=== PATIENT | male | born 1960 | race African-American/Black ===

== ENCOUNTER 2018-09-27 17:08 | Inpatient (IN) | payer MEDICARE, OTHER ==
[~2018-09-27] VITALS: Ht 182.9 cm; Wt 113.5 kg
[2018-09-27] MEDS ORDERED: IV NORMAL SALINE 500ML BAG 500 ML IV ONE (18:00)
[2018-09-27 18:07] LABS: BASO % 0 % (0-3); EOS # 0.1 x10^3/uL (0.0-0.7); EOS % 1 % (0-3); HEMATOCRIT 41.4 % (39.0-53.0); HEMOGLOBIN 13.3 g/dL (13.0-17.5); LYMPH # 1.6 x10^3/uL (1.0-4.8); LYMPH % 27 % (24-48); MEAN CORPUSCULAR HEMOGLOBIN 27 pg (25-35); MEAN CORPUSCULAR HGB CONC 32 g/dL (31-37); MEAN CORPUSCULAR VOLUME 84 fL (79-100); MONO # 0.7 x10^3/uL (0.0-1.1); MONO % 11 % (0-9); NEUT # 3.8 x10^3uL (1.8-7.7); NEUT % 61 % (31-73); PLATELET COUNT 177 x10^3/uL (140-400); RED BLOOD COUNT 4.94 x10^6/uL (4.30-5.70); RED CELL DISTRIBUTION WIDTH 15.8 % (11.5-14.5); WHITE BLOOD COUNT 6.1 x10^3/uL (4.0-11.0)
[2018-09-27 18:19] LABS: CALCIUM 8.9 mg/dL (8.5-10.1); CREATININE 1.3 mg/dL (0.7-1.3); GFR 68.4; POTASSIUM 3.9 mmol/L (3.5-5.1)
[2018-09-27 18:25] LABS: ALBUMIN 3.5 g/dL (3.4-5.0); MAGNESIUM 2.1 mg/dL (1.8-2.4); TOTAL BILIRUBIN 0.3 mg/dL (0.2-1.0); TOTAL PROTEIN 7.1 g/dL (6.4-8.2)
--- NOTE | 2018-09-27 19:00 | PHYS DOC ---
Past Medical History Past Medical History: CVA, High Cholesterol, Hypertension (TITUS NIÑO APRN) Past Surgical History: No Surgical History (TITUS NIÑO APRN) Alcohol Use: Sober Drug Use: None (TITUS NIÑO APRN) Adult General Chief Complaint Chief Complaint: WEAKNESS/GENERALIZED HPI HPI 58-year-old male presents to ER via EMS from a local [facility] facility for reports of freq. falls. Patient's brother Alfredo is with the patient reports patient had fallen on Wednesday per the usp and was evaluated at [facility] on Wednesday. He reports neither him nor his sister went to the hospital and so they are uncertain as to test done on patient. They report patient was discharged back to the facility on Wednesday night and he has not had any additional reports the patient has fallen since Wednesday. At this time he reports pt is NL on MS. He reports he and his sister wanted pt to come in for re -evaluation. Pt is denying any complaints. Pt has hx of CVA with lt side deficits/weakness per his brother and facility paperwork. (TITUS NIÑO APRN) Review of Systems Review of Systems Pt is pleasantly confused is alert to self and is denying complaints. (TITUS NIÑO APRN) Current Medications Current Medications Current Medications Medications (Trade) Dose Ordered Sig/Arely Start Time Stop Time Status Last Admin Dose Admin Sodium Chloride 500 ml @ 500 mls/hr 1X ONCE 09/27/18 18:00 09/27/18 18:59 DC 09/27/18 18:35 500 MLS/HR (SUZI SENA DO) Physical Exam Physical Exam Constitutional: Well developed, well nourished, no acute distress, non-toxic appearance. Smiling at staff HENT: Normocephalic, atraumatic, bilateral ears normal, oropharynx moist, no oral injuries, nose normal. [] Eyes: 3mm PERRLA, no nystagmus, conjunctiva normal, no discharge. [] Neck: Normal range of motion, no tenderness on palp. of mid line spine- no palp. deformity, supple, no stridor. Trachea mid line Cardiovascular: Heart rate regular rhythm, no murmur [] Lungs & Thorax: Bilateral breath sounds clear to auscultation- resp. equal/ nonlabored. No chest wall tenderness or visible injuries Abdomen: Bowel sounds normal, soft, no tenderness, no masses, no pulsatile masses. [] Skin: Warm, dry, no erythema, no rash. [] Back: No tenderness on palp. mid line spine- no palp. deformity/visible injury, no CVA tenderness. [] Extremities: No tenderness, no cyanosis, no clubbing, ROM intact rt side- lt side deficits from previous CVA, no edema Neurologic: Alert and oriented self with pt's brother reporting pt is NL on MS, normal sensory function, no focal deficits noted. [] Psychologic: Affect normal and mood normal NL per his brother. No restlessness/ anxiety. [] (REFFITT,TITUS Ward APRN) Current Patient Data Vital Signs Vital Signs Date Time Temp Pulse Resp B/P (MAP) Pulse Ox O2 Delivery O2 Flow Rate FiO2 09/27/18 20:45 58 20 97 09/27/18 17:08 98.8 147/107 (120) Room Air 98.8 (SENA,SUZI Migdalia DO) Lab Values Laboratory Tests Test 09/27/18 17:17 09/27/18 17:27 09/27/18 19:25 Glucose (Fingerstick) 82 mg/dL (70-99) White Blood Count 6.1 x10^3/uL (4.0-11.0) Red Blood Count 4.94 x10^6/uL (4.30-5.70) Hemoglobin 13.3 g/dL (13.0-17.5) Hematocrit 41.4 % (39.0-53.0) Mean Corpuscular Volume 84 fL (79-100) Mean Corpuscular Hemoglobin 27 pg (25-35) Mean Corpuscular Hemoglobin Concent 32 g/dL (31-37) Red Cell Distribution Width 15.8 % (11.5-14.5) H Platelet Count 177 x10^3/uL (140-400) Neutrophils (%) (Auto) 61 % (31-73) Lymphocytes (%) (Auto) 27 % (24-48) Monocytes (%) (Auto) 11 % (0-9) H Eosinophils (%) (Auto) 1 % (0-3) Basophils (%) (Auto) 0 % (0-3) Neutrophils # (Auto) 3.8 x10^3uL (1.8-7.7) Lymphocytes # (Auto) 1.6 x10^3/uL (1.0-4.8) Monocytes # (Auto) 0.7 x10^3/uL (0.0-1.1) Eosinophils # (Auto) 0.1 x10^3/uL (0.0-0.7) Basophils # (Auto) 0.0 x10^3/uL (0.0-0.2) Sodium Level 148 mmol/L (136-145) H Potassium Level 3.9 mmol/L (3.5-5.1) Chloride Level 108 mmol/L (98-107) H Carbon Dioxide Level 28 mmol/L (21-32) Anion Gap 12 (6-14) Blood Urea Nitrogen 18 mg/dL (8-26) Creatinine 1.3 mg/dL (0.7-1.3) Estimated GFR (Cockcroft-Gault) 68.4 BUN/Creatinine Ratio 14 (6-20) Glucose Level 101 mg/dL (70-99) H Calcium Level 8.9 mg/dL (8.5-10.1) Magnesium Level 2.1 mg/dL (1.8-2.4) Total Bilirubin 0.3 mg/dL (0.2-1.0) Aspartate Amino Transferase (AST) 58 U/L (15-37) H Alanine Aminotransferase (ALT) 20 U/L (16-63) Alkaline Phosphatase 76 U/L (46-116) Troponin I Quantitative < 0.017 ng/mL (0.000-0.055) Total Protein 7.1 g/dL (6.4-8.2) Albumin 3.5 g/dL (3.4-5.0) Albumin/Globulin Ratio 1.0 (1.0-1.7) Urine Collection Type Unknown Urine Color Kayla Urine Clarity Clear Urine pH 5.5 Urine Specific [place] >=1.030 Urine Protein Negative mg/dL (NEG-TRACE) Urine Glucose (UA) Negative mg/dL (NEG) Urine Ketones (Stick) Negative mg/dL (NEG) Urine Blood Negative (NEG) Urine Nitrite Negative (NEG) Urine Bilirubin Small (NEG) Urine Urobilinogen Dipstick 1.0 mg/dL (0.2 mg/dL) Urine Leukocyte Esterase Negative (NEG) Urine RBC 0 /HPF (0-2) Urine WBC Rare /HPF (0-4) Urine Bacteria 0 /HPF (0-FEW) Urine Mucus Mod /LPF Laboratory Tests 09/27/18 17:27 Laboratory Tests 09/27/18 17:27 (SUZI SENA DO) EKG EKG EKG obtained 09/27/18 at 1725 Interpreted by ER physician Sinus rhythm Ltward axis Incomplete Rt BBB Rate 61 No STEMI (TITUS NIÑO APRN) Course & Med Decision Making Course & Med Decision Making Pertinent Labs and Imaging studies reviewed. (See chart for details) 1850: Received [facility] chart from patient's ER visit on Wednesday and they had done cardiac labs and EKG along with imaging of his chest and head. Discussed those results with patient's brother with findings unremarkable. Discussed EKG obtained here with No acute STEMI and troponin <0.017; UA neg. for infection. Other labs similar to those from . Pt's brother is wanting to discuss with his sister. Pt's sister arrived and provided additional information as pt's brother had left and was ok with pt being dc'd back to facility. Pt's sister reports PT has been working with pt and they are the ones who voiced concerns that pt appears more weak and unable to assist as much with walking/repositioning. They had wanted pt to come to hosp. for eval. as they are unable to assist pt with his decline. She has concerns as they had reported that and with pt having more freq. falls. Discussed admission and PT eval. with admit and pt's sister is preferring this vs pt being dc'd back to facility. Will admit to hospitalist services for further care and place consult for PT. (TITUS NIÑO APRN) Dragon Disclaimer Dragon Disclaimer This electronic medical record was generated, in whole or in part, using a voice recognition dictation system. (TITUS NIÑO APRN) Departure Departure Impression: Primary Impression: Weakness Additional Impression: Falls Disposition: 09 ADMITTED INPATIENT Admitting Physician: Other (Dr. Silva) (TITUS NIÑO APRN) Condition: STABLE Referrals: KYARA HSU (PCP) Attending Signature Attending Signature I have reviewed the PA/GEOLOGY TECHNICIAN's note and plan of care. I was available for consultation as needed during the patient's visit in the emergency department. I agree with the clinical impression, plan, and disposition. (SUZI SENA DO) Problem Qualifiers TITUS NIÑO BLOW MACHINE T[employer]ER [employer] Sep 27, 2018 19:00 SUZI SENA DO Oct 16, 2018 17:54
[2018-09-27 19:47] LABS: BILIRUBIN,URINE SMALL (NEG); CLARITY,URINE CLEAR; COLOR,URINE AMBER; NITRITE,URINE NEGATIVE (NEG); PH,URINE 5.5; PROTEIN,URINE NEGATIVE (NEG-TRACE)
[2018-09-27 19:53] LABS: BACTERIA,URINE 0 /HPF (0-FEW); RBC,URINE 0 /HPF (0-2); WBC,URINE RARE /HPF (0-4)
[2018-09-27] MEDS ORDERED: MAG HYDROX/ALUMINUM HYD/SIMETH 30 ML ORAL.SUSP PO PRN (21:45)
[2018-09-27] MEDS ORDERED: ACETAMINOPHEN 325 MG TABLET. PO PRN (21:45)
[2018-09-27] MEDS ORDERED: cloNIDine HCL 0.1 MG TABLET PO PRN (21:45)
[2018-09-27] MEDS ORDERED: ALBUTEROL SULFATE 2.5 MG/3 ML NEBU. NEB PRN (21:45)
[2018-09-27] MEDS ORDERED: guaiFENesin ORAL 200 MG/10 ML LIQUID. PO PRN (21:45)
[2018-09-27] MEDS ORDERED: ONDANSETRON PF 4 MG/2 ML VIAL. IV PRN (21:45)
[2018-09-27] MEDS ORDERED: DOCUSATE SODIUM 100 MG CAPSULE. PO PRN (21:45)
[2018-09-27] MEDS ORDERED: LORazepam 0.5 MG TABLET PO PRN (21:45)
--- NOTE | 2018-09-27 21:58 | PDOC1 ---
History and Physical Date of Admission Date of Admission 09/27/2018 Identification/Chief Complaint Chief Complaint I have been falling Source Source: Chart review, Patient History of Present Illness History of Present Illness Patient is a 58-year-old gentleman with past medical history of hypertension and strokes who has a residual right sided deficit. The patient is right-handed currently lives in assisted living facility and was sent to [facility] last week according to the sister. This was apparently on and was released from that institution back to the facility in stable condition. The patient unfortunately has been having frequent falls in due to the recurrence of his symptoms sister decided to bring him to our institution for further evaluation and treatment. Currently the only abnormality on his workup has been evidence of hypernatremia. The patient denies headaches no blurred vision no dysphagia and odynophagia no chest pain no palpitations no shortness of breath has been reported. The patient says that he has been drinking abruptly nevertheless patient's sister intervenes impair much says that he has not been eating or drinking well. No orthostatics were reported, the patient and family evaluation is laying in the stretcher in not acute distress. He is responding abruptly to my questions he denies recent infections no neck stiffness no fever or chills have been reported either. No cough no sputum production no pleurisy no chest pain no palpitations no shortness of breath has been reported no nausea vomiting or diarrhea. Plan of care has been explained in detail we will request records from and noted not to be redundant with our workup. No new deficits are evident Past Medical History Cardiovascular: HTN CENTRAL NERVOUS SYSTEM: CVA Past Surgical History Past Surgical History: No pertinent history Family History Family History: Other (reviewed and found negative noncontributory to the present) Social History Smoke: No ALCOHOL: none Drugs: None Current Problem List Problem List Problems Medical Problems: (1) Falls Status: Acute (2) Weakness Status: Acute Current Medications Current Medications Current Medications Medications (Trade) Dose Ordered Sig/Arely Start Time Stop Time Status Last Admin Dose Admin Acetaminophen (Tylenol) 650 mg PRN Q4HRS PRN 09/27/18 21:45 Al Hydroxide/Mg Hydroxide (Mylanta Plus Xs) 30 ml PRN DAILY PRN 09/27/18 21:45 Albuterol Sulfate (Ventolin Neb Soln) 2.5 mg PRN Q4HRS PRN 09/27/18 21:45 UNV Clonidine HCl (Catapres) 0.1 mg PRN Q6HRS PRN 09/27/18 21:45 UNV Dextrose/Sodium Chloride 1,000 ml @ 100 mls/hr Q10H 09/27/18 22:00 Docusate Sodium (Colace) 100 mg PRN BID PRN 09/27/18 21:45 UNV Enoxaparin Sodium (Lovenox 40mg Syringe) 40 mg DAILY 09/28/18 09:00 UNV Guaifenesin (Robitussin) 200 mg PRN Q4HRS PRN 09/27/18 21:45 UNV Lorazepam (Ativan) 0.5 mg PRN Q4HRS PRN 09/27/18 21:45 UNV Ondansetron HCl (Zofran) 4 mg PRN Q4HRS PRN 09/27/18 21:45 Sodium Chloride 500 ml @ 500 mls/hr 1X ONCE 09/27/18 18:00 09/27/18 18:59 DC 09/27/18 18:35 500 MLS/HR Allergies Allergies Allergies Coded Allergies Type Severity Reaction Last Updated Verified ceftriaxone Allergy Unknown 09/27/18 Yes ROS Review of System CONSTITUTIONAL: No fever or chills EYES: No recent changes SKIN: No rash or itching CARDIOVASCULAR: No chest pain, syncope, palpitations, or edema RESPIRATORY: No SOB or cough GASTROINTESTINAL: No nausea, vomiting or abdominal pain NEUROLOGICAL: No headaches right sided weakness from his previous stroke especially on his upper extremity seems like back could appreciate good tone and strength ENDOCRINE: No cold or heat intolerance GENITOURINARY: No urgency or frequency of urination MUSCULOSKELETAL: No back pain or joint pain LYMPHATICS: No enlarged lymph nodes PSYCHIATRIC: No anxiety or depression Physical Exam Physical Exam GEN.: No apparent distress. Alert and oriented. HEENT: Head is normocephalic, atraumatic NECK: Supple. LUNGS: Clear to auscultation. HEART: RRR, S1, S2 present. Peripheral pulses intact ABDOMEN: Soft, nontender. Positive bowel sounds. EXTREMITIES: Without any cyanosis. NEUROLOGIC: Normal speech, normal tone, mild left facial droop which is chronic, fund of knowledge repetition object naming proprioception is intact motor or sensory deficits were appreciated, gait not tested PSYCHIATRIC: Normal affect, normal mood. SKIN: No ulcerations Vitals Vitals Vital Signs Date Time Temp Pulse Resp B/P (MAP) Pulse Ox O2 Delivery O2 Flow Rate FiO2 09/27/18 18:45 60 20 97 09/27/18 17:08 98.8 147/107 (120) Room Air 98.8 Labs Labs Laboratory Tests Test 09/27/18 17:17 09/27/18 17:27 09/27/18 19:25 Glucose (Fingerstick) 82 mg/dL (70-99) White Blood Count 6.1 x10^3/uL (4.0-11.0) Red Blood Count 4.94 x10^6/uL (4.30-5.70) Hemoglobin 13.3 g/dL (13.0-17.5) Hematocrit 41.4 % (39.0-53.0) Mean Corpuscular Volume 84 fL (79-100) Mean Corpuscular Hemoglobin 27 pg (25-35) Mean Corpuscular Hemoglobin Concent 32 g/dL (31-37) Red Cell Distribution Width 15.8 % (11.5-14.5) Platelet Count 177 x10^3/uL (140-400) Neutrophils (%) (Auto) 61 % (31-73) Lymphocytes (%) (Auto) 27 % (24-48) Monocytes (%) (Auto) 11 % (0-9) Eosinophils (%) (Auto) 1 % (0-3) Basophils (%) (Auto) 0 % (0-3) Neutrophils # (Auto) 3.8 x10^3uL (1.8-7.7) Lymphocytes # (Auto) 1.6 x10^3/uL (1.0-4.8) Monocytes # (Auto) 0.7 x10^3/uL (0.0-1.1) Eosinophils # (Auto) 0.1 x10^3/uL (0.0-0.7) Basophils # (Auto) 0.0 x10^3/uL (0.0-0.2) Sodium Level 148 mmol/L (136-145) Potassium Level 3.9 mmol/L (3.5-5.1) Chloride Level 108 mmol/L (98-107) Carbon Dioxide Level 28 mmol/L (21-32) Anion Gap 12 (6-14) Blood Urea Nitrogen 18 mg/dL (8-26) Creatinine 1.3 mg/dL (0.7-1.3) Estimated GFR (Cockcroft-Gault) 68.4 BUN/Creatinine Ratio 14 (6-20) Glucose Level 101 mg/dL (70-99) Calcium Level 8.9 mg/dL (8.5-10.1) Magnesium Level 2.1 mg/dL (1.8-2.4) Total Bilirubin 0.3 mg/dL (0.2-1.0) Aspartate Amino Transf (AST/SGOT) 58 U/L (15-37) Alanine Aminotransferase (ALT/SGPT) 20 U/L (16-63) Alkaline Phosphatase 76 U/L (46-116) Troponin I Quantitative < 0.017 ng/mL (0.000-0.055) Total Protein 7.1 g/dL (6.4-8.2) Albumin 3.5 g/dL (3.4-5.0) Albumin/Globulin Ratio 1.0 (1.0-1.7) Urine Collection Type Unknown Urine Color Kayla Urine Clarity Clear Urine pH 5.5 Urine Specific [place] >=1.030 Urine Protein Negative mg/dL (NEG-TRACE) Urine Glucose (UA) Negative mg/dL (NEG) Urine Ketones (Stick) Negative mg/dL (NEG) Urine Blood Negative (NEG) Urine Nitrite Negative (NEG) Urine Bilirubin Small (NEG) Urine Urobilinogen Dipstick 1.0 mg/dL (0.2 mg/dL) Urine Leukocyte Esterase Negative (NEG) Urine RBC 0 /HPF (0-2) Urine WBC Rare /HPF (0-4) Urine Bacteria 0 /HPF (0-FEW) Urine Mucus Mod /LPF Laboratory Tests Test 09/27/18 17:17 09/27/18 17:27 09/27/18 19:25 Glucose (Fingerstick) 82 mg/dL (70-99) White Blood Count 6.1 x10^3/uL (4.0-11.0) Red Blood Count 4.94 x10^6/uL (4.30-5.70) Hemoglobin 13.3 g/dL (13.0-17.5) Hematocrit 41.4 % (39.0-53.0) Mean Corpuscular Volume 84 fL (79-100) Mean Corpuscular Hemoglobin 27 pg (25-35) Mean Corpuscular Hemoglobin Concent 32 g/dL (31-37) Red Cell Distribution Width 15.8 % (11.5-14.5) Platelet Count 177 x10^3/uL (140-400) Neutrophils (%) (Auto) 61 % (31-73) Lymphocytes (%) (Auto) 27 % (24-48) Monocytes (%) (Auto) 11 % (0-9) Eosinophils (%) (Auto) 1 % (0-3) Basophils (%) (Auto) 0 % (0-3) Neutrophils # (Auto) 3.8 x10^3uL (1.8-7.7) Lymphocytes # (Auto) 1.6 x10^3/uL (1.0-4.8) Monocytes # (Auto) 0.7 x10^3/uL (0.0-1.1) Eosinophils # (Auto) 0.1 x10^3/uL (0.0-0.7) Basophils # (Auto) 0.0 x10^3/uL (0.0-0.2) Sodium Level 148 mmol/L (136-145) Potassium Level 3.9 mmol/L (3.5-5.1) Chloride Level 108 mmol/L (98-107) Carbon Dioxide Level 28 mmol/L (21-32) Anion Gap 12 (6-14) Blood Urea Nitrogen 18 mg/dL (8-26) Creatinine 1.3 mg/dL (0.7-1.3) Estimated GFR (Cockcroft-Gault) 68.4 BUN/Creatinine Ratio 14 (6-20) Glucose Level 101 mg/dL (70-99) Calcium Level 8.9 mg/dL (8.5-10.1) Magnesium Level 2.1 mg/dL (1.8-2.4) Total Bilirubin 0.3 mg/dL (0.2-1.0) Aspartate Amino Transf (AST/SGOT) 58 U/L (15-37) Alanine Aminotransferase (ALT/SGPT) 20 U/L (16-63) Alkaline Phosphatase 76 U/L (46-116) Troponin I Quantitative < 0.017 ng/mL (0.000-0.055) Total Protein 7.1 g/dL (6.4-8.2) Albumin 3.5 g/dL (3.4-5.0) Albumin/Globulin Ratio 1.0 (1.0-1.7) Urine Collection Type Unknown Urine Color Kalya Urine Clarity Clear Urine pH 5.5 Urine Specific [place] >=1.030 Urine Protein Negative mg/dL (NEG-TRACE) Urine Glucose (UA) Negative mg/dL (NEG) Urine Ketones (Stick) Negative mg/dL (NEG) Urine Blood Negative (NEG) Urine Nitrite Negative (NEG) Urine Bilirubin Small (NEG) Urine Urobilinogen Dipstick 1.0 mg/dL (0.2 mg/dL) Urine Leukocyte Esterase Negative (NEG) Urine RBC 0 /HPF (0-2) Urine WBC Rare /HPF (0-4) Urine Bacteria 0 /HPF (0-FEW) Urine Mucus Mod /LPF VTE Prophylaxis Ordered VTE Prophylaxis Devices: No VTE Pharmacological Prophylaxi: Yes Assessment/Plan Assessment/Plan Gait instability Hypernatremia History of CVA on the right handed individual with right-handed weakness History of essential hypertension Plan Admit to telemetry floor neuro checks d5 1/2 ns resume home meds check orthostatics get records from [facility] and OT evaluation further recommendations based on clinical course. DVT prophylaxis: DALE Malcolm MD Sep 27, 2018 21:58
[2018-09-27 22:00] VITALS: BP 141/93
--- NOTE | 2018-09-27 22:00 | NUR ---
ADMISSION NOTE: Patient arrived to room 504 via gurney accompanied by family member and ED staff. Patient was transferred to bed with maximum assistance. Patient asked if we were at , informed him we were at [facility]. Patient voiced understanding. Patient's sister present, assisted with admission questionnaire. Bed low, locked, call light within reach. Bed alarm armed.
[2018-09-27 23:00] VITALS: BP 153/98
[2018-09-28] MEDS ORDERED: AMLO10TA8 PO (00:19)
[2018-09-28] MEDS ORDERED: ATOR20TA58 PO (00:19)
[2018-09-28] MEDS ORDERED: TAMS0.4C97 PO (00:19)
[2018-09-28] MEDS ORDERED: ASPI81TA50 PO (00:19)
[2018-09-28] MEDS ORDERED: ERGO500027 PO (00:19)
[2018-09-28] MEDS ORDERED: ACET325T9 PO (00:19)
[2018-09-28] MEDS ORDERED: HYDR-2868 PO (00:19)
[2018-09-28] MEDS ORDERED: CARV25TA PO (00:19)
[2018-09-28] MEDS: IV DEXTROSE 5 %-0.45 % NACL 1,000 ML IV SCH ×3 (00:46→18:00)
--- NOTE | 2018-09-28 01:06 | NUR ---
Spoke with May from [facility] about discrepancies between med list from and med list from [facility]. May confirms that list from [facility] is correct and is unsure why some medications are on list from . Asked May if patient is diabetic, she stated no. Asked about DM type II on [facility] face sheet, May stated she didn't know why that was there and that they don't check his blood sugars. Asked if [facility] gives patient any anti-diabetics and May responded "no." Patient states he is diabetic and takes metformin but patient is A/Ox2-3 and forgetful. Will pass along to day RN.
[2018-09-28 03:00] VITALS: BP 135/89
[2018-09-28 06:32] LABS: BASO % 0 % (0-3); EOS # 0.1 x10^3/uL (0.0-0.7); EOS % 2 % (0-3); HEMATOCRIT 39.3 % (39.0-53.0); HEMOGLOBIN 12.7 g/dL (13.0-17.5); LYMPH # 1.7 x10^3/uL (1.0-4.8); LYMPH % 38 % (24-48); MEAN CORPUSCULAR HEMOGLOBIN 27 pg (25-35); MEAN CORPUSCULAR HGB CONC 32 g/dL (31-37); MEAN CORPUSCULAR VOLUME 83 fL (79-100); MONO # 0.6 x10^3/uL (0.0-1.1); MONO % 13 % (0-9); NEUT # 2.1 x10^3uL (1.8-7.7); NEUT % 47 % (31-73); PLATELET COUNT 155 x10^3/uL (140-400); RED BLOOD COUNT 4.72 x10^6/uL (4.30-5.70); RED CELL DISTRIBUTION WIDTH 15.4 % (11.5-14.5); WHITE BLOOD COUNT 4.5 x10^3/uL (4.0-11.0)
[2018-09-28 06:38] LABS: CALCIUM 8.4 mg/dL (8.5-10.1); CREATININE 1.2 mg/dL (0.7-1.3); POTASSIUM 3.2 mmol/L (3.5-5.1)
[2018-09-28 07:15] VITALS: BP 156/91
--- NOTE | 2018-09-28 07:58 | EKG ---
[facility] [address] [place] [address] Test Date: 2018-09-27 Test Time: 17:25:05 Pat Name: JOSE CISNEROS Department: Room: [facility] Gender: M Director Of Health Education: : 1960 Requested By: TITUS NIÑO Order Number: [id number] Reading MD: Noe Spencer MD Measurements Intervals [place] Rate: 60 P: 31 [place]: 164 QRS: -12 QRSD: 96 T: 53 QT: 392 QTc: 395 Interpretive Statements SINUS RHYTHM NON-SPECIFIC ST/T CHANGES Electronically Signed On 09-29-2018 9:12:11 CDT by Noe Spencer MD
[2018-09-28] MEDS: ENOXAPARIN 40 MG/0.4 ML SYRINGE. SQ SCH (08:39)
[2018-09-28] MEDS ORDERED: DEXTROSE 50% 25 GM / 50ML DISP.SYRIN. IV PRN (09:00)
[2018-09-28] MEDS ORDERED: POTASSIUM CHLORIDE 20 MEQ TABLET.ER. PO ONE (09:00)
[2018-09-28] MEDS ORDERED: ACETAMINOPHEN 325 MG TABLET. PO PRN ×2 (09:00→16:30)
--- NOTE | 2018-09-28 09:04 | PDOC ---
PROGRESS NOTES Chief Complaint Chief Complaint Gait instability Hypernatremia History of CVA on the right handed individual with right-handed weakness Essential hypertension Hypokalemia Transaminitis Confusion DM2 History of Present Illness History of Present Illness 58-year-old gentleman with past medical history of hypertension and strokes who has a residual right sided deficit. The patient is right-handed currently lives in assisted living facility and was sent to [facility] last week according to the sister. This was apparently on and was released from that institution back to the facility in stable condition. The patient unfortunately has been having frequent falls in due to the recurrence of his symptoms sister decided to bring him to our institution for further evaluation and treatment. Currently the only abnormality on his workup has been evidence of hypernatremia. The patient denies headaches no blurred vision no dysphagia and odynophagia no chest pain no palpitations no shortness of breath has been reported. The patient says that he has been drinking and eating plenty , however, patient's sister, Lyudmila, intervenes impair much says that he has not been eating or drinking well. Denies neck stiffness no fever or chills have been reported either. No cough no sputum production no pleurisy no chest pain no palpitations no shortness of breath has been reported no nausea vomiting or diarrhea. No new deficits are evident, but he is unable to stand for more than 3 seconds unaided. Of further note has h/o DM and no meds for this and has severe onychomycosis with incurvated nails. Plan: Consult neuro Consult podiatry TSH, A1c PT/OT Plan of care has been explained in detail we will request records from and noted not to be redundant with our workup. Vitals Vitals Vital Signs Date Time Temp Pulse Resp B/P (MAP) Pulse Ox O2 Delivery O2 Flow Rate FiO2 09/28/18 08:05 98 Room Air 09/28/18 07:15 98.7 63 20 156/91 (112) 98.7 Physical Exam General: Alert, Cooperative Heart: Regular rate, Normal S1, Normal S2 Lungs: Clear Abdomen: Normal bowel sounds, Soft Extremities: No clubbing, No cyanosis, No edema Skin: No rashes, No breakdown, No significant lesion Labs LABS Laboratory Tests Test 09/27/18 17:17 09/27/18 17:27 09/27/18 19:25 09/28/18 05:23 Glucose (Fingerstick) 82 mg/dL (70-99) White Blood Count 6.1 x10^3/uL (4.0-11.0) 4.5 x10^3/uL (4.0-11.0) Red Blood Count 4.94 x10^6/uL (4.30-5.70) 4.72 x10^6/uL (4.30-5.70) Hemoglobin 13.3 g/dL (13.0-17.5) 12.7 g/dL (13.0-17.5) Hematocrit 41.4 % (39.0-53.0) 39.3 % (39.0-53.0) Mean Corpuscular Volume 84 fL (79-100) 83 fL (79-100) Mean Corpuscular Hemoglobin 27 pg (25-35) 27 pg (25-35) Mean Corpuscular Hemoglobin Concent 32 g/dL (31-37) 32 g/dL (31-37) Red Cell Distribution Width 15.8 % (11.5-14.5) 15.4 % (11.5-14.5) Platelet Count 177 x10^3/uL (140-400) 155 x10^3/uL (140-400) Neutrophils (%) (Auto) 61 % (31-73) 47 % (31-73) Lymphocytes (%) (Auto) 27 % (24-48) 38 % (24-48) Monocytes (%) (Auto) 11 % (0-9) 13 % (0-9) Eosinophils (%) (Auto) 1 % (0-3) 2 % (0-3) Basophils (%) (Auto) 0 % (0-3) 0 % (0-3) Neutrophils # (Auto) 3.8 x10^3uL (1.8-7.7) 2.1 x10^3uL (1.8-7.7) Lymphocytes # (Auto) 1.6 x10^3/uL (1.0-4.8) 1.7 x10^3/uL (1.0-4.8) Monocytes # (Auto) 0.7 x10^3/uL (0.0-1.1) 0.6 x10^3/uL (0.0-1.1) Eosinophils # (Auto) 0.1 x10^3/uL (0.0-0.7) 0.1 x10^3/uL (0.0-0.7) Basophils # (Auto) 0.0 x10^3/uL (0.0-0.2) 0.0 x10^3/uL (0.0-0.2) Sodium Level 148 mmol/L (136-145) 147 mmol/L (136-145) Potassium Level 3.9 mmol/L (3.5-5.1) 3.2 mmol/L (3.5-5.1) Chloride Level 108 mmol/L (98-107) 109 mmol/L (98-107) Carbon Dioxide Level 28 mmol/L (21-32) 28 mmol/L (21-32) Anion Gap 12 (6-14) 10 (6-14) Blood Urea Nitrogen 18 mg/dL (8-26) 16 mg/dL (8-26) Creatinine 1.3 mg/dL (0.7-1.3) 1.2 mg/dL (0.7-1.3) Estimated GFR (Cockcroft-Gault) 68.4 75.0 BUN/Creatinine Ratio 14 (6-20) Glucose Level 101 mg/dL (70-99) 107 mg/dL (70-99) Calcium Level 8.9 mg/dL (8.5-10.1) 8.4 mg/dL (8.5-10.1) Magnesium Level 2.1 mg/dL (1.8-2.4) Total Bilirubin 0.3 mg/dL (0.2-1.0) Aspartate Amino Transf (AST/SGOT) 58 U/L (15-37) Alanine Aminotransferase (ALT/SGPT) 20 U/L (16-63) Alkaline Phosphatase 76 U/L (46-116) Troponin I Quantitative < 0.017 ng/mL (0.000-0.055) Total Protein 7.1 g/dL (6.4-8.2) Albumin 3.5 g/dL (3.4-5.0) Albumin/Globulin Ratio 1.0 (1.0-1.7) Urine Collection Type Unknown Urine Color Kayla Urine Clarity Clear Urine pH 5.5 Urine Specific [place] >=1.030 Urine Protein Negative mg/dL (NEG-TRACE) Urine Glucose (UA) Negative mg/dL (NEG) Urine Ketones (Stick) Negative mg/dL (NEG) Urine Blood Negative (NEG) Urine Nitrite Negative (NEG) Urine Bilirubin Small (NEG) Urine Urobilinogen Dipstick 1.0 mg/dL (0.2 mg/dL) Urine Leukocyte Esterase Negative (NEG) Urine RBC 0 /HPF (0-2) Urine WBC Rare /HPF (0-4) Urine Bacteria 0 /HPF (0-FEW) Urine Mucus Mod /LPF Test 09/28/18 07:35 Glucose (Fingerstick) 98 mg/dL (70-99) Assessment and Plan Assessmemt and Plan Problems Medical Problems: (1) Falls Status: Acute (2) Weakness Status: Acute Comment Review of Relevant I have reviewed the following items rochelle (where applicable) has been applied. Labs Laboratory Tests Test 09/27/18 17:17 09/27/18 17:27 09/27/18 19:25 09/28/18 05:23 Glucose (Fingerstick) 82 mg/dL (70-99) White Blood Count 6.1 x10^3/uL (4.0-11.0) 4.5 x10^3/uL (4.0-11.0) Red Blood Count 4.94 x10^6/uL (4.30-5.70) 4.72 x10^6/uL (4.30-5.70) Hemoglobin 13.3 g/dL (13.0-17.5) 12.7 g/dL (13.0-17.5) Hematocrit 41.4 % (39.0-53.0) 39.3 % (39.0-53.0) Mean Corpuscular Volume 84 fL (79-100) 83 fL (79-100) Mean Corpuscular Hemoglobin 27 pg (25-35) 27 pg (25-35) Mean Corpuscular Hemoglobin Concent 32 g/dL (31-37) 32 g/dL (31-37) Red Cell Distribution Width 15.8 % (11.5-14.5) 15.4 % (11.5-14.5) Platelet Count 177 x10^3/uL (140-400) 155 x10^3/uL (140-400) Neutrophils (%) (Auto) 61 % (31-73) 47 % (31-73) Lymphocytes (%) (Auto) 27 % (24-48) 38 % (24-48) Monocytes (%) (Auto) 11 % (0-9) 13 % (0-9) Eosinophils (%) (Auto) 1 % (0-3) 2 % (0-3) Basophils (%) (Auto) 0 % (0-3) 0 % (0-3) Neutrophils # (Auto) 3.8 x10^3uL (1.8-7.7) 2.1 x10^3uL (1.8-7.7) Lymphocytes # (Auto) 1.6 x10^3/uL (1.0-4.8) 1.7 x10^3/uL (1.0-4.8) Monocytes # (Auto) 0.7 x10^3/uL (0.0-1.1) 0.6 x10^3/uL (0.0-1.1) Eosinophils # (Auto) 0.1 x10^3/uL (0.0-0.7) 0.1 x10^3/uL (0.0-0.7) Basophils # (Auto) 0.0 x10^3/uL (0.0-0.2) 0.0 x10^3/uL (0.0-0.2) Sodium Level 148 mmol/L (136-145) 147 mmol/L (136-145) Potassium Level 3.9 mmol/L (3.5-5.1) 3.2 mmol/L (3.5-5.1) Chloride Level 108 mmol/L (98-107) 109 mmol/L (98-107) Carbon Dioxide Level 28 mmol/L (21-32) 28 mmol/L (21-32) Anion Gap 12 (6-14) 10 (6-14) Blood Urea Nitrogen 18 mg/dL (8-26) 16 mg/dL (8-26) Creatinine 1.3 mg/dL (0.7-1.3) 1.2 mg/dL (0.7-1.3) Estimated GFR (Cockcroft-Gault) 68.4 75.0 BUN/Creatinine Ratio 14 (6-20) Glucose Level 101 mg/dL (70-99) 107 mg/dL (70-99) Calcium Level 8.9 mg/dL (8.5-10.1) 8.4 mg/dL (8.5-10.1) Magnesium Level 2.1 mg/dL (1.8-2.4) Total Bilirubin 0.3 mg/dL (0.2-1.0) Aspartate Amino Transf (AST/SGOT) 58 U/L (15-37) Alanine Aminotransferase (ALT/SGPT) 20 U/L (16-63) Alkaline Phosphatase 76 U/L (46-116) Troponin I Quantitative < 0.017 ng/mL (0.000-0.055) Total Protein 7.1 g/dL (6.4-8.2) Albumin 3.5 g/dL (3.4-5.0) Albumin/Globulin Ratio 1.0 (1.0-1.7) Urine Collection Type Unknown Urine Color Kayla Urine Clarity Clear Urine pH 5.5 Urine Specific [place] >=1.030 Urine Protein Negative mg/dL (NEG-TRACE) Urine Glucose (UA) Negative mg/dL (NEG) Urine Ketones (Stick) Negative mg/dL (NEG) Urine Blood Negative (NEG) Urine Nitrite Negative (NEG) Urine Bilirubin Small (NEG) Urine Urobilinogen Dipstick 1.0 mg/dL (0.2 mg/dL) Urine Leukocyte Esterase Negative (NEG) Urine RBC 0 /HPF (0-2) Urine WBC Rare /HPF (0-4) Urine Bacteria 0 /HPF (0-FEW) Urine Mucus Mod /LPF Test 09/28/18 07:35 Glucose (Fingerstick) 98 mg/dL (70-99) Laboratory Tests Test 09/27/18 17:17 09/27/18 17:27 09/27/18 19:25 09/28/18 05:23 Glucose (Fingerstick) 82 mg/dL (70-99) White Blood Count 6.1 x10^3/uL (4.0-11.0) 4.5 x10^3/uL (4.0-11.0) Red Blood Count 4.94 x10^6/uL (4.30-5.70) 4.72 x10^6/uL (4.30-5.70) Hemoglobin 13.3 g/dL (13.0-17.5) 12.7 g/dL (13.0-17.5) Hematocrit 41.4 % (39.0-53.0) 39.3 % (39.0-53.0) Mean Corpuscular Volume 84 fL (79-100) 83 fL (79-100) Mean Corpuscular Hemoglobin 27 pg (25-35) 27 pg (25-35) Mean Corpuscular Hemoglobin Concent 32 g/dL (31-37) 32 g/dL (31-37) Red Cell Distribution Width 15.8 % (11.5-14.5) 15.4 % (11.5-14.5) Platelet Count 177 x10^3/uL (140-400) 155 x10^3/uL (140-400) Neutrophils (%) (Auto) 61 % (31-73) 47 % (31-73) Lymphocytes (%) (Auto) 27 % (24-48) 38 % (24-48) Monocytes (%) (Auto) 11 % (0-9) 13 % (0-9) Eosinophils (%) (Auto) 1 % (0-3) 2 % (0-3) Basophils (%) (Auto) 0 % (0-3) 0 % (0-3) Neutrophils # (Auto) 3.8 x10^3uL (1.8-7.7) 2.1 x10^3uL (1.8-7.7) Lymphocytes # (Auto) 1.6 x10^3/uL (1.0-4.8) 1.7 x10^3/uL (1.0-4.8) Monocytes # (Auto) 0.7 x10^3/uL (0.0-1.1) 0.6 x10^3/uL (0.0-1.1) Eosinophils # (Auto) 0.1 x10^3/uL (0.0-0.7) 0.1 x10^3/uL (0.0-0.7) Basophils # (Auto) 0.0 x10^3/uL (0.0-0.2) 0.0 x10^3/uL (0.0-0.2) Sodium Level 148 mmol/L (136-145) 147 mmol/L (136-145) Potassium Level 3.9 mmol/L (3.5-5.1) 3.2 mmol/L (3.5-5.1) Chloride Level 108 mmol/L (98-107) 109 mmol/L (98-107) Carbon Dioxide Level 28 mmol/L (21-32) 28 mmol/L (21-32) Anion Gap 12 (6-14) 10 (6-14) Blood Urea Nitrogen 18 mg/dL (8-26) 16 mg/dL (8-26) Creatinine 1.3 mg/dL (0.7-1.3) 1.2 mg/dL (0.7-1.3) Estimated GFR (Cockcroft-Gault) 68.4 75.0 BUN/Creatinine Ratio 14 (6-20) Glucose Level 101 mg/dL (70-99) 107 mg/dL (70-99) Calcium Level 8.9 mg/dL (8.5-10.1) 8.4 mg/dL (8.5-10.1) Magnesium Level 2.1 mg/dL (1.8-2.4) Total Bilirubin 0.3 mg/dL (0.2-1.0) Aspartate Amino Transf (AST/SGOT) 58 U/L (15-37) Alanine Aminotransferase (ALT/SGPT) 20 U/L (16-63) Alkaline Phosphatase 76 U/L (46-116) Troponin I Quantitative < 0.017 ng/mL (0.000-0.055) Total Protein 7.1 g/dL (6.4-8.2) Albumin 3.5 g/dL (3.4-5.0) Albumin/Globulin Ratio 1.0 (1.0-1.7) Urine Collection Type Unknown Urine Color Kayla Urine Clarity Clear Urine pH 5.5 Urine Specific [place] >=1.030 Urine Protein Negative mg/dL (NEG-TRACE) Urine Glucose (UA) Negative mg/dL (NEG) Urine Ketones (Stick) Negative mg/dL (NEG) Urine Blood Negative (NEG) Urine Nitrite Negative (NEG) Urine Bilirubin Small (NEG) Urine Urobilinogen Dipstick 1.0 mg/dL (0.2 mg/dL) Urine Leukocyte Esterase Negative (NEG) Urine RBC 0 /HPF (0-2) Urine WBC Rare /HPF (0-4) Urine Bacteria 0 /HPF (0-FEW) Urine Mucus Mod /LPF Test 4/3/19 07:35 Glucose (Fingerstick) 98 mg/dL (70-99) Medications Current Medications Sodium Chloride 500 ml @ 500 mls/hr 1X ONCE IV Last administered on 09/27/18at 18:35; Start 09/27/18 at 18:00; Stop 09/27/18 at 18:59; Status DC Dextrose/Sodium Chloride 1,000 ml @ 100 mls/hr Q10H IV Last administered on 09/28/18at 00:46; Start 09/27/18 at 22:00 Ondansetron HCl (Zofran) 4 mg PRN Q4HRS PRN IV NAUSEA/VOMITING 1ST CHOICE; Start 09/27/18 at 21:45 Acetaminophen (Tylenol) 650 mg PRN Q4HRS PRN PO TEMP OVER 100.4F OR MILD PAIN; Start 09/27/18 at 21:45 Al Hydroxide/Mg Hydroxide (Mylanta Plus Xs) 30 ml PRN DAILY PRN PO HEARTBURN / GAS; Start 09/27/18 at 21:45 Clonidine HCl (Catapres) 0.1 mg PRN Q6HRS PRN PO SBP>160 OR DBP>90; Start at 21:45 Docusate Sodium (Colace) 100 mg PRN BID PRN PO CONSTIPATION 1ST CHOICE; Start 09/27/18 at 21:45 Albuterol Sulfate (Ventolin Neb Soln) 2.5 mg PRN Q4HRS PRN NEB SHORTNESS OF BREATH; Start 09/27/18 at 21:45 Guaifenesin (Robitussin) 200 mg PRN Q4HRS PRN PO COUGH 1ST CHOICE; Start at 21:45 Lorazepam (Ativan) 0.5 mg PRN Q4HRS PRN PO ANXIETY / AGITATION; Start 09/27/18 at 21:45 Enoxaparin Sodium (Lovenox 40mg Syringe) 40 mg DAILY SQ Last administered on 09/28/18at 08:39; Start 09/28/18 at 09:00 Acetaminophen (Tylenol) 325 mg PRN Q4HRS PRN PO MILD PAIN / TEMP; Start at 09:00; Status UNV Amlodipine Besylate (Norvasc) 10 mg DAILY PO ; Start 09/28/18 at 09:00; Status UNV Aspirin (Ecotrin) 81 mg DAILY PO ; Start 09/28/18 at 09:00; Status UNV Atorvastatin Calcium (Lipitor) 20 mg HS PO ; Start 09/28/18 at 21:00; Status UNV Ergocalciferol (Vitamin D2) 50,000 unit QMTH PO ; Start 09/29/18 at 16:00; Status UNV Tamsulosin HCl (Flomax) 0.4 mg QHS PO ; Start 09/28/18 at 21:00; Status UNV Non-Formulary Medication (Carvedilol (Coreg)) 25 mg BIDWMEALS PO ; Start at 17:00; Status UNV Non-Formulary Medication (Hydralazine Hcl ) 1 tab TID PO ; Start 09/28/18 at 09: 00; Status UNV Active Scripts Active Reported Tylenol (Acetaminophen) 325 Mg Tablet 1-2 Tab PO PRN Q4HRS PRN Aspir-Low (Aspirin) 81 Mg Tablet.dr 1 Tab PO DAILY Atorvastatin Calcium 20 Mg Tablet 20 Mg PO HS Hydralazine Hcl 25 Mg Tablet 1 Tab PO TID Amlodipine Besylate 10 Mg Tablet 10 Mg PO DAILY Coreg (Carvedilol) 25 Mg Tablet 25 Mg PO BIDWMEALS Flomax (Tamsulosin Hcl) 0.4 Mg Cap.er.24h 1 Cap PO QHS Vitamin D2 (Ergocalciferol (Vitamin D2)) 50,000 Unit Capsule 1 Cap PO QMTH Vitals/I & O Vital Sign - Last 24 Hours 09/27/18 09/27/18 09/27/18 09/27/18 17:08 17:45 18:15 18:45 Temp 98.8 98.8 Pulse 66 62 62 60 Resp 20 20 20 20 B/P (MAP) 147/107 (120) Pulse Ox 97 96 96 97 O2 Delivery Room Air 09/27/18 09/27/18 09/27/18 09/27/18 19:15 19:45 20:45 22:00 Temp 98.9 98.9 Pulse 63 72 58 59 Resp 20 20 20 20 B/P (MAP) 141/93 (109) Pulse Ox 97 97 97 96 O2 Delivery Room Air 09/27/18 09/27/18 09/28/18 09/28/18 22:00 23:00 03:00 07:15 Temp 98.3 98.1 98.7 98.3 98.1 98.7 Pulse 59 56 63 Resp 18 18 20 B/P (MAP) 153/98 (116) 135/89 (104) 156/91 (112) Pulse Ox 94 93 95 O2 Delivery Room Air Room Air Room Air Room Air 09/28/18 08:05 Pulse Ox 98 O2 Delivery Room Air Intake and Output 09/27/18 09/27/18 09/28/18 14:59 22:59 06:59 Intake Total 320 ml Balance 320 ml DANIEL ENRIQUE MD Sep 28, 2018 09:04
[2018-09-28] MEDS ORDERED: ASPIRIN ENTERIC COATED 81 MG TABLET.DR. PO SCH (10:00)
[2018-09-28] MEDS: CARVEDILOL 12.5 MG TABLET. PO SCH ×2 (10:35→17:00)
[2018-09-28] MEDS: amLODIPine BESYLATE 10 MG TABLET PO SCH (10:36)
[2018-09-28] MEDS: hydrALAZINE 25 MG TABLET PO SCH ×3 (10:36→21:00)
[2018-09-28 11:01] VITALS: BP 126/90
[2018-09-28] MEDS: INSULIN LISPRO 300 UNITS/3 ML INSULN.PEN. SQ SCH ×2 (12:00→17:18)
--- NOTE | 2018-09-28 12:24 | NUR ---
SW responding to a referral regarding pt is from [facility]. DON spoke with Edna at [facility], phone: [phone], fax: [phone] and confirmed pt is [facility] resident and plan of return upon dc. Addendum: 09/28/18 at 1610 by GAVIN OCHOA Pt competed AD form. A notarized copy provided to pt and Sister, Lyudmila, phone:[phone]. A copy also placed in chart. Pt's sister is interested in pt getting PT/OT at [facility] and DON discussed Physician can write SNU orders when pt is ready to dc.
--- NOTE | 2018-09-28 13:13 | PDOC2 ---
CONSULT Date of Consult Date of Consult DATE: 09/28/18 TIME: 13:03 Reason for Consult Reason for Consult: Long, incurvated, painful nails. Identification/Chief Complaint Chief Complaint Patient is c/o long, painful incurvated nails. Patient states that due to stroke he has been unable to take care of them. He is at a nursing / rehab facility. Source Source: Patient History of Present Illness Reason for Visit: Patient relates to painful and incurvated toenails which are causing pain with weight bearing. Patient denies any trauma to the feet. Past Medical History Cardiovascular: HTN CENTRAL NERVOUS SYSTEM: CVA Past Surgical History Past Surgical History: No pertinent history Family History Family History: Other (reviewed and found negative noncontributory to the present) Social History No ALCOHOL: none Drugs: None Current Problem List Problem List Problems Medical Problems: (1) Falls Status: Acute (2) Weakness Status: Acute Current Medications Current Medications Current Medications Sodium Chloride 500 ml @ 500 mls/hr 1X ONCE IV Last administered on 09/27/18at 18:35; Start 09/27/18 at 18:00; Stop 09/27/18 at 18:59; Status DC Dextrose/Sodium Chloride 1,000 ml @ 100 mls/hr Q10H IV Last administered on 09/28/18at 12:05; Start 09/27/18 at 22:00 Ondansetron HCl (Zofran) 4 mg PRN Q4HRS PRN IV NAUSEA/VOMITING 1ST CHOICE; Start 09/27/18 at 21:45 Acetaminophen (Tylenol) 650 mg PRN Q4HRS PRN PO TEMP OVER 100.4F OR MILD PAIN; Start 09/27/18 at 21:45 Al Hydroxide/Mg Hydroxide (Mylanta Plus Xs) 30 ml PRN DAILY PRN PO HEARTBURN / GAS; Start 09/27/18 at 21:45 Clonidine HCl (Catapres) 0.1 mg PRN Q6HRS PRN PO SBP>160 OR DBP>90; Start at 21:45 Docusate Sodium (Colace) 100 mg PRN BID PRN PO CONSTIPATION 1ST CHOICE; Start 09/27/18 at 21:45 Albuterol Sulfate (Ventolin Neb Soln) 2.5 mg PRN Q4HRS PRN NEB SHORTNESS OF BREATH; Start 09/27/18 at 21:45 Guaifenesin (Robitussin) 200 mg PRN Q4HRS PRN PO COUGH 1ST CHOICE; Start at 21:45 Lorazepam (Ativan) 0.5 mg PRN Q4HRS PRN PO ANXIETY / AGITATION; Start 09/27/18 at 21:45 Enoxaparin Sodium (Lovenox 40mg Syringe) 40 mg DAILY SQ Last administered on 09/28/18at 08:39; Start 09/28/18 at 09:00 Acetaminophen (Tylenol) 325 mg PRN Q4HRS PRN PO MILD PAIN / TEMP; Start at 09:00 Amlodipine Besylate (Norvasc) 10 mg DAILY PO Last administered on 09/28/18at 10: 36; Start 09/28/18 at 10:00 Aspirin (Ecotrin) 81 mg DAILY PO Last administered on 09/28/18at 10:36; Start 09/28/18 at 10:00 Atorvastatin Calcium (Lipitor) 20 mg HS PO ; Start 09/28/18 at 21:00 Ergocalciferol (Vitamin D2) 50,000 unit MoTh PO ; Start 09/29/18 at 09:00 Tamsulosin HCl (Flomax) 0.4 mg QHS PO ; Start 09/28/18 at 21:00 Carvedilol (Coreg) 25 mg BIDWMEALS PO Last administered on 09/28/18at 10:35; Start 09/28/18 at 09:30 Hydralazine HCl (Apresoline) 25 mg TID PO Last administered on 09/28/18 10:36; Start 09/28/18 at 10:00 Potassium Chloride (Klor-Con) 40 meq 1X ONCE PO Last administered on 09/28/18at 10:35; Start 09/28/18 at 09:00; Stop 09/28/18 at 09:26; Status DC Insulin Human Lispro (HumaLOG) 0-7 UNITS TIDWMEALS SQ ; Start 09/28/18 at 12:00 Dextrose (Dextrose 50%-Water Syringe) 12.5 gm PRN Q15MIN PRN IV SEE COMMENTS; Start 09/28/18 at 09:00 Active Scripts Active Reported Tylenol (Acetaminophen) 325 Mg Tablet 1-2 Tab PO PRN Q4HRS PRN Aspir-Low (Aspirin) 81 Mg Tablet.dr 1 Tab PO DAILY Atorvastatin Calcium 20 Mg Tablet 20 Mg PO HS Hydralazine Hcl 25 Mg Tablet 1 Tab PO TID Amlodipine Besylate 10 Mg Tablet 10 Mg PO DAILY Coreg (Carvedilol) 25 Mg Tablet 25 Mg PO BIDWMEALS Flomax (Tamsulosin Hcl) 0.4 Mg Cap.er.24h 1 Cap PO QHS Vitamin D2 (Ergocalciferol (Vitamin D2)) 50,000 Unit Capsule 1 Cap PO QMTH Allergies Allergies: Coded Allergies: ceftriaxone (Verified Allergy, Intermediate, 09/28/18) ROS Skin: Yes Dry Skin, Yes Nail Changes Physical Exam General: Alert, Oriented X3, Cooperative, No acute distress Extremities: No tenderness/swelling, Other (Faintly palpable pedal pulses. Xerotic skin noted. No open lesions noted. No erythema or edema noted. Nails are thickened, elongated, incurvated, discolored with subungal debris noted.) MUSCULOSKELETAL: Other (+ POP at the nails, bilateral feet.) Vitals VITALS Vital Signs Date Time Temp Pulse Resp B/P (MAP) Pulse Ox O2 Delivery O2 Flow Rate FiO2 09/28/18 11:01 97.4 63 18 126/90 (102) 96 Room Air 97.4 Labs Labs Laboratory Tests Test 09/27/18 17:17 09/27/18 17:27 09/27/18 19:25 09/28/18 05:23 Glucose (Fingerstick) 82 mg/dL (70-99) White Blood Count 6.1 x10^3/uL (4.0-11.0) 4.5 x10^3/uL (4.0-11.0) Red Blood Count 4.94 x10^6/uL (4.30-5.70) 4.72 x10^6/uL (4.30-5.70) Hemoglobin 13.3 g/dL (13.0-17.5) 12.7 g/dL (13.0-17.5) Hematocrit 41.4 % (39.0-53.0) 39.3 % (39.0-53.0) Mean Corpuscular Volume 84 fL (79-100) 83 fL (79-100) Mean Corpuscular Hemoglobin 27 pg (25-35) 27 pg (25-35) Mean Corpuscular Hemoglobin Concent 32 g/dL (31-37) 32 g/dL (31-37) Red Cell Distribution Width 15.8 % (11.5-14.5) 15.4 % (11.5-14.5) Platelet Count 177 x10^3/uL (140-400) 155 x10^3/uL (140-400) Neutrophils (%) (Auto) 61 % (31-73) 47 % (31-73) Lymphocytes (%) (Auto) 27 % (24-48) 38 % (24-48) Monocytes (%) (Auto) 11 % (0-9) 13 % (0-9) Eosinophils (%) (Auto) 1 % (0-3) 2 % (0-3) Basophils (%) (Auto) 0 % (0-3) 0 % (0-3) Neutrophils # (Auto) 3.8 x10^3uL (1.8-7.7) 2.1 x10^3uL (1.8-7.7) Lymphocytes # (Auto) 1.6 x10^3/uL (1.0-4.8) 1.7 x10^3/uL (1.0-4.8) Monocytes # (Auto) 0.7 x10^3/uL (0.0-1.1) 0.6 x10^3/uL (0.0-1.1) Eosinophils # (Auto) 0.1 x10^3/uL (0.0-0.7) 0.1 x10^3/uL (0.0-0.7) Basophils # (Auto) 0.0 x10^3/uL (0.0-0.2) 0.0 x10^3/uL (0.0-0.2) Sodium Level 148 mmol/L (136-145) 147 mmol/L (136-145) Potassium Level 3.9 mmol/L (3.5-5.1) 3.2 mmol/L (3.5-5.1) Chloride Level 108 mmol/L (98-107) 109 mmol/L (98-107) Carbon Dioxide Level 28 mmol/L (21-32) 28 mmol/L (21-32) Anion Gap 12 (6-14) 10 (6-14) Blood Urea Nitrogen 18 mg/dL (8-26) 16 mg/dL (8-26) Creatinine 1.3 mg/dL (0.7-1.3) 1.2 mg/dL (0.7-1.3) Estimated GFR (Cockcroft-Gault) 68.4 75.0 BUN/Creatinine Ratio 14 (6-20) Glucose Level 101 mg/dL (70-99) 107 mg/dL (70-99) Calcium Level 8.9 mg/dL (8.5-10.1) 8.4 mg/dL (8.5-10.1) Magnesium Level 2.1 mg/dL (1.8-2.4) Total Bilirubin 0.3 mg/dL (0.2-1.0) Aspartate Amino Transf (AST/SGOT) 58 U/L (15-37) Alanine Aminotransferase (ALT/SGPT) 20 U/L (16-63) Alkaline Phosphatase 76 U/L (46-116) Troponin I Quantitative < 0.017 ng/mL (0.000-0.055) Total Protein 7.1 g/dL (6.4-8.2) Albumin 3.5 g/dL (3.4-5.0) Albumin/Globulin Ratio 1.0 (1.0-1.7) Urine Collection Type Unknown Urine Color Kayla Urine Clarity Clear Urine pH 5.5 Urine Specific [place] >=1.030 Urine Protein Negative mg/dL (NEG-TRACE) Urine Glucose (UA) Negative mg/dL (NEG) Urine Ketones (Stick) Negative mg/dL (NEG) Urine Blood Negative (NEG) Urine Nitrite Negative (NEG) Urine Bilirubin Small (NEG) Urine Urobilinogen Dipstick 1.0 mg/dL (0.2 mg/dL) Urine Leukocyte Esterase Negative (NEG) Urine RBC 0 /HPF (0-2) Urine WBC Rare /HPF (0-4) Urine Bacteria 0 /HPF (0-FEW) Urine Mucus Mod /LPF Test 09/28/18 07:35 09/28/18 11:51 Glucose (Fingerstick) 98 mg/dL (70-99) 102 mg/dL (70-99) Laboratory Tests Test 09/27/18 17:17 09/27/18 17:27 09/27/18 19:25 09/28/18 05:23 Glucose (Fingerstick) 82 mg/dL (70-99) White Blood Count 6.1 x10^3/uL (4.0-11.0) 4.5 x10^3/uL (4.0-11.0) Red Blood Count 4.94 x10^6/uL (4.30-5.70) 4.72 x10^6/uL (4.30-5.70) Hemoglobin 13.3 g/dL (13.0-17.5) 12.7 g/dL (13.0-17.5) Hematocrit 41.4 % (39.0-53.0) 39.3 % (39.0-53.0) Mean Corpuscular Volume 84 fL (79-100) 83 fL (79-100) Mean Corpuscular Hemoglobin 27 pg (25-35) 27 pg (25-35) Mean Corpuscular Hemoglobin Concent 32 g/dL (31-37) 32 g/dL (31-37) Red Cell Distribution Width 15.8 % (11.5-14.5) 15.4 % (11.5-14.5) Platelet Count 177 x10^3/uL (140-400) 155 x10^3/uL (140-400) Neutrophils (%) (Auto) 61 % (31-73) 47 % (31-73) Lymphocytes (%) (Auto) 27 % (24-48) 38 % (24-48) Monocytes (%) (Auto) 11 % (0-9) 13 % (0-9) Eosinophils (%) (Auto) 1 % (0-3) 2 % (0-3) Basophils (%) (Auto) 0 % (0-3) 0 % (0-3) Neutrophils # (Auto) 3.8 x10^3uL (1.8-7.7) 2.1 x10^3uL (1.8-7.7) Lymphocytes # (Auto) 1.6 x10^3/uL (1.0-4.8) 1.7 x10^3/uL (1.0-4.8) Monocytes # (Auto) 0.7 x10^3/uL (0.0-1.1) 0.6 x10^3/uL (0.0-1.1) Eosinophils # (Auto) 0.1 x10^3/uL (0.0-0.7) 0.1 x10^3/uL (0.0-0.7) Basophils # (Auto) 0.0 x10^3/uL (0.0-0.2) 0.0 x10^3/uL (0.0-0.2) Sodium Level 148 mmol/L (136-145) 147 mmol/L (136-145) Potassium Level 3.9 mmol/L (3.5-5.1) 3.2 mmol/L (3.5-5.1) Chloride Level 108 mmol/L (98-107) 109 mmol/L (98-107) Carbon Dioxide Level 28 mmol/L (21-32) 28 mmol/L (21-32) Anion Gap 12 (6-14) 10 (6-14) Blood Urea Nitrogen 18 mg/dL (8-26) 16 mg/dL (8-26) Creatinine 1.3 mg/dL (0.7-1.3) 1.2 mg/dL (0.7-1.3) Estimated GFR (Cockcroft-Gault) 68.4 75.0 BUN/Creatinine Ratio 14 (6-20) Glucose Level 101 mg/dL (70-99) 107 mg/dL (70-99) Calcium Level 8.9 mg/dL (8.5-10.1) 8.4 mg/dL (8.5-10.1) Magnesium Level 2.1 mg/dL (1.8-2.4) Total Bilirubin 0.3 mg/dL (0.2-1.0) Aspartate Amino Transf (AST/SGOT) 58 U/L (15-37) Alanine Aminotransferase (ALT/SGPT) 20 U/L (16-63) Alkaline Phosphatase 76 U/L (46-116) Troponin I Quantitative < 0.017 ng/mL (0.000-0.055) Total Protein 7.1 g/dL (6.4-8.2) Albumin 3.5 g/dL (3.4-5.0) Albumin/Globulin Ratio 1.0 (1.0-1.7) Urine Collection Type Unknown Urine Color Kayla Urine Clarity Clear Urine pH 5.5 Urine Specific [place] >=1.030 Urine Protein Negative mg/dL (NEG-TRACE) Urine Glucose (UA) Negative mg/dL (NEG) Urine Ketones (Stick) Negative mg/dL (NEG) Urine Blood Negative (NEG) Urine Nitrite Negative (NEG) Urine Bilirubin Small (NEG) Urine Urobilinogen Dipstick 1.0 mg/dL (0.2 mg/dL) Urine Leukocyte Esterase Negative (NEG) Urine RBC 0 /HPF (0-2) Urine WBC Rare /HPF (0-4) Urine Bacteria 0 /HPF (0-FEW) Urine Mucus Mod /LPF Test 09/28/18 07:35 09/28/18 11:51 Glucose (Fingerstick) 98 mg/dL (70-99) 102 mg/dL (70-99) Assessment/Plan Assessment/Plan A/P: 1. Onychomycosis / Onychocryptosis: - Nails debrided x 10 with relief in pain noted to the site. - Discussed in detail with patient / sister about appropriate foot care / nails care. - Patient advised to check his feet daily for any wounds / swelling / redness / infection. - Patient can followup in the clinic as needed for routine foot care. Information given patient / sister. - Will sign off. Please call if any pedal issues. Jeni Cardenas DPM [phone] JENI CARDENAS DPM Sep 28, 2018 13:13
--- NOTE | 2018-09-28 14:15 | PDOC2 ---
NEUROLOGY CONSULT Date of Admission Date of Admission DATE: 09/28/18 TIME: 14:08 Reason for Consult Reason for Consult: Weakness Referring Physician Referring Physician: Dr. Silva Source Source: Chart review, Patient History of Present Illness History of Present Illness The patient is a 58-year-old right-handed male who has been having some frequent falls. He had a brainstem stroke 2 years ago. Throughout the chart there is reference to right-sided weakness. He says that he is weaker on the left side. He was in [facility] last week because of the falls. We do not have full records but the discharge summaries from the emergency department refer to acute stroke being ruled out. The patient denies any headache, neck pain, back pain, dysarthria, dysphagia, or diplopia. He says that he comes in from home but he has been at [facility] for the past year, his sister told the nurse. There is no history of stroke or head injury. Past Medical History Cardiovascular: HTN CENTRAL NERVOUS SYSTEM: CVA Musculoskeletal: Osteoarthritis Renal/: Benign prostatic enlarg. Endocrine: Diabetes, Other (vitamin D deficiency) Past Surgical History Past Surgical History: No pertinent history Family History Family History: Hypertension Social History Social History Single, no alcohol or tobacco Current Medications Current Medications Current Medications Sodium Chloride 500 ml @ 500 mls/hr 1X ONCE IV Last administered on 09/27/18at 18:35; Start 09/27/18 at 18:00; Stop 09/27/18 at 18:59; Status DC Dextrose/Sodium Chloride 1,000 ml @ 100 mls/hr Q10H IV Last administered on 09/28/18at 12:05; Start 09/27/18 at 22:00 Ondansetron HCl (Zofran) 4 mg PRN Q4HRS PRN IV NAUSEA/VOMITING 1ST CHOICE; Start 09/27/18 at 21:45 Acetaminophen (Tylenol) 650 mg PRN Q4HRS PRN PO TEMP OVER 100.4F OR MILD PAIN; Start 09/27/18 at 21:45 Al Hydroxide/Mg Hydroxide (Mylanta Plus Xs) 30 ml PRN DAILY PRN PO HEARTBURN / GAS; Start 09/27/18 at 21:45 Clonidine HCl (Catapres) 0.1 mg PRN Q6HRS PRN PO SBP>160 OR DBP>90; Start at 21:45 Docusate Sodium (Colace) 100 mg PRN BID PRN PO CONSTIPATION 1ST CHOICE; Start 09/27/18 at 21:45 Albuterol Sulfate (Ventolin Neb Soln) 2.5 mg PRN Q4HRS PRN NEB SHORTNESS OF BREATH; Start 09/27/18 at 21:45 Guaifenesin (Robitussin) 200 mg PRN Q4HRS PRN PO COUGH 1ST CHOICE; Start at 21:45 Lorazepam (Ativan) 0.5 mg PRN Q4HRS PRN PO ANXIETY / AGITATION; Start 09/27/18 at 21:45 Enoxaparin Sodium (Lovenox 40mg Syringe) 40 mg DAILY SQ Last administered on 09/28/18at 08:39; Start 09/28/18 at 09:00 Acetaminophen (Tylenol) 325 mg PRN Q4HRS PRN PO MILD PAIN / TEMP; Start at 09:00 Amlodipine Besylate (Norvasc) 10 mg DAILY PO Last administered on 09/28/18at 10: 36; Start 09/28/18 at 10:00 Aspirin (Ecotrin) 81 mg DAILY PO Last administered on 09/28/18at 10:36; Start 09/28/18 at 10:00 Atorvastatin Calcium (Lipitor) 20 mg HS PO ; Start 09/28/18 at 21:00 Ergocalciferol (Vitamin D2) 50,000 unit MoTh PO ; Start 09/29/18 at 09:00 Tamsulosin HCl (Flomax) 0.4 mg QHS PO ; Start 09/28/18 at 21:00 Carvedilol (Coreg) 25 mg BIDWMEALS PO Last administered on 09/28/18at 10:35; Start 09/28/18 at 09:30 Hydralazine HCl (Apresoline) 25 mg TID PO Last administered on 09/28/18 10:36; Start 09/28/18 at 10:00 Potassium Chloride (Klor-Con) 40 meq 1X ONCE PO Last administered on 09/28/18at 10:35; Start 09/28/18 at 09:00; Stop 09/28/18 at 09:26; Status DC Insulin Human Lispro (HumaLOG) 0-7 UNITS TIDWMEALS SQ ; Start 09/28/18 at 12:00 Dextrose (Dextrose 50%-Water Syringe) 12.5 gm PRN Q15MIN PRN IV SEE COMMENTS; Start 09/28/18 at 09:00 Active Scripts Active Reported Tylenol (Acetaminophen) 325 Mg Tablet 1-2 Tab PO PRN Q4HRS PRN Aspir-Low (Aspirin) 81 Mg Tablet.dr 1 Tab PO DAILY Atorvastatin Calcium 20 Mg Tablet 20 Mg PO HS Hydralazine Hcl 25 Mg Tablet 1 Tab PO TID Amlodipine Besylate 10 Mg Tablet 10 Mg PO DAILY Coreg (Carvedilol) 25 Mg Tablet 25 Mg PO BIDWMEALS Flomax (Tamsulosin Hcl) 0.4 Mg Cap.er.24h 1 Cap PO QHS Vitamin D2 (Ergocalciferol (Vitamin D2)) 50,000 Unit Capsule 1 Cap PO QMTH Allergies Allergies: Coded Allergies: ceftriaxone (Verified Allergy, Intermediate, 09/28/18) ROS Review of System Negative for fever, chills, weight loss, shortness of breath, chest pain, indigestion, hematochezia, melena, and dysuria. Full 14-point review of systems is negative. Physical Exam Physical Examination General: Well-developed, well-nourished black male in no acute distress HEENT: Normocephalic andatraumatic.Temporal arteriespulsatile and nontender. Neck: Supple without bruit, no meningismus Musculoskeletal: Stability:see neurologic. Gait exam:see neurologic. Tone:see neurologic. Strength:see neurologic. Neurological: Mental Status:orientation, memory, attention span/concentration, language, fund of knowledge: He knows he is in the hospital, does not know its name, as above, thinks he comes in from home but these actually been a [facility] resident for a year, very poor historian. He names, repeats, and comprehends.. Cranial Nerves:Pupils equal and reactive to light, extraocular movements areintact, visual booker are full to confrontation. Facial sensation is normal. There is a left central facial weakness. Vestibulo-ocular reflex is intact. Palate elevates and tongue protrudes in midline. All other cranial related problems are negative except as mentioned before.Reflexes:0+ and symmetric with flexor plantar responses. Motor:4/5 strength, definitely weaker on the left with a left pronator drift, normal tone and bulk. Coordination:Finger-nose finger and nlzy-es-pgab testing are normal, accounting for weakness. Rapid alternating movements and fine finger movements are intact. Gait:Not tested. Sensory: Stocking loss Vitals VITALS Vital Signs Date Time Temp Pulse Resp B/P (MAP) Pulse Ox O2 Delivery O2 Flow Rate FiO2 09/28/18 11:01 97.4 63 18 126/90 (102) 96 Room Air 97.4 Labs Labs Laboratory Tests Test 09/27/18 17:17 09/27/18 17:27 09/27/18 19:25 09/27/18 22:00 Glucose (Fingerstick) 82 mg/dL (70-99) White Blood Count 6.1 x10^3/uL (4.0-11.0) Red Blood Count 4.94 x10^6/uL (4.30-5.70) Hemoglobin 13.3 g/dL (13.0-17.5) Hematocrit 41.4 % (39.0-53.0) Mean Corpuscular Volume 84 fL (79-100) Mean Corpuscular Hemoglobin 27 pg (25-35) Mean Corpuscular Hemoglobin Concent 32 g/dL (31-37) Red Cell Distribution Width 15.8 % (11.5-14.5) Platelet Count 177 x10^3/uL (140-400) Neutrophils (%) (Auto) 61 % (31-73) Lymphocytes (%) (Auto) 27 % (24-48) Monocytes (%) (Auto) 11 % (0-9) Eosinophils (%) (Auto) 1 % (0-3) Basophils (%) (Auto) 0 % (0-3) Neutrophils # (Auto) 3.8 x10^3uL (1.8-7.7) Lymphocytes # (Auto) 1.6 x10^3/uL (1.0-4.8) Monocytes # (Auto) 0.7 x10^3/uL (0.0-1.1) Eosinophils # (Auto) 0.1 x10^3/uL (0.0-0.7) Basophils # (Auto) 0.0 x10^3/uL (0.0-0.2) Sodium Level 148 mmol/L (136-145) Potassium Level 3.9 mmol/L (3.5-5.1) Chloride Level 108 mmol/L (98-107) Carbon Dioxide Level 28 mmol/L (21-32) Anion Gap 12 (6-14) Blood Urea Nitrogen 18 mg/dL (8-26) Creatinine 1.3 mg/dL (0.7-1.3) Estimated GFR (Cockcroft-Gault) 68.4 BUN/Creatinine Ratio 14 (6-20) Glucose Level 101 mg/dL (70-99) Calcium Level 8.9 mg/dL (8.5-10.1) Magnesium Level 2.1 mg/dL (1.8-2.4) Total Bilirubin 0.3 mg/dL (0.2-1.0) Aspartate Amino Transf (AST/SGOT) 58 U/L (15-37) Alanine Aminotransferase (ALT/SGPT) 20 U/L (16-63) Alkaline Phosphatase 76 U/L (46-116) Troponin I Quantitative < 0.017 ng/mL (0.000-0.055) Total Protein 7.1 g/dL (6.4-8.2) Albumin 3.5 g/dL (3.4-5.0) Albumin/Globulin Ratio 1.0 (1.0-1.7) Urine Collection Type Unknown Urine Color Kayla Urine Clarity Clear Urine pH 5.5 Urine Specific [place] >=1.030 Urine Protein Negative mg/dL (NEG-TRACE) Urine Glucose (UA) Negative mg/dL (NEG) Urine Ketones (Stick) Negative mg/dL (NEG) Urine Blood Negative (NEG) Urine Nitrite Negative (NEG) Urine Bilirubin Small (NEG) Urine Urobilinogen Dipstick 1.0 mg/dL (0.2 mg/dL) Urine Leukocyte Esterase Negative (NEG) Urine RBC 0 /HPF (0-2) Urine WBC Rare /HPF (0-4) Urine Bacteria 0 /HPF (0-FEW) Urine Mucus Mod /LPF Nasal Screen MRSA (PCR) Negative (Negative) Test 09/28/18 05:23 09/28/18 07:35 09/28/18 11:51 White Blood Count 4.5 x10^3/uL (4.0-11.0) Red Blood Count 4.72 x10^6/uL (4.30-5.70) Hemoglobin 12.7 g/dL (13.0-17.5) Hematocrit 39.3 % (39.0-53.0) Mean Corpuscular Volume 83 fL (79-100) Mean Corpuscular Hemoglobin 27 pg (25-35) Mean Corpuscular Hemoglobin Concent 32 g/dL (31-37) Red Cell Distribution Width 15.4 % (11.5-14.5) Platelet Count 155 x10^3/uL (140-400) Neutrophils (%) (Auto) 47 % (31-73) Lymphocytes (%) (Auto) 38 % (24-48) Monocytes (%) (Auto) 13 % (0-9) Eosinophils (%) (Auto) 2 % (0-3) Basophils (%) (Auto) 0 % (0-3) Neutrophils # (Auto) 2.1 x10^3uL (1.8-7.7) Lymphocytes # (Auto) 1.7 x10^3/uL (1.0-4.8) Monocytes # (Auto) 0.6 x10^3/uL (0.0-1.1) Eosinophils # (Auto) 0.1 x10^3/uL (0.0-0.7) Basophils # (Auto) 0.0 x10^3/uL (0.0-0.2) Sodium Level 147 mmol/L (136-145) Potassium Level 3.2 mmol/L (3.5-5.1) Chloride Level 109 mmol/L (98-107) Carbon Dioxide Level 28 mmol/L (21-32) Anion Gap 10 (6-14) Blood Urea Nitrogen 16 mg/dL (8-26) Creatinine 1.2 mg/dL (0.7-1.3) Estimated GFR (Cockcroft-Gault) 75.0 Glucose Level 107 mg/dL (70-99) Calcium Level 8.4 mg/dL (8.5-10.1) Glucose (Fingerstick) 98 mg/dL (70-99) 102 mg/dL (70-99) Laboratory Tests Test 09/27/18 17:17 09/27/18 17:27 09/27/18 19:25 09/27/18 22:00 Glucose (Fingerstick) 82 mg/dL (70-99) White Blood Count 6.1 x10^3/uL (4.0-11.0) Red Blood Count 4.94 x10^6/uL (4.30-5.70) Hemoglobin 13.3 g/dL (13.0-17.5) Hematocrit 41.4 % (39.0-53.0) Mean Corpuscular Volume 84 fL (79-100) Mean Corpuscular Hemoglobin 27 pg (25-35) Mean Corpuscular Hemoglobin Concent 32 g/dL (31-37) Red Cell Distribution Width 15.8 % (11.5-14.5) Platelet Count 177 x10^3/uL (140-400) Neutrophils (%) (Auto) 61 % (31-73) Lymphocytes (%) (Auto) 27 % (24-48) Monocytes (%) (Auto) 11 % (0-9) Eosinophils (%) (Auto) 1 % (0-3) Basophils (%) (Auto) 0 % (0-3) Neutrophils # (Auto) 3.8 x10^3uL (1.8-7.7) Lymphocytes # (Auto) 1.6 x10^3/uL (1.0-4.8) Monocytes # (Auto) 0.7 x10^3/uL (0.0-1.1) Eosinophils # (Auto) 0.1 x10^3/uL (0.0-0.7) Basophils # (Auto) 0.0 x10^3/uL (0.0-0.2) Sodium Level 148 mmol/L (136-145) Potassium Level 3.9 mmol/L (3.5-5.1) Chloride Level 108 mmol/L (98-107) Carbon Dioxide Level 28 mmol/L (21-32) Anion Gap 12 (6-14) Blood Urea Nitrogen 18 mg/dL (8-26) Creatinine 1.3 mg/dL (0.7-1.3) Estimated GFR (Cockcroft-Gault) 68.4 BUN/Creatinine Ratio 14 (6-20) Glucose Level 101 mg/dL (70-99) Calcium Level 8.9 mg/dL (8.5-10.1) Magnesium Level 2.1 mg/dL (1.8-2.4) Total Bilirubin 0.3 mg/dL (0.2-1.0) Aspartate Amino Transf (AST/SGOT) 58 U/L (15-37) Alanine Aminotransferase (ALT/SGPT) 20 U/L (16-63) Alkaline Phosphatase 76 U/L (46-116) Troponin I Quantitative < 0.017 ng/mL (0.000-0.055) Total Protein 7.1 g/dL (6.4-8.2) Albumin 3.5 g/dL (3.4-5.0) Albumin/Globulin Ratio 1.0 (1.0-1.7) Urine Collection Type Unknown Urine Color Kayla Urine Clarity Clear Urine pH 5.5 Urine Specific [place] >=1.030 Urine Protein Negative mg/dL (NEG-TRACE) Urine Glucose (UA) Negative mg/dL (NEG) Urine Ketones (Stick) Negative mg/dL (NEG) Urine Blood Negative (NEG) Urine Nitrite Negative (NEG) Urine Bilirubin Small (NEG) Urine Urobilinogen Dipstick 1.0 mg/dL (0.2 mg/dL) Urine Leukocyte Esterase Negative (NEG) Urine RBC 0 /HPF (0-2) Urine WBC Rare /HPF (0-4) Urine Bacteria 0 /HPF (0-FEW) Urine Mucus Mod /LPF Nasal Screen MRSA (PCR) Negative (Negative) Test 09/28/18 05:23 09/28/18 07:35 09/28/18 11:51 White Blood Count 4.5 x10^3/uL (4.0-11.0) Red Blood Count 4.72 x10^6/uL (4.30-5.70) Hemoglobin 12.7 g/dL (13.0-17.5) Hematocrit 39.3 % (39.0-53.0) Mean Corpuscular Volume 83 fL (79-100) Mean Corpuscular Hemoglobin 27 pg (25-35) Mean Corpuscular Hemoglobin Concent 32 g/dL (31-37) Red Cell Distribution Width 15.4 % (11.5-14.5) Platelet Count 155 x10^3/uL (140-400) Neutrophils (%) (Auto) 47 % (31-73) Lymphocytes (%) (Auto) 38 % (24-48) Monocytes (%) (Auto) 13 % (0-9) Eosinophils (%) (Auto) 2 % (0-3) Basophils (%) (Auto) 0 % (0-3) Neutrophils # (Auto) 2.1 x10^3uL (1.8-7.7) Lymphocytes # (Auto) 1.7 x10^3/uL (1.0-4.8) Monocytes # (Auto) 0.6 x10^3/uL (0.0-1.1) Eosinophils # (Auto) 0.1 x10^3/uL (0.0-0.7) Basophils # (Auto) 0.0 x10^3/uL (0.0-0.2) Sodium Level 147 mmol/L (136-145) Potassium Level 3.2 mmol/L (3.5-5.1) Chloride Level 109 mmol/L (98-107) Carbon Dioxide Level 28 mmol/L (21-32) Anion Gap 10 (6-14) Blood Urea Nitrogen 16 mg/dL (8-26) Creatinine 1.2 mg/dL (0.7-1.3) Estimated GFR (Cockcroft-Gault) 75.0 Glucose Level 107 mg/dL (70-99) Calcium Level 8.4 mg/dL (8.5-10.1) Glucose (Fingerstick) 98 mg/dL (70-99) 102 mg/dL (70-99) Assessment/Plan Assessment/Plan Impression: Prior brainstem stroke, 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 Obviously we need to be concerned about a new stroke if indeed he has new left-sided weakness, but the patient himself says it 's old. 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 Recommendations: MRI of the brain Laboratory studies for other causes of neuropathy Rehabilitation modalities. Thank you for letting me help the patient's care. TITI PEREZ MD Sep 28, 2018 14:15
[2018-09-28 15:14] VITALS: BP 132/87
--- NOTE | 2018-09-28 15:24 | RAD ---
MRI Brain without contrast History: Altered mental status, right weakness, history of CVA Technique: Multiplanar, multisequential noncontrast MR imaging was performed of the brain. Comparison: None Findings: There is motion degradation. There is a small 0.3 cm focus of restricted diffusion right parasagittal midbrain. There is severe T2 and FLAIR hyperintense signal abnormality of the supratentorial parenchyma bilaterally. There are multiple old infarcts of the bilateral basal ganglia, thalami, bilateral marks radiata, right ghislaine, and right cerebellum. There is no midline shift. Ventricular size is within normal limits. There are foci of hemosiderin deposition/old microhemorrhage such as of the bilateral thalami, left temporal lobe, left cerebellum, left ghislaine, left frontal lobe. There is encephalomalacia with cortical involvement left occipital temporal lobes. There is mild mucosal thickening of the bilateral maxillary sinuses. There may be some narrowing of the left intradural vertebral artery. Impression: 1. There is a tiny focus of recent infarct of the right parasagittal midbrain. 2. There is severe T2 and FLAIR hyperintense signal abnormality of the supratentorial parenchyma bilaterally likely due to chronic microvascular ischemic disease, also multiple old lacunar infarcts and foci of old microhemorrhage. There is old infarct with cortical involvement of the left occipital temporal lobes. FOR INTERNAL CODING PURPOSES Critical result: Findings discussed with nurse Davis at 09/28/2018 3:18 PM. RESULT CODE: (C) Electronically signed by: Eric Rice MD (09/28/2018 3:21 PM) [id number]
[2018-09-28] MEDS ORDERED: ACETAMINOPHEN 650 MG SUPP.RECT. PR PRN (16:30)
[2018-09-28] MEDS ORDERED: ASPIRIN RECTAL 300 MG SUPP. PR PRN (16:30)
--- NOTE | 2018-09-28 17:55 | NUR ---
PT Transfer: Pt transferred to 6th floor room 675 for stroke monitoring. Report called to Marika JESUS. Pt belongings sent w/ patient. NPO order in place. 1700 meds held. Family was called, no answer, left voicemail for the sister, Lyudmila, at [phone].
--- NOTE | 2018-09-28 18:02 | NUR ---
Pt arrived per bed to room 675. Sinus José on tele.
[2018-09-28 19:56] VITALS: BP 141/81
[2018-09-28] MEDS: TAMSULOSIN 0.4 MG CAP.ER.24H. PO SCH (21:00)
[2018-09-28] MEDS: ATORVASTATIN CALCIUM 20 MG TABLET PO SCH (21:00)
[2018-09-28 23:26] VITALS: BP 140/93
[2018-09-29] MEDS: IV DEXTROSE 5 %-0.45 % NACL 1,000 ML IV SCH ×2 (00:37→14:00)
[2018-09-29 03:35] VITALS: BP 132/93
[2018-09-29 07:15] VITALS: BP_SYST 141; BP_SYST 148; BP_DIAS 103; BP_DIAS 112
--- NOTE | 2018-09-29 07:43 | NUR ---
Message sent to Dr Hernandes re: HTN and NPO status. Waiting for new orders.
[2018-09-29] MEDS: INSULIN LISPRO 300 UNITS/3 ML INSULN.PEN. SQ SCH ×3 (08:00→17:00)
--- NOTE | 2018-09-29 08:22 | RAD ---
Carotid ultrasound, 09/29/2018: HISTORY: CVA Duplex evaluation of the carotid arteries and neck was performed including grayscale, color-flow and spectral Doppler analysis. There is mild intimal thickening and smooth plaquing at the carotid bifurcations. The plaques are partially calcified. The peak systolic velocity in the right internal carotid artery is 77 cm per sec with an end-diastolic velocity of 21 cm/s and an internal carotid to common carotid artery ratio of 0.9. On the left the peak systolic velocity in the internal carotid artery is 51 cm/s with an end-diastolic velocity of 23 cm/s and an internal carotid to common carotid artery ratio of 0.8. These Doppler findings suggest luminal narrowing in the 0-50 percent diameter range. There is no duplex evidence of high-grade stenosis at the bifurcations. Antegrade flow is present in both vertebral arteries in the neck. IMPRESSION: Mild atherosclerotic plaquing at both carotid bifurcations with underlying luminal narrowing in the 0-50 percent diameter range bilaterally. Note: Stenosis calculations for CT, MRA and conventional angiography are based upon determination of the distal ICA diameter in accordance with the NASCET methodology. Stenosis calculations for Doppler studies are derived from validated velocity criteria which are known to correlate with NASCET methodology of determining stenosis. Electronically signed by: Kyle Mcconnell MD (09/29/2018 8:19 AM) [facility]
[2018-09-29] MEDS: ENOXAPARIN 40 MG/0.4 ML SYRINGE. SQ SCH (08:57)
[2018-09-29] MEDS: hydrALAZINE 25 MG TABLET PO SCH ×3 (08:59→20:44)
[2018-09-29] MEDS: ASPIRIN ENTERIC COATED 325 MG TABLET.DR. PO SCH (08:59)
[2018-09-29] MEDS: CARVEDILOL 12.5 MG TABLET. PO SCH ×2 (09:00→16:44)
[2018-09-29] MEDS: amLODIPine BESYLATE 10 MG TABLET PO SCH (09:00)
[2018-09-29] MEDS ORDERED: ERGOCALCIFEROL (VITAMIN D2) 50,000 UNIT CAPSULE. PO SCH (09:00)
[2018-09-29 09:22] LABS: CHOLESTEROL/HDL RATIO 2.8
--- NOTE | 2018-09-29 10:40 | PDOC ---
PROGRESS NOTES Chief Complaint Chief Complaint Gait instability Hypernatremia History of CVA on the right handed individual with right-handed weakness Essential hypertension Hypokalemia Transaminitis Confusion DM2 History of Present Illness History of Present Illness Patient resting comfortably in bed, has carotid doppler study planned for today. He has residual left sided deficits that he reports as chronic from previous CVA. He is hungry and asking to eat. Per nursing, patient pulled out IV trying to get out of bed. Vitals Vitals Vital Signs Date Time Temp Pulse Resp B/P (MAP) Pulse Ox O2 Delivery O2 Flow Rate FiO2 09/29/18 09:00 83 144/106 09/29/18 07:15 98.1 20 95 Room Air 98.1 Physical Exam General: Alert, Oriented X3, Cooperative, No acute distress Heart: Regular rate, Normal S1, Normal S2 Lungs: Clear, Other (symmetric chest expansion, good inspiratory effort) Abdomen: Normal bowel sounds, Soft Extremities: No clubbing, No cyanosis, No edema Skin: No rashes, No breakdown, No significant lesion Labs LABS Laboratory Tests Test 09/28/18 11:51 09/28/18 16:36 09/28/18 20:07 09/29/18 07:15 Glucose (Fingerstick) 102 mg/dL (70-99) 106 mg/dL (70-99) 99 mg/dL (70-99) 102 mg/dL (70-99) Test 09/29/18 08:20 Erythrocyte Sedimentation Rate 9 (0-15) Triglycerides Level 54 mg/dL (0-150) Cholesterol Level 113 mg/dL (0-200) LDL Cholesterol, Calculated 62 mg/dL (0-100) VLDL Cholesterol, Calculated 11 mg/dL (0-40) Non-HDL Cholesterol Calculated 73 mg/dL (0-129) HDL Cholesterol 40 mg/dL (40-60) Cholesterol/HDL Ratio 2.8 Review of Systems Review of Systems as per above Assessment and Plan Assessmemt and Plan Problems Medical Problems: (1) Falls Status: Acute (2) Weakness Status: Acute Assessment: CVA - R parasagital mid brain Gait instability Hypernatremia Hypokalemia Essential Hypertension Transaminemia Residual L sided 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 Labs Laboratory Tests Test 09/27/18 17:17 09/27/18 17:27 09/27/18 19:25 09/27/18 22:00 Glucose (Fingerstick) 82 mg/dL (70-99) White Blood Count 6.1 x10^3/uL (4.0-11.0) Red Blood Count 4.94 x10^6/uL (4.30-5.70) Hemoglobin 13.3 g/dL (13.0-17.5) Hematocrit 41.4 % (39.0-53.0) Mean Corpuscular Volume 84 fL (79-100) Mean Corpuscular Hemoglobin 27 pg (25-35) Mean Corpuscular Hemoglobin Concent 32 g/dL (31-37) Red Cell Distribution Width 15.8 % (11.5-14.5) Platelet Count 177 x10^3/uL (140-400) Neutrophils (%) (Auto) 61 % (31-73) Lymphocytes (%) (Auto) 27 % (24-48) Monocytes (%) (Auto) 11 % (0-9) Eosinophils (%) (Auto) 1 % (0-3) Basophils (%) (Auto) 0 % (0-3) Neutrophils # (Auto) 3.8 x10^3uL (1.8-7.7) Lymphocytes # (Auto) 1.6 x10^3/uL (1.0-4.8) Monocytes # (Auto) 0.7 x10^3/uL (0.0-1.1) Eosinophils # (Auto) 0.1 x10^3/uL (0.0-0.7) Basophils # (Auto) 0.0 x10^3/uL (0.0-0.2) Sodium Level 148 mmol/L (136-145) Potassium Level 3.9 mmol/L (3.5-5.1) Chloride Level 108 mmol/L (98-107) Carbon Dioxide Level 28 mmol/L (21-32) Anion Gap 12 (6-14) Blood Urea Nitrogen 18 mg/dL (8-26) Creatinine 1.3 mg/dL (0.7-1.3) Estimated GFR (Cockcroft-Gault) 68.4 BUN/Creatinine Ratio 14 (6-20) Glucose Level 101 mg/dL (70-99) Calcium Level 8.9 mg/dL (8.5-10.1) Magnesium Level 2.1 mg/dL (1.8-2.4) Total Bilirubin 0.3 mg/dL (0.2-1.0) Aspartate Amino Transf (AST/SGOT) 58 U/L (15-37) Alanine Aminotransferase (ALT/SGPT) 20 U/L (16-63) Alkaline Phosphatase 76 U/L (46-116) Troponin I Quantitative < 0.017 ng/mL (0.000-0.055) Total Protein 7.1 g/dL (6.4-8.2) Albumin 3.5 g/dL (3.4-5.0) Albumin/Globulin Ratio 1.0 (1.0-1.7) Urine Collection Type Unknown Urine Color Kayla Urine Clarity Clear Urine pH 5.5 Urine Specific [place] >=1.030 Urine Protein Negative mg/dL (NEG-TRACE) Urine Glucose (UA) Negative mg/dL (NEG) Urine Ketones (Stick) Negative mg/dL (NEG) Urine Blood Negative (NEG) Urine Nitrite Negative (NEG) Urine Bilirubin Small (NEG) Urine Urobilinogen Dipstick 1.0 mg/dL (0.2 mg/dL) Urine Leukocyte Esterase Negative (NEG) Urine RBC 0 /HPF (0-2) Urine WBC Rare /HPF (0-4) Urine Bacteria 0 /HPF (0-FEW) Urine Mucus Mod /LPF Nasal Screen MRSA (PCR) Negative (Negative) Test 09/28/18 05:23 09/28/18 07:35 09/28/18 11:51 09/28/18 16:36 White Blood Count 4.5 x10^3/uL (4.0-11.0) Red Blood Count 4.72 x10^6/uL (4.30-5.70) Hemoglobin 12.7 g/dL (13.0-17.5) Hematocrit 39.3 % (39.0-53.0) Mean Corpuscular Volume 83 fL (79-100) Mean Corpuscular Hemoglobin 27 pg (25-35) Mean Corpuscular Hemoglobin Concent 32 g/dL (31-37) Red Cell Distribution Width 15.4 % (11.5-14.5) Platelet Count 155 x10^3/uL (140-400) Neutrophils (%) (Auto) 47 % (31-73) Lymphocytes (%) (Auto) 38 % (24-48) Monocytes (%) (Auto) 13 % (0-9) Eosinophils (%) (Auto) 2 % (0-3) Basophils (%) (Auto) 0 % (0-3) Neutrophils # (Auto) 2.1 x10^3uL (1.8-7.7) Lymphocytes # (Auto) 1.7 x10^3/uL (1.0-4.8) Monocytes # (Auto) 0.6 x10^3/uL (0.0-1.1) Eosinophils # (Auto) 0.1 x10^3/uL (0.0-0.7) Basophils # (Auto) 0.0 x10^3/uL (0.0-0.2) Sodium Level 147 mmol/L (136-145) Potassium Level 3.2 mmol/L (3.5-5.1) Chloride Level 109 mmol/L (98-107) Carbon Dioxide Level 28 mmol/L (21-32) Anion Gap 10 (6-14) Blood Urea Nitrogen 16 mg/dL (8-26) Creatinine 1.2 mg/dL (0.7-1.3) Estimated GFR (Cockcroft-Gault) 75.0 Glucose Level 107 mg/dL (70-99) Hemoglobin A1c 6.0 % (4.8-5.6) Calcium Level 8.4 mg/dL (8.5-10.1) Thyroid Stimulating Hormone (TSH) 2.068 uIU/mL (0.358-3.74) Glucose (Fingerstick) 98 mg/dL (70-99) 102 mg/dL (70-99) 106 mg/dL (70-99) Test 09/28/18 20:07 09/29/18 07:15 09/29/18 08:20 Glucose (Fingerstick) 99 mg/dL (70-99) 102 mg/dL (70-99) Erythrocyte Sedimentation Rate 9 (0-15) Triglycerides Level 54 mg/dL (0-150) Cholesterol Level 113 mg/dL (0-200) LDL Cholesterol, Calculated 62 mg/dL (0-100) VLDL Cholesterol, Calculated 11 mg/dL (0-40) Non-HDL Cholesterol Calculated 73 mg/dL (0-129) HDL Cholesterol 40 mg/dL (40-60) Cholesterol/HDL Ratio 2.8 Laboratory Tests Test 09/28/18 11:51 09/28/18 16:36 09/28/18 20:07 09/29/18 07:15 Glucose (Fingerstick) 102 mg/dL (70-99) 106 mg/dL (70-99) 99 mg/dL (70-99) 102 mg/dL (70-99) Test 09/29/18 08:20 Erythrocyte Sedimentation Rate 9 (0-15) Triglycerides Level 54 mg/dL (0-150) Cholesterol Level 113 mg/dL (0-200) LDL Cholesterol, Calculated 62 mg/dL (0-100) VLDL Cholesterol, Calculated 11 mg/dL (0-40) Non-HDL Cholesterol Calculated 73 mg/dL (0-129) HDL Cholesterol 40 mg/dL (40-60) Cholesterol/HDL Ratio 2.8 Medications Current Medications Sodium Chloride 500 ml @ 500 mls/hr 1X ONCE IV Last administered on 09/27/18at 18:35; Start 09/27/18 at 18:00; Stop 09/27/18 at 18:59; Status DC Dextrose/Sodium Chloride 1,000 ml @ 100 mls/hr Q10H IV Last administered on 09/29/18at 00:37; Start 09/27/18 at 22:00 Ondansetron HCl (Zofran) 4 mg PRN Q4HRS PRN IV NAUSEA/VOMITING 1ST CHOICE; Start 09/27/18 at 21:45 Acetaminophen (Tylenol) 650 mg PRN Q4HRS PRN PO TEMP OVER 100.4F OR MILD PAIN; Start 09/27/18 at 21:45; Status Cancel Al Hydroxide/Mg Hydroxide (Mylanta Plus Xs) 30 ml PRN DAILY PRN PO HEARTBURN / GAS; Start 09/27/18 at 21:45 Clonidine HCl (Catapres) 0.1 mg PRN Q6HRS PRN PO SBP>160 OR DBP>90; Start at 21:45 Docusate Sodium (Colace) 100 mg PRN BID PRN PO CONSTIPATION 1ST CHOICE; Start 09/27/18 at 21:45 Albuterol Sulfate (Ventolin Neb Soln) 2.5 mg PRN Q4HRS PRN NEB SHORTNESS OF BREATH; Start 09/27/18 at 21:45 Guaifenesin (Robitussin) 200 mg PRN Q4HRS PRN PO COUGH 1ST CHOICE; Start at 21:45 Lorazepam (Ativan) 0.5 mg PRN Q4HRS PRN PO ANXIETY / AGITATION; Start 09/27/18 at 21:45 Enoxaparin Sodium (Lovenox 40mg Syringe) 40 mg DAILY SQ Last administered on 08:57; Start 09/28/18 at 09:00 Acetaminophen (Tylenol) 325 mg PRN Q4HRS PRN PO MILD PAIN / TEMP; Start at 09:00; Stop 09/28/18 at 19:36; Status DC Amlodipine Besylate (Norvasc) 10 mg DAILY PO Last administered on 09/29/18 09: 00; Start 09/28/18 at 10:00 Aspirin (Ecotrin) 81 mg DAILY PO Last administered on 09/28/18at 10:36; Start 09/28/18 at 10:00; Stop 09/28/18 at 16:27; Status DC Atorvastatin Calcium (Lipitor) 20 mg HS PO ; Start 09/28/18 at 21:00 Ergocalciferol (Vitamin D2) 50,000 unit MoTh PO Last administered on 09/29/18 08:57; Start 09/29/18 at 09:00 Tamsulosin HCl (Flomax) 0.4 mg QHS PO ; Start 09/28/18 at 21:00 Carvedilol (Coreg) 25 mg BIDWMEALS PO Last administered on 09/29/18 09:00; Start 09/28/18 at 09:30 Hydralazine HCl (Apresoline) 25 mg TID PO Last administered on 09/29/18 08:59; Start 09/28/18 at 10:00 Potassium Chloride (Klor-Con) 40 meq 1X ONCE PO Last administered on 09/28/18at 10:35; Start 09/28/18 at 09:00; Stop 09/28/18 at 09:26; Status DC Insulin Human Lispro (HumaLOG) 0-7 UNITS TIDWMEALS SQ ; Start 09/28/18 at 12:00 Dextrose (Dextrose 50%-Water Syringe) 12.5 gm PRN Q15MIN PRN IV SEE COMMENTS; Start 09/28/18 at 09:00 Acetaminophen (Tylenol) 650 mg PRN Q6HRS PRN PO TEMP > 100.4F; Start 09/28/18 at 16:30 Acetaminophen (Tylenol Supp) 650 mg PRN Q4HRS PRN [place] TEMP > 100.4F; Start at 16:30 Aspirin (Ecotrin) 325 mg DAILYWBKFT PO Last administered on 09/29/18at 08:59; Start 09/29/18 at 08:00 Aspirin (Aspirin) 300 mg PRN DAILY PRN KS IF UNABLE TO TAKE PO; Start 09/28/18 at 16:30 Active Scripts Active Reported Tylenol (Acetaminophen) 325 Mg Tablet 1-2 Tab PO PRN Q4HRS PRN Aspir-Low (Aspirin) 81 Mg Tablet.dr 1 Tab PO DAILY Atorvastatin Calcium 20 Mg Tablet 20 Mg PO HS Hydralazine Hcl 25 Mg Tablet 1 Tab PO TID Amlodipine Besylate 10 Mg Tablet 10 Mg PO DAILY Coreg (Carvedilol) 25 Mg Tablet 25 Mg PO BIDWMEALS Flomax (Tamsulosin Hcl) 0.4 Mg Cap.er.24h 1 Cap PO QHS Vitamin D2 (Ergocalciferol (Vitamin D2)) 50,000 Unit Capsule 1 Cap PO QMTH Vitals/I & O Vital Sign - Last 24 Hours 09/28/18 09/28/18 09/28/18 09/28/18 10:35 10:36 10:36 11:01 Temp 97.4 97.4 Pulse 63 63 63 63 Resp 18 B/P (MAP) 156/91 156/91 156/91 126/90 (102) Pulse Ox 96 O2 Delivery Room Air 09/28/18 09/28/18 09/28/18 09/28/18 15:14 15:22 17:00 19:56 Temp 98.0 98.3 98.0 98.3 Pulse 60 60 60 62 Resp 18 18 B/P (MAP) 132/87 (102) 132/87 132/87 141/81 (101) Pulse Ox 97 94 O2 Delivery Room Air Room Air 09/28/18 09/28/18 09/29/18 09/29/18 20:00 23:26 03:35 07:15 Temp 97.6 97.9 98.1 97.6 97.9 98.1 Pulse 54 53 83 Resp 18 18 20 B/P (MAP) 140/93 (109) 132/93 (106) 141/103 (116) Pulse Ox 95 95 95 O2 Delivery Room Air Room Air Room Air Room Air 09/29/18 09/29/18 09/29/18 08:59 09:00 09:00 Pulse 83 83 83 B/P (MAP) 144/106 144/106 144/106 Intake and Output 09/28/18 09/28/18 09/29/18 15:00 23:00 07:00 Intake Total 1420 ml 240 ml 0 ml Balance 1420 ml 240 ml 0 ml LIANA LOVETT III DO Sep 29, 2018 10:40
[2018-09-29 11:01] VITALS: BP 132/92
--- NOTE | 2018-09-29 11:06 | CARD ---
MR#: [id number] Date of Study: 09/29/2018 Ordering Physician: TITI PEREZ, Referring Physician: DALE BAXTER Tech: Amanda Malcolm RDCS APPROVED REPORT EXAM: Two-dimensional and M-mode echocardiogram with Doppler and color Doppler. Other Information Quality : Good INDICATION CVA/TIA 2D DIMENSIONS RVDd3.2 (2.9-3.5cm)Left Atrium(2D)3.6 (1.6-4.0cm) IVSd1.7 (0.7-1.1cm)Aortic Root(2D)3.3 (2.0-3.7cm) LVDd4.7 (3.9-5.9cm)LVOT Diameter2.2 (1.8-2.4cm) PWd1.5 (0.7-1.1cm)LVDs2.6 (2.5-4.0cm) FS (%) 30.0 %SV76.6 ml LVEF(%)60.0 (>50%) Aortic Valve AoV Peak Markos.179.0cm/sAoV VTI34.6cm AO Peak GR.12.8mmHgLVOT VTI 24.37cm AO Mean GR.7mmHgAVA (VTI)2.70cm2 AI P 1/2 [id number] Mitral Valve MV E Crytpqze02.9cm/sMV DECEL [id number] MV A Zfdwsxvb95.9cm/sE/A Ratio1.2 TDI Lateral E' P. V7.79cm/sMedial E' P. V5.73cm/s E/Lateral E'9.0E/Medial E'12.2 Tricuspid Valve TR P. Vowwhrqn804vs/sRAP TSHGXBUR1gzYy TR Peak Gr.59vnFkPZED73juKp Pulmonary Vein S1 Szyeksez10.8cm/sS2 Ygztrosy64.79cm/s D2 Gxcogdbi03.8cm/s LEFT VENTRICLE The left ventricle is normal size. There is mild to moderate concentric left ventricular hypertrophy. The left ventricular systolic function is normal and the ejection fraction is within normal range. T he Ejection Fraction is 60-65%. There is normal LV segmental wall motion. Transmitral Doppler flow pa ttern is Grade I-abnormal relaxation pattern. RIGHT VENTRICLE The right ventricle is normal size. The right ventricular systolic function is normal. ATRIA The left atrium size is normal. The right atrium size is normal. The interatrial septum is intact wit h no evidence for an atrial septal defect or patent foramen ovale as noted on 2-D or Doppler imaging. AORTIC VALVE The aortic valve is calcified but opens well. Doppler and Color Flow revealed trace aortic regurgitat ion. There is no significant aortic valvular stenosis. MITRAL VALVE The mitral valve is calcified but opens well. There is no evidence of mitral valve prolapse. There is no mitral valve stenosis. Doppler and Color-flow revealed trace mitral regurgitation. TRICUSPID VALVE The tricuspid valve is normal in structure and function. Doppler and Color Flow revealed trace tricus pid regurgitation. There is mild pulmonary hypertension. The PA pressure was estimated at 33 mmHg. Th ere is no tricuspid valve stenosis. PULMONIC VALVE The pulmonic valve is not well visualized. Doppler and Color Flow revealed trace to mild pulmonic harpreet vular regurgitation. There is no pulmonic valvular stenosis. GREAT VESSELS The aortic root is normal in size. The ascending aorta is mildly dilated at 3.7 cm. The IVC is normal in size and collapses >50% with inspiration. PERICARDIAL EFFUSION There is no evidence of significant pericardial effusion. Critical Notification Critical Value: No <Conclusion> The left ventricular systolic function is normal and the ejection fraction is within normal range. Th e Ejection Fraction is 60-65%. There is normal LV segmental wall motion. Doppler and Color Flow revealed trace tricuspid regurgitation. There is mild pulmonary hypertension. The PA pressure was estimated at 33 mmHg. The ascending aorta is mildly dilated at 3.7 cm. Signed by : Noe Spencer, Electronically Approved : 09/29/2018 11:06:17
--- NOTE | 2018-09-29 11:53 | PDOC2 ---
EDEL ROMANO PAPER COATING SUPERVISOR 09/29/18 1153: CARDIAC CONSULT DATE OF CONSULT Date of Consult DATE: 09/29/18 TIME: 11:28 REASON FOR CONSULT Reason for Consult: PAT REFERRING PHYSICIAN Referring Physician: Suma SOURCE Source: Chart review, Patient HISTORY OF PRESENT ILLNESS HISTORY OF PRESENT ILLNESS This is a 58 yo male admitted for complains of frequent falls and actually was in [facility] last week due to falls. He has been residing at [facility]. No injuries in relation to fall. No noted syncopal spells. He is AOx3, denies any discomfort and verbalized prior left side weakness but now better. No chest pain palpitations, nausea or frequent dizziness. No past hx of arrhythmias , VTE, syncope, or CAD. He does use walker with ambulation. PAST MEDICAL HISTORY Cardiovascular: HTN, Hyperlipidemia CENTRAL NERVOUS SYSTEM: CVA (brainstem CVA) GI: No pertinent hx Heme/Onc: No pertinent hx Hepatobiliary: No pertinent hx Psych: No pertinent hx Musculoskeletal: Osteoarthritis Infectious disease: No pertinent hx ENT: No pertinent hx Renal/: Benign prostatic enlarg. Endocrine: Diabetes (?) Dermatology: No pertinent hx PAST SURGICAL HISTORY Past Surgical History: No pertinent history SOCIAL HISTORY Smoke: No ALCOHOL: none Drugs: None Lives: Snf CURRENT MEDICATIONS CURRENT MEDICATIONS Current Medications Medications (Trade) Dose Ordered Sig/Arely Route PRN Reason Start Time Stop Time Status Last Admin Dose Admin Ergocalciferol (Vitamin D2) 50,000 unit MoTh PO 09/29/18 09:00 09/29/18 08:57 Aspirin (Ecotrin) 325 mg DAILYWBKFT PO 09/29/18 08:00 09/29/18 08:59 ALLERGIES ALLERGIES: Coded Allergies: ceftriaxone (Verified Allergy, Intermediate, 09/28/18) ROS Review of System See HPI PHYSICAL EXAM Heart: Regular rate (SR), Other (distant heart sounds) Abdomen: Soft, No tenderness, Other (obese) Extremities: No cyanosis, No edema Skin: No breakdown, No significant lesion Neuro: Normal speech, Sensation intact Psych/Mental Status: Mental status NL, Mood NL MUSCULOSKELETAL: Osteoarthritic changes both hands VITALS VITALS Vital Signs Date Time Temp Pulse Resp B/P (MAP) Pulse Ox O2 Delivery O2 Flow Rate FiO2 09/29/18 11:01 98.4 60 18 132/92 (105) 95 Room Air 98.4 LABS Lab: Laboratory Tests Test 09/28/18 11:51 09/28/18 16:36 09/28/18 20:07 09/29/18 07:15 Glucose (Fingerstick) 102 mg/dL (70-99) 106 mg/dL (70-99) 99 mg/dL (70-99) 102 mg/dL (70-99) Test 09/29/18 08:20 Erythrocyte Sedimentation Rate 9 (0-15) Triglycerides Level 54 mg/dL (0-150) Cholesterol Level 113 mg/dL (0-200) LDL Cholesterol, Calculated 62 mg/dL (0-100) VLDL Cholesterol, Calculated 11 mg/dL (0-40) Non-HDL Cholesterol Calculated 73 mg/dL (0-129) HDL Cholesterol 40 mg/dL (40-60) Cholesterol/HDL Ratio 2.8 Vitamin B12 Level 359 pg/mL (247-911) ECHOCARDIOGRAM ECHOCARDIOGRAM <Conclusion> The left ventricular systolic function is normal and the ejection fraction is within normal range. The Ejection Fraction is 60-65%. There is normal LV segmental wall motion. Doppler and Color Flow revealed trace tricuspid regurgitation. There is mild pulmonary hypertension. The PA pressure was estimated at 33 mmHg. The ascending aorta is mildly dilated at 3.7 cm. DATE: 09/29/18 1106 ASSESSMENT/PLAN ASSESSMENT/PLAN 1. Possible acute CVA with new left side weakness. Weakness is now better. past brainstem CVA. neurology following 2. Multiple falls.with possible gait disorder per neurology. remains unsteady. No reported syncope 3. HTN: controlled with multiple BP meds. No orthostasis per rehab. 4. HLP: lipids on goal 5. Metabolic syndrome/obesity: A1C 6.0 6. PSVTx1: very brief possible PAT with no further recurrence otherwise SR/SB: lowest in the 50s Recommendation 1. Bubble study pending. 2. Continue BP meds with coreg, ASA, statin. 3. BMP and Mg. Replace K and Mg as warranted. 4. Monitor rhythm ALBERTO MARIE MD 09/30/18 0142: CARDIAC CONSULT ASSESSMENT/PLAN ASSESSMENT/PLAN Patient seen and examined 09/29/18. Agree with HOME THERAPY TEACHER's assessment and plan. 2-D echo showed normal LV systolic function. Bubble study pending. Episode of atrial tachycardia noted on telemetry. Continue to monitor. If workup is negative, we will consider event monitor as an outpatient Thank you for your consultation EDEL ROMANO APRN Sep 29, 2018 11:53 ALBERTO MARIE MD Sep 30, 2018 07:42
[2018-09-29 12:26] LABS: CALCIUM 8.3 mg/dL (8.5-10.1); CREATININE 0.9 mg/dL (0.7-1.3); GFR 104.5; POTASSIUM 3.7 mmol/L (3.5-5.1)
--- NOTE | 2018-09-29 14:48 | PDOC ---
PROGRESS NOTES Assessment Problems Medical Problems: (1) Falls Status: Acute (2) Weakness Status: Acute Acute infarct, right parasagittal midbrain. Chronic microvascular ischemic disease, also multiple old lacunar infarcts and foci of old microhemorrhage, old infarct left occipital temporal lobes Neuropathy, likely diabetic, which certainly contributes to his gait disorder. Laboratory studies for other causes negative or pending [id number] shunt on echo Episode of PAT Favorable lipid profile, does not need a statin. Plan I doubt that he is a good candidate for closure of any patent foramen ovale. The current stroke is in the deep white matter and related to small-vessel disease, very unlikely to be cardio-embolic phenomenon Increased aspirin to 325 mg daily Does not need a statin. Okay for discharge back to [facility]. Discussed with patient's sister. Subjective no complaints Objective Vital Signs Date Time Temp Pulse Resp B/P (MAP) Pulse Ox O2 Delivery O2 Flow Rate FiO2 09/29/18 11:01 98.4 60 18 132/92 (105) 95 Room Air 98.4 Intake and Output 09/29/18 07:00 Intake Total 1660 ml Balance 1660 ml Intake Oral 660 ml IV Total 1000 ml # Voids 1 PHYSICAL EXAM Physical Exam: Alert. Oriented to person, does not know date or name of hospital. PERRL. EOMI. CN: Left central facial weakness Muscle tone: normal. Muscle strength: 4/5, weaker on the left DTR: 0+ Plantar reflex: Flexor Gait: not examined in bed. Sensory exam: Stocking loss No cerebellar signs elicited. Review of Relevant I have reviewed the following items rochelle (where applicable) has been applied. Labs Laboratory Tests Test 09/27/18 17:17 09/27/18 17:27 09/27/18 19:25 09/27/18 22:00 Glucose (Fingerstick) 82 mg/dL (70-99) White Blood Count 6.1 x10^3/uL (4.0-11.0) Red Blood Count 4.94 x10^6/uL (4.30-5.70) Hemoglobin 13.3 g/dL (13.0-17.5) Hematocrit 41.4 % (39.0-53.0) Mean Corpuscular Volume 84 fL (79-100) Mean Corpuscular Hemoglobin 27 pg (25-35) Mean Corpuscular Hemoglobin Concent 32 g/dL (31-37) Red Cell Distribution Width 15.8 % (11.5-14.5) Platelet Count 177 x10^3/uL (140-400) Neutrophils (%) (Auto) 61 % (31-73) Lymphocytes (%) (Auto) 27 % (24-48) Monocytes (%) (Auto) 11 % (0-9) Eosinophils (%) (Auto) 1 % (0-3) Basophils (%) (Auto) 0 % (0-3) Neutrophils # (Auto) 3.8 x10^3uL (1.8-7.7) Lymphocytes # (Auto) 1.6 x10^3/uL (1.0-4.8) Monocytes # (Auto) 0.7 x10^3/uL (0.0-1.1) Eosinophils # (Auto) 0.1 x10^3/uL (0.0-0.7) Basophils # (Auto) 0.0 x10^3/uL (0.0-0.2) Sodium Level 148 mmol/L (136-145) Potassium Level 3.9 mmol/L (3.5-5.1) Chloride Level 108 mmol/L (98-107) Carbon Dioxide Level 28 mmol/L (21-32) Anion Gap 12 (6-14) Blood Urea Nitrogen 18 mg/dL (8-26) Creatinine 1.3 mg/dL (0.7-1.3) Estimated GFR (Cockcroft-Gault) 68.4 BUN/Creatinine Ratio 14 (6-20) Glucose Level 101 mg/dL (70-99) Calcium Level 8.9 mg/dL (8.5-10.1) Magnesium Level 2.1 mg/dL (1.8-2.4) Total Bilirubin 0.3 mg/dL (0.2-1.0) Aspartate Amino Transf (AST/SGOT) 58 U/L (15-37) Alanine Aminotransferase (ALT/SGPT) 20 U/L (16-63) Alkaline Phosphatase 76 U/L (46-116) Troponin I Quantitative < 0.017 ng/mL (0.000-0.055) Total Protein 7.1 g/dL (6.4-8.2) Albumin 3.5 g/dL (3.4-5.0) Albumin/Globulin Ratio 1.0 (1.0-1.7) Urine Collection Type Unknown Urine Color Kayla Urine Clarity Clear Urine pH 5.5 Urine Specific Morrill >=1.030 Urine Protein Negative mg/dL (NEG-TRACE) Urine Glucose (UA) Negative mg/dL (NEG) Urine Ketones (Stick) Negative mg/dL (NEG) Urine Blood Negative (NEG) Urine Nitrite Negative (NEG) Urine Bilirubin Small (NEG) Urine Urobilinogen Dipstick 1.0 mg/dL (0.2 mg/dL) Urine Leukocyte Esterase Negative (NEG) Urine RBC 0 /HPF (0-2) Urine WBC Rare /HPF (0-4) Urine Bacteria 0 /HPF (0-FEW) Urine Mucus Mod /LPF Nasal Screen MRSA (PCR) Negative (Negative) Test 09/28/18 05:23 09/28/18 07:35 09/28/18 11:51 09/28/18 16:36 White Blood Count 4.5 x10^3/uL (4.0-11.0) Red Blood Count 4.72 x10^6/uL (4.30-5.70) Hemoglobin 12.7 g/dL (13.0-17.5) Hematocrit 39.3 % (39.0-53.0) Mean Corpuscular Volume 83 fL (79-100) Mean Corpuscular Hemoglobin 27 pg (25-35) Mean Corpuscular Hemoglobin Concent 32 g/dL (31-37) Red Cell Distribution Width 15.4 % (11.5-14.5) Platelet Count 155 x10^3/uL (140-400) Neutrophils (%) (Auto) 47 % (31-73) Lymphocytes (%) (Auto) 38 % (24-48) Monocytes (%) (Auto) 13 % (0-9) Eosinophils (%) (Auto) 2 % (0-3) Basophils (%) (Auto) 0 % (0-3) Neutrophils # (Auto) 2.1 x10^3uL (1.8-7.7) Lymphocytes # (Auto) 1.7 x10^3/uL (1.0-4.8) Monocytes # (Auto) 0.6 x10^3/uL (0.0-1.1) Eosinophils # (Auto) 0.1 x10^3/uL (0.0-0.7) Basophils # (Auto) 0.0 x10^3/uL (0.0-0.2) Sodium Level 147 mmol/L (136-145) Potassium Level 3.2 mmol/L (3.5-5.1) Chloride Level 109 mmol/L (98-107) Carbon Dioxide Level 28 mmol/L (21-32) Anion Gap 10 (6-14) Blood Urea Nitrogen 16 mg/dL (8-26) Creatinine 1.2 mg/dL (0.7-1.3) Estimated GFR (Cockcroft-Gault) 75.0 Glucose Level 107 mg/dL (70-99) Hemoglobin A1c 6.0 % (4.8-5.6) Calcium Level 8.4 mg/dL (8.5-10.1) Thyroid Stimulating Hormone (TSH) 2.068 uIU/mL (0.358-3.74) Glucose (Fingerstick) 98 mg/dL (70-99) 102 mg/dL (70-99) 106 mg/dL (70-99) Test 09/28/18 20:07 09/29/18 07:15 09/29/18 08:20 09/29/18 11:55 Glucose (Fingerstick) 99 mg/dL (70-99) 102 mg/dL (70-99) 118 mg/dL (70-99) Erythrocyte Sedimentation Rate 9 (0-15) Sodium Level 148 mmol/L (136-145) Potassium Level 3.7 mmol/L (3.5-5.1) Chloride Level 110 mmol/L (98-107) Carbon Dioxide Level 26 mmol/L (21-32) Anion Gap 12 (6-14) Blood Urea Nitrogen 12 mg/dL (8-26) Creatinine 0.9 mg/dL (0.7-1.3) Estimated GFR (Cockcroft-Gault) 104.5 Glucose Level 105 mg/dL (70-99) Calcium Level 8.3 mg/dL (8.5-10.1) Magnesium Level 2.0 mg/dL (1.8-2.4) Triglycerides Level 54 mg/dL (0-150) Cholesterol Level 113 mg/dL (0-200) LDL Cholesterol, Calculated 62 mg/dL (0-100) VLDL Cholesterol, Calculated 11 mg/dL (0-40) Non-HDL Cholesterol Calculated 73 mg/dL (0-129) HDL Cholesterol 40 mg/dL (40-60) Cholesterol/HDL Ratio 2.8 Vitamin B12 Level 359 pg/mL (401-911) Laboratory Tests Test 09/28/18 16:36 09/28/18 20:07 09/29/18 07:15 09/29/18 08:20 Glucose (Fingerstick) 106 mg/dL (70-99) 99 mg/dL (70-99) 102 mg/dL (70-99) Erythrocyte Sedimentation Rate 9 (0-15) Sodium Level 148 mmol/L (136-145) Potassium Level 3.7 mmol/L (3.5-5.1) Chloride Level 110 mmol/L (98-107) Carbon Dioxide Level 26 mmol/L (21-32) Anion Gap 12 (6-14) Blood Urea Nitrogen 12 mg/dL (8-26) Creatinine 0.9 mg/dL (0.7-1.3) Estimated GFR (Cockcroft-Gault) 104.5 Glucose Level 105 mg/dL (70-99) Calcium Level 8.3 mg/dL (8.5-10.1) Magnesium Level 2.0 mg/dL (1.8-2.4) Triglycerides Level 54 mg/dL (0-150) Cholesterol Level 113 mg/dL (0-200) LDL Cholesterol, Calculated 62 mg/dL (0-100) VLDL Cholesterol, Calculated 11 mg/dL (0-40) Non-HDL Cholesterol Calculated 73 mg/dL (0-129) HDL Cholesterol 40 mg/dL (40-60) Cholesterol/HDL Ratio 2.8 Vitamin B12 Level 359 pg/mL (361-911) Test 09/29/18 11:55 Glucose (Fingerstick) 118 mg/dL (70-99) Medications Current Medications Sodium Chloride 500 ml @ 500 mls/hr 1X ONCE IV Last administered on 09/27/18at 18:35; Start 09/27/18 at 18:00; Stop 09/27/18 at 18:59; Status DC Dextrose/Sodium Chloride 1,000 ml @ 100 mls/hr Q10H IV Last administered on 09/29/18at 00:37; Start 09/27/18 at 22:00 Ondansetron HCl (Zofran) 4 mg PRN Q4HRS PRN IV NAUSEA/VOMITING 1ST CHOICE; Start 09/27/18 at 21:45 Acetaminophen (Tylenol) 650 mg PRN Q4HRS PRN PO TEMP OVER 100.4F OR MILD PAIN; Start 09/27/18 at 21:45; Status Cancel Al Hydroxide/Mg Hydroxide (Mylanta Plus Xs) 30 ml PRN DAILY PRN PO HEARTBURN / GAS; Start 09/27/18 at 21:45 Clonidine HCl (Catapres) 0.1 mg PRN Q6HRS PRN PO SBP>160 OR DBP>90; Start at 21:45 Docusate Sodium (Colace) 100 mg PRN BID PRN PO CONSTIPATION 1ST CHOICE; Start 09/27/18 at 21:45 Albuterol Sulfate (Ventolin Neb Soln) 2.5 mg PRN Q4HRS PRN NEB SHORTNESS OF BREATH; Start 09/27/18 at 21:45 Guaifenesin (Robitussin) 200 mg PRN Q4HRS PRN PO COUGH 1ST CHOICE; Start at 21:45 Lorazepam (Ativan) 0.5 mg PRN Q4HRS PRN PO ANXIETY / AGITATION; Start 09/27/18 at 21:45 Enoxaparin Sodium (Lovenox 40mg Syringe) 40 mg DAILY SQ Last administered on 09/29/18at 08:57; Start 09/28/18 at 09:00 Acetaminophen (Tylenol) 325 mg PRN Q4HRS PRN PO MILD PAIN / TEMP; Start at 09:00; Stop 09/28/18 at 19:36; Status DC Amlodipine Besylate (Norvasc) 10 mg DAILY PO Last administered on 09/29/18at 09: 00; Start 09/28/18 at 10:00 Aspirin (Ecotrin) 81 mg DAILY PO Last administered on 09/28/18at 10:36; Start 09/28/18 at 10:00; Stop 09/28/18 at 16:27; Status DC Atorvastatin Calcium (Lipitor) 20 mg HS PO ; Start 09/28/18 at 21:00 Ergocalciferol (Vitamin D2) 50,000 unit MoTh PO Last administered on 09/29/18at 08:57; Start 09/29/18 at 09:00 Tamsulosin HCl (Flomax) 0.4 mg QHS PO ; Start 09/28/18 at 21:00 Carvedilol (Coreg) 25 mg BIDWMEALS PO Last administered on 09/29/18at 09:00; Start 09/28/18 at 09:30 Hydralazine HCl (Apresoline) 25 mg TID PO Last administered on 09/29/18at 08:59; Start 09/28/18 at 10:00 Potassium Chloride (Klor-Con) 40 meq 1X ONCE PO Last administered on 09/28/18at 10:35; Start 09/28/18 at 09:00; Stop 09/28/18 at 09:26; Status DC Insulin Human Lispro (HumaLOG) 0-7 UNITS TIDWMEALS SQ ; Start 09/28/18 at 12:00 Dextrose (Dextrose 50%-Water Syringe) 12.5 gm PRN Q15MIN PRN IV SEE COMMENTS; Start 09/28/18 at 09:00 Acetaminophen (Tylenol) 650 mg PRN Q6HRS PRN PO TEMP > 100.4F; Start 09/28/18 at 16:30 Acetaminophen (Tylenol Supp) 650 mg PRN Q4HRS PRN CO TEMP > 100.4F; Start at 16:30 Aspirin (Ecotrin) 325 mg DAILYWBKFT PO Last administered on 09/29/18at 08:59; Start 09/29/18 at 08:00 Aspirin (Aspirin) 300 mg PRN DAILY PRN CO IF UNABLE TO TAKE PO; Start 09/28/18 at 16:30 Active Scripts Active Reported Tylenol (Acetaminophen) 325 Mg Tablet 1-2 Tab PO PRN Q4HRS PRN Aspir-Low (Aspirin) 81 Mg Tablet.dr 1 Tab PO DAILY Atorvastatin Calcium 20 Mg Tablet 20 Mg PO HS Hydralazine Hcl 25 Mg Tablet 1 Tab PO TID Amlodipine Besylate 10 Mg Tablet 10 Mg PO DAILY Coreg (Carvedilol) 25 Mg Tablet 25 Mg PO BIDWMEALS Flomax (Tamsulosin Hcl) 0.4 Mg Cap.er.24h 1 Cap PO QHS Vitamin D2 (Ergocalciferol (Vitamin D2)) 50,000 Unit Capsule 1 Cap PO QMTH Vitals/I & O Vital Sign - Last 24 Hours 09/28/18 09/28/18 09/28/18 09/28/18 15:14 15:22 17:00 19:56 Temp 98.0 98.3 98.0 98.3 Pulse 60 60 60 62 Resp 18 18 B/P (MAP) 132/87 (102) 132/87 132/87 141/81 (101) Pulse Ox 97 94 O2 Delivery Room Air Room Air 09/28/18 09/28/18 09/29/18 09/29/18 20:00 23:26 03:35 07:15 Temp 97.6 97.9 98.1 97.6 97.9 98.1 Pulse 54 53 83 Resp 18 18 20 B/P (MAP) 140/93 (109) 132/93 (106) 141/103 (116) Pulse Ox 95 95 95 O2 Delivery Room Air Room Air Room Air Room Air 09/29/18 09/29/18 09/29/18 09/29/18 08:00 08:59 09:00 09:00 Pulse 83 83 83 B/P (MAP) 144/106 144/106 144/106 O2 Delivery Room Air 09/29/18 11:01 Temp 98.4 98.4 Pulse 60 Resp 18 B/P (MAP) 132/92 (105) Pulse Ox 95 O2 Delivery Room Air Intake and Output 09/28/18 09/28/18 09/29/18 15:00 23:00 07:00 Intake Total 1420 ml 240 ml 0 ml Balance 1420 ml 240 ml 0 ml Images MRI Brain without contrast There is motion degradation. There is a small 0.3 cm focus of restricted diffusion right parasagittal midbrain. There is severe T2 and FLAIR hyperintense signal abnormality of the supratentorial parenchyma bilaterally. There are multiple old infarcts of the bilateral basal ganglia, thalami, bilateral marks radiata, right ghislaine, and right cerebellum. There is no midline shift. Ventricular size is within normal limits. There are foci of hemosiderin deposition/old microhemorrhage such as of the bilateral thalami, left temporal lobe, left cerebellum, left ghislaine, left frontal lobe. There is encephalomalacia with cortical involvement left occipital temporal lobes. There is mild mucosal thickening of the bilateral maxillary sinuses. There may be some narrowing of the left intradural vertebral artery. Impression: 1. There is a tiny focus of recent infarct of the right parasagittal midbrain. 2. There is severe T2 and FLAIR hyperintense signal abnormality of the supratentorial parenchyma bilaterally likely due to chronic microvascular ischemic disease, also multiple old lacunar infarcts and foci of old microhemorrhage. There is old infarct with cortical involvement of the left occipital temporal lobes. Carotid ultrasound, 09/29/2018: HISTORY: CVA Duplex evaluation of the carotid arteries and neck was performed including grayscale, color-flow and spectral Doppler analysis. There is mild intimal thickening and smooth plaquing at the carotid bifurcations. The plaques are partially calcified. The peak systolic velocity in the right internal carotid artery is 77 cm per sec with an end-diastolic velocity of 21 cm/s and an internal carotid to common carotid artery ratio of 0.9. On the left the peak systolic velocity in the internal carotid artery is 51 cm/s with an end-diastolic velocity of 23 cm/s and an internal carotid to common carotid artery ratio of 0.8. These Doppler findings suggest luminal narrowing in the 0-50 percent diameter range. There is no duplex evidence of high-grade stenosis at the bifurcations. Antegrade flow is present in both vertebral arteries in the neck. IMPRESSION: Mild atherosclerotic plaquing at both carotid bifurcations with underlying luminal narrowing in the 0-50 percent diameter range bilaterally. LEFT VENTRICLE The left ventricle is normal size. There is mild to moderate concentric left ventricular hypertrophy. The left ventricular systolic function is normal and the ejection fraction is within normal range. The Ejection Fraction is 60-65%. There is normal LV segmental wall motion. Transmitral Doppler flow pattern is Grade I-abnormal relaxation pattern. RIGHT VENTRICLE The right ventricle is normal size. The right ventricular systolic function is normal. ATRIA The left atrium size is normal. The right atrium size is normal. The interatrial septum is intact with no evidence for an atrial septal defect or patent foramen ovale as noted on 2-D or Doppler imaging. AORTIC VALVE The aortic valve is calcified but opens well. Doppler and Color Flow revealed trace aortic regurgitation. There is no significant aortic valvular stenosis. MITRAL VALVE The mitral valve is calcified but opens well. There is no evidence of mitral valve prolapse. There is no mitral valve stenosis. Doppler and Color-flow revealed trace mitral regurgitation. TRICUSPID VALVE The tricuspid valve is normal in structure and function. Doppler and Color Flow revealed trace tricuspid regurgitation. There is mild pulmonary hypertension. The PA pressure was estimated at 33 mmHg. There is no tricuspid valve stenosis. PULMONIC VALVE The pulmonic valve is not well visualized. Doppler and Color Flow revealed trace to mild pulmonic valvular regurgitation. There is no pulmonic valvular stenosis. GREAT VESSELS The aortic root is normal in size. The ascending aorta is mildly dilated at 3.7 cm. The IVC is normal in size and collapses >50% with inspiration. PERICARDIAL EFFUSION There is no evidence of significant pericardial effusion. Critical Notification Critical Value: No <Conclusion> The left ventricular systolic function is normal and the ejection fraction is within normal range. The Ejection Fraction is 60-65%. There is normal LV segmental wall motion. Doppler and Color Flow revealed trace tricuspid regurgitation. There is mild pulmonary hypertension. The PA pressure was estimated at 33 mmHg. The ascending aorta is mildly dilated at 3.7 cm. *Positive bubble study noted with right to left shunting. Consider GALILEA if these clinical suspicion for paradoxical embolus. TITI PEREZ MD Sep 29, 2018 14:48
[2018-09-29 15:06] VITALS: BP 151/98
--- NOTE | 2018-09-29 18:35 | NUR ---
Pt has been up in chair today. Was able to ambulate with PT and walker from bed to bathroom. Pt is a 2 person assist from sit to stand. Gait is unsteady and pt does lean when walking.
[2018-09-29 19:44] VITALS: BP 118/82
[2018-09-29] MEDS: TAMSULOSIN 0.4 MG CAP.ER.24H. PO SCH (20:44)
[2018-09-29] MEDS: ATORVASTATIN CALCIUM 20 MG TABLET PO SCH (20:45)
[2018-09-29 23:35] VITALS: BP 142/96
[2018-09-30 03:17] VITALS: BP 132/83
[2018-09-30 04:58] LABS: BASO % 0 % (0-3); EOS # 0.1 x10^3/uL (0.0-0.7); EOS % 3 % (0-3); HEMATOCRIT 38.7 % (39.0-53.0); HEMOGLOBIN 12.5 g/dL (13.0-17.5); LYMPH # 1.8 x10^3/uL (1.0-4.8); LYMPH % 42 % (24-48); MEAN CORPUSCULAR HEMOGLOBIN 27 pg (25-35); MEAN CORPUSCULAR HGB CONC 32 g/dL (31-37); MEAN CORPUSCULAR VOLUME 83 fL (79-100); MONO # 0.4 x10^3/uL (0.0-1.1); MONO % 9 % (0-9); NEUT % 45 % (31-73); PLATELET COUNT 156 x10^3/uL (140-400); RED BLOOD COUNT 4.66 x10^6/uL (4.30-5.70); RED CELL DISTRIBUTION WIDTH 15.1 % (11.5-14.5); WHITE BLOOD COUNT 4.4 x10^3/uL (4.0-11.0)
[2018-09-30 05:23] LABS: CALCIUM 8.4 mg/dL (8.5-10.1); GFR 92.5; POTASSIUM 3.3 mmol/L (3.5-5.1)
[2018-09-30 07:00] VITALS: BP 113/78
[2018-09-30] MEDS: INSULIN LISPRO 300 UNITS/3 ML INSULN.PEN. SQ SCH ×3 (08:00→17:00)
[2018-09-30] MEDS: CARVEDILOL 12.5 MG TABLET. PO SCH ×2 (08:00→17:00)
--- NOTE | 2018-09-30 09:00 | NUR ---
SW following pt. SW spoke with pt's sister, Lyudmila via phone regarding concerns about pt returning back to [facility] after discussing with RN. Lyudmila wants to know if pt can go to different facility expressing concern that pt might not be getting the best care at [facility]. DON discussed other LTC options in [facility] and Lyudmila agreeable with SW sending referral to [facility]. Lyudmila also reported she wants to be able to visit these other facilities but she is at work today. DON explained SW can assist in finding placement but if SW is unable to find a placement by the time pt is discharging, pt will have to return back to [facility] and they can work on moving him to a different facility. Pt acceptance and admission pending. Discussed with RN.
[2018-09-30] MEDS: IV DEXTROSE 5 %-0.45 % NACL 1,000 ML IV SCH ×2 (10:00)
[2018-09-30] MEDS: amLODIPine BESYLATE 10 MG TABLET PO SCH (10:24)
[2018-09-30] MEDS: ENOXAPARIN 40 MG/0.4 ML SYRINGE. SQ SCH (10:24)
[2018-09-30] MEDS: ASPIRIN ENTERIC COATED 325 MG TABLET.DR. PO SCH (10:24)
[2018-09-30] MEDS: hydrALAZINE 25 MG TABLET PO SCH ×3 (10:24→20:19)
[2018-09-30 10:41] VITALS: BP 124/89
--- NOTE | 2018-09-30 11:08 | SNU/HH DC ---
DISCHARGE ORDERS DISCHARGE INFORMATION: FINAL DIAGNOSIS Problems Medical Problems: (1) Falls Status: Acute (2) Weakness Status: Acute CONDITION ON DISCHARGE: Stable CODE STATUS: Code Status: Full DETENTION: SNF STAY <30 DAYS: No HOSPICE: HOSPICE: No HOSPICE EVAL & TREAT: No LTAC: ADMIT TO LTAC: No POST DISCHARGE ORDERS: ACTIVITY ORDERS: Resume previous activity DIET AFTER DISCHARGE: ADA TREATMENT/EQUIPMENT ORDERS: Physical Therapy For: Evalulation/Treatment DISCHARGE MEDICATIONS: Home Meds Reported Medications Acetaminophen (TYLENOL) 325 Mg Tablet, 1-2 TAB PO PRN Q4HRS PRN for MILD PAIN / TEMP, #60 TAB 2 Refills 09/28/18 Aspirin (ASPIR-LOW) 81 Mg Tablet.dr, 1 TAB PO DAILY for heart, #30 TAB 3 Refills 09/28/18 Atorvastatin Calcium (ATORVASTATIN CALCIUM) 20 Mg Tablet, 20 MG PO HS for FOR CHOLESTEROL, #30 TAB 0 Refills 09/28/18 Hydralazine Hcl (HYDRALAZINE HCL) 25 Mg Tablet, 1 TAB PO TID for bp, #90 TAB 5 Refills 09/28/18 Amlodipine Besylate (AMLODIPINE BESYLATE) 10 Mg Tablet, 10 MG PO DAILY for bp, TAB 09/28/18 Carvedilol (COREG) 25 Mg Tablet, 25 MG PO BIDWMEALS for CARDIAC, TAB 09/28/18 Tamsulosin Hcl (FLOMAX) 0.4 Mg Cap.er.24h, 1 CAP PO QHS for prostate, #30 CAP 11 Refills 09/28/18 Ergocalciferol (Vitamin D2) (VITAMIN D2) 50,000 Unit Capsule, 1 CAP PO QMTH for supplement, #4 CAP 5 Refills 09/28/18 LIANA LOVETT III DO Sep 30, 2018 11:08
--- NOTE | 2018-09-30 11:14 | PDOC ---
PROGRESS NOTES Assessment Problems Medical Problems: (1) Falls Status: Acute (2) Weakness Status: Acute Acute infarct, right parasagittal midbrain. Chronic microvascular ischemic disease, also multiple old lacunar infarcts and foci of old microhemorrhage, old infarct left occipital temporal lobes Neuropathy, likely diabetic, which certainly contributes to his gait disorder. Laboratory studies for other causes negative or pending [id number] shunt on echo Episode of PAT Favorable lipid profile, does not need a statin. Plan I doubt that he is a good candidate for closure of any patent foramen ovale. The current stroke is in the deep white matter and related to small-vessel disease, very unlikely to be cardio-embolic phenomenon Increased aspirin to 325 mg daily Does not need a statin. Okay for discharge back to [facility]. Discussed again with patient's sister. Subjective No complain Objective Vital Signs Date Time Temp Pulse Resp B/P (MAP) Pulse Ox O2 Delivery O2 Flow Rate FiO2 09/30/18 10:41 98.6 60 18 124/89 (101) 95 Room Air 98.6 Intake and Output 09/30/18 07:00 Intake Total 340 ml Balance 340 ml Intake Oral 340 ml # Voids 6 PHYSICAL EXAM Physical Exam: Alert. Oriented to person, does not know date or name of hospital. PERRL. EOMI. CN: Left central facial weakness Muscle tone: normal. Muscle strength: 4/5, weaker on the left DTR: 0+ Plantar reflex: Flexor Gait: not examined in bed. Sensory exam: Stocking loss No cerebellar signs elicited. Review of Relevant I have reviewed the following items rochelle (where applicable) has been applied. Labs Laboratory Tests Test 09/28/18 11:51 09/28/18 16:36 09/28/18 20:07 09/29/18 07:15 Glucose (Fingerstick) 102 mg/dL (70-99) 106 mg/dL (70-99) 99 mg/dL (70-99) 102 mg/dL (70-99) Test 09/29/18 08:20 09/29/18 11:55 09/29/18 17:00 09/29/18 20:43 Erythrocyte Sedimentation Rate 9 (0-15) Sodium Level 148 mmol/L (136-145) Potassium Level 3.7 mmol/L (3.5-5.1) Chloride Level 110 mmol/L (98-107) Carbon Dioxide Level 26 mmol/L (21-32) Anion Gap 12 (6-14) Blood Urea Nitrogen 12 mg/dL (8-26) Creatinine 0.9 mg/dL (0.7-1.3) Estimated GFR (Cockcroft-Gault) 104.5 Glucose Level 105 mg/dL (70-99) Calcium Level 8.3 mg/dL (8.5-10.1) Magnesium Level 2.0 mg/dL (1.8-2.4) Triglycerides Level 54 mg/dL (0-150) Cholesterol Level 113 mg/dL (0-200) LDL Cholesterol, Calculated 62 mg/dL (0-100) VLDL Cholesterol, Calculated 11 mg/dL (0-40) Non-HDL Cholesterol Calculated 73 mg/dL (0-129) HDL Cholesterol 40 mg/dL (40-60) Cholesterol/HDL Ratio 2.8 Vitamin B12 Level 359 pg/mL (247-911) Glucose (Fingerstick) 118 mg/dL (70-99) 109 mg/dL (70-99) 91 mg/dL (70-99) Test 09/30/18 04:25 09/30/18 07:49 White Blood Count 4.4 x10^3/uL (4.0-11.0) Red Blood Count 4.66 x10^6/uL (4.30-5.70) Hemoglobin 12.5 g/dL (13.0-17.5) Hematocrit 38.7 % (39.0-53.0) Mean Corpuscular Volume 83 fL (79-100) Mean Corpuscular Hemoglobin 27 pg (25-35) Mean Corpuscular Hemoglobin Concent 32 g/dL (31-37) Red Cell Distribution Width 15.1 % (11.5-14.5) Platelet Count 156 x10^3/uL (140-400) Neutrophils (%) (Auto) 45 % (31-73) Lymphocytes (%) (Auto) 42 % (24-48) Monocytes (%) (Auto) 9 % (0-9) Eosinophils (%) (Auto) 3 % (0-3) Basophils (%) (Auto) 0 % (0-3) Neutrophils # (Auto) 2.0 x10^3uL (1.8-7.7) Lymphocytes # (Auto) 1.8 x10^3/uL (1.0-4.8) Monocytes # (Auto) 0.4 x10^3/uL (0.0-1.1) Eosinophils # (Auto) 0.1 x10^3/uL (0.0-0.7) Basophils # (Auto) 0.0 x10^3/uL (0.0-0.2) Sodium Level 145 mmol/L (136-145) Potassium Level 3.3 mmol/L (3.5-5.1) Chloride Level 108 mmol/L (98-107) Carbon Dioxide Level 28 mmol/L (21-32) Anion Gap 9 (6-14) Blood Urea Nitrogen 10 mg/dL (8-26) Creatinine 1.0 mg/dL (0.7-1.3) Estimated GFR (Cockcroft-Gault) 92.5 Glucose Level 98 mg/dL (70-99) Calcium Level 8.4 mg/dL (8.5-10.1) Glucose (Fingerstick) 100 mg/dL (70-99) Laboratory Tests Test 09/29/18 11:55 09/29/18 17:00 09/29/18 20:43 09/30/18 04:25 Glucose (Fingerstick) 118 mg/dL (70-99) 109 mg/dL (70-99) 91 mg/dL (70-99) White Blood Count 4.4 x10^3/uL (4.0-11.0) Red Blood Count 4.66 x10^6/uL (4.30-5.70) Hemoglobin 12.5 g/dL (13.0-17.5) Hematocrit 38.7 % (39.0-53.0) Mean Corpuscular Volume 83 fL (79-100) Mean Corpuscular Hemoglobin 27 pg (25-35) Mean Corpuscular Hemoglobin Concent 32 g/dL (31-37) Red Cell Distribution Width 15.1 % (11.5-14.5) Platelet Count 156 x10^3/uL (140-400) Neutrophils (%) (Auto) 45 % (31-73) Lymphocytes (%) (Auto) 42 % (24-48) Monocytes (%) (Auto) 9 % (0-9) Eosinophils (%) (Auto) 3 % (0-3) Basophils (%) (Auto) 0 % (0-3) Neutrophils # (Auto) 2.0 x10^3uL (1.8-7.7) Lymphocytes # (Auto) 1.8 x10^3/uL (1.0-4.8) Monocytes # (Auto) 0.4 x10^3/uL (0.0-1.1) Eosinophils # (Auto) 0.1 x10^3/uL (0.0-0.7) Basophils # (Auto) 0.0 x10^3/uL (0.0-0.2) Sodium Level 145 mmol/L (136-145) Potassium Level 3.3 mmol/L (3.5-5.1) Chloride Level 108 mmol/L (98-107) Carbon Dioxide Level 28 mmol/L (21-32) Anion Gap 9 (6-14) Blood Urea Nitrogen 10 mg/dL (8-26) Creatinine 1.0 mg/dL (0.7-1.3) Estimated GFR (Cockcroft-Gault) 92.5 Glucose Level 98 mg/dL (70-99) Calcium Level 8.4 mg/dL (8.5-10.1) Test 09/30/18 07:49 Glucose (Fingerstick) 100 mg/dL (70-99) Medications Current Medications Sodium Chloride 500 ml @ 500 mls/hr 1X ONCE IV Last administered on 09/27/18at 18:35; Start 09/27/18 at 18:00; Stop 09/27/18 at 18:59; Status DC Dextrose/Sodium Chloride 1,000 ml @ 100 mls/hr Q10H IV Last administered on 09/29/18at 00:37; Start 09/27/18 at 22:00 Ondansetron HCl (Zofran) 4 mg PRN Q4HRS PRN IV NAUSEA/VOMITING 1ST CHOICE; Start 09/27/18 at 21:45 Acetaminophen (Tylenol) 650 mg PRN Q4HRS PRN PO TEMP OVER 100.4F OR MILD PAIN; Start 09/27/18 at 21:45; Status Cancel Al Hydroxide/Mg Hydroxide (Mylanta Plus Xs) 30 ml PRN DAILY PRN PO HEARTBURN / GAS; Start 09/27/18 at 21:45 Clonidine HCl (Catapres) 0.1 mg PRN Q6HRS PRN PO SBP>160 OR DBP>90; Start at 21:45 Docusate Sodium (Colace) 100 mg PRN BID PRN PO CONSTIPATION 1ST CHOICE; Start 09/27/18 at 21:45 Albuterol Sulfate (Ventolin Neb Soln) 2.5 mg PRN Q4HRS PRN NEB SHORTNESS OF BREATH; Start 09/27/18 at 21:45 Guaifenesin (Robitussin) 200 mg PRN Q4HRS PRN PO COUGH 1ST CHOICE; Start at 21:45 Lorazepam (Ativan) 0.5 mg PRN Q4HRS PRN PO ANXIETY / AGITATION; Start 09/27/18 at 21:45 Enoxaparin Sodium (Lovenox 40mg Syringe) 40 mg DAILY SQ Last administered on 10:24; Start 09/28/18 at 09:00 Acetaminophen (Tylenol) 325 mg PRN Q4HRS PRN PO MILD PAIN / TEMP; Start at 09:00; Stop 09/28/18 at 19:36; Status DC Amlodipine Besylate (Norvasc) 10 mg DAILY PO Last administered on 09/30/18 10: 24; Start 09/28/18 at 10:00 Aspirin (Ecotrin) 81 mg DAILY PO Last administered on 09/28/18 10:36; Start 09/28/18 at 10:00; Stop 09/28/18 at 16:27; Status DC Atorvastatin Calcium (Lipitor) 20 mg HS PO Last administered on 09/29/18 20:45 ; Start 09/28/18 at 21:00 Ergocalciferol (Vitamin D2) 50,000 unit MoTh PO Last administered on 09/29/18 08:57; Start 09/29/18 at 09:00 Tamsulosin HCl (Flomax) 0.4 mg QHS PO Last administered on 09/29/18 20:44; Start 09/28/18 at 21:00 Carvedilol (Coreg) 25 mg BIDWMEALS PO Last administered on 09/29/18 16:44; Start 09/28/18 at 09:30 Hydralazine HCl (Apresoline) 25 mg TID PO Last administered on 09/30/18 10:24; Start 09/28/18 at 10:00 Potassium Chloride (Klor-Con) 40 meq 1X ONCE PO Last administered on 09/28/18at 10:35; Start 09/28/18 at 09:00; Stop 09/28/18 at 09:26; Status DC Insulin Human Lispro (HumaLOG) 0-7 UNITS TIDWMEALS SQ ; Start 09/28/18 at 12:00 Dextrose (Dextrose 50%-Water Syringe) 12.5 gm PRN Q15MIN PRN IV SEE COMMENTS; Start 09/28/18 at 09:00 Acetaminophen (Tylenol) 650 mg PRN Q6HRS PRN PO TEMP > 100.4F; Start 09/28/18 at 16:30 Acetaminophen (Tylenol Supp) 650 mg PRN Q4HRS PRN [place] TEMP > 100.4F; Start at 16:30 Aspirin (Ecotrin) 325 mg DAILYWBKFT PO Last administered on 09/30/18at 10:24; Start 09/29/18 at 08:00 Aspirin (Aspirin) 300 mg PRN DAILY PRN [place] IF UNABLE TO TAKE PO; Start 09/28/18 at 16:30 Active Scripts Active Reported Tylenol (Acetaminophen) 325 Mg Tablet 1-2 Tab PO PRN Q4HRS PRN Aspir-Low (Aspirin) 81 Mg Tablet.dr 1 Tab PO DAILY Atorvastatin Calcium 20 Mg Tablet 20 Mg PO HS Hydralazine Hcl 25 Mg Tablet 1 Tab PO TID Amlodipine Besylate 10 Mg Tablet 10 Mg PO DAILY Coreg (Carvedilol) 25 Mg Tablet 25 Mg PO BIDWMEALS Flomax (Tamsulosin Hcl) 0.4 Mg Cap.er.24h 1 Cap PO QHS Vitamin D2 (Ergocalciferol (Vitamin D2)) 50,000 Unit Capsule 1 Cap PO QMTH Vitals/I & O Vital Sign - Last 24 Hours 09/29/18 09/29/18 09/29/18 09/29/18 15:06 15:17 16:44 19:44 Temp 97.8 98.5 97.8 98.5 Pulse 56 56 56 54 Resp 20 18 B/P (MAP) 151/98 (115) 151/98 151/98 118/82 (94) Pulse Ox 96 97 O2 Delivery Room Air Room Air 09/29/18 09/29/18 09/29/18 09/30/18 20:00 20:44 23:35 03:17 Temp 98.4 98.2 98.4 98.2 Pulse 56 59 Resp 18 16 B/P (MAP) 118/82 142/96 (111) 132/83 (99) Pulse Ox 97 95 O2 Delivery Room Air Room Air Room Air 09/30/18 09/30/18 09/30/18 09/30/18 07:00 08:00 10:24 10:24 Temp 98.1 98.1 Pulse 57 59 59 59 Resp 18 B/P (MAP) 113/78 (90) 132/83 132/83 132/83 Pulse Ox 98 O2 Delivery Room Air 09/30/18 10:41 Temp 98.6 98.6 Pulse 60 Resp 18 B/P (MAP) 124/89 (101) Pulse Ox 95 O2 Delivery Room Air Intake and Output 09/29/18 09/29/18 09/30/18 15:00 23:00 07:00 Intake Total 240 ml 100 ml Balance 240 ml 100 ml TITI PEREZ MD Sep 30, 2018 11:14
[2018-09-30] MEDS ORDERED: POTASSIUM CHLORIDE 20 MEQ TABLET.ER. PO ONE (11:30)
--- NOTE | 2018-09-30 11:32 | PDOC ---
PROGRESS NOTES Chief Complaint Chief Complaint Gait instability Hypernatremia History of CVA on the right handed individual with right-handed weakness Essential hypertension Hypokalemia Transaminitis Confusion DM2 History of Present Illness History of Present Illness Patient sitting in bed side chair, ready to go home. He said he feels good, no complaints. He has been working with PT. Reviewed rhythm strips with RN. Vitals Vitals Vital Signs Date Time Temp Pulse Resp B/P (MAP) Pulse Ox O2 Delivery O2 Flow Rate FiO2 09/30/18 10:41 98.6 60 18 124/89 (101) 95 Room Air 98.6 Physical Exam General: Alert, Oriented X3, Cooperative, No acute distress Heart: Regular rate (SR), Other (distant heart sounds) Lungs: Clear, Other (symmetric chest expansion, good inspiratory effort) Abdomen: Soft, No tenderness, Other (obese) Extremities: No cyanosis, No edema Skin: No breakdown, No significant lesion Labs LABS Laboratory Tests Test 09/29/18 11:55 09/29/18 17:00 09/29/18 20:43 09/30/18 04:25 Glucose (Fingerstick) 118 mg/dL (70-99) 109 mg/dL (70-99) 91 mg/dL (70-99) White Blood Count 4.4 x10^3/uL (4.0-11.0) Red Blood Count 4.66 x10^6/uL (4.30-5.70) Hemoglobin 12.5 g/dL (13.0-17.5) Hematocrit 38.7 % (39.0-53.0) Mean Corpuscular Volume 83 fL (79-100) Mean Corpuscular Hemoglobin 27 pg (25-35) Mean Corpuscular Hemoglobin Concent 32 g/dL (31-37) Red Cell Distribution Width 15.1 % (11.5-14.5) Platelet Count 156 x10^3/uL (140-400) Neutrophils (%) (Auto) 45 % (31-73) Lymphocytes (%) (Auto) 42 % (24-48) Monocytes (%) (Auto) 9 % (0-9) Eosinophils (%) (Auto) 3 % (0-3) Basophils (%) (Auto) 0 % (0-3) Neutrophils # (Auto) 2.0 x10^3uL (1.8-7.7) Lymphocytes # (Auto) 1.8 x10^3/uL (1.0-4.8) Monocytes # (Auto) 0.4 x10^3/uL (0.0-1.1) Eosinophils # (Auto) 0.1 x10^3/uL (0.0-0.7) Basophils # (Auto) 0.0 x10^3/uL (0.0-0.2) Sodium Level 145 mmol/L (136-145) Potassium Level 3.3 mmol/L (3.5-5.1) Chloride Level 108 mmol/L (98-107) Carbon Dioxide Level 28 mmol/L (21-32) Anion Gap 9 (6-14) Blood Urea Nitrogen 10 mg/dL (8-26) Creatinine 1.0 mg/dL (0.7-1.3) Estimated GFR (Cockcroft-Gault) 92.5 Glucose Level 98 mg/dL (70-99) Calcium Level 8.4 mg/dL (8.5-10.1) Test 09/30/18 07:49 Glucose (Fingerstick) 100 mg/dL (70-99) Review of Systems Review of Systems as per above Assessment and Plan Assessmemt and Plan Problems Medical Problems: (1) Falls Status: Acute (2) Weakness Status: Acute Assessment: CVA - R parasagittal mid brain Gait instability R to L shunt on ECHO Hypernatremia - resolved Hypokalemia Essential Hypertension Transaminemia Residual L sided deficits 2/2 prior CVA Diabetes mellitus, type 2 Onychomycosis/onychocryptosis s/p nail debridement 09/28/18 Plan: Bubble study shows R to L shunt Neuro - okay to discharge home, unlikely thromboembolic event Passed swallow test - low aspiration risk, regular diet with thin liquids Replete potassium today - was 3.3 this am [address]charge to [facility] if ok with cardiology Comment Review of Relevant I have reviewed the following items rochelle (where applicable) has been applied. Labs Laboratory Tests Test 09/28/18 11:51 09/28/18 16:36 09/28/18 20:07 09/29/18 07:15 Glucose (Fingerstick) 102 mg/dL (70-99) 106 mg/dL (70-99) 99 mg/dL (70-99) 102 mg/dL (70-99) Test 09/29/18 08:20 09/29/18 11:55 09/29/18 17:00 09/29/18 20:43 Erythrocyte Sedimentation Rate 9 (0-15) Sodium Level 148 mmol/L (136-145) Potassium Level 3.7 mmol/L (3.5-5.1) Chloride Level 110 mmol/L (98-107) Carbon Dioxide Level 26 mmol/L (21-32) Anion Gap 12 (6-14) Blood Urea Nitrogen 12 mg/dL (8-26) Creatinine 0.9 mg/dL (0.7-1.3) Estimated GFR (Cockcroft-Gault) 104.5 Glucose Level 105 mg/dL (70-99) Calcium Level 8.3 mg/dL (8.5-10.1) Magnesium Level 2.0 mg/dL (1.8-2.4) Triglycerides Level 54 mg/dL (0-150) Cholesterol Level 113 mg/dL (0-200) LDL Cholesterol, Calculated 62 mg/dL (0-100) VLDL Cholesterol, Calculated 11 mg/dL (0-40) Non-HDL Cholesterol Calculated 73 mg/dL (0-129) HDL Cholesterol 40 mg/dL (40-60) Cholesterol/HDL Ratio 2.8 Vitamin B12 Level 359 pg/mL (247-911) Glucose (Fingerstick) 118 mg/dL (70-99) 109 mg/dL (70-99) 91 mg/dL (70-99) Test 09/30/18 04:25 09/30/18 07:49 White Blood Count 4.4 x10^3/uL (4.0-11.0) Red Blood Count 4.66 x10^6/uL (4.30-5.70) Hemoglobin 12.5 g/dL (13.0-17.5) Hematocrit 38.7 % (39.0-53.0) Mean Corpuscular Volume 83 fL (79-100) Mean Corpuscular Hemoglobin 27 pg (25-35) Mean Corpuscular Hemoglobin Concent 32 g/dL (31-37) Red Cell Distribution Width 15.1 % (11.5-14.5) Platelet Count 156 x10^3/uL (140-400) Neutrophils (%) (Auto) 45 % (31-73) Lymphocytes (%) (Auto) 42 % (24-48) Monocytes (%) (Auto) 9 % (0-9) Eosinophils (%) (Auto) 3 % (0-3) Basophils (%) (Auto) 0 % (0-3) Neutrophils # (Auto) 2.0 x10^3uL (1.8-7.7) Lymphocytes # (Auto) 1.8 x10^3/uL (1.0-4.8) Monocytes # (Auto) 0.4 x10^3/uL (0.0-1.1) Eosinophils # (Auto) 0.1 x10^3/uL (0.0-0.7) Basophils # (Auto) 0.0 x10^3/uL (0.0-0.2) Sodium Level 145 mmol/L (136-145) Potassium Level 3.3 mmol/L (3.5-5.1) Chloride Level 108 mmol/L (98-107) Carbon Dioxide Level 28 mmol/L (21-32) Anion Gap 9 (6-14) Blood Urea Nitrogen 10 mg/dL (8-26) Creatinine 1.0 mg/dL (0.7-1.3) Estimated GFR (Cockcroft-Gault) 92.5 Glucose Level 98 mg/dL (70-99) Calcium Level 8.4 mg/dL (8.5-10.1) Glucose (Fingerstick) 100 mg/dL (70-99) Laboratory Tests Test 09/29/18 11:55 09/29/18 17:00 09/29/18 20:43 09/30/18 04:25 Glucose (Fingerstick) 118 mg/dL (70-99) 109 mg/dL (70-99) 91 mg/dL (70-99) White Blood Count 4.4 x10^3/uL (4.0-11.0) Red Blood Count 4.66 x10^6/uL (4.30-5.70) Hemoglobin 12.5 g/dL (13.0-17.5) Hematocrit 38.7 % (39.0-53.0) Mean Corpuscular Volume 83 fL (79-100) Mean Corpuscular Hemoglobin 27 pg (25-35) Mean Corpuscular Hemoglobin Concent 32 g/dL (31-37) Red Cell Distribution Width 15.1 % (11.5-14.5) Platelet Count 156 x10^3/uL (140-400) Neutrophils (%) (Auto) 45 % (31-73) Lymphocytes (%) (Auto) 42 % (24-48) Monocytes (%) (Auto) 9 % (0-9) Eosinophils (%) (Auto) 3 % (0-3) Basophils (%) (Auto) 0 % (0-3) Neutrophils # (Auto) 2.0 x10^3uL (1.8-7.7) Lymphocytes # (Auto) 1.8 x10^3/uL (1.0-4.8) Monocytes # (Auto) 0.4 x10^3/uL (0.0-1.1) Eosinophils # (Auto) 0.1 x10^3/uL (0.0-0.7) Basophils # (Auto) 0.0 x10^3/uL (0.0-0.2) Sodium Level 145 mmol/L (136-145) Potassium Level 3.3 mmol/L (3.5-5.1) Chloride Level 108 mmol/L (98-107) Carbon Dioxide Level 28 mmol/L (21-32) Anion Gap 9 (6-14) Blood Urea Nitrogen 10 mg/dL (8-26) Creatinine 1.0 mg/dL (0.7-1.3) Estimated GFR (Cockcroft-Gault) 92.5 Glucose Level 98 mg/dL (70-99) Calcium Level 8.4 mg/dL (8.5-10.1) Test 09/30/18 07:49 Glucose (Fingerstick) 100 mg/dL (70-99) Medications Current Medications Sodium Chloride 500 ml @ 500 mls/hr 1X ONCE IV Last administered on 09/27/18at 18:35; Start 09/27/18 at 18:00; Stop 09/27/18 at 18:59; Status DC Dextrose/Sodium Chloride 1,000 ml @ 100 mls/hr Q10H IV Last administered on 09/29/18at 00:37; Start 09/27/18 at 22:00 Ondansetron HCl (Zofran) 4 mg PRN Q4HRS PRN IV NAUSEA/VOMITING 1ST CHOICE; Start 09/27/18 at 21:45 Acetaminophen (Tylenol) 650 mg PRN Q4HRS PRN PO TEMP OVER 100.4F OR MILD PAIN; Start 09/27/18 at 21:45; Status Cancel Al Hydroxide/Mg Hydroxide (Mylanta Plus Xs) 30 ml PRN DAILY PRN PO HEARTBURN / GAS; Start 09/27/18 at 21:45 Clonidine HCl (Catapres) 0.1 mg PRN Q6HRS PRN PO SBP>160 OR DBP>90; Start at 21:45 Docusate Sodium (Colace) 100 mg PRN BID PRN PO CONSTIPATION 1ST CHOICE; Start 09/27/18 at 21:45 Albuterol Sulfate (Ventolin Neb Soln) 2.5 mg PRN Q4HRS PRN NEB SHORTNESS OF BREATH; Start 09/27/18 at 21:45 Guaifenesin (Robitussin) 200 mg PRN Q4HRS PRN PO COUGH 1ST CHOICE; Start at 21:45 Lorazepam (Ativan) 0.5 mg PRN Q4HRS PRN PO ANXIETY / AGITATION; Start 09/27/18 at 21:45 Enoxaparin Sodium (Lovenox 40mg Syringe) 40 mg DAILY SQ Last administered on 10:24; Start 09/28/18 at 09:00 Acetaminophen (Tylenol) 325 mg PRN Q4HRS PRN PO MILD PAIN / TEMP; Start at 09:00; Stop 09/28/18 at 19:36; Status DC Amlodipine Besylate (Norvasc) 10 mg DAILY PO Last administered on 09/30/18 10: 24; Start 09/28/18 at 10:00 Aspirin (Ecotrin) 81 mg DAILY PO Last administered on 09/28/18 10:36; Start 09/28/18 at 10:00; Stop 09/28/18 at 16:27; Status DC Atorvastatin Calcium (Lipitor) 20 mg HS PO Last administered on 09/29/18 20:45 ; Start 09/28/18 at 21:00 Ergocalciferol (Vitamin D2) 50,000 unit MoTh PO Last administered on 09/29/18 08:57; Start 09/29/18 at 09:00 Tamsulosin HCl (Flomax) 0.4 mg QHS PO Last administered on 09/29/18 20:44; Start 09/28/18 at 21:00 Carvedilol (Coreg) 25 mg BIDWMEALS PO Last administered on 09/29/18 16:44; Start 09/28/18 at 09:30 Hydralazine HCl (Apresoline) 25 mg TID PO Last administered on 09/30/18 10:24; Start 09/28/18 at 10:00 Potassium Chloride (Klor-Con) 40 meq 1X ONCE PO Last administered on 09/28/18 10:35; Start 09/28/18 at 09:00; Stop 09/28/18 at 09:26; Status DC Insulin Human Lispro (HumaLOG) 0-7 UNITS TIDWMEALS SQ ; Start 09/28/18 at 12:00 Dextrose (Dextrose 50%-Water Syringe) 12.5 gm PRN Q15MIN PRN IV SEE COMMENTS; Start 09/28/18 at 09:00 Acetaminophen (Tylenol) 650 mg PRN Q6HRS PRN PO TEMP > 100.4F; Start 09/28/18 at 16:30 Acetaminophen (Tylenol Supp) 650 mg PRN Q4HRS PRN [place] TEMP > 100.4F; Start at 16:30 Aspirin (Ecotrin) 325 mg DAILYWBKFT PO Last administered on 09/30/18 10:24; Start 09/29/18 at 08:00 Aspirin (Aspirin) 300 mg PRN DAILY PRN [place] IF UNABLE TO TAKE PO; Start 09/28/18 at 16:30 Active Scripts Active Reported Tylenol (Acetaminophen) 325 Mg Tablet 1-2 Tab PO PRN Q4HRS PRN Aspir-Low (Aspirin) 81 Mg Tablet.dr 1 Tab PO DAILY Atorvastatin Calcium 20 Mg Tablet 20 Mg PO HS Hydralazine Hcl 25 Mg Tablet 1 Tab PO TID Amlodipine Besylate 10 Mg Tablet 10 Mg PO DAILY Coreg (Carvedilol) 25 Mg Tablet 25 Mg PO BIDWMEALS Flomax (Tamsulosin Hcl) 0.4 Mg Cap.er.24h 1 Cap PO QHS Vitamin D2 (Ergocalciferol (Vitamin D2)) 50,000 Unit Capsule 1 Cap PO QMTH Vitals/I & O Vital Sign - Last 24 Hours 09/29/18 09/29/18 09/29/18 09/29/18 15:06 15:17 16:44 19:44 Temp 97.8 98.5 97.8 98.5 Pulse 56 56 56 54 Resp 20 18 B/P (MAP) 151/98 (115) 151/98 151/98 118/82 (94) Pulse Ox 96 97 O2 Delivery Room Air Room Air 09/29/18 09/29/18 09/29/18 09/30/18 20:00 20:44 23:35 03:17 Temp 98.4 98.2 98.4 98.2 Pulse 56 59 Resp 18 16 B/P (MAP) 118/82 142/96 (111) 132/83 (99) Pulse Ox 97 95 O2 Delivery Room Air Room Air Room Air 09/30/18 09/30/18 09/30/18 09/30/18 07:00 08:00 10:24 10:24 Temp 98.1 98.1 Pulse 57 59 59 59 Resp 18 B/P (MAP) 113/78 (90) 132/83 132/83 132/83 Pulse Ox 98 O2 Delivery Room Air 09/30/18 10:41 Temp 98.6 98.6 Pulse 60 Resp 18 B/P (MAP) 124/89 (101) Pulse Ox 95 O2 Delivery Room Air Intake and Output 09/29/18 09/29/18 09/30/18 15:00 23:00 07:00 Intake Total 240 ml 100 ml Balance 240 ml 100 ml CASTLE,NIAL K III DO Sep 30, 2018 11:32
--- NOTE | 2018-09-30 14:49 | NUR ---
DON following pt. Pt has been accepted at [facility]. Discussed with Lydumila via phone and [facility] will be able to take pt tomorrow and will have a bed available. Discussed with RN. Packet on chart.
--- NOTE | 2018-09-30 14:56 | PDOC ---
[employer] 09/30/18 1456: CARDIO Progress Notes Date and Time Date of Service 09/30/2018 Time of Evaluation 1430 Subjective Subjective: No Chest Pain, No shortness of breath, No Palpitations Vitals Vitals Vital Signs Date Time Temp Pulse Resp B/P (MAP) Pulse Ox O2 Delivery O2 Flow Rate FiO2 09/30/18 10:41 98.6 60 18 124/89 (101) 95 Room Air 98.6 Weight Weight [ ] Input and Output Intake and Output Intake and Output 09/30/18 07:00 Intake Total 340 ml Balance 340 ml Intake Oral 340 ml # Voids 6 Laboratory Labs Laboratory Tests Test 09/29/18 17:00 09/29/18 20:43 09/30/18 04:25 09/30/18 07:49 Glucose (Fingerstick) 109 mg/dL (70-99) 91 mg/dL (70-99) 100 mg/dL (70-99) White Blood Count 4.4 x10^3/uL (4.0-11.0) Red Blood Count 4.66 x10^6/uL (4.30-5.70) Hemoglobin 12.5 g/dL (13.0-17.5) Hematocrit 38.7 % (39.0-53.0) Mean Corpuscular Volume 83 fL (79-100) Mean Corpuscular Hemoglobin 27 pg (25-35) Mean Corpuscular Hemoglobin Concent 32 g/dL (31-37) Red Cell Distribution Width 15.1 % (11.5-14.5) Platelet Count 156 x10^3/uL (140-400) Neutrophils (%) (Auto) 45 % (31-73) Lymphocytes (%) (Auto) 42 % (24-48) Monocytes (%) (Auto) 9 % (0-9) Eosinophils (%) (Auto) 3 % (0-3) Basophils (%) (Auto) 0 % (0-3) Neutrophils # (Auto) 2.0 x10^3uL (1.8-7.7) Lymphocytes # (Auto) 1.8 x10^3/uL (1.0-4.8) Monocytes # (Auto) 0.4 x10^3/uL (0.0-1.1) Eosinophils # (Auto) 0.1 x10^3/uL (0.0-0.7) Basophils # (Auto) 0.0 x10^3/uL (0.0-0.2) Sodium Level 145 mmol/L (136-145) Potassium Level 3.3 mmol/L (3.5-5.1) Chloride Level 108 mmol/L (98-107) Carbon Dioxide Level 28 mmol/L (21-32) Anion Gap 9 (6-14) Blood Urea Nitrogen 10 mg/dL (8-26) Creatinine 1.0 mg/dL (0.7-1.3) Estimated GFR (Cockcroft-Gault) 92.5 Glucose Level 98 mg/dL (70-99) Calcium Level 8.4 mg/dL (8.5-10.1) Test 09/30/18 11:32 Glucose (Fingerstick) 100 mg/dL (70-99) Physical Exam HEENT: Neck Supple W Full Motion Chest: Symmetric LUNGS: Clear to Auscultation Heart: S1S2, RRR (SR) Abdomen: Soft N/T Extremities: No Calf Tenderness Neurology: alert, oriented, follow commands Assessment Assessment 1. Acute CVA: affecting midbrain, neurology following 2. Multiple falls.with possible gait disorder per neurology. No reported syncope 3. HTN: controlled 4. HLP: lipids on goal 5. Metabolic syndrome/obesity: A1C 6.0 6. PSVT: very brief episodes PAT with occasional aberrancy otherwise SR/SB: lowest in the 50s 7. PFO vs ASD: +R>L shunting per bubble study Recommendation 1. Replace K 2. Continue BP meds with coreg, ASA, statin. 3. Recommend outpt event monitor but rehab/SNU facility may not allow the device 4. Will plan for [facility] with possible PFO closure as an outpt. Follow up on November 10 at 9:[address] Marie. ALBERTO MARIE MD 09/30/18 2018: CARDIO Progress Notes Assessment Assessment Patient seen and examined. Agree with DIRECTOR OF INSTRUMENTAL MUSIC's assessment and plan. Bubble study positive Plan outpatient evaluation for PFO closure for paradoxical embolization/cva EDEL ROMANO APRN Sep 30, 2018 14:56 ALBERTO MARIE MD Sep 30, 2018 20:18
[2018-09-30 15:02] VITALS: BP 131/75
[2018-09-30 19:13] LABS: ALBUM 3.3 g/dL (2.9-4.4); ALPHA 1 0.2 g/dL (0.0-0.4); ALPHA 2 0.6 g/dL (0.4-1.0); GAMMA 1.1 g/dL (0.4-1.8); PROTEIN TOTAL 6.2 g/dL (6.0-8.5); SPEP AG RATIO 1.1 (0.7-1.7)
--- NOTE | 2018-09-30 19:49 | DS ---
DATE OF DISCHARGE: 09/30/2018 ADMISSION DIAGNOSIS: Weakness, rule out recurrent stroke. 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 CONSULTS: Dr. Adams. PROCEDURES: None. HOSPITAL COURSE: The patient is a pleasant middle-aged male who basically presented from a fpc with new stroke symptoms. He has had a previous old stroke as well. He was admitted. We consulted Dr. Adams and Physical Therapy and Occupational Therapy. We gave him daily aspirin. Continued his home medications. This morning when I saw him and examined him, he felt like he was at his baseline. His heart tones were normal. His lungs were clear. He had no residual effects other than his chronic old stroke symptoms. We plan to discharge if okay with Neurology. DISPOSITION: Home. ACTIVITY: As tolerated. DIET: Low sodium. MEDICATIONS: Please see the MRAD. Total time 38 minutes. LIANA LOVETT DO DR: NORMA/nik JOB#: [id number] / [id number]
[2018-09-30 19:50] VITALS: BP 120/77
[2018-09-30] MEDS: ATORVASTATIN CALCIUM 20 MG TABLET PO SCH (20:19)
[2018-09-30] MEDS: TAMSULOSIN 0.4 MG CAP.ER.24H. PO SCH (20:19)
[2018-09-30 23:25] VITALS: BP 129/75
[2018-10-01 03:35] VITALS: BP 127/91
[2018-10-01 06:17] LABS: BASO % 0 % (0-3); EOS # 0.1 x10^3/uL (0.0-0.7); EOS % 3 % (0-3); HEMATOCRIT 40.4 % (39.0-53.0); HEMOGLOBIN 13.3 g/dL (13.0-17.5); LYMPH # 1.4 x10^3/uL (1.0-4.8); LYMPH % 33 % (24-48); MEAN CORPUSCULAR HEMOGLOBIN 27 pg (25-35); MEAN CORPUSCULAR HGB CONC 33 g/dL (31-37); MEAN CORPUSCULAR VOLUME 83 fL (79-100); MONO # 0.5 x10^3/uL (0.0-1.1); MONO % 11 % (0-9); NEUT # 2.3 x10^3uL (1.8-7.7); NEUT % 53 % (31-73); PLATELET COUNT 168 x10^3/uL (140-400); RED BLOOD COUNT 4.89 x10^6/uL (4.30-5.70); RED CELL DISTRIBUTION WIDTH 15.2 % (11.5-14.5); WHITE BLOOD COUNT 4.4 x10^3/uL (4.0-11.0)
[2018-10-01 06:30] LABS: CALCIUM 8.7 mg/dL (8.5-10.1); CREATININE 1.1 mg/dL (0.7-1.3); GFR 82.9; POTASSIUM 3.6 mmol/L (3.5-5.1)
[2018-10-01 07:00] VITALS: BP 150/86
[2018-10-01] MEDS: CARVEDILOL 12.5 MG TABLET. PO SCH (08:00)
[2018-10-01] MEDS: INSULIN LISPRO 300 UNITS/3 ML INSULN.PEN. SQ SCH ×2 (08:00→12:00)
[2018-10-01] MEDS: ASPIRIN ENTERIC COATED 325 MG TABLET.DR. PO SCH (08:11)
[2018-10-01] MEDS: amLODIPine BESYLATE 10 MG TABLET PO SCH (08:11)
[2018-10-01] MEDS: hydrALAZINE 25 MG TABLET PO SCH (08:12)
[2018-10-01] MEDS: ENOXAPARIN 40 MG/0.4 ML SYRINGE. SQ SCH (08:12)
--- NOTE | 2018-10-01 10:13 | SNU/HH DC ---
DISCHARGE ORDERS DISCHARGE INFORMATION: FINAL DIAGNOSIS Problems Medical Problems: (1) Falls Status: Acute (2) Weakness Status: Acute CONDITION ON DISCHARGE: Stable CODE STATUS: Code Status: Full FCI: SNF STAY <30 DAYS: Yes HOSPICE: HOSPICE: No HOSPICE EVAL & TREAT: No LTAC: ADMIT TO LTAC: No POST DISCHARGE ORDERS: ACTIVITY ORDERS: Bedrest today DIET AFTER DISCHARGE: ADA TREATMENT/EQUIPMENT ORDERS: Physical Therapy For: Evalulation/Treatment Occupational Therapy For: Evaluation/Treatment Speech Language Pathology For: Evaluation/Treatment DISCHARGE MEDICATIONS: Home Meds Reported Medications Acetaminophen (TYLENOL) 325 Mg Tablet, 1-2 TAB PO PRN Q4HRS PRN for MILD PAIN / TEMP, #60 TAB 2 Refills 09/28/18 Aspirin (ASPIR-LOW) 81 Mg Tablet.dr, 1 TAB PO DAILY for heart, #30 TAB 3 Refills 09/28/18 Atorvastatin Calcium (ATORVASTATIN CALCIUM) 20 Mg Tablet, 20 MG PO HS for FOR CHOLESTEROL, #30 TAB 0 Refills 09/28/18 Hydralazine Hcl (HYDRALAZINE HCL) 25 Mg Tablet, 1 TAB PO TID for bp, #90 TAB 5 Refills 09/28/18 Amlodipine Besylate (AMLODIPINE BESYLATE) 10 Mg Tablet, 10 MG PO DAILY for bp, TAB 09/28/18 Carvedilol (COREG) 25 Mg Tablet, 25 MG PO BIDWMEALS for CARDIAC, TAB 09/28/18 Tamsulosin Hcl (FLOMAX) 0.4 Mg Cap.er.24h, 1 CAP PO QHS for prostate, #30 CAP 11 Refills 09/28/18 Ergocalciferol (Vitamin D2) (VITAMIN D2) 50,000 Unit Capsule, 1 CAP PO QMTH for supplement, #4 CAP 5 Refills 09/28/18 LIANA LOVETT III DO Oct 01, 2018 10:13
--- NOTE | 2018-10-01 10:49 | PDOC ---
PROGRESS NOTES Chief Complaint Chief Complaint Gait instability Hypernatremia History of CVA on the right handed individual with right-handed weakness Essential hypertension Hypokalemia Transaminitis Confusion DM2 History of Present Illness History of Present Illness Patient resting comfortably in bed watching tv and eating breakfast. He is looking forward to discharge today and is aware he is going to a new SNU on discharge, [facility], as family was concerned that he was not getting the care he needed. No complaints. Vitals Vitals Vital Signs Date Time Temp Pulse Resp B/P (MAP) Pulse Ox O2 Delivery O2 Flow Rate FiO2 10/01/18 08:12 59 150/86 10/01/18 08:00 Room Air 10/01/18 07:00 97.4 18 94 97.4 Physical Exam General: Alert, Oriented X3, Cooperative, No acute distress Heart: Regular rate (SR), Other (distant heart sounds) Lungs: Clear, Other (symmetric chest expansion, good inspiratory effort) Abdomen: Soft, No tenderness, Other (obese) Extremities: No cyanosis, No edema Skin: No breakdown, No significant lesion Labs LABS Laboratory Tests Test 09/30/18 11:32 09/30/18 16:29 09/30/18 20:40 10/01/18 05:30 Glucose (Fingerstick) 100 mg/dL (70-99) 85 mg/dL (70-99) 111 mg/dL (70-99) White Blood Count 4.4 x10^3/uL (4.0-11.0) Red Blood Count 4.89 x10^6/uL (4.30-5.70) Hemoglobin 13.3 g/dL (13.0-17.5) Hematocrit 40.4 % (39.0-53.0) Mean Corpuscular Volume 83 fL (79-100) Mean Corpuscular Hemoglobin 27 pg (25-35) Mean Corpuscular Hemoglobin Concent 33 g/dL (31-37) Red Cell Distribution Width 15.2 % (11.5-14.5) Platelet Count 168 x10^3/uL (140-400) Neutrophils (%) (Auto) 53 % (31-73) Lymphocytes (%) (Auto) 33 % (24-48) Monocytes (%) (Auto) 11 % (0-9) Eosinophils (%) (Auto) 3 % (0-3) Basophils (%) (Auto) 0 % (0-3) Neutrophils # (Auto) 2.3 x10^3uL (1.8-7.7) Lymphocytes # (Auto) 1.4 x10^3/uL (1.0-4.8) Monocytes # (Auto) 0.5 x10^3/uL (0.0-1.1) Eosinophils # (Auto) 0.1 x10^3/uL (0.0-0.7) Basophils # (Auto) 0.0 x10^3/uL (0.0-0.2) Sodium Level 145 mmol/L (136-145) Potassium Level 3.6 mmol/L (3.5-5.1) Chloride Level 107 mmol/L (98-107) Carbon Dioxide Level 27 mmol/L (21-32) Anion Gap 11 (6-14) Blood Urea Nitrogen 12 mg/dL (8-26) Creatinine 1.1 mg/dL (0.7-1.3) Estimated GFR (Cockcroft-Gault) 82.9 Glucose Level 103 mg/dL (70-99) Calcium Level 8.7 mg/dL (8.5-10.1) Test 10/01/18 07:01 Glucose (Fingerstick) 90 mg/dL (70-99) Review of Systems Review of Systems as per above Assessment and Plan Assessmemt and Plan Problems Medical Problems: (1) Falls Status: Acute (2) Weakness Status: Acute Assessment: CVA - R parasagittal mid brain Gait instability R to L shunt on ECHO Hypernatremia - resolved Hypokalemia - resolved Essential Hypertension Transaminemia Residual L sided deficits 2/2 prior CVA Diabetes mellitus, type 2 Onychomycosis/onychocryptosis s/p nail debridement 09/28/18 Plan: Bubble study shows R to L shunt Cardiology: Planned outpatient [facility] with possible PFO closure as well as event monitor - appreciate recs Neuro - okay to discharge home, unlikely thromboembolic event Passed swallow test - low aspiration risk, regular diet with thin liquid Discharge to SNU - [facility] today Comment Review of Relevant I have reviewed the following items rochelle (where applicable) has been applied. Labs Laboratory Tests Test 09/29/18 11:55 09/29/18 17:00 09/29/18 20:43 09/30/18 04:25 Glucose (Fingerstick) 118 mg/dL (70-99) 109 mg/dL (70-99) 91 mg/dL (70-99) White Blood Count 4.4 x10^3/uL (4.0-11.0) Red Blood Count 4.66 x10^6/uL (4.30-5.70) Hemoglobin 12.5 g/dL (13.0-17.5) Hematocrit 38.7 % (39.0-53.0) Mean Corpuscular Volume 83 fL (79-100) Mean Corpuscular Hemoglobin 27 pg (25-35) Mean Corpuscular Hemoglobin Concent 32 g/dL (31-37) Red Cell Distribution Width 15.1 % (11.5-14.5) Platelet Count 156 x10^3/uL (140-400) Neutrophils (%) (Auto) 45 % (31-73) Lymphocytes (%) (Auto) 42 % (24-48) Monocytes (%) (Auto) 9 % (0-9) Eosinophils (%) (Auto) 3 % (0-3) Basophils (%) (Auto) 0 % (0-3) Neutrophils # (Auto) 2.0 x10^3uL (1.8-7.7) Lymphocytes # (Auto) 1.8 x10^3/uL (1.0-4.8) Monocytes # (Auto) 0.4 x10^3/uL (0.0-1.1) Eosinophils # (Auto) 0.1 x10^3/uL (0.0-0.7) Basophils # (Auto) 0.0 x10^3/uL (0.0-0.2) Sodium Level 145 mmol/L (136-145) Potassium Level 3.3 mmol/L (3.5-5.1) Chloride Level 108 mmol/L (98-107) Carbon Dioxide Level 28 mmol/L (21-32) Anion Gap 9 (6-14) Blood Urea Nitrogen 10 mg/dL (8-26) Creatinine 1.0 mg/dL (0.7-1.3) Estimated GFR (Cockcroft-Gault) 92.5 Glucose Level 98 mg/dL (70-99) Calcium Level 8.4 mg/dL (8.5-10.1) Test 09/30/18 07:49 09/30/18 11:32 09/30/18 16:29 09/30/18 20:40 Glucose (Fingerstick) 100 mg/dL (70-99) 100 mg/dL (70-99) 85 mg/dL (70-99) 111 mg/dL (70-99) Test 10/01/18 05:30 10/01/18 07:01 White Blood Count 4.4 x10^3/uL (4.0-11.0) Red Blood Count 4.89 x10^6/uL (4.30-5.70) Hemoglobin 13.3 g/dL (13.0-17.5) Hematocrit 40.4 % (39.0-53.0) Mean Corpuscular Volume 83 fL (79-100) Mean Corpuscular Hemoglobin 27 pg (25-35) Mean Corpuscular Hemoglobin Concent 33 g/dL (31-37) Red Cell Distribution Width 15.2 % (11.5-14.5) Platelet Count 168 x10^3/uL (140-400) Neutrophils (%) (Auto) 53 % (31-73) Lymphocytes (%) (Auto) 33 % (24-48) Monocytes (%) (Auto) 11 % (0-9) Eosinophils (%) (Auto) 3 % (0-3) Basophils (%) (Auto) 0 % (0-3) Neutrophils # (Auto) 2.3 x10^3uL (1.8-7.7) Lymphocytes # (Auto) 1.4 x10^3/uL (1.0-4.8) Monocytes # (Auto) 0.5 x10^3/uL (0.0-1.1) Eosinophils # (Auto) 0.1 x10^3/uL (0.0-0.7) Basophils # (Auto) 0.0 x10^3/uL (0.0-0.2) Sodium Level 145 mmol/L (136-145) Potassium Level 3.6 mmol/L (3.5-5.1) Chloride Level 107 mmol/L (98-107) Carbon Dioxide Level 27 mmol/L (21-32) Anion Gap 11 (6-14) Blood Urea Nitrogen 12 mg/dL (8-26) Creatinine 1.1 mg/dL (0.7-1.3) Estimated GFR (Cockcroft-Gault) 82.9 Glucose Level 103 mg/dL (70-99) Calcium Level 8.7 mg/dL (8.5-10.1) Glucose (Fingerstick) 90 mg/dL (70-99) Laboratory Tests Test 09/30/18 11:32 09/30/18 16:29 09/30/18 20:40 10/01/18 05:30 Glucose (Fingerstick) 100 mg/dL (70-99) 85 mg/dL (70-99) 111 mg/dL (70-99) White Blood Count 4.4 x10^3/uL (4.0-11.0) Red Blood Count 4.89 x10^6/uL (4.30-5.70) Hemoglobin 13.3 g/dL (13.0-17.5) Hematocrit 40.4 % (39.0-53.0) Mean Corpuscular Volume 83 fL (79-100) Mean Corpuscular Hemoglobin 27 pg (25-35) Mean Corpuscular Hemoglobin Concent 33 g/dL (31-37) Red Cell Distribution Width 15.2 % (11.5-14.5) Platelet Count 168 x10^3/uL (140-400) Neutrophils (%) (Auto) 53 % (31-73) Lymphocytes (%) (Auto) 33 % (24-48) Monocytes (%) (Auto) 11 % (0-9) Eosinophils (%) (Auto) 3 % (0-3) Basophils (%) (Auto) 0 % (0-3) Neutrophils # (Auto) 2.3 x10^3uL (1.8-7.7) Lymphocytes # (Auto) 1.4 x10^3/uL (1.0-4.8) Monocytes # (Auto) 0.5 x10^3/uL (0.0-1.1) Eosinophils # (Auto) 0.1 x10^3/uL (0.0-0.7) Basophils # (Auto) 0.0 x10^3/uL (0.0-0.2) Sodium Level 145 mmol/L (136-145) Potassium Level 3.6 mmol/L (3.5-5.1) Chloride Level 107 mmol/L (98-107) Carbon Dioxide Level 27 mmol/L (21-32) Anion Gap 11 (6-14) Blood Urea Nitrogen 12 mg/dL (8-26) Creatinine 1.1 mg/dL (0.7-1.3) Estimated GFR (Cockcroft-Gault) 82.9 Glucose Level 103 mg/dL (70-99) Calcium Level 8.7 mg/dL (8.5-10.1) Test 10/01/18 07:01 Glucose (Fingerstick) 90 mg/dL (70-99) Medications Current Medications Sodium Chloride 500 ml @ 500 mls/hr 1X ONCE IV Last administered on 09/27/18at 18:35; Start 09/27/18 at 18:00; Stop 09/27/18 at 18:59; Status DC Dextrose/Sodium Chloride 1,000 ml @ 100 mls/hr Q10H IV Last administered on 09/29/18at 00:37; Start 09/27/18 at 22:00; Stop 09/30/18 at 11:20; Status DC Ondansetron HCl (Zofran) 4 mg PRN Q4HRS PRN IV NAUSEA/VOMITING 1ST CHOICE; Start 09/27/18 at 21:45 Acetaminophen (Tylenol) 650 mg PRN Q4HRS PRN PO TEMP OVER 100.4F OR MILD PAIN; Start 09/27/18 at 21:45; Status Cancel Al Hydroxide/Mg Hydroxide (Mylanta Plus Xs) 30 ml PRN DAILY PRN PO HEARTBURN / GAS; Start 09/27/18 at 21:45 Clonidine HCl (Catapres) 0.1 mg PRN Q6HRS PRN PO SBP>160 OR DBP>90; Start at 21:45 Docusate Sodium (Colace) 100 mg PRN BID PRN PO CONSTIPATION 1ST CHOICE; Start 09/27/18 at 21:45 Albuterol Sulfate (Ventolin Neb Soln) 2.5 mg PRN Q4HRS PRN NEB SHORTNESS OF BREATH; Start 09/27/18 at 21:45 Guaifenesin (Robitussin) 200 mg PRN Q4HRS PRN PO COUGH 1ST CHOICE; Start at 21:45 Lorazepam (Ativan) 0.5 mg PRN Q4HRS PRN PO ANXIETY / AGITATION; Start 09/27/18 at 21:45 Enoxaparin Sodium (Lovenox 40mg Syringe) 40 mg DAILY SQ Last administered on 08:12; Start 09/28/18 at 09:00 Acetaminophen (Tylenol) 325 mg PRN Q4HRS PRN PO MILD PAIN / TEMP; Start at 09:00; Stop 09/28/18 at 19:36; Status DC Amlodipine Besylate (Norvasc) 10 mg DAILY PO Last administered on 10/01/18 08: 11; Start 09/28/18 at 10:00 Aspirin (Ecotrin) 81 mg DAILY PO Last administered on 09/28/18 10:36; Start 09/28/18 at 10:00; Stop 09/28/18 at 16:27; Status DC Atorvastatin Calcium (Lipitor) 20 mg HS PO Last administered on 09/30/18 20:19 ; Start 09/28/18 at 21:00 Ergocalciferol (Vitamin D2) 50,000 unit MoTh PO Last administered on 09/29/18 08:57; Start 09/29/18 at 09:00 Tamsulosin HCl (Flomax) 0.4 mg QHS PO Last administered on 09/30/18 20:19; Start 09/28/18 at 21:00 Carvedilol (Coreg) 25 mg BIDWMEALS PO Last administered on 09/29/18 16:44; Start 09/28/18 at 09:30 Hydralazine HCl (Apresoline) 25 mg TID PO Last administered on 10/01/18 08:12; Start 09/28/18 at 10:00 Potassium Chloride (Klor-Con) 40 meq 1X ONCE PO Last administered on 09/28/18 10:35; Start 09/28/18 at 09:00; Stop 09/28/18 at 09:26; Status DC Insulin Human Lispro (HumaLOG) 0-7 UNITS TIDWMEALS SQ ; Start 09/28/18 at 12:00 Dextrose (Dextrose 50%-Water Syringe) 12.5 gm PRN Q15MIN PRN IV SEE COMMENTS; Start 09/28/18 at 09:00 Acetaminophen (Tylenol) 650 mg PRN Q6HRS PRN PO TEMP > 100.4F; Start 09/28/18 at 16:30 Acetaminophen (Tylenol Supp) 650 mg PRN Q4HRS PRN [place] TEMP > 100.4F; Start at 16:30 Aspirin (Ecotrin) 325 mg DAILYWBKFT PO Last administered on 10/01/18at 08:11; Start 09/29/18 at 08:00 Aspirin (Aspirin) 300 mg PRN DAILY PRN [place] IF UNABLE TO TAKE PO; Start 09/28/18 at 16:30 Potassium Chloride (Klor-Con) 40 meq 1X ONCE PO Last administered on 09/30/18at 12:29; Start 09/30/18 at 11:30; Stop 09/30/18 at 11:31; Status DC Active Scripts Active Reported Tylenol (Acetaminophen) 325 Mg Tablet 1-2 Tab PO PRN Q4HRS PRN Aspir-Low (Aspirin) 81 Mg Tablet.dr 1 Tab PO DAILY Atorvastatin Calcium 20 Mg Tablet 20 Mg PO HS Hydralazine Hcl 25 Mg Tablet 1 Tab PO TID Amlodipine Besylate 10 Mg Tablet 10 Mg PO DAILY Coreg (Carvedilol) 25 Mg Tablet 25 Mg PO BIDWMEALS Flomax (Tamsulosin Hcl) 0.4 Mg Cap.er.24h 1 Cap PO QHS Vitamin D2 (Ergocalciferol (Vitamin D2)) 50,000 Unit Capsule 1 Cap PO QMTH Vitals/I & O Vital Sign - Last 24 Hours 09/30/18 09/30/18 09/30/18 09/30/18 15:02 15:10 17:00 19:50 Temp 98.1 98.0 98.1 98.0 Pulse 61 61 59 63 Resp 17 18 B/P (MAP) 131/75 (93) 131/75 120/77 (91) Pulse Ox 96 96 O2 Delivery Room Air Room Air 09/30/18 09/30/18 09/30/18 10/01/18 20:00 20:19 23:25 03:35 Temp 98.6 97.6 98.6 97.6 Pulse 63 59 57 Resp 18 18 B/P (MAP) 120/77 129/75 (93) 127/91 (103) Pulse Ox 97 96 O2 Delivery Room Air Room Air Room Air 10/01/18 10/01/18 10/01/18 10/01/18 07:00 08:00 08:00 08:11 Temp 97.4 97.4 Pulse 59 59 Resp 18 B/P (MAP) 150/86 (107) 150/86 Pulse Ox 94 O2 Delivery Room Air Room Air Room Air 10/01/18 08:12 Pulse 59 B/P (MAP) 150/86 Intake and Output 09/30/18 09/30/18 10/01/18 14:59 22:59 06:59 Intake Total 700 ml 1260 ml 250 ml Output Total 100 ml Balance 700 ml 1260 ml 150 ml LIANA LOVETT III DO Oct 01, 2018 10:49
[2018-10-01 11:00] VITALS: BP 146/80
--- NOTE | 2018-10-01 11:13 | NUR ---
Patient will be discharged today to [facility], report given to Pauly JESUS at 1041.
--- NOTE | 2018-10-01 13:20 | NUR ---
Discharge Note: [facility] Discharge instructions and discharge home medications reviewed with Pauly JESUS of [facility] at 1041 and a copy given to the transport personnel. All questions have been answered and understanding verbalized. The following instructions and handouts were given: Falls handout Patient to follow up with Dr. Panchal on November 10, 929 for outpatient management/eval of patent foramen ovale. Patient discharged to [facility] accompanied by family member via wheelchair, transport personnel at 1315.
--- NOTE | 2018-10-01 19:40 | NUR ---
Late entry made to Medical Record. Paged Dr. Moise at [phone] regarding aspirin dose on discharge, patient will be on 325 mg daily. Communicated with [facility], faxed med list to [phone].
[2018-10-03 20:08] LABS: ANA INTERP Negative (.)
--- NOTE | 2018-10-19 15:46 | CARD ---
MR#: [id number] Date of Study: 09/29/2018 Ordering Physician: TITI PEREZ, Referring Physician: DALE BAXTER Tech: Amanda Malcolm RDCS APPROVED REPORT EXAM: Two-dimensional and M-mode echocardiogram with Doppler and color Doppler. Other Information Quality : Good INDICATION CVA/TIA 2D DIMENSIONS RVDd3.2 (2.9-3.5cm)Left Atrium(2D)3.6 (1.6-4.0cm) IVSd1.7 (0.7-1.1cm)Aortic Root(2D)3.3 (2.0-3.7cm) LVDd4.7 (3.9-5.9cm)LVOT Diameter2.2 (1.8-2.4cm) PWd1.5 (0.7-1.1cm)LVDs2.6 (2.5-4.0cm) FS (%) 30.0 %SV76.6 ml LVEF(%)60.0 (>50%) Aortic Valve AoV Peak Markos.179.0cm/sAoV VTI34.6cm AO Peak GR.12.8mmHgLVOT VTI 24.37cm AO Mean GR.7mmHgAVA (VTI)2.70cm2 AI P 1/2 [id number] Mitral Valve MV E Gzyacfmd35.9cm/sMV DECEL [id number] MV A Knqwjhmp29.9cm/sE/A Ratio1.2 TDI Lateral E' P. V7.79cm/sMedial E' P. V5.73cm/s E/Lateral E'9.0E/Medial E'12.2 Tricuspid Valve TR P. Ltjwcngm208cw/sRAP YENWFQIS1xnDz TR Peak Gr.99htPnITEJ71kiDh Pulmonary Vein S1 Llwgkqtw48.8cm/sS2 Btxrhpgm50.79cm/s D2 Blqwhidu74.8cm/s LEFT VENTRICLE The left ventricle is normal size. There is mild to moderate concentric left ventricular hypertrophy. The left ventricular systolic function is normal and the ejection fraction is within normal range. T he Ejection Fraction is 60-65%. There is normal LV segmental wall motion. Transmitral Doppler flow pa ttern is Grade I-abnormal relaxation pattern. RIGHT VENTRICLE The right ventricle is normal size. The right ventricular systolic function is normal. ATRIA The left atrium size is normal. The right atrium size is normal. The interatrial septum is intact wit h no evidence for an atrial septal defect or patent foramen ovale as noted on 2-D or Doppler imaging. AORTIC VALVE The aortic valve is calcified but opens well. Doppler and Color Flow revealed trace aortic regurgitat ion. There is no significant aortic valvular stenosis. MITRAL VALVE The mitral valve is calcified but opens well. There is no evidence of mitral valve prolapse. There is no mitral valve stenosis. Doppler and Color-flow revealed trace mitral regurgitation. TRICUSPID VALVE The tricuspid valve is normal in structure and function. Doppler and Color Flow revealed trace tricus pid regurgitation. There is mild pulmonary hypertension. The PA pressure was estimated at 33 mmHg. Th ere is no tricuspid valve stenosis. PULMONIC VALVE The pulmonic valve is not well visualized. Doppler and Color Flow revealed trace to mild pulmonic harpreet vular regurgitation. There is no pulmonic valvular stenosis. GREAT VESSELS The aortic root is normal in size. The ascending aorta is mildly dilated at 3.7 cm. The IVC is normal in size and collapses >50% with inspiration. PERICARDIAL EFFUSION There is no evidence of significant pericardial effusion. Critical Notification Critical Value: No <Conclusion> The left ventricular systolic function is normal and the ejection fraction is within normal range. Th e Ejection Fraction is 60-65%. There is normal LV segmental wall motion. Doppler and Color Flow revealed trace tricuspid regurgitation. There is mild pulmonary hypertension. The PA pressure was estimated at 33 mmHg. The ascending aorta is mildly dilated at 3.7 cm. Signed by : Noe Spencer, Electronically Approved : 09/29/2018 11:06:17
== END 2018-10-01 13:10 | DRG 64 ==
LOC: ER 17:08 → 5 NORTH 20:45 → 6 SOUTH 09-28 18:11
PROVIDERS: ADMIT Internal Medicine; ATTEND Internal Medicine
PROC: 0HBRXZZ Excision of Toe Nail, External Approach (ICD-10-PCS; principal; 2018-09-28)
PROC: 0HBRXZZ Excision of Toe Nail, External Approach (ICD-10-PCS; 2018-09-28)
PROC: 0HBRXZZ Excision of Toe Nail, External Approach (ICD-10-PCS; 2018-09-28)
PROC: 0HBRXZZ Excision of Toe Nail, External Approach (ICD-10-PCS; 2018-09-28)
PROC: 0HBRXZZ Excision of Toe Nail, External Approach (ICD-10-PCS; 2018-09-28)
PROC: 0HBRXZZ Excision of Toe Nail, External Approach (ICD-10-PCS; 2018-09-28)
PROC: 0HBRXZZ Excision of Toe Nail, External Approach (ICD-10-PCS; 2018-09-28)
PROC: 0HBRXZZ Excision of Toe Nail, External Approach (ICD-10-PCS; 2018-09-28)
PROC: 0HBRXZZ Excision of Toe Nail, External Approach (ICD-10-PCS; 2018-09-28)
PROC: 0HBRXZZ Excision of Toe Nail, External Approach (ICD-10-PCS; 2018-09-28)
DX: I63.9 Cerebral infarction, unspecified (principal); G93.41 Metabolic encephalopathy; E87.0 Hyperosmolality and hypernatremia; I47.1 Supraventricular tachycardia; E11.40 Type 2 diabetes mellitus with diabetic neuropathy, unspecified; I10 Essential (primary) hypertension; E87.6 Hypokalemia; B35.1 Tinea unguium; E66.9 Obesity, unspecified; E78.00 Pure hypercholesterolemia, unspecified; E78.5 Hyperlipidemia, unspecified; E88.81 Metabolic syndrome and other insulin resistance; I27.20 Pulmonary hypertension, unspecified; I69.398 Other sequelae of cerebral infarction; L60.0 Ingrowing nail; R74.0 Nonspecific elevation of levels of transaminase and lactic acid dehydrogenase [LDH]; M19.90 Unspecified osteoarthritis, unspecified site; W18.39XA Other fall on same level, initial encounter; R29.6 Repeated falls; Z82.49 Family history of ischemic heart disease and other diseases of the circulatory system; Z88.8 Allergy status to other drugs, medicaments and biological substances; Z79.899 Other long term (current) drug therapy; Z68.33 Body mass index [BMI] 33.0-33.9, adult; Y93.89 Activity, other specified; Y92.128 Other place in nursing home as the place of occurrence of the external cause; Y99.8 Other external cause status
CPT/HCPCS: 36415; 70551; 80048; 80053; 80061; 81001; 82607; 82962; 83036; 83735; 84165; 84443; 84484; 85025; 85651; 86038; 87641; 93005; 93306; 93880; 94760; C8924; J1650; J1815; J7040; 92526; 92610; 97110; 97116; 97530; 97535; 99285-25

== ENCOUNTER 2019-04-06 09:11 | Emergency (ER) | payer MEDICARE, OTHER ==
[~2019-04-06] VITALS: Ht 190.5 cm; Wt 113.4 kg
[~2019-04-06 09:11] MED LIST: ACET325T9 PO; AMLO10TA8 PO; ASPI81TA50 PO; ATOR20TA58 PO; CARV25TA PO; ERGO500027 PO; HYDR-2868 PO; TAMS0.4C97 PO
--- NOTE | 2019-04-06 09:39 | PHYS DOC ---
Past Medical History Past Medical History: CVA, High Cholesterol, Hypertension Additional Past Medical Histor: BPH, (RICO SALAZAR APRN) Past Surgical History: No Surgical History (RICO SALAZAR APRN) Alcohol Use: Sober Drug Use: None (RICO SALAZAR APRN) Adult General Chief Complaint Chief Complaint: SKIN PROBLEM HPI HPI Patient is a 58 year old AA male who presents to the ER via EMS with complaints of a painful skin tag to his left upper inner thigh. Pt states he has had the problem for years but it has recently become worsen. Limited HPI due to pt history of dementia. Pt denies any pain at this time. (RICO SALAZAR APRN) Review of Systems Review of Systems Constitutional: Denies fever or chills [] GI: Denies abdominal pain, nausea, vomiting, or diarrhea [] Integument: painful skin lesion to proximal left inner thigh Neurologic: Denies headache Limited ROS due to patient dementia. (RICO SALAZAR APRN) Current Medications Current Medications Current Medications Medications (Trade) Dose Ordered Sig/Arely Start Time Stop Time Status Last Admin Dose Admin Lidocaine/ Epinephrine (LIDOCAINE 1%-EPI 1:100,000 Multi-Dose) 20 ml 1X ONCE 04/06/19 09:45 04/06/19 09:46 UNV (ASAF FRAIRE MD) Allergies Allergies Allergies Coded Allergies Type Severity Reaction Last Updated Verified ceftriaxone Allergy Intermediate 09/28/18 Yes (ASAF FRAIRE MD) Physical Exam Physical Exam Constitutional: Well developed, well nourished, no acute distress, non-toxic appearance, obses. [] HENT: Normocephalic, atraumatic, bilateral external ears normal, nose normal. [] Eyes: PERRLA, EOMI, conjunctiva normal, no discharge. [] Neck: Normal range of motion, no stridor. [] Lungs & Thorax: Respirations even and unlabored, no retractions, no respiratory distress Abdomen: Bowel sounds normal, soft, no tenderness, no masses, no pulsatile masses. [] Skin: Warm, dry, no erythema, no rash; flesh colored skin lesion noted to proximal left inner thigh with out drainage or surrounding warmth. [] Extremities: No cyanosis, ROM intact, no edema. [] Neurologic: Alert and oriented X 3, no focal deficits noted. [] Psychologic: Affect normal, judgement normal, mood normal. [] (RICO SALAZAR APRN) Current Patient Data Vital Signs Vital Signs Date Time Temp Pulse Resp B/P (MAP) Pulse Ox O2 Delivery O2 Flow Rate FiO2 04/06/19 09:12 98.2 66 16 135/93 (107) 95 Room Air 98.2 (ASAF FRAIRE MD) EKG EKG [] (RICO SALAZAR APRN) Radiology/Procedures Radiology/Procedures [] (RICO SALAZAR APRN) Course & Med Decision Making Course & Med Decision Making Pertinent Labs and Imaging studies reviewed. (See chart for details) Dx: left thigh skin lesion 0939-Spoke with Dr. Mckeon about patient in the ER, He will come evaluate patient. 1003- Dr. Mckeon at beside to use surgical cautery to remove lesion from left thigh. Pt tolerated procedure well, no complications, minimal blood loss. Per Dr. Mckeon prescribe mupirocin ointment with dressing changes daily. Follow up with Dr. Mckeon in 2 weeks for wound recheck. Return to the ER if symptoms worse n. [] (RICO SALAZAR APRN) Course & Med Decision Making ER PHYSICIAN ATTENDING NOTE: I have personally seen and examined the patient, and agree with the history, physical exam, and plan, as documented by mid-level provider. (ASAF FRAIRE MD) Dragon Disclaimer Dragon Disclaimer This electronic medical record was generated, in whole or in part, using a voice recognition dictation system. (RICO SALAZAR APRN) Departure Departure Impression: Primary Impression: Skin lesion of left leg Disposition: HOME, SELF-CARE Condition: STABLE Referrals: ALLEN MCKEON MD Patient Instructions: Excision of Skin Lesions Additional Instructions: Fill the prescription and apply once daily with dressing changes. May take tylenol or ibuprofen as needed for pain. Follow up with Dr. Mckeon for wound re- check in 2 weeks. Return to the ER if symptoms worsen. Scripts Mupirocin (MUPIROCIN OINTMENT) 22 Gm Oint...g. 1 OCTAVIO TP DAILY for WOUND CARE for 14 Days, #1 TUBE 0 Refills Prov: RICO SALAZAR APRN 04/06/19 RICO SALAZAR APRN Apr 06, 2019 09:39 ASAF FRAIRE MD Apr 06, 2019 10:02
[2019-04-06] MEDS ORDERED: LIDOCAINE 1%/EPI 1:100,000 20 ML VIAL. SQ ONE (09:45)
--- NOTE | 2019-04-06 10:12 | PDOC4 ---
Operative Note Operative Note Date: 04/06/2019 Preoperative diagnosis left medial thigh mass Postoperative diagnosis: Same Procedure: Excision of left medial thigh mass Surgeon: Dale Specimen: Left medial thigh mass Dictation: Patient is a 58-year-old gentleman who is a long term patient who comes to the urgency department with complaints of an early mass on his medial thigh that is becoming more painful as been present for nearly 10 years. Procedure of excision of mass was explained to the patient detail risk benefits were also discussed including bleeding infection alternatives to this procedure also discussed with patient who seemed to understand gave both verbal and written consent to have the procedure performed. Patient medial thigh was prepped and draped usual sterile fashion using ChloraPrep and area around the mass was injected 1% lidocaine with epinephrine the mass was excised sharply with electrocautery and sent for pathology. The wound was dressed with 4 x 4 and Medipore tape. Patient tolerated procedure well. Estimated blood loss less than 5 mL ALLEN MCKEON MD Apr 06, 2019 10:11
[2019-04-06] MEDS ORDERED: MUPI22OI2 TP (10:21)
--- NOTE | 2019-04-06 10:44 | PDOC2 ---
CONSULT Date of Consult Date of Consult DATE: 04/06/19 TIME: 10:42 Reason for Consult Reason for Consult: Left thigh skin lesion Referring Physician Referring Physician: ER Identification/Chief Complaint Chief Complaint Left thigh painful skin lesion Source Source: Chart review, Patient History of Present Illness Reason for Visit: 58-year-old male from a [facility] slightly demented complaining of a lesion on his left medial thigh that's been present for 10 years. The last several days become very painful Past Medical History Cardiovascular: No pertinent hx Pulmonary: No pertinent hx CENTRAL NERVOUS SYSTEM: Dementia GI: No pertinent hx Heme/Onc: No pertinent hx Hepatobiliary: No pertinent hx Rheumatologic: No pertinent hx Infectious disease: No pertinent hx ENT: No pertinent hx Renal/: No pertinent hx Endocrine: No pertinent hx Dermatology: No pertinent hx Past Surgical History Past Surgical History: No pertinent history Family History Family History: No Significant Social History [place]: [place] Current Problem List Problem List Problems Medical Problems: (1) Skin lesion of left leg Status: Acute Current Medications Current Medications Current Medications Lidocaine/ Epinephrine (LIDOCAINE 1%-EPI 1:100,000 Multi-Dose) 20 ml 1X ONCE SQ Last administered on 04/06/19at 10:00; Start 04/06/19 at 09:45; Stop 04/06/19 at 10:05; Status DC Active Scripts Active Mupirocin Ointment (Mupirocin) 22 Gm Oint...g. 1 Bill TP DAILY 14 Days Reported Tylenol (Acetaminophen) 325 Mg Tablet 1-2 Tab PO PRN Q4HRS PRN Aspir-Low (Aspirin) 81 Mg Tablet.dr 1 Tab PO DAILY Atorvastatin Calcium 20 Mg Tablet 20 Mg PO HS Hydralazine Hcl 25 Mg Tablet 1 Tab PO TID Amlodipine Besylate 10 Mg Tablet 10 Mg PO DAILY Coreg (Carvedilol) 25 Mg Tablet 25 Mg PO BIDWMEALS Flomax (Tamsulosin Hcl) 0.4 Mg Cap.er.24h 1 Cap PO QHS Vitamin D2 (Ergocalciferol (Vitamin D2)) 50,000 Unit Capsule 1 Cap PO QMTH Allergies Allergies: Coded Allergies: ceftriaxone (Verified Allergy, Intermediate, 09/28/18) ROS Musculoskeletal: Yes Other (painful skin lesion left medial thigh) Physical Exam General: Alert, Cooperative, mild distress HEENT: Atraumatic, PERRLA, EOMI Lungs: Clear to auscultation, Normal air movement Heart: Regular rate, No murmurs Abdomen: Normal bowel sounds, Soft, No tenderness Extremities: No edema Skin: Other (3 cm raised skin lesion left medial thigh with excoriation mild erythema) Vitals VITALS Vital Signs Date Time Temp Pulse Resp B/P (MAP) Pulse Ox O2 Delivery O2 Flow Rate FiO2 04/06/19 09:12 98.2 66 16 135/93 (107) 95 Room Air 98.2 Assessment/Plan Assessment/Plan Skin lesion left medial thigh removed in the emergency department see operative report ALLEN MCKEON MD Apr 06, 2019 10:44
[2019-04-06 11:15] VITALS: BP 133/83
--- NOTE | 2019-04-07 20:06 | PATHOLOGY ---
[facility] Accession Number: [id number] . 01 Material submitted: . thigh - SKIN LESION LEFT THIGH. Modifiers: left . 01 Clinical history: . Skin lesion left thigh . 02 Diagnosis: Skin, left thigh lesion, excision: - Acrochordon, showing extensive ulceration and acute inflammation. LBQ 04/07/2019 1620 Local . 02 Comment: There is no evidence of malignancy. (JPM/db; 04/07/2019) . 02 Electronically signed: . Timothy Murray MD, Pathologist NPI- [id number] . 01 Gross description: . The specimen is received in formalin, labeled "Ming Cherry, skin lesion left thigh" and consists of a polypoid segment of partially necrotic pink-romo to brown skin, measuring 2.6 x 1.8 x 1.0 cm. The margin is inked black. It is serially sectioned and entirely submitted in A1-A3. (SDY; 04/06/2019) SYU/SYU 04/07/2019 1618 Local . 02 Pathologist provided ICD-10: L91.8, L98.9 . 02 CPT . 680310 Specimen Comment: A courtesy copy of this report has been sent to Specimen Comment: [phone], , . Specimen Comment: Report sent to ,DR MENDIOLA / DR FRAIRE Performed at: 01 [facility] [address], [place] [id number] MD Karlo Williamson MD Phone: [phone] Performed at: 02 [facility] [address] [place], [place] [id number] MD Timothy Murray MD Phone: [phone]
== END 2019-04-06 11:35 | disposition home or self-care (01) ==
LOC: ER 09:11
DX: L98.8 Other specified disorders of the skin and subcutaneous tissue (principal); E78.00 Pure hypercholesterolemia, unspecified; I10 Essential (primary) hypertension; Z86.73 Personal history of transient ischemic attack (TIA), and cerebral infarction without residual deficits; Z88.8 Allergy status to other drugs, medicaments and biological substances
CPT/HCPCS: 11400; 88304; 99284; J3490; 96372

== ENCOUNTER 2019-09-26 11:17 | Inpatient (IN) | payer MEDICARE, OTHER ==
[~2019-09-26] VITALS: Ht 182.9 cm; Wt 130.0 kg
[~2019-09-26 11:17] MED LIST changes: +MUPI22OI2 TP
[2019-09-26 12:00] LABS: BASO % 0 % (0-3); EOS % 0 % (0-3); HEMATOCRIT 40.8 % (39.0-53.0); HEMOGLOBIN 12.9 g/dL (13.0-17.5); LYMPH # 0.8 x10^3/uL (1.0-4.8); LYMPH % 13 % (24-48); MEAN CORPUSCULAR HEMOGLOBIN 25 pg (25-35); MEAN CORPUSCULAR HGB CONC 32 g/dL (31-37); MEAN CORPUSCULAR VOLUME 80 fL (79-100); MONO # 0.6 x10^3/uL (0.0-1.1); MONO % 10 % (0-9); NEUT # 4.4 x10^3/uL (1.8-7.7); NEUT % 77 % (31-73); PLATELET COUNT 157 x10^3/uL (140-400); RED CELL DISTRIBUTION WIDTH 17.2 % (11.5-14.5); WHITE BLOOD COUNT 5.8 x10^3/uL (4.0-11.0)
--- NOTE | 2019-09-26 12:10 | RAD ---
CHEST AP ONLY History: Cough Comparison: None. Findings: Single view of the chest is submitted. There is right base infiltrate, also probable mild left base infiltrate. There is no dependent pleural fluid or pneumothorax. Pericardial cardiac silhouette is borderline enlarged. There is azygos fissure. Impression: 1. There are bibasilar infiltrates greater on the right. Electronically signed by: Eric Rice MD (09/26/2019 12:07 PM) [id number]
[2019-09-26 12:11] LABS: CALCIUM 8.3 mg/dL (8.5-10.1); CREATININE 2.1 mg/dL (0.7-1.3); GFR 39.2; POTASSIUM 3.8 mmol/L (3.5-5.1)
[2019-09-26 12:17] LABS: ALBUMIN 2.9 g/dL (3.4-5.0); ALBUMIN/GLOBULIN RATIO 0.7 (1.0-1.7); TOTAL BILIRUBIN 0.4 mg/dL (0.2-1.0); TOTAL PROTEIN 7.3 g/dL (6.4-8.2)
[2019-09-26] MEDS ORDERED: VANCOMYCIN 1GM IVPB FOR OMNI 250 ML IV ONE (12:45)
[2019-09-26] MEDS ORDERED: VANCOMYCIN 2 GM in IV NORMAL SALINE 500ML BAG 500 ML IV ONE (12:45)
[2019-09-26] MEDS ORDERED: ACETAMINOPHEN 500 MG TABLET PO ONE (12:45)
[2019-09-26] MEDS ORDERED: PIPERACILLIN/TAZOBACTAM 4.5 GM in IV NORMAL SALINE 100ML 100 ML IV ONE (12:45)
[2019-09-26] MEDS ORDERED: MEROPENEM 1 GM in IV NORMAL SALINE 100ML 100 ML IV ONE (12:45)
--- NOTE | 2019-09-26 12:49 | PHYS DOC ---
Past Medical History Past Medical History: CVA, Dementia, Diabetes-Type II, High Cholesterol, Hypertension Additional Past Medical Histor: BPH, Past Surgical History: No Surgical History Smoking Status: Former Smoker Alcohol Use: Sober Drug Use: None Adult General Chief Complaint Chief Complaint: SHORTNESS OF BREATH HPI HPI Patient is a 59 year old male presenting to the ED with a chief complaint of cough and shortness of breath. Patient is from a nursing facility named [facility]. Patient is alert and oriented x1. Patient does have a history of diabetes, CVA, hypertension and hyperlipidemia. Patient was recently diagnosed with pneumonia and was on course to take his first dose of antibiotics this morning when he vomited. Patient is currently on 4 L oxygen. Usually patient does not use any oxygen. Patient is not able to provide any history and so history is given by EMS or by staff at [facility]. Review of Systems Review of Systems Unable to r perform review of systems secondary to patient being alert and oriented x1. Current Medications Current Medications Current Medications Medications (Trade) Dose Ordered Sig/Arely Start Time Stop Time Status Last Admin Dose Admin Acetaminophen (Tylenol) 1,000 mg 1X ONCE 09/26/19 12:45 09/26/19 12:46 DC Meropenem 1 gm/ Sodium Chloride 100 ml @ 200 mls/hr 1X ONCE 09/26/19 12:45 09/26/19 13:14 DC 09/26/19 13:02 200 MLS/HR Piperacillin Sod/ Tazobactam Sod 4.5 gm/Sodium Chloride 100 ml @ 200 mls/hr 1X ONCE 09/26/19 12:45 09/26/19 13:14 UNV Vancomycin HCl 250 ml @ 250 mls/hr 1X ONCE 09/26/19 12:45 09/26/19 13:44 UNV Vancomycin HCl 2 gm/Sodium Chloride 500 ml @ 250 mls/hr 1X ONCE 09/26/19 12:45 09/26/19 14:44 DC 09/26/19 13:01 250 MLS/HR Allergies Allergies Allergies Coded Allergies Type Severity Reaction Last Updated Verified ceftriaxone Allergy Intermediate 09/28/18 Yes Physical Exam Physical Exam Constitutional: Well developed, well nourished, no acute distress, non-toxic appearance. [] HENT: Normocephalic, atraumatic Eyes: PERRLA, EOMI Neck: Normal range of motion Cardiovascular:Heart rate regular rhythm, no murmur [] Lungs & Thorax: Diminished breath sounds bilaterally in the lower lung booker Abdomen: Bowel sounds normal, soft, no tenderness Extremities: No tenderness, no cyanosis, no clubbing, ROM intact, no edema. [] Neurologic: Alert and oriented X 1 Current Patient Data Vital Signs Vital Signs Date Time Temp Pulse Resp B/P (MAP) Pulse Ox O2 Delivery O2 Flow Rate FiO2 09/26/19 11:31 101.9 87 14 110/72 (85) 96 Nasal Cannula 4.0 101.9 Lab Values Laboratory Tests Test 09/26/19 11:40 White Blood Count 5.8 x10^3/uL (4.0-11.0) Red Blood Count 5.10 x10^6/uL (4.30-5.70) Hemoglobin 12.9 g/dL (13.0-17.5) L Hematocrit 40.8 % (39.0-53.0) Mean Corpuscular Volume 80 fL (79-100) Mean Corpuscular Hemoglobin 25 pg (25-35) Mean Corpuscular Hemoglobin Concent 32 g/dL (31-37) Red Cell Distribution Width 17.2 % (11.5-14.5) H Platelet Count 157 x10^3/uL (140-400) Neutrophils (%) (Auto) 77 % (31-73) H Lymphocytes (%) (Auto) 13 % (24-48) L Monocytes (%) (Auto) 10 % (0-9) H Eosinophils (%) (Auto) 0 % (0-3) Basophils (%) (Auto) 0 % (0-3) Neutrophils # (Auto) 4.4 x10^3/uL (1.8-7.7) Lymphocytes # (Auto) 0.8 x10^3/uL (1.0-4.8) L Monocytes # (Auto) 0.6 x10^3/uL (0.0-1.1) Eosinophils # (Auto) 0.0 x10^3/uL (0.0-0.7) Basophils # (Auto) 0.0 x10^3/uL (0.0-0.2) Sodium Level 146 mmol/L (136-145) H Potassium Level 3.8 mmol/L (3.5-5.1) Chloride Level 109 mmol/L (98-107) H Carbon Dioxide Level 27 mmol/L (21-32) Anion Gap 10 (6-14) Blood Urea Nitrogen 42 mg/dL (8-26) H Creatinine 2.1 mg/dL (0.7-1.3) H Estimated GFR (Cockcroft-Gault) 39.2 BUN/Creatinine Ratio 20 (6-20) Glucose Level 123 mg/dL (70-99) H Lactic Acid Level 1.4 mmol/L (0.4-2.0) Calcium Level 8.3 mg/dL (8.5-10.1) L Total Bilirubin 0.4 mg/dL (0.2-1.0) Aspartate Amino Transferase (AST) 36 U/L (15-37) Alanine Aminotransferase (ALT) 17 U/L (16-63) Alkaline Phosphatase 55 U/L (46-116) ZJ-Nlt-V-Type Natriuretic Peptide 86 pg/mL (0-124) Total Protein 7.3 g/dL (6.4-8.2) Albumin 2.9 g/dL (3.4-5.0) L Albumin/Globulin Ratio 0.7 (1.0-1.7) L Influenza Type A Antigen Negative (NEGATIVE) Influenza Type B Antigen Negative (NEGATIVE) Laboratory Tests 09/26/19 11:40 Laboratory Tests 09/26/19 11:40 Microbiology 09/26/19 Blood Culture - Final, Complete EKG EKG [] Radiology/Procedures Radiology/Procedures [] Impressions: Chest xray shows Impression: 1. There are bibasilar infiltrates greater on the right. Course & Med Decision Making Course & Med Decision Making Pertinent Labs and Imaging studies reviewed. (See chart for details) Patient is needing to be on 4 L oxygen to maintain adequate oxygenation. Chest x-ray shows bibasilar infiltrates greater on the right Labs are within normal limit except elevated Cr. We have ordered IV antibiotics. Pharmacy recommends meropenem due to patient's ceftriaxone allergy. Patient will be tested for coronavirus. Patient will be admitted for further evaluation and treatment. I have discussed case with Dr. Wallace who accepts admission. Dragon Disclaimer Dragon Disclaimer This electronic medical record was generated, in whole or in part, using a voice recognition dictation system. Departure Departure Impression: Primary Impression: Pneumonia Additional Impression: Renal insufficiency Disposition: ADMITTED INPATIENT Condition: IMPROVED Referrals: RODOLFO MENDIOLA MD (PCP) Problem Qualifiers POOJA DUKES DO Sep 26, 2019 12:49
--- NOTE | 2019-09-26 12:50 | PDOC1 ---
History and Physical Date of Admission Date of Admission DATE: 09/26/19 TIME: 12:45 Identification/Chief Complaint Chief Complaint seen in er , Patient is a 59 year old male presenting to the ED with a chief complaint of cough and shortness of breath. Patient from [facility]. . Patient does have a history of diabetes, CVA, hypertension and hyperlipidemia. Patient was recently diagnosed with pneumonia and was on course to take his first dose of antibiotics this morning when he vomited. currently on 4 L oxygen. Usually patient does not use any oxygen. not able to provide any history and so history is given by EMS or by staff at [place]. Past Medical History Cardiovascular: No pertinent hx, Hyperlipidemia Pulmonary: No pertinent hx CENTRAL NERVOUS SYSTEM: CVA, Dementia GI: No pertinent hx Heme/Onc: No pertinent hx Hepatobiliary: No pertinent hx Rheumatologic: No pertinent hx Infectious disease: No pertinent hx Renal/: No pertinent hx Endocrine: No pertinent hx Past Surgical History Past Surgical History: No pertinent history Family History Family History: No Significant, Hypertension Social History Smoke: No ALCOHOL: none Drugs: None Current Medications Current Medications Current Medications Acetaminophen (Tylenol) 1,000 mg 1X ONCE PO ; Start 09/26/19 at 12:45; Stop 09/26/19 at 12:46 Piperacillin Sod/ Tazobactam Sod 4.5 gm/Sodium Chloride 100 ml @ 200 mls/hr 1X ONCE IV ; Start 09/26/19 at 12:45; Stop 09/26/19 at 13:14; Status UNV Vancomycin HCl 250 ml @ 250 mls/hr 1X ONCE IV ; Start 09/26/19 at 12:45; Stop 09/26/19 at 13:44; Status UNV Vancomycin HCl 2 gm/Sodium Chloride 500 ml @ 250 mls/hr 1X ONCE IV ; Start 09/26/19 at 12:45; Stop 09/26/19 at 14:44 Meropenem 1 gm/ Sodium Chloride 100 ml @ 200 mls/hr 1X ONCE IV ; Start 09/26/19 at 12:45; Stop 09/26/19 at 13:14 Meropenem 1 gm/ Sodium Chloride 100 ml @ 200 mls/hr Q8HRS IV ; Start 09/26/19 at 14:00; Status UNV Active Scripts Active Mupirocin Ointment (Mupirocin) 22 Gm Oint...g. 1 Bill TP DAILY 14 Days Reported Tylenol (Acetaminophen) 325 Mg Tablet 1-2 Tab PO PRN Q4HRS PRN Aspir-Low (Aspirin) 81 Mg Tablet.dr 1 Tab PO DAILY Atorvastatin Calcium 20 Mg Tablet 20 Mg PO HS Hydralazine Hcl 25 Mg Tablet 1 Tab PO TID Amlodipine Besylate 10 Mg Tablet 10 Mg PO DAILY Coreg (Carvedilol) 25 Mg Tablet 25 Mg PO BIDWMEALS Flomax (Tamsulosin Hcl) 0.4 Mg Cap.er.24h 1 Cap PO QHS Vitamin D2 (Ergocalciferol (Vitamin D2)) 50,000 Unit Capsule 1 Cap PO QMTH Allergies Allergies: Coded Allergies: ceftriaxone (Verified Allergy, Intermediate, 09/28/18) ROS Review of System Unable to r perform review of systems secondary to patient being demented Hematological and Lymphatic: No: Bleeding Problems, Blood Clots, Blood Transfusions, Brusing, Night Sweats, Pallor, Swollen Lymph Nodes, Other Physical Exam Physical Exam Physical Exam Physical Exam Constitutional: Well developed, well nourished, no acute distress, non-toxic appearance. [] HENT: Normocephalic, atraumatic Eyes: PERRLA, EOMI Neck: Normal range of motion Cardiovascular:Heart rate regular rhythm, no murmur [] Lungs & Thorax: Diminished breath sounds bilaterally in the lower lung booker Abdomen: Bowel sounds normal, soft, no tenderness Extremities: No tenderness, no cyanosis, no clubbing, ROM intact, no edema. [] Neurologic: Alert and oriented X 1 General: Cooperative, No acute distress Abdomen: Soft PELVIC: Examination not indicated Extremities: No cyanosis Psych/Mental Status: Mood NL Vitals Vitals Vital Signs Date Time Temp Pulse Resp B/P (MAP) Pulse Ox O2 Delivery O2 Flow Rate FiO2 09/26/19 11:31 101.9 87 14 110/72 (85) 96 Nasal Cannula 4.0 101.9 Labs Labs Laboratory Tests Test 09/26/19 11:40 White Blood Count 5.8 x10^3/uL (4.0-11.0) Red Blood Count 5.10 x10^6/uL (4.30-5.70) Hemoglobin 12.9 g/dL (13.0-17.5) Hematocrit 40.8 % (39.0-53.0) Mean Corpuscular Volume 80 fL (79-100) Mean Corpuscular Hemoglobin 25 pg (25-35) Mean Corpuscular Hemoglobin Concent 32 g/dL (31-37) Red Cell Distribution Width 17.2 % (11.5-14.5) Platelet Count 157 x10^3/uL (140-400) Neutrophils (%) (Auto) 77 % (31-73) Lymphocytes (%) (Auto) 13 % (24-48) Monocytes (%) (Auto) 10 % (0-9) Eosinophils (%) (Auto) 0 % (0-3) Basophils (%) (Auto) 0 % (0-3) Neutrophils # (Auto) 4.4 x10^3/uL (1.8-7.7) Lymphocytes # (Auto) 0.8 x10^3/uL (1.0-4.8) Monocytes # (Auto) 0.6 x10^3/uL (0.0-1.1) Eosinophils # (Auto) 0.0 x10^3/uL (0.0-0.7) Basophils # (Auto) 0.0 x10^3/uL (0.0-0.2) Sodium Level 146 mmol/L (136-145) Potassium Level 3.8 mmol/L (3.5-5.1) Chloride Level 109 mmol/L (98-107) Carbon Dioxide Level 27 mmol/L (21-32) Anion Gap 10 (6-14) Blood Urea Nitrogen 42 mg/dL (8-26) Creatinine 2.1 mg/dL (0.7-1.3) Estimated GFR (Cockcroft-Gault) 39.2 BUN/Creatinine Ratio 20 (6-20) Glucose Level 123 mg/dL (70-99) Lactic Acid Level 1.4 mmol/L (0.4-2.0) Calcium Level 8.3 mg/dL (8.5-10.1) Total Bilirubin 0.4 mg/dL (0.2-1.0) Aspartate Amino Transf (AST/SGOT) 36 U/L (15-37) Alanine Aminotransferase (ALT/SGPT) 17 U/L (16-63) Alkaline Phosphatase 55 U/L (46-116) Total Protein 7.3 g/dL (6.4-8.2) Albumin 2.9 g/dL (3.4-5.0) Albumin/Globulin Ratio 0.7 (1.0-1.7) Laboratory Tests Test 09/26/19 11:40 White Blood Count 5.8 x10^3/uL (4.0-11.0) Red Blood Count 5.10 x10^6/uL (4.30-5.70) Hemoglobin 12.9 g/dL (13.0-17.5) Hematocrit 40.8 % (39.0-53.0) Mean Corpuscular Volume 80 fL (79-100) Mean Corpuscular Hemoglobin 25 pg (25-35) Mean Corpuscular Hemoglobin Concent 32 g/dL (31-37) Red Cell Distribution Width 17.2 % (11.5-14.5) Platelet Count 157 x10^3/uL (140-400) Neutrophils (%) (Auto) 77 % (31-73) Lymphocytes (%) (Auto) 13 % (24-48) Monocytes (%) (Auto) 10 % (0-9) Eosinophils (%) (Auto) 0 % (0-3) Basophils (%) (Auto) 0 % (0-3) Neutrophils # (Auto) 4.4 x10^3/uL (1.8-7.7) Lymphocytes # (Auto) 0.8 x10^3/uL (1.0-4.8) Monocytes # (Auto) 0.6 x10^3/uL (0.0-1.1) Eosinophils # (Auto) 0.0 x10^3/uL (0.0-0.7) Basophils # (Auto) 0.0 x10^3/uL (0.0-0.2) Sodium Level 146 mmol/L (136-145) Potassium Level 3.8 mmol/L (3.5-5.1) Chloride Level 109 mmol/L (98-107) Carbon Dioxide Level 27 mmol/L (21-32) Anion Gap 10 (6-14) Blood Urea Nitrogen 42 mg/dL (8-26) Creatinine 2.1 mg/dL (0.7-1.3) Estimated GFR (Cockcroft-Gault) 39.2 BUN/Creatinine Ratio 20 (6-20) Glucose Level 123 mg/dL (70-99) Lactic Acid Level 1.4 mmol/L (0.4-2.0) Calcium Level 8.3 mg/dL (8.5-10.1) Total Bilirubin 0.4 mg/dL (0.2-1.0) Aspartate Amino Transf (AST/SGOT) 36 U/L (15-37) Alanine Aminotransferase (ALT/SGPT) 17 U/L (16-63) Alkaline Phosphatase 55 U/L (46-116) Total Protein 7.3 g/dL (6.4-8.2) Albumin 2.9 g/dL (3.4-5.0) Albumin/Globulin Ratio 0.7 (1.0-1.7) Images Images CHEST AP ONLY History: Cough Comparison: None. Findings: Single view of the chest is submitted. There is right base infiltrate, also probable mild left base infiltrate. There is no dependent pleural fluid or pneumothorax. Pericardial cardiac silhouette is borderline enlarged. There is azygos fissure. Impression: 1. There are bibasilar infiltrates greater on the right. Electronically signed by: Eric Rice MD (09/26/2019 12:07 PM) [id number] VTE Prophylaxis Ordered VTE Prophylaxis Devices: Yes VTE Pharmacological Prophylaxi: Yes Assessment/Plan Assessment/Plan Impression: acute bibasilar infiltrates greater on the right. c/w pneumonia FEVER Acute hypoxic resp failure microvascular disease, previous old stroke, arrhythmias PLAN ADMIT CONSULT PULM IV MEREM q 8n hrs, vanc COVID-19 AG BLOOD CULTURES o2 support 34 min cc time ALLEN IVORY MD Sep 26, 2019 12:49
[2019-09-26 13:20] VITALS: BP 111/66
[2019-09-26] MEDS ORDERED: ALBUTEROL SULFATE 2.5 MG/3 ML NEBU. NEB PRN (13:45)
[2019-09-26] MEDS ORDERED: DOCUSATE SODIUM 100 MG CAPSULE. PO PRN (13:45)
[2019-09-26] MEDS ORDERED: VANCOMYCIN PER PHARMACY MC PRN (13:45)
[2019-09-26] MEDS ORDERED: 0.9 % SODIUM CHLORIDE 10 ML DISP.SYRIN. IV PRN (13:45)
[2019-09-26] MEDS ORDERED: SODIUM PHOSPHATES 19/7GM 133 ML ENEMA. PR PRN (13:45)
[2019-09-26] MEDS ORDERED: ONDANSETRON PF 4 MG/2 ML VIAL. IV PRN (13:45)
[2019-09-26] MEDS ORDERED: MEROPENEM 1 GM in IV NORMAL SALINE 100ML 100 ML IV SCH (14:00)
[2019-09-26 15:21] VITALS: BP 111/66
[2019-09-26] MEDS: ACETAMINOPHEN 325 MG TABLET. PO PRN ×2 (15:28→23:31)
--- NOTE | 2019-09-26 15:31 | CONS ---
DATE OF CONSULTATION: 09/26/2019 PULMONARY CONSULTATION ATTENDING PHYSICIAN: Armani Wallace MD REASON FOR CONSULTATION: Pneumonia. HISTORY OF PRESENT ILLNESS: The patient is a 59-year-old who is a resident of [facility]. He was brought into the hospital with complaint of cough and shortness of breath. The patient was noted to have a fever of 101.9. Chest x-ray was reviewed and was consistent with pneumonia involving the lower lobes, mostly on the right lower lobe. The patient is highly suspected for COVID-19 pneumonia. He is currently on 4 liters of oxygen. He does not appear to be in any obvious respiratory distress. Unable to obtain much history from the patient due to his dementia. PAST MEDICAL HISTORY: History of hyperlipidemia, CVA, and dementia. PAST SURGICAL HISTORY: No recent surgeries. FAMILY HISTORY: Hypertension. ALLERGIES: ROCEPHIN. MEDICATIONS: Reviewed including vancomycin, meropenem and home medications. REVIEW OF SYSTEMS: Unable to obtain from the patient. PHYSICAL EXAMINATION: VITAL SIGNS: Reviewed. T-max of 101.9. Blood pressure stable, pulse oximetry 96% on 3 liters. NECK: Supple. LUNGS: With diminished breath sounds at the bases. CARDIOVASCULAR: Regular rate. ABDOMEN: Soft. EXTREMITIES: With no pitting edema. LABORATORY DATA: Reviewed. White cell count 5.8, hemoglobin 12.9, platelets of 157. BUN 42, creatinine 2.1. IMPRESSION: 1. Acute hypoxic respiratory failure secondary to highly suspected COVID-19 pneumonia. 2. Abnormal chest x-ray consistent with pneumonia, highly suspected COVID-19. Cannot exclude superimposed bacterial pneumonia. 3. Acute kidney injury. RECOMMENDATIONS: 1. We will continue present oxygen and closely monitor the hospital course. 2. Broad spectrum antibiotic with vancomycin and meropenem. 3. COVID-19 test will be obtained. 4. If COVID-19 test is positive, we will add Plaquenil. 5. Discussed with RN. We will follow the clinical course. Discussed with Dr. Wallace. GARDENIA VALDERRAMA MD DR: DAVY/nik JOB#: [id number] / [id number]
[2019-09-26] MEDS: IV NORMAL SALINE 1000ML BAG 1,000 ML IV SCH (15:32)
[2019-09-26 16:18] LABS: INFLUENZA A PATIENT NEGATIVE (NEGATIVE); INFLUENZA B PATIENT NEGATIVE (NEGATIVE)
[2019-09-26] MEDS: MEROPENEM 500 MG in IV NORMAL SALINE 50ML 50 ML IV SCH ×2 (18:00→23:31)
[2019-09-26 19:11] VITALS: BP 141/72
[2019-09-26 22:00] VITALS: BP 129/65
[2019-09-27] MEDS: IV NORMAL SALINE 1000ML BAG 1,000 ML IV SCH ×2 (03:00→16:41)
[2019-09-27 03:02] VITALS: BP 122/73
[2019-09-27 04:01] LABS: CALCIUM 7.7 mg/dL (8.5-10.1); CREATININE 1.8 mg/dL (0.7-1.3); GFR 46.8; POTASSIUM 4.2 mmol/L (3.5-5.1)
[2019-09-27] MEDS: MEROPENEM 500 MG in IV NORMAL SALINE 50ML 50 ML IV SCH ×3 (05:01→17:00)
[2019-09-27 07:00] VITALS: BP 148/83
[2019-09-27] MEDS: ACETAMINOPHEN 325 MG TABLET. PO PRN ×3 (08:10→21:12)
[2019-09-27 11:00] VITALS: BP 113/72
--- NOTE | 2019-09-27 11:00 | PDOC ---
PROGRESS NOTES History of Present Illness History of Present Illness VTE Prophylaxis Ordered VTE Prophylaxis Devices: Yes VTE Pharmacological Prophylaxi: Yes Assessment/Plan Assessment/Plan Impression: acute bibasilar infiltrates greater on the right. c/w pneumonia FEVER, persistent Acute hypoxic resp failure microvascular disease, previous old stroke, arrhythmias DEMENITIA pos blood cult suspect skin contaminant PLAN ADMIT CONSULT PULM IV MEREM q 8n hrs, iv zyvox, iv zithromax COVID-19 AG BLOOD CULTURES o2 support 34 MIN CC TIME SPEC #: [id number] TERRENCE: 09/26/19 STATUS: COMP REQ #: [id number] RECD: 09/26/[address] [facility] [address]: ALLEN IVORY MD SOURCE: BLOOD ENTR: 09/26/[address] [facility] [address]: RODOLFO [facility]ENDIOLA [facility] POO[facility] DO ORDERED: BCULT Procedure Result BLOOD CULTURE Final GRAM POSITIVE COCCI IN [facility] IN 1 OF 4 BOTTLES (2 SETS). CALLED TO DAVIDE MEJIA ON 2S 09/27/19 AT 0854 BY Kayden CARBAJAL. CULTURE WILL BE SENT TO [facility] FOR FURTHER IDENTIFICATION. 34 min cc time ALLEN IVORY MD Sep 26, 2019 12:49 Addendum: ALLEN IVORY MD on 09/27/19 @ 10:59 COVID-19 CRITERIA: The patient was evaluated during the global COVID-19 pandemic, and that diagnosis was suspected/considered upon their initial presentation. Their evaluation, treatment and testing were consistent with current guidelines for patients who present with complaints or symptoms that may be related to COVID-19 Vitals Vitals Vital Signs Date Time Temp Pulse Resp B/P (MAP) Pulse Ox O2 Delivery O2 Flow Rate FiO2 09/27/19 07:00 102.3 93 28 148/83 (104) 93 Nasal Cannula 5.0 102.3 Physical Exam Physical Exam CONFUSED, AGITATED AT TIMES General: Oriented X3, Cooperative, No acute distress Abdomen: Soft Extremities: No cyanosis Labs LABS Laboratory Tests Test 09/26/19 11:40 09/27/19 02:36 White Blood Count 5.8 x10^3/uL (4.0-11.0) Red Blood Count 5.10 x10^6/uL (4.30-5.70) Hemoglobin 12.9 g/dL (13.0-17.5) Hematocrit 40.8 % (39.0-53.0) Mean Corpuscular Volume 80 fL (79-100) Mean Corpuscular Hemoglobin 25 pg (25-35) Mean Corpuscular Hemoglobin Concent 32 g/dL (31-37) Red Cell Distribution Width 17.2 % (11.5-14.5) Platelet Count 157 x10^3/uL (140-400) Neutrophils (%) (Auto) 77 % (31-73) Lymphocytes (%) (Auto) 13 % (24-48) Monocytes (%) (Auto) 10 % (0-9) Eosinophils (%) (Auto) 0 % (0-3) Basophils (%) (Auto) 0 % (0-3) Neutrophils # (Auto) 4.4 x10^3/uL (1.8-7.7) Lymphocytes # (Auto) 0.8 x10^3/uL (1.0-4.8) Monocytes # (Auto) 0.6 x10^3/uL (0.0-1.1) Eosinophils # (Auto) 0.0 x10^3/uL (0.0-0.7) Basophils # (Auto) 0.0 x10^3/uL (0.0-0.2) Sodium Level 146 mmol/L (136-145) 148 mmol/L (136-145) Potassium Level 3.8 mmol/L (3.5-5.1) 4.2 mmol/L (3.5-5.1) Chloride Level 109 mmol/L (98-107) 111 mmol/L (98-107) Carbon Dioxide Level 27 mmol/L (21-32) 29 mmol/L (21-32) Anion Gap 10 (6-14) 8 (6-14) Blood Urea Nitrogen 42 mg/dL (8-26) 40 mg/dL (8-26) Creatinine 2.1 mg/dL (0.7-1.3) 1.8 mg/dL (0.7-1.3) Estimated GFR (Cockcroft-Gault) 39.2 46.8 BUN/Creatinine Ratio 20 (6-20) Glucose Level 123 mg/dL (70-99) 104 mg/dL (70-99) Lactic Acid Level 1.4 mmol/L (0.4-2.0) Calcium Level 8.3 mg/dL (8.5-10.1) 7.7 mg/dL (8.5-10.1) Total Bilirubin 0.4 mg/dL (0.2-1.0) Aspartate Amino Transf (AST/SGOT) 36 U/L (15-37) Alanine Aminotransferase (ALT/SGPT) 17 U/L (16-63) Alkaline Phosphatase 55 U/L (46-116) KC-Kow-S-Type Natriuretic Peptide 86 pg/mL (0-124) Total Protein 7.3 g/dL (6.4-8.2) Albumin 2.9 g/dL (3.4-5.0) Albumin/Globulin Ratio 0.7 (1.0-1.7) Influenza Type A Antigen Negative (NEGATIVE) Influenza Type B Antigen Negative (NEGATIVE) Assessment and Plan Assessmemt and Plan Problems Medical Problems: (1) Pneumonia Status: Acute (2) Renal insufficiency Status: Acute Comment Review of Relevant I have reviewed the following items rochelle (where applicable) has been applied. Labs Laboratory Tests Test 09/26/19 11:40 09/27/19 02:36 White Blood Count 5.8 x10^3/uL (4.0-11.0) Red Blood Count 5.10 x10^6/uL (4.30-5.70) Hemoglobin 12.9 g/dL (13.0-17.5) Hematocrit 40.8 % (39.0-53.0) Mean Corpuscular Volume 80 fL (79-100) Mean Corpuscular Hemoglobin 25 pg (25-35) Mean Corpuscular Hemoglobin Concent 32 g/dL (31-37) Red Cell Distribution Width 17.2 % (11.5-14.5) Platelet Count 157 x10^3/uL (140-400) Neutrophils (%) (Auto) 77 % (31-73) Lymphocytes (%) (Auto) 13 % (24-48) Monocytes (%) (Auto) 10 % (0-9) Eosinophils (%) (Auto) 0 % (0-3) Basophils (%) (Auto) 0 % (0-3) Neutrophils # (Auto) 4.4 x10^3/uL (1.8-7.7) Lymphocytes # (Auto) 0.8 x10^3/uL (1.0-4.8) Monocytes # (Auto) 0.6 x10^3/uL (0.0-1.1) Eosinophils # (Auto) 0.0 x10^3/uL (0.0-0.7) Basophils # (Auto) 0.0 x10^3/uL (0.0-0.2) Sodium Level 146 mmol/L (136-145) 148 mmol/L (136-145) Potassium Level 3.8 mmol/L (3.5-5.1) 4.2 mmol/L (3.5-5.1) Chloride Level 109 mmol/L (98-107) 111 mmol/L (98-107) Carbon Dioxide Level 27 mmol/L (21-32) 29 mmol/L (21-32) Anion Gap 10 (6-14) 8 (6-14) Blood Urea Nitrogen 42 mg/dL (8-26) 40 mg/dL (8-26) Creatinine 2.1 mg/dL (0.7-1.3) 1.8 mg/dL (0.7-1.3) Estimated GFR (Cockcroft-Gault) 39.2 46.8 BUN/Creatinine Ratio 20 (6-20) Glucose Level 123 mg/dL (70-99) 104 mg/dL (70-99) Lactic Acid Level 1.4 mmol/L (0.4-2.0) Calcium Level 8.3 mg/dL (8.5-10.1) 7.7 mg/dL (8.5-10.1) Total Bilirubin 0.4 mg/dL (0.2-1.0) Aspartate Amino Transf (AST/SGOT) 36 U/L (15-37) Alanine Aminotransferase (ALT/SGPT) 17 U/L (16-63) Alkaline Phosphatase 55 U/L (46-116) RT-Qtv-Z-Type Natriuretic Peptide 86 pg/mL (0-124) Total Protein 7.3 g/dL (6.4-8.2) Albumin 2.9 g/dL (3.4-5.0) Albumin/Globulin Ratio 0.7 (1.0-1.7) Influenza Type A Antigen Negative (NEGATIVE) Influenza Type B Antigen Negative (NEGATIVE) Laboratory Tests Test 09/26/19 11:40 09/27/19 02:36 White Blood Count 5.8 x10^3/uL (4.0-11.0) Red Blood Count 5.10 x10^6/uL (4.30-5.70) Hemoglobin 12.9 g/dL (13.0-17.5) Hematocrit 40.8 % (39.0-53.0) Mean Corpuscular Volume 80 fL (79-100) Mean Corpuscular Hemoglobin 25 pg (25-35) Mean Corpuscular Hemoglobin Concent 32 g/dL (31-37) Red Cell Distribution Width 17.2 % (11.5-14.5) Platelet Count 157 x10^3/uL (140-400) Neutrophils (%) (Auto) 77 % (31-73) Lymphocytes (%) (Auto) 13 % (24-48) Monocytes (%) (Auto) 10 % (0-9) Eosinophils (%) (Auto) 0 % (0-3) Basophils (%) (Auto) 0 % (0-3) Neutrophils # (Auto) 4.4 x10^3/uL (1.8-7.7) Lymphocytes # (Auto) 0.8 x10^3/uL (1.0-4.8) Monocytes # (Auto) 0.6 x10^3/uL (0.0-1.1) Eosinophils # (Auto) 0.0 x10^3/uL (0.0-0.7) Basophils # (Auto) 0.0 x10^3/uL (0.0-0.2) Sodium Level 146 mmol/L (136-145) 148 mmol/L (136-145) Potassium Level 3.8 mmol/L (3.5-5.1) 4.2 mmol/L (3.5-5.1) Chloride Level 109 mmol/L (98-107) 111 mmol/L (98-107) Carbon Dioxide Level 27 mmol/L (21-32) 29 mmol/L (21-32) Anion Gap 10 (6-14) 8 (6-14) Blood Urea Nitrogen 42 mg/dL (8-26) 40 mg/dL (8-26) Creatinine 2.1 mg/dL (0.7-1.3) 1.8 mg/dL (0.7-1.3) Estimated GFR (Cockcroft-Gault) 39.2 46.8 BUN/Creatinine Ratio 20 (6-20) Glucose Level 123 mg/dL (70-99) 104 mg/dL (70-99) Lactic Acid Level 1.4 mmol/L (0.4-2.0) Calcium Level 8.3 mg/dL (8.5-10.1) 7.7 mg/dL (8.5-10.1) Total Bilirubin 0.4 mg/dL (0.2-1.0) Aspartate Amino Transf (AST/SGOT) 36 U/L (15-37) Alanine Aminotransferase (ALT/SGPT) 17 U/L (16-63) Alkaline Phosphatase 55 U/L (46-116) WA-Fyk-K-Type Natriuretic Peptide 86 pg/mL (0-124) Total Protein 7.3 g/dL (6.4-8.2) Albumin 2.9 g/dL (3.4-5.0) Albumin/Globulin Ratio 0.7 (1.0-1.7) Influenza Type A Antigen Negative (NEGATIVE) Influenza Type B Antigen Negative (NEGATIVE) Microbiology 09/26/19 Blood Culture - Final, Complete Medications Current Medications Acetaminophen (Tylenol) 1,000 mg 1X ONCE PO ; Start 09/26/19 at 12:45; Stop 09/26/19 at 12:46; Status DC Piperacillin Sod/ Tazobactam Sod 4.5 gm/Sodium Chloride 100 ml @ 200 mls/hr 1X ONCE IV ; Start 09/26/19 at 12:45; Stop 09/26/19 at 13:14; Status UNV Vancomycin HCl 250 ml @ 250 mls/hr 1X ONCE IV ; Start 09/26/19 at 12:45; Stop 09/26/19 at 13:44; Status UNV Vancomycin HCl 2 gm/Sodium Chloride 500 ml @ 250 mls/hr 1X ONCE IV Last administered on 09/26/19at 13:01; Start 09/26/19 at 12:45; Stop 09/26/19 at 14:44; Status DC Meropenem 1 gm/ Sodium Chloride 100 ml @ 200 mls/hr 1X ONCE IV Last administered on 09/26/19at 13:02; Start 09/26/19 at 12:45; Stop 09/26/19 at 13:14; Status DC Meropenem 1 gm/ Sodium Chloride 100 ml @ 200 mls/hr Q8HRS IV ; Start 09/26/19 at 14:00; Status UNV Meropenem 500 mg/ Sodium Chloride 50 ml @ 100 mls/hr Q6HRS IV Last administered on 09/27/19at 05:01; Start 09/26/19 at 18:00 Sodium Chloride (Normal Saline Flush) 3 ml QSHIFT PRN IV AFTER MEDS AND BLOOD DRAWS; Start 09/26/19 at 13:45 Sodium Chloride 1,000 ml @ 75 mls/hr [id number] IV Last administered on 09/27/19at 03:00; Start 09/26/19 at 13:42 Ondansetron HCl (Zofran) 4 mg PRN Q4HRS PRN IV NAUSEA/VOMITING; Start 09/26/19 at 13:45 Acetaminophen (Tylenol) 650 mg PRN Q4HRS PRN PO TEMP OVER 100.4F OR MILD PAIN Last administered on 09/27/19at 08:10; Start 09/26/19 at 13:45 Clonidine HCl (Catapres) 0.1 mg PRN Q6HRS PRN PO SBP>160 OR DBP>90; Start 09/26/19 at 13:45 Sodium Monofluorophosphate (Fleet Adult) 133 ml PRN DAILY PRN [place] CONSTIPATION; Start 09/26/19 at 13:45 Docusate Sodium (Colace) 100 mg PRN BID PRN PO CONSTIPATION; Start 09/26/19 at 13:45 Albuterol Sulfate (Ventolin Neb Soln) 2.5 mg PRN Q4HRS PRN NEB SHORTNESS OF BREATH; Start 09/26/19 at 13:45 Guaifenesin (Robitussin) 200 mg PRN Q4HRS PRN PO COUGH; Start 09/26/19 at 13:45 Vancomycin HCl (Vanco Per Pharmacy) 1 each PRN DAILY PRN MC SEE COMMENTS Last administered on 09/26/19at 14:30; Start 09/26/19 at 13:45 Vancomycin HCl 1.75 gm/Sodium Chloride 500 ml @ 250 mls/hr Q24H IV ; Start 09/27/19 at 13:00 Vancomycin HCl (Vancomycin Trough Level) 1 each 1X ONCE MC ; Start 09/28/19 at 12:30; Stop 09/28/19 at 12:31 Lorazepam (Ativan Inj) 1 mg PRN Q4HRS PRN IVP ANXIETY / AGITATION Last a dministered on 09/26/19at 23:29; Start 09/26/19 at 23:15 Active Scripts Active Mupirocin Ointment (Mupirocin) 22 Gm Oint...g. 1 Bill TP DAILY 14 Days Reported Tylenol (Acetaminophen) 325 Mg Tablet 1-2 Tab PO PRN Q4HRS PRN Aspir-Low (Aspirin) 81 Mg Tablet.dr 1 Tab PO DAILY Atorvastatin Calcium 20 Mg Tablet 20 Mg PO HS Hydralazine Hcl 25 Mg Tablet 1 Tab PO TID Amlodipine Besylate 10 Mg Tablet 10 Mg PO DAILY Coreg (Carvedilol) 25 Mg Tablet 25 Mg PO BIDWMEALS Flomax (Tamsulosin Hcl) 0.4 Mg Cap.er.24h 1 Cap PO QHS Vitamin D2 (Ergocalciferol (Vitamin D2)) 50,000 Unit Capsule 1 Cap PO QMTH Vitals/I & O Vital Sign - Last 24 Hours 3/31/20 3/31/20 3/31/20 3/31/20 11:31 13:01 13:20 13:30 Temp 101.9 100.5 101.9 100.5 Pulse 87 84 82 Resp 14 20 20 B/P (MAP) 110/72 (85) 113/80 (91) 111/66 (81) Pulse Ox 96 96 O2 Delivery Nasal Cannula Nasal Cannula Nasal Cannula Nasal Cannula O2 Flow Rate 4.0 4.0 3.0 4.0 09/26/19 09/26/19 09/26/19 09/26/19 15:21 19:11 20:30 22:00 Temp 101.3 99.2 102.8 101.3 99.2 102.8 Pulse 81 86 93 Resp 24 28 24 B/P (MAP) 111/66 (81) 141/72 (95) 129/65 (86) Pulse Ox 93 92 95 O2 Delivery Nasal Cannula Nasal Cannula Nasal Cannula Nasal Cannula O2 Flow Rate 3.0 5.0 5.0 3.0 09/27/19 09/27/19 03:02 07:00 Temp 101.4 102.3 101.4 102.3 Pulse 82 93 Resp 20 28 B/P (MAP) 122/73 (89) 148/83 (104) Pulse Ox 94 93 O2 Delivery Simple Mask Nasal Cannula O2 Flow Rate 4.0 5.0 Intake and Output 09/26/19 09/26/19 09/27/19 15:00 23:00 07:00 Intake Total 240 ml 150 ml Balance 240 ml 150 ml ALLEN IVORY MD Sep 27, 2019 11:00
--- NOTE | 2019-09-27 11:01 | PDOC ---
Infectious Disease Note Vital Sign Vital Signs Vital Signs Date Time Temp Pulse Resp B/P (MAP) Pulse Ox O2 Delivery O2 Flow Rate FiO2 09/27/19 07:00 102.3 93 28 148/83 (104) 93 Nasal Cannula 5.0 102.3 Labs Lab Laboratory Tests Test 09/26/19 11:40 09/27/19 02:36 White Blood Count 5.8 x10^3/uL (4.0-11.0) Red Blood Count 5.10 x10^6/uL (4.30-5.70) Hemoglobin 12.9 g/dL (13.0-17.5) Hematocrit 40.8 % (39.0-53.0) Mean Corpuscular Volume 80 fL (79-100) Mean Corpuscular Hemoglobin 25 pg (25-35) Mean Corpuscular Hemoglobin Concent 32 g/dL (31-37) Red Cell Distribution Width 17.2 % (11.5-14.5) Platelet Count 157 x10^3/uL (140-400) Neutrophils (%) (Auto) 77 % (31-73) Lymphocytes (%) (Auto) 13 % (24-48) Monocytes (%) (Auto) 10 % (0-9) Eosinophils (%) (Auto) 0 % (0-3) Basophils (%) (Auto) 0 % (0-3) Neutrophils # (Auto) 4.4 x10^3/uL (1.8-7.7) Lymphocytes # (Auto) 0.8 x10^3/uL (1.0-4.8) Monocytes # (Auto) 0.6 x10^3/uL (0.0-1.1) Eosinophils # (Auto) 0.0 x10^3/uL (0.0-0.7) Basophils # (Auto) 0.0 x10^3/uL (0.0-0.2) Sodium Level 146 mmol/L (136-145) 148 mmol/L (136-145) Potassium Level 3.8 mmol/L (3.5-5.1) 4.2 mmol/L (3.5-5.1) Chloride Level 109 mmol/L (98-107) 111 mmol/L (98-107) Carbon Dioxide Level 27 mmol/L (21-32) 29 mmol/L (21-32) Anion Gap 10 (6-14) 8 (6-14) Blood Urea Nitrogen 42 mg/dL (8-26) 40 mg/dL (8-26) Creatinine 2.1 mg/dL (0.7-1.3) 1.8 mg/dL (0.7-1.3) Estimated GFR (Cockcroft-Gault) 39.2 46.8 BUN/Creatinine Ratio 20 (6-20) Glucose Level 123 mg/dL (70-99) 104 mg/dL (70-99) Lactic Acid Level 1.4 mmol/L (0.4-2.0) Calcium Level 8.3 mg/dL (8.5-10.1) 7.7 mg/dL (8.5-10.1) Total Bilirubin 0.4 mg/dL (0.2-1.0) Aspartate Amino Transf (AST/SGOT) 36 U/L (15-37) Alanine Aminotransferase (ALT/SGPT) 17 U/L (16-63) Alkaline Phosphatase 55 U/L (46-116) QH-Ecm-M-Type Natriuretic Peptide 86 pg/mL (0-124) Total Protein 7.3 g/dL (6.4-8.2) Albumin 2.9 g/dL (3.4-5.0) Albumin/Globulin Ratio 0.7 (1.0-1.7) Influenza Type A Antigen Negative (NEGATIVE) Influenza Type B Antigen Negative (NEGATIVE) Micro Microbiology 09/26/19 Blood Culture - Final, Complete Objective Assessment pt seen, consult dictated Plan Plan of Care / VALERIE BAY MD Sep 27, 2019 11:01
--- NOTE | 2019-09-27 11:22 | CONS ---
DATE OF CONSULTATION: 09/27/2019 REQUESTING PHYSICIAN: Armani Wallace MD REASON FOR CONSULTATION: Blood culture positive. HISTORY OF PRESENT ILLNESS: This is a 59-year-old -[place] gentleman with history of CVA and dementia, who is a custodial resident, was brought in because of respiratory distress and shortness of breath. The patient required 4 liters of oxygen. The patient was found to have pneumonia and the blood culture /4 is positive. The patient is receiving vancomycin and meropenem. The patient is alert, awake. The patient denies any nausea, vomiting, diarrhea. Denies any shortness of breath, abdominal pain, urinary symptoms, bowel symptoms, headache, or visual symptoms. PAST MEDICAL HISTORY: Positive for CVA, dementia, hyperlipidemia. SOCIAL HISTORY: Negative for smoking, alcohol or illicit drug use. The patient is a custodial resident. ALLERGIES: LISTED ALLERGIC TO ROCEPHIN. REVIEW OF SYSTEMS: As per HPI, all other systems reviewed and are negative. CURRENT MEDICATIONS: Reviewed. PHYSICAL EXAMINATION: GENERAL: Awake gentleman, not in distress. VITAL SIGNS: Stable with a T-max 102.8. Rest of vital signs stable. HEENT: Both pupils are round and reacting. No conjunctival lesion, no lesion in the mouth. NECK: Supple, no JVP, no lymphadenopathy. LUNGS: Clear. HEART: S1, S2 regular. ABDOMEN: Benign. EXTREMITIES: No edema, cyanosis. SKIN: Unremarkable. NEUROLOGIC: The patient does move all the extremities. Memory is very poor. LABORATORY DATA: White count is 5.8, platelets are normal, lymphocyte is low. BUN and creatinine is 40 and 1.8. Influenza screen is negative. Blood culture /4 resembling staph. Chest x-ray showed bilateral infiltrate. IMPRESSION: 1. Blood culture positive /4 likely to be contaminant. 2. Pulmonary infiltrate. COVID-19 is being tested, possible likely. 3. Fever. 4. Renal insufficiency. 5. Dementia. 6. Cerebrovascular accident. RECOMMENDATIONS: We will change vancomycin to Zyvox, continue meropenem, supportive care. We will await COVID testing. I will add azithromycin. Thank you very much, Dr. Wallace, for giving me the opportunity to participate in this patient's care. VALERIE R. BAY, MD DR: KATRINA/nik JOB#: [id number] / [id number]
[2019-09-27] MEDS: AZITHROMYCIN 500 MG in IV NORMAL SALINE 250ML 250 ML IV SCH (12:11)
--- NOTE | 2019-09-27 12:20 | PDOC2 ---
CONSULT Date of Consult Date of Consult DATE: 09/27/19 TIME: 12:10 Reason for Consult Reason for Consult: ROCIO Referring Physician Referring Physician: DIANELYS Source Source: Chart review History of Present Illness Reason for Visit: THIS IS A 59 YR OLD AA MALE WITH HX OF CVA AND SUBSEQUENT DEMENTIA. HE IS A NH RESIDENT IS NOT ABLE TO GIVE ANY HX. NO CKD NOTED BASED ON LABS HERE FROM PRIOR VISITS. NO KNOWN OTHER HX. ? BPH HIS HOME MEDS INCLUDE FLOMAX. HE DOES WEAR DEPENDS. NO HEMODYNAMIC INSTABILITY OR NEPHROTOXINS NOTED. CURRENTLY COVID 19 BEING INVESTIGATED. PULM AND ID EVAL ONGOING Past Medical History Cardiovascular: No pertinent hx, Hyperlipidemia Pulmonary: No pertinent hx CENTRAL NERVOUS SYSTEM: CVA, Dementia GI: No pertinent hx Heme/Onc: No pertinent hx Hepatobiliary: No pertinent hx Rheumatologic: No pertinent hx Infectious disease: No pertinent hx Renal/: No pertinent hx Endocrine: No pertinent hx Past Surgical History Past Surgical History: No pertinent history Family History Family History: No Significant, Hypertension Social History No ALCOHOL: none Drugs: None Lives: Fdc Current Problem List Problem List Problems Medical Problems: (1) Pneumonia Status: Acute (2) Renal insufficiency Status: Acute Current Medications Current Medications Current Medications Acetaminophen (Tylenol) 1,000 mg 1X ONCE PO ; Start 09/26/19 at 12:45; Stop 09/26/19 at 12:46; Status DC Piperacillin Sod/ Tazobactam Sod 4.5 gm/Sodium Chloride 100 ml @ 200 mls/hr 1X ONCE IV ; Start 09/26/19 at 12:45; Stop 09/26/19 at 13:14; Status UNV Vancomycin HCl 250 ml @ 250 mls/hr 1X ONCE IV ; Start 09/26/19 at 12:45; Stop 09/26/19 at 13:44; Status UNV Vancomycin HCl 2 gm/Sodium Chloride 500 ml @ 250 mls/hr 1X ONCE IV Last administered on 09/26/19at 13:01; Start 09/26/19 at 12:45; Stop 09/26/19 at 14:44; Status DC Meropenem 1 gm/ Sodium Chloride 100 ml @ 200 mls/hr 1X ONCE IV Last admin istered on 09/26/19at 13:02; Start 09/26/19 at 12:45; Stop 09/26/19 at 13:14; Status DC Meropenem 1 gm/ Sodium Chloride 100 ml @ 200 mls/hr Q8HRS IV ; Start 09/26/19 at 14:00; Status UNV Meropenem 500 mg/ Sodium Chloride 50 ml @ 100 mls/hr Q6HRS IV Last administered on 09/27/19at 11:22; Start 09/26/19 at 18:00 Sodium Chloride (Normal Saline Flush) 3 ml QSHIFT PRN IV AFTER MEDS AND BLOOD DRAWS; Start 09/26/19 at 13:45 Sodium Chloride 1,000 ml @ 75 mls/hr [id number] IV Last administered on 09/27/19at 03:00; Start 09/26/19 at 13:42 Ondansetron HCl (Zofran) 4 mg PRN Q4HRS PRN IV NAUSEA/VOMITING; Start 09/26/19 at 13:45 Acetaminophen (Tylenol) 650 mg PRN Q4HRS PRN PO TEMP OVER 100.4F OR MILD PAIN Last administered on 09/27/19at 08:10; Start 09/26/19 at 13:45 Clonidine HCl (Catapres) 0.1 mg PRN Q6HRS PRN PO SBP>160 OR DBP>90; Start 09/26/19 at 13:45 Sodium Monofluorophosphate (Fleet Adult) 133 ml PRN DAILY PRN [place] CONSTIPATION; Start 09/26/19 at 13:45 Docusate Sodium (Colace) 100 mg PRN BID PRN PO CONSTIPATION; Start 09/26/19 at 13:45 Albuterol Sulfate (Ventolin Neb Soln) 2.5 mg PRN Q4HRS PRN NEB SHORTNESS OF BREATH; Start 09/26/19 at 13:45 Guaifenesin (Robitussin) 200 mg PRN Q4HRS PRN PO COUGH; Start 09/26/19 at 13:45 Vancomycin HCl (Vanco Per Pharmacy) 1 each PRN DAILY PRN MC SEE COMMENTS Last administered on 09/26/19at 14:30; Start 09/26/19 at 13:45; Stop 09/27/19 at 11:04; Status DC Vancomycin HCl 1.75 gm/Sodium Chloride 500 ml @ 250 mls/hr Q24H IV ; Start 09/27/19 at 13:00; Stop 09/27/19 at 11:04; Status DC Vancomycin HCl (Vancomycin Trough Level) 1 each 1X ONCE MC ; Start 09/28/19 at 12:30; Stop 09/28/19 at 12:31; Status Cancel Lorazepam (Ativan Inj) 1 mg PRN Q4HRS PRN IVP ANXIETY / AGITATION Last administered on 09/26/19at 23:29; Start 09/26/19 at 23:15 Linezolid/Dextrose 300 ml @ 300 mls/hr Q12HR IV ; Start 09/27/19 at 21:00 Azithromycin 500 mg/Sodium Chloride 250 ml @ 250 mls/hr Q24H IV ; Start 09/27/19 at 12:00 Active Scripts Active Mupirocin Ointment (Mupirocin) 22 Gm Oint...g. 1 Bill TP DAILY 14 Days Reported Tylenol (Acetaminophen) 325 Mg Tablet 1-2 Tab PO PRN Q4HRS PRN Aspir-Low (Aspirin) 81 Mg Tablet.dr 1 Tab PO DAILY Atorvastatin Calcium 20 Mg Tablet 20 Mg PO HS Hydralazine Hcl 25 Mg Tablet 1 Tab PO TID Amlodipine Besylate 10 Mg Tablet 10 Mg PO DAILY Coreg (Carvedilol) 25 Mg Tablet 25 Mg PO BIDWMEALS Flomax (Tamsulosin Hcl) 0.4 Mg Cap.er.24h 1 Cap PO QHS Vitamin D2 (Ergocalciferol (Vitamin D2)) 50,000 Unit Capsule 1 Cap PO QMTH Allergies Allergies: Coded Allergies: ceftriaxone (Verified Allergy, Intermediate, 09/28/18) ROS Review of System UNABLE TO OBTAIN Physical Exam General: Alert, Cooperative HEENT: Atraumatic, PERRLA Lungs: Clear to auscultation Heart: Regular rate Abdomen: Normal bowel sounds, Soft Extremities: No clubbing Neuro: Other (UNABLE TO COOPERATE) Psych/Mental Status: Other (FLAT ) MUSCULOSKELETAL: No deformity, No swelling Vitals VITALS Vital Signs Date Time Temp Pulse Resp B/P (MAP) Pulse Ox O2 Delivery O2 Flow Rate FiO2 09/27/19 11:00 101.1 86 20 113/72 (86) 96 Nasal Cannula 5.0 101.1 Labs Labs Laboratory Tests Test 09/26/19 11:40 09/27/19 02:36 White Blood Count 5.8 x10^3/uL (4.0-11.0) Red Blood Count 5.10 x10^6/uL (4.30-5.70) Hemoglobin 12.9 g/dL (13.0-17.5) Hematocrit 40.8 % (39.0-53.0) Mean Corpuscular Volume 80 fL (79-100) Mean Corpuscular Hemoglobin 25 pg (25-35) Mean Corpuscular Hemoglobin Concent 32 g/dL (31-37) Red Cell Distribution Width 17.2 % (11.5-14.5) Platelet Count 157 x10^3/uL (140-400) Neutrophils (%) (Auto) 77 % (31-73) Lymphocytes (%) (Auto) 13 % (24-48) Monocytes (%) (Auto) 10 % (0-9) Eosinophils (%) (Auto) 0 % (0-3) Basophils (%) (Auto) 0 % (0-3) Neutrophils # (Auto) 4.4 x10^3/uL (1.8-7.7) Lymphocytes # (Auto) 0.8 x10^3/uL (1.0-4.8) Monocytes # (Auto) 0.6 x10^3/uL (0.0-1.1) Eosinophils # (Auto) 0.0 x10^3/uL (0.0-0.7) Basophils # (Auto) 0.0 x10^3/uL (0.0-0.2) Sodium Level 146 mmol/L (136-145) 148 mmol/L (136-145) Potassium Level 3.8 mmol/L (3.5-5.1) 4.2 mmol/L (3.5-5.1) Chloride Level 109 mmol/L (98-107) 111 mmol/L (98-107) Carbon Dioxide Level 27 mmol/L (21-32) 29 mmol/L (21-32) Anion Gap 10 (6-14) 8 (6-14) Blood Urea Nitrogen 42 mg/dL (8-26) 40 mg/dL (8-26) Creatinine 2.1 mg/dL (0.7-1.3) 1.8 mg/dL (0.7-1.3) Estimated GFR (Cockcroft-Gault) 39.2 46.8 BUN/Creatinine Ratio 20 (6-20) Glucose Level 123 mg/dL (70-99) 104 mg/dL (70-99) Lactic Acid Level 1.4 mmol/L (0.4-2.0) Calcium Level 8.3 mg/dL (8.5-10.1) 7.7 mg/dL (8.5-10.1) Total Bilirubin 0.4 mg/dL (0.2-1.0) Aspartate Amino Transf (AST/SGOT) 36 U/L (15-37) Alanine Aminotransferase (ALT/SGPT) 17 U/L (16-63) Alkaline Phosphatase 55 U/L (46-116) PJ-Baa-J-Type Natriuretic Peptide 86 pg/mL (0-124) Total Protein 7.3 g/dL (6.4-8.2) Albumin 2.9 g/dL (3.4-5.0) Albumin/Globulin Ratio 0.7 (1.0-1.7) Influenza Type A Antigen Negative (NEGATIVE) Influenza Type B Antigen Negative (NEGATIVE) Laboratory Tests Test 09/27/19 02:36 Sodium Level 148 mmol/L (136-145) Potassium Level 4.2 mmol/L (3.5-5.1) Chloride Level 111 mmol/L (98-107) Carbon Dioxide Level 29 mmol/L (21-32) Anion Gap 8 (6-14) Blood Urea Nitrogen 40 mg/dL (8-26) Creatinine 1.8 mg/dL (0.7-1.3) Estimated GFR (Cockcroft-Gault) 46.8 Glucose Level 104 mg/dL (70-99) Calcium Level 7.7 mg/dL (8.5-10.1) Images Images CHEST AP ONLY History: Cough Comparison: None. Findings: Single view of the chest is submitted. There is right base infiltrate, also probable mild left base infiltrate. There is no dependent pleural fluid or pneumothorax. Pericardial cardiac silhouette is borderline enlarged. There is azygos fissure. Impression: 1. There are bibasilar infiltrates greater on the right. Assessment/Plan Assessment/Plan IMP ROCIO-ETIOLOGY UNKNOWN-POSS ATN-NO CKD ACUTE HYPOXIC RESP FAILURE COVID 19 SUSPECT PNEUMONIA HX OF CVA AND DEMENTIA PLAN UA WITH MICRO HYDRATION BLADDER SCAN RENAL SONOGRAM IF RENAL FXN IS NOT IMPROVING ANTIBIOTICS ID EVAL AND TX PULM EVAL AND TX UDAY PEREZ MD Sep 27, 2019 12:19
[2019-09-27] MEDS ORDERED: VANCOMYCIN 1.75 GM in IV NORMAL SALINE 500ML BAG 500 ML IV SCH (13:00)
--- NOTE | 2019-09-27 14:35 | PDOC ---
PULMONARY PROGRESS NOTES Subjective no increase SOA on canula Vitals Vital Signs Date Time Temp Pulse Resp B/P (MAP) Pulse Ox O2 Delivery O2 Flow Rate FiO2 09/27/19 11:00 101.1 86 20 113/72 (86) 96 Nasal Cannula 5.0 101.1 General: Alert, No acute distress Lungs: Other (decrease bs) Abdomen: Non-tender Neuro Exam: Alert Extremities: No Edema Skin: Warm Labs Laboratory Tests Test 09/26/19 11:40 09/27/19 02:36 White Blood Count 5.8 x10^3/uL (4.0-11.0) Red Blood Count 5.10 x10^6/uL (4.30-5.70) Hemoglobin 12.9 g/dL (13.0-17.5) Hematocrit 40.8 % (39.0-53.0) Mean Corpuscular Volume 80 fL (79-100) Mean Corpuscular Hemoglobin 25 pg (25-35) Mean Corpuscular Hemoglobin Concent 32 g/dL (31-37) Red Cell Distribution Width 17.2 % (11.5-14.5) Platelet Count 157 x10^3/uL (140-400) Neutrophils (%) (Auto) 77 % (31-73) Lymphocytes (%) (Auto) 13 % (24-48) Monocytes (%) (Auto) 10 % (0-9) Eosinophils (%) (Auto) 0 % (0-3) Basophils (%) (Auto) 0 % (0-3) Neutrophils # (Auto) 4.4 x10^3/uL (1.8-7.7) Lymphocytes # (Auto) 0.8 x10^3/uL (1.0-4.8) Monocytes # (Auto) 0.6 x10^3/uL (0.0-1.1) Eosinophils # (Auto) 0.0 x10^3/uL (0.0-0.7) Basophils # (Auto) 0.0 x10^3/uL (0.0-0.2) Sodium Level 146 mmol/L (136-145) 148 mmol/L (136-145) Potassium Level 3.8 mmol/L (3.5-5.1) 4.2 mmol/L (3.5-5.1) Chloride Level 109 mmol/L (98-107) 111 mmol/L (98-107) Carbon Dioxide Level 27 mmol/L (21-32) 29 mmol/L (21-32) Anion Gap 10 (6-14) 8 (6-14) Blood Urea Nitrogen 42 mg/dL (8-26) 40 mg/dL (8-26) Creatinine 2.1 mg/dL (0.7-1.3) 1.8 mg/dL (0.7-1.3) Estimated GFR (Cockcroft-Gault) 39.2 46.8 BUN/Creatinine Ratio 20 (6-20) Glucose Level 123 mg/dL (70-99) 104 mg/dL (70-99) Lactic Acid Level 1.4 mmol/L (0.4-2.0) Calcium Level 8.3 mg/dL (8.5-10.1) 7.7 mg/dL (8.5-10.1) Total Bilirubin 0.4 mg/dL (0.2-1.0) Aspartate Amino Transf (AST/SGOT) 36 U/L (15-37) Alanine Aminotransferase (ALT/SGPT) 17 U/L (16-63) Alkaline Phosphatase 55 U/L (46-116) NQ-Sfm-T-Type Natriuretic Peptide 86 pg/mL (0-124) Total Protein 7.3 g/dL (6.4-8.2) Albumin 2.9 g/dL (3.4-5.0) Albumin/Globulin Ratio 0.7 (1.0-1.7) Influenza Type A Antigen Negative (NEGATIVE) Influenza Type B Antigen Negative (NEGATIVE) Laboratory Tests Test 09/27/19 02:36 Sodium Level 148 mmol/L (136-145) Potassium Level 4.2 mmol/L (3.5-5.1) Chloride Level 111 mmol/L (98-107) Carbon Dioxide Level 29 mmol/L (21-32) Anion Gap 8 (6-14) Blood Urea Nitrogen 40 mg/dL (8-26) Creatinine 1.8 mg/dL (0.7-1.3) Estimated GFR (Cockcroft-Gault) 46.8 Glucose Level 104 mg/dL (70-99) Calcium Level 7.7 mg/dL (8.5-10.1) Medications Active Scripts Medications Dose Route/Sig Max Daily Dose Days Date Category Mupirocin Ointment (Mupirocin) 22 Gm Oint...g. 1 Bill TP DAILY 14 04/06/19 Rx Tylenol (Acetaminophen) 325 Mg Tablet 1-2 Tab PO PRN Q4HRS PRN 09/28/18 Reported Aspir-Low (Aspirin) 81 Mg Tablet.dr 1 Tab PO DAILY 09/28/18 Reported Atorvastatin Calcium 20 Mg Tablet 20 Mg PO HS 09/28/18 Reported Hydralazine Hcl 25 Mg Tablet 1 Tab PO TID 09/28/18 Reported Amlodipine Besylate 10 Mg Tablet 10 Mg PO DAILY 09/28/18 Reported Coreg (Carvedilol) 25 Mg Tablet 25 Mg PO BIDWMEALS 09/28/18 Reported Flomax (Tamsulosin Hcl) 0.4 Mg Cap.er.24h 1 Cap PO QHS 09/28/18 Reported Vitamin D2 (Ergocalciferol (Vitamin D2)) 50,000 Unit Capsule 1 Cap PO QMTH 09/28/18 Reported Impression . 1. Acute hypoxic respiratory failure secondary to highly suspected COVID-19 pneumonia. 2. Abnormal chest x-ray consistent with pneumonia, highly suspected COVID-19. Cannot exclude superimposed bacterial pneumonia. 3. Acute kidney injury. Plan . RECOMMENDATIONS: 1. We will continue present oxygen and closely monitor the hospital course. 2. Broad spectrum antibiotic with vancomycin and meropenem. 3. COVID-19 test will be obtained. 4. If COVID-19 test is positive, we will add Plaquenil. 5. Discussed with RN. We will follow the clinical course. GARDENIA VALDERRAMA MD Sep 27, 2019 14:34
[2019-09-27 15:00] VITALS: BP 121/69
[2019-09-27 19:10] VITALS: BP 129/82
[2019-09-27 23:45] VITALS: BP 131/73
[2019-09-28] MEDS: MEROPENEM 500 MG in IV NORMAL SALINE 50ML 50 ML IV SCH ×4 (01:41→17:06)
[2019-09-28 02:53] VITALS: BP 145/69
[2019-09-28 04:23] LABS: CALCIUM 7.9 mg/dL (8.5-10.1); CREATININE 1.8 mg/dL (0.7-1.3); GFR 46.8; POTASSIUM 4.1 mmol/L (3.5-5.1)
[2019-09-28] MEDS: IV NORMAL SALINE 1000ML BAG 1,000 ML IV SCH ×2 (05:21→21:50)
[2019-09-28 08:30] VITALS: BP 136/87
--- NOTE | 2019-09-28 08:49 | PDOC ---
PROGRESS NOTES Chief Complaint Chief Complaint A/P: acute bibasilar infiltrates greater on the right. c/w pneumonia FEVER, persistent Acute hypoxic resp failure arrhythmias DEMENITIA pos blood cultures - looks like staph - IV MEREM q 8n hrs, iv zyvox, iv zithromax Hypernatremia History of CVA on the right handed individual with right-handed weakness Essential hypertension Acute encephalopathy DM2 History of Present Illness History of Present Illness Mr Cherry is a 58 yo M care home resident of SNF w/ PMHx DM2, HLD, hypertension, dementia, and prior strokes who has a residual right sided deficit admitted with complaint of cough and shortness of breath. The patient was noted to have a fever of 101.9. Chest x-ray was reviewed and was consistent with pneumonia involving the lower lobes, mostly on the right lower lobe. Placed on 4 liters of oxygen. Unable to obtain much history from the patient due to his dementia. 3/4 bottles positive for GPC in clusters on blood cultures. Still on venti-mask O2, saturating 94%. He has no complaints currently except that he wants to eat. Some conversational dyspnea noted. COVID-19 CRITERIA: The patient was evaluated during the global COVID-19 pandemic, and that diagnosis was suspected/considered upon their initial presentation. Their evaluation, treatment and testing were consistent with current guidelines for patients who present with complaints or symptoms that may be related to COVID-19 Vitals Vitals Vital Signs Date Time Temp Pulse Resp B/P (MAP) Pulse Ox O2 Delivery O2 Flow Rate FiO2 09/28/19 02:53 101.7 89 22 145/69 (94) 94 Simple Mask 5.0 101.7 Physical Exam Physical Exam CONFUSED, AGITATED AT TIMES General: Alert, Cooperative Heart: Regular rate Lungs: Other (decrease bs) Abdomen: Normal bowel sounds, Soft Extremities: No clubbing Labs LABS Laboratory Tests Test 09/28/19 03:20 Sodium Level 149 mmol/L (136-145) Potassium Level 4.1 mmol/L (3.5-5.1) Chloride Level 112 mmol/L (98-107) Carbon Dioxide Level 30 mmol/L (21-32) Anion Gap 7 (6-14) Blood Urea Nitrogen 31 mg/dL (8-26) Creatinine 1.8 mg/dL (0.7-1.3) Estimated GFR (Cockcroft-Gault) 46.8 Glucose Level 102 mg/dL (70-99) Calcium Level 7.9 mg/dL (8.5-10.1) Assessment and Plan Assessmemt and Plan Problems Medical Problems: (1) Pneumonia Status: Acute (2) Renal insufficiency Status: Acute Comment Review of Relevant I have reviewed the following items rochelle (where applicable) has been applied. Labs Laboratory Tests Test 09/26/19 11:40 09/27/19 02:36 09/28/19 03:20 White Blood Count 5.8 x10^3/uL (4.0-11.0) Red Blood Count 5.10 x10^6/uL (4.30-5.70) Hemoglobin 12.9 g/dL (13.0-17.5) Hematocrit 40.8 % (39.0-53.0) Mean Corpuscular Volume 80 fL (79-100) Mean Corpuscular Hemoglobin 25 pg (25-35) Mean Corpuscular Hemoglobin Concent 32 g/dL (31-37) Red Cell Distribution Width 17.2 % (11.5-14.5) Platelet Count 157 x10^3/uL (140-400) Neutrophils (%) (Auto) 77 % (31-73) Lymphocytes (%) (Auto) 13 % (24-48) Monocytes (%) (Auto) 10 % (0-9) Eosinophils (%) (Auto) 0 % (0-3) Basophils (%) (Auto) 0 % (0-3) Neutrophils # (Auto) 4.4 x10^3/uL (1.8-7.7) Lymphocytes # (Auto) 0.8 x10^3/uL (1.0-4.8) Monocytes # (Auto) 0.6 x10^3/uL (0.0-1.1) Eosinophils # (Auto) 0.0 x10^3/uL (0.0-0.7) Basophils # (Auto) 0.0 x10^3/uL (0.0-0.2) Sodium Level 146 mmol/L (136-145) 148 mmol/L (136-145) 149 mmol/L (136-145) Potassium Level 3.8 mmol/L (3.5-5.1) 4.2 mmol/L (3.5-5.1) 4.1 mmol/L (3.5-5.1) Chloride Level 109 mmol/L (98-107) 111 mmol/L (98-107) 112 mmol/L (98-107) Carbon Dioxide Level 27 mmol/L (21-32) 29 mmol/L (21-32) 30 mmol/L (21-32) Anion Gap 10 (6-14) 8 (6-14) 7 (6-14) Blood Urea Nitrogen 42 mg/dL (8-26) 40 mg/dL (8-26) 31 mg/dL (8-26) Creatinine 2.1 mg/dL (0.7-1.3) 1.8 mg/dL (0.7-1.3) 1.8 mg/dL (0.7-1.3) Estimated GFR (Cockcroft-Gault) 39.2 46.8 46.8 BUN/Creatinine Ratio 20 (6-20) Glucose Level 123 mg/dL (70-99) 104 mg/dL (70-99) 102 mg/dL (70-99) Lactic Acid Level 1.4 mmol/L (0.4-2.0) Calcium Level 8.3 mg/dL (8.5-10.1) 7.7 mg/dL (8.5-10.1) 7.9 mg/dL (8.5-10.1) Total Bilirubin 0.4 mg/dL (0.2-1.0) Aspartate Amino Transf (AST/SGOT) 36 U/L (15-37) Alanine Aminotransferase (ALT/SGPT) 17 U/L (16-63) Alkaline Phosphatase 55 U/L (46-116) WD-Ozo-H-Type Natriuretic Peptide 86 pg/mL (0-124) Total Protein 7.3 g/dL (6.4-8.2) Albumin 2.9 g/dL (3.4-5.0) Albumin/Globulin Ratio 0.7 (1.0-1.7) Influenza Type A Antigen Negative (NEGATIVE) Influenza Type B Antigen Negative (NEGATIVE) Laboratory Tests Test 09/28/19 03:20 Sodium Level 149 mmol/L (136-145) Potassium Level 4.1 mmol/L (3.5-5.1) Chloride Level 112 mmol/L (98-107) Carbon Dioxide Level 30 mmol/L (21-32) Anion Gap 7 (6-14) Blood Urea Nitrogen 31 mg/dL (8-26) Creatinine 1.8 mg/dL (0.7-1.3) Estimated GFR (Cockcroft-Gault) 46.8 Glucose Level 102 mg/dL (70-99) Calcium Level 7.9 mg/dL (8.5-10.1) Microbiology 09/26/19 Blood Culture - Preliminary, Resulted NO GROWTH AFTER 1 DAY Medications Current Medications Acetaminophen (Tylenol) 1,000 mg 1X ONCE PO ; Start 09/26/19 at 12:45; Stop 09/26/19 at 12:46; Status DC Piperacillin Sod/ Tazobactam Sod 4.5 gm/Sodium Chloride 100 ml @ 200 mls/hr 1X ONCE IV ; Start 09/26/19 at 12:45; Stop 09/26/19 at 13:14; Status UNV Vancomycin HCl 250 ml @ 250 mls/hr 1X ONCE IV ; Start 09/26/19 at 12:45; Stop 09/26/19 at 13:44; Status UNV Vancomycin HCl 2 gm/Sodium Chloride 500 ml @ 250 mls/hr 1X ONCE IV Last administered on 09/26/19at 13:01; Start 09/26/19 at 12:45; Stop 09/26/19 at 14:44; Status DC Meropenem 1 gm/ Sodium Chloride 100 ml @ 200 mls/hr 1X ONCE IV Last administered on 09/26/19at 13:02; Start 09/26/19 at 12:45; Stop 09/26/19 at 13:14; Status DC Meropenem 1 gm/ Sodium Chloride 100 ml @ 200 mls/hr Q8HRS IV ; Start 09/26/19 at 14:00; Status UNV Meropenem 500 mg/ Sodium Chloride 50 ml @ 100 mls/hr Q6HRS IV Last administered on 09/28/19at 05:21; Start 09/26/19 at 18:00 Sodium Chloride (Normal Saline Flush) 3 ml QSHIFT PRN IV AFTER MEDS AND BLOOD DRAWS; Start 09/26/19 at 13:45 Sodium Chloride 1,000 ml @ 75 mls/hr [id number] IV Last administered on 09/28/19at 05:21; Start 09/26/19 at 13:42 Ondansetron HCl (Zofran) 4 mg PRN Q4HRS PRN IV NAUSEA/VOMITING; Start 09/26/19 at 13:45 Acetaminophen (Tylenol) 650 mg PRN Q4HRS PRN PO TEMP OVER 100.4F OR MILD PAIN Last administered on 09/27/19at 21:12; Start 09/26/19 at 13:45 Clonidine HCl (Catapres) 0.1 mg PRN Q6HRS PRN PO SBP>160 OR DBP>90; Start 09/26/19 at 13:45 Sodium Monofluorophosphate (Fleet Adult) 133 ml PRN DAILY PRN ND CONSTIPATION; Start 09/26/19 at 13:45 Docusate Sodium (Colace) 100 mg PRN BID PRN PO CONSTIPATION; Start 09/26/19 at 13:45 Albuterol Sulfate (Ventolin Neb Soln) 2.5 mg PRN Q4HRS PRN NEB SHORTNESS OF BREATH; Start 09/26/19 at 13:45 Guaifenesin (Robitussin) 200 mg PRN Q4HRS PRN PO COUGH; Start 09/26/19 at 13:45 Vancomycin HCl (Vanco Per Pharmacy) 1 each PRN DAILY PRN MC SEE COMMENTS Last administered on 09/26/19at 14:30; Start 09/26/19 at 13:45; Stop 09/27/19 at 11:04; Status DC Vancomycin HCl 1.75 gm/Sodium Chloride 500 ml @ 250 mls/hr Q24H IV ; Start 09/27/19 at 13:00; Stop 09/27/19 at 11:04; Status DC Vancomycin HCl (Vancomycin Trough Level) 1 each 1X ONCE MC ; Start 09/28/19 at 12:30; Stop 09/28/19 at 12:31; Status Cancel Lorazepam (Ativan Inj) 1 mg PRN Q4HRS PRN IVP ANXIETY / AGITATION Last administered on 09/28/19at 05:54; Start 09/26/19 at 23:15 Linezolid/Dextrose 300 ml @ 300 mls/hr Q12HR IV Last administered on 09/27/19at 21:12; Start 09/27/19 at 21:00 Azithromycin 500 mg/Sodium Chloride 250 ml @ 250 mls/hr Q24H IV Last administered on 09/27/19at 12:11; Start 09/27/19 at 12:00 Active Scripts Active Mupirocin Ointment (Mupirocin) 22 Gm Oint...g. 1 Bill TP DAILY 14 Days Reported Tylenol (Acetaminophen) 325 Mg Tablet 1-2 Tab PO PRN Q4HRS PRN Aspir-Low (Aspirin) 81 Mg Tablet.dr 1 Tab PO DAILY Atorvastatin Calcium 20 Mg Tablet 20 Mg PO HS Hydralazine Hcl 25 Mg Tablet 1 Tab PO TID Amlodipine Besylate 10 Mg Tablet 10 Mg PO DAILY Coreg (Carvedilol) 25 Mg Tablet 25 Mg PO BIDWMEALS Flomax (Tamsulosin Hcl) 0.4 Mg Cap.er.24h 1 Cap PO QHS Vitamin D2 (Ergocalciferol (Vitamin D2)) 50,000 Unit Capsule 1 Cap PO QMTH Vitals/I & O Vital Sign - Last 24 Hours 09/27/19 09/27/19 09/27/19 09/27/19 11:00 15:00 19:10 20:00 Temp 101.1 102.1 104.1 101.1 102.1 104.1 Pulse 86 86 94 Resp 20 18 24 B/P (MAP) 113/72 (86) 121/69 (86) 129/82 (98) Pulse Ox 96 92 90 O2 Delivery Nasal Cannula Nasal Cannula Nasal Cannula O2 Flow Rate 5.0 5.0 5.0 5.0 09/27/19 09/28/19 23:45 02:53 Temp 102.5 101.7 102.5 101.7 Pulse 90 89 Resp 20 22 B/P (MAP) 131/73 (92) 145/69 (94) Pulse Ox 92 94 O2 Delivery Nasal Cannula Simple Mask O2 Flow Rate 5.0 5.0 Intake and Output 09/27/19 09/27/19 09/28/19 15:00 23:00 07:00 Intake Total 30 ml Balance 30 ml DANIEL ENRIQUE MD Sep 28, 2019 08:49
[2019-09-28] MEDS: ACETAMINOPHEN 325 MG TABLET. PO PRN ×3 (09:31→21:50)
--- NOTE | 2019-09-28 11:10 | PDOC ---
Infectious Disease Note Subjective Subjective sleepy, arousable , says he is feeling good ROS ROS no n/v/d/sob Vital Sign Vital Signs Vital Signs Date Time Temp Pulse Resp B/P (MAP) Pulse Ox O2 Delivery O2 Flow Rate FiO2 09/28/19 08:30 Nasal Cannula 5.0 09/28/19 08:30 102.0 84 22 136/87 (103) 98 102.0 Physical Exam PHYSICAL EXAM GENERAL: Awake gentleman, not in distress. VITAL SIGNS: Stable HEENT: Both pupils are round and reacting. No conjunctival lesion, no lesion in the mouth. NECK: Supple, no JVP, no lymphadenopathy. LUNGS: Clear. HEART: S1, S2 regular. ABDOMEN: Benign. EXTREMITIES: No edema, cyanosis. SKIN: Unremarkable. NEUROLOGIC: The patient does move all the extremities. Memory is very poor. Labs Lab Laboratory Tests Test 09/28/19 03:20 Sodium Level 149 mmol/L (136-145) Potassium Level 4.1 mmol/L (3.5-5.1) Chloride Level 112 mmol/L (98-107) Carbon Dioxide Level 30 mmol/L (21-32) Anion Gap 7 (6-14) Blood Urea Nitrogen 31 mg/dL (8-26) Creatinine 1.8 mg/dL (0.7-1.3) Estimated GFR (Cockcroft-Gault) 46.8 Glucose Level 102 mg/dL (70-99) Calcium Level 7.9 mg/dL (8.5-10.1) Micro BC 4/4 G + cocci Objective Assessment 1. Blood culture positive , now 4/4 G + cocci 2. Pulmonary infiltrate. COVID-19 is being tested, possible likely. 3. Fever. 4. Renal insufficiency. 5. Dementia. 6. Cerebrovascular accident. Plan Plan of Care dapto, azithro and meropenem supportive care VALERIE BAY MD Sep 28, 2019 11:10
[2019-09-28 11:15] VITALS: BP 105/76
--- NOTE | 2019-09-28 11:31 | PDOC ---
Renal-Progress Notes Subjective Notes Notes NOTHING NEW History of Present Illness Hx of present illness CONFUSED Vitals Vitals Vital Signs Date Time Temp Pulse Resp B/P (MAP) Pulse Ox O2 Delivery O2 Flow Rate FiO2 09/28/19 08:30 Nasal Cannula 5.0 09/28/19 08:30 102.0 84 22 136/87 (103) 98 102.0 Weight Weight [ ] I.O. Intake and Output Intake and Output 09/28/19 07:00 Intake Total 30 ml Balance 30 ml Intake Oral 30 ml # Voids 4 # Bowel Movements 1 Labs Labs Laboratory Tests Test 09/28/19 03:20 Sodium Level 149 mmol/L (136-145) Potassium Level 4.1 mmol/L (3.5-5.1) Chloride Level 112 mmol/L (98-107) Carbon Dioxide Level 30 mmol/L (21-32) Anion Gap 7 (6-14) Blood Urea Nitrogen 31 mg/dL (8-26) Creatinine 1.8 mg/dL (0.7-1.3) Estimated GFR (Cockcroft-Gault) 46.8 Glucose Level 102 mg/dL (70-99) Calcium Level 7.9 mg/dL (8.5-10.1) Micro Micro Microbiology 09/27/19 Blood Culture - Preliminary, Resulted NO GROWTH AFTER 1 DAY Assessment Assessment MP ROCIO-ETIOLOGY UNKNOWN-POSS ATN-NO CKD-CR STABLE AT 1.8 ACUTE HYPOXIC RESP FAILURE COVID 19 SUSPECT G + BACTEREMIA PNEUMONIA HX OF CVA AND DEMENTIA PLAN UA WITH MICRO HYDRATION BLADDER SCAN WNL ANTIBIOTICS ID EVAL AND TX PULM EVAL AND TX UDAY PEREZ MD Sep 28, 2019 11:31
[2019-09-28] MEDS: AZITHROMYCIN 500 MG in IV NORMAL SALINE 250ML 250 ML IV SCH (11:37)
[2019-09-28] MEDS: DAPTOmycin (GENERIC) IVPB 590 MG in IV NORMAL SALINE 50ML 50 ML IV SCH (13:03)
[2019-09-28] MEDS ORDERED: OLANZapine IM 10 MG VIAL. IM ONE (14:15)
[2019-09-28 15:06] VITALS: BP 138/97
--- NOTE | 2019-09-28 15:58 | PDOC ---
PULMONARY PROGRESS NOTES Subjective no increase SOA on canula Vitals Vital Signs Date Time Temp Pulse Resp B/P (MAP) Pulse Ox O2 Delivery O2 Flow Rate FiO2 09/28/19 15:06 100.5 83 24 138/97 (111) 96 Simple Mask 5.0 100.5 General: Alert, No acute distress Lungs: Other (decrease bs) Abdomen: Non-tender Neuro Exam: Alert Extremities: No Edema Skin: Warm Labs Laboratory Tests Test 09/27/19 02:36 09/28/19 03:20 Sodium Level 148 mmol/L (136-145) 149 mmol/L (136-145) Potassium Level 4.2 mmol/L (3.5-5.1) 4.1 mmol/L (3.5-5.1) Chloride Level 111 mmol/L (98-107) 112 mmol/L (98-107) Carbon Dioxide Level 29 mmol/L (21-32) 30 mmol/L (21-32) Anion Gap 8 (6-14) 7 (6-14) Blood Urea Nitrogen 40 mg/dL (8-26) 31 mg/dL (8-26) Creatinine 1.8 mg/dL (0.7-1.3) 1.8 mg/dL (0.7-1.3) Estimated GFR (Cockcroft-Gault) 46.8 46.8 Glucose Level 104 mg/dL (70-99) 102 mg/dL (70-99) Calcium Level 7.7 mg/dL (8.5-10.1) 7.9 mg/dL (8.5-10.1) Laboratory Tests Test 09/28/19 03:20 Sodium Level 149 mmol/L (136-145) Potassium Level 4.1 mmol/L (3.5-5.1) Chloride Level 112 mmol/L (98-107) Carbon Dioxide Level 30 mmol/L (21-32) Anion Gap 7 (6-14) Blood Urea Nitrogen 31 mg/dL (8-26) Creatinine 1.8 mg/dL (0.7-1.3) Estimated GFR (Cockcroft-Gault) 46.8 Glucose Level 102 mg/dL (70-99) Calcium Level 7.9 mg/dL (8.5-10.1) Medications Active Scripts Medications Dose Route/Sig Max Daily Dose Days Date Category Mupirocin Ointment (Mupirocin) 22 Gm Oint...g. 1 Bill TP DAILY 14 04/06/19 Rx Tylenol (Acetaminophen) 325 Mg Tablet 1-2 Tab PO PRN Q4HRS PRN 09/28/18 Reported Aspir-Low (Aspirin) 81 Mg Tablet.dr 1 Tab PO DAILY 09/28/18 Reported Atorvastatin Calcium 20 Mg Tablet 20 Mg PO HS 09/28/18 Reported Hydralazine Hcl 25 Mg Tablet 1 Tab PO TID 09/28/18 Reported Amlodipine Besylate 10 Mg Tablet 10 Mg PO DAILY 09/28/18 Reported Coreg (Carvedilol) 25 Mg Tablet 25 Mg PO BIDWMEALS 09/28/18 Reported Flomax (Tamsulosin Hcl) 0.4 Mg Cap.er.24h 1 Cap PO QHS 09/28/18 Reported Vitamin D2 (Ergocalciferol (Vitamin D2)) 50,000 Unit Capsule 1 Cap PO QMTH 09/28/18 Reported Impression . 1. Acute hypoxic respiratory failure secondary to highly suspected COVID-19 pneumonia. 2. Abnormal chest x-ray consistent with pneumonia, highly suspected COVID-19. Cannot exclude superimposed bacterial pneumonia. 3. Acute kidney injury. 4. Gram + Bacteremia (09/29 BC ) Plan . RECOMMENDATIONS: 1. We will continue present oxygen and closely monitor the hospital course. 2. Broad spectrum antibiotic with vancomycin and meropenem. Follow ID rec 3. COVID-19 test P 4. If COVID-19 test is positive, we will add Plaquenil. 5. Follow final BC results 5. Discussed with RN. We will follow the clinical course. GARDENIA VALDERRAMA MD Sep 28, 2019 15:58
[2019-09-28] MEDS: hydrALAZINE 25 MG TABLET PO SCH ×3 (16:00→22:43)
[2019-09-28] MEDS: ASPIRIN ENTERIC COATED 81 MG TABLET.DR. PO SCH (16:00)
[2019-09-28] MEDS: amLODIPine BESYLATE 10 MG TABLET PO SCH (16:01)
[2019-09-28] MEDS: CARVEDILOL 12.5 MG TABLET. PO SCH (16:37)
[2019-09-28 19:25] VITALS: BP 108/76
[2019-09-28] MEDS: HYDROXYCHLOROQUINE 200 MG TABLET PO SCH ×2 (21:48→22:43)
[2019-09-28] MEDS: TAMSULOSIN 0.4 MG CAP.ER.24H. PO SCH ×2 (21:48→22:44)
[2019-09-28] MEDS: ATORVASTATIN CALCIUM 20 MG TABLET PO SCH ×2 (21:48→22:44)
[2019-09-28] MEDS: LACTOBACILLUS RHAMNOSUS GG 1 CAPSULE. PO SCH ×2 (21:48→22:43)
[2019-09-28 23:30] VITALS: BP 142/70
[2019-09-29] MEDS: MEROPENEM 500 MG in IV NORMAL SALINE 50ML 50 ML IV SCH ×5 (01:05→23:10)
[2019-09-29] MEDS ORDERED: ACETAMINOPHEN 650 MG SUPP.RECT. PR PRN (02:00)
[2019-09-29 03:30] VITALS: BP 119/75
[2019-09-29 07:00] VITALS: BP 129/80
--- NOTE | 2019-09-29 08:29 | PDOC ---
PROGRESS NOTES Chief Complaint Chief Complaint A/P: acute bibasilar infiltrates greater on the right. c/w pneumonia FEVER, persistent Acute hypoxic resp failure arrhythmias DEMENITIA pos blood cultures - looks like staph - IV MEREM q 8n hrs, iv zyvox, iv zithromax Hypernatremia History of CVA on the right handed individual with right-handed weakness Essential hypertension Acute encephalopathy DM2 History of Present Illness History of Present Illness Mr Cherry is a 58 [facility] M [facility] w/ PMHx DM2, HLD, hypertension, dementia, and prior strokes who has a residual right sided deficit admitted with complaint of cough and shortness of breath. The patient was noted to have a fever of 101.9. Chest x-ray was reviewed and was consistent with pneumonia involving the lower lobes, mostly on the right lower lobe. Placed on 4 liters of oxygen. Unable to obtain much history from the patient due to his dementia. /: SARS-CoV-2 (COVID 19) POSITIVE Test. 3/4 bottles positive for GPC in clusters on blood cultures. Still on venti-mask O2, saturating 94%. Rapid response called last night due to worsening hypoxia due to patient continually removing his venti-mask O2 and confused, though he was at [facility] in 2019. Still on venti-mask O2 15L, saturating 94%. He has no complaints currently except that he wants to eat. Some conversational dyspnea noted. Still febrile 101.2F. TMax 102F 24 hours ago. COVID-19 CRITERIA: The patient was evaluated during the global COVID-19 pandemic, and that diagnosis was suspected/considered upon their initial pre sentation. Their evaluation, treatment and testing were consistent with current guidelines for patients who present with complaints or symptoms that may be related to COVID-19 Plan: I have discussed with Dr. Prieto who is seeing patient with me via telemedicine, [email or web address]. I have shared my physical examination findings with him to minimize physician exposure to SARS-CoV-2 (COVID 19) Vitals Vitals Vital Signs Date Time Temp Pulse Resp B/P (MAP) Pulse Ox O2 Delivery O2 Flow Rate FiO2 09/29/19 03:30 99.8 72 18 119/75 (90) 96 Simple Mask 15.0 99.8 Physical Exam Physical Exam GENERAL: Awake gentleman, not in distress. VITAL SIGNS: Stable HEENT: Both pupils are round and reacting. No conjunctival lesion, no lesion in the mouth. NECK: Supple, no JVP, no lymphadenopathy. LUNGS: Clear. HEART: S1, S2 regular. ABDOMEN: Benign. EXTREMITIES: No edema, cyanosis. SKIN: Unremarkable. NEUROLOGIC: The patient does move all the extremities. Memory is very poor. General: Alert, Cooperative Heart: Regular rate Lungs: Other (decrease bs) Abdomen: Normal bowel sounds, Soft Extremities: No clubbing Assessment and Plan Assessmemt and Plan Problems Medical Problems: (1) Pneumonia Status: Acute (2) Renal insufficiency Status: Acute Comment Review of Relevant I have reviewed the following items rochelle (where applicable) has been applied. Labs Laboratory Tests Test 09/28/19 03:20 Sodium Level 149 mmol/L (136-145) Potassium Level 4.1 mmol/L (3.5-5.1) Chloride Level 112 mmol/L (98-107) Carbon Dioxide Level 30 mmol/L (21-32) Anion Gap 7 (6-14) Blood Urea Nitrogen 31 mg/dL (8-26) Creatinine 1.8 mg/dL (0.7-1.3) Estimated GFR (Cockcroft-Gault) 46.8 Glucose Level 102 mg/dL (70-99) Calcium Level 7.9 mg/dL (8.5-10.1) Microbiology 09/27/19 Blood Culture - Preliminary, Resulted NO GROWTH AFTER 1 DAY Medications Current Medications Acetaminophen (Tylenol) 1,000 mg 1X ONCE PO ; Start 09/26/19 at 12:45; Stop 09/26/19 at 12:46; Status DC Piperacillin Sod/ Tazobactam Sod 4.5 gm/Sodium Chloride 100 ml @ 200 mls/hr 1X ONCE IV ; Start 09/26/19 at 12:45; Stop 09/26/19 at 13:14; Status UNV Vancomycin HCl 250 ml @ 250 mls/hr 1X ONCE IV ; Start 09/26/19 at 12:45; Stop 09/26/19 at 13:44; Status UNV Vancomycin HCl 2 gm/Sodium Chloride 500 ml @ 250 mls/hr 1X ONCE IV Last administered on 09/26/19at 13:01; Start 09/26/19 at 12:45; Stop 09/26/19 at 14:44; Status DC Meropenem 1 gm/ Sodium Chloride 100 ml @ 200 mls/hr 1X ONCE IV Last admi nistered on 09/26/19at 13:02; Start 09/26/19 at 12:45; Stop 09/26/19 at 13:14; Status DC Meropenem 1 gm/ Sodium Chloride 100 ml @ 200 mls/hr Q8HRS IV ; Start 09/26/19 at 14:00; Status UNV Meropenem 500 mg/ Sodium Chloride 50 ml @ 100 mls/hr Q6HRS IV Last administered on 09/29/19at 06:52; Start 09/26/19 at 18:00 Sodium Chloride (Normal Saline Flush) 3 ml QSHIFT PRN IV AFTER MEDS AND BLOOD DRAWS; Start 09/26/19 at 13:45 Sodium Chloride 1,000 ml @ 75 mls/hr [id number] IV Last administered on 09/28/19at 21:50; Start 09/26/19 at 13:42 Ondansetron HCl (Zofran) 4 mg PRN Q4HRS PRN IV NAUSEA/VOMITING; Start 09/26/19 at 13:45 Acetaminophen (Tylenol) 650 mg PRN Q4HRS PRN PO TEMP OVER 100.4F OR MILD PAIN Last administered on 09/28/19at 16:37; Start 09/26/19 at 13:45 Clonidine HCl (Catapres) 0.1 mg PRN Q6HRS PRN PO SBP>160 OR DBP>90; Start 09/26/19 at 13:45 Sodium Monofluorophosphate (Fleet Adult) 133 ml PRN DAILY PRN [place] CONSTIPATION; Start 09/26/19 at 13:45 Docusate Sodium (Colace) 100 mg PRN BID PRN PO CONSTIPATION; Start 09/26/19 at 13:45 Albuterol Sulfate (Ventolin Neb Soln) 2.5 mg PRN Q4HRS PRN NEB SHORTNESS OF BREATH; Start 09/26/19 at 13:45 Guaifenesin (Robitussin) 200 mg PRN Q4HRS PRN PO COUGH; Start 09/26/19 at 13:45 Vancomycin HCl (Vanco Per Pharmacy) 1 each PRN DAILY PRN MC SEE COMMENTS Last administered on 09/26/19at 14:30; Start 09/26/19 at 13:45; Stop 09/27/19 at 11:04; Status DC Vancomycin HCl 1.75 gm/Sodium Chloride 500 ml @ 250 mls/hr Q24H IV ; Start 09/27/19 at 13:00; Stop 09/27/19 at 11:04; Status DC Vancomycin HCl (Vancomycin Trough Level) 1 each 1X ONCE MC ; Start 09/28/19 at 12:30; Stop 09/28/19 at 12:31; Status Cancel Lorazepam (Ativan Inj) 1 mg PRN Q4HRS PRN IVP ANXIETY / AGITATION Last administered on 09/28/19at 05:54; Start 09/26/19 at 23:15 Linezolid/Dextrose 300 ml @ 300 mls/hr Q12HR IV Last administered on 09/28/19at 09:16; Start 09/27/19 at 21:00; Stop 09/28/19 at 10:52; Status DC Azithromycin 500 mg/Sodium Chloride 250 ml @ 250 mls/hr Q24H IV Last administered on 09/28/19at 11:37; Start 09/27/19 at 12:00 Daptomycin 590 mg/ Sodium Chloride 50 ml @ 100 mls/hr Q24H IV Last administered on 09/28/19at 13:03; Start 09/28/19 at 12:00 Amlodipine Besylate (Norvasc) 10 mg DAILY PO Last administered on 09/28/19at 16:01; Start 09/28/19 at 15:00 Aspirin (Ecotrin) 81 mg DAILY PO Last administered on 09/28/19at 16:00; Start 09/28/19 at 15:00 Atorvastatin Calcium (Lipitor) 20 mg HS PO ; Start 09/28/19 at 21:00 Hydralazine HCl (Apresoline) 25 mg TID PO Last administered on 09/28/19at 16:00; Start 09/28/19 at 15:00 Tamsulosin HCl (Flomax) 0.4 mg QHS PO ; Start 09/28/19 at 21:00 Carvedilol (Coreg) 25 mg BIDWMEALS PO Last administered on 09/28/19at 16:37; Start 09/28/19 at 17:00 Olanzapine (ZyPREXA IM) 10 mg 1X ONCE IM Last administered on 09/28/19at 14:55; Start 09/28/19 at 14:15; Stop 09/28/19 at 14:16; Status DC Olanzapine (ZyPREXA ZYDIS) 5 mg PRN BID PRN PO anxiety/agitation; Start 09/28/19 at 14:15 Lactobacillus Rhamnosus (Culturelle) 1 cap BID PO ; Start 09/28/19 at 21:00 Hydroxychloroquine Sulfate (Plaquenil) 200 mg BID PO ; Start 09/29/19 at 21:00; Stop 10/03/19 at 09:01 Hydroxychloroquine Sulfate (Plaquenil) 400 mg BID PO ; Start 09/28/19 at 19:00; Stop 09/29/19 at 09:01 Acetaminophen (Tylenol Supp) 650 mg PRN Q6HRS PRN [place] MILD PAIN / TEMP Last administered on 09/29/19at 02:14; Start 09/29/19 at 02:00 Active Scripts Active Mupirocin Ointment (Mupirocin) 22 Gm Oint...g. 1 Bill TP DAILY 14 Days Reported Tylenol (Acetaminophen) 325 Mg Tablet 1-2 Tab PO PRN Q4HRS PRN Aspir-Low (Aspirin) 81 Mg Tablet.dr 1 Tab PO DAILY Atorvastatin Calcium 20 Mg Tablet 20 Mg PO HS Hydralazine Hcl 25 Mg Tablet 1 Tab PO TID Amlodipine Besylate 10 Mg Tablet 10 Mg PO DAILY Coreg (Carvedilol) 25 Mg Tablet 25 Mg PO BIDWMEALS Flomax (Tamsulosin Hcl) 0.4 Mg Cap.er.24h 1 Cap PO QHS Vitamin D2 (Ergocalciferol (Vitamin D2)) 50,000 Unit Capsule 1 Cap PO QMTH Vitals/I & O Vital Sign - Last 24 Hours 09/28/19 09/28/19 09/28/19 09/28/19 08:30 08:30 11:15 15:06 Temp 102.0 100.6 100.5 102.0 100.6 100.5 Pulse 84 80 83 Resp 22 20 24 B/P (MAP) 136/87 (103) 105/76 (86) 138/97 (111) Pulse Ox 98 96 96 O2 Delivery Simple Mask Nasal Cannula Simple Mask Simple Mask O2 Flow Rate 5.0 5.0 5.0 5.0 09/28/19 09/28/19 09/28/19 09/28/19 16:00 16:01 16:37 19:25 Temp 99.6 99.6 Pulse 83 83 83 74 Resp 24 B/P (MAP) 138/97 138/97 138/97 108/76 (87) Pulse Ox 89 O2 Delivery Simple Mask O2 Flow Rate 6.0 09/28/19 09/28/19 09/28/19 09/29/19 22:30 23:29 23:30 03:30 Temp 101.2 99.8 101.2 99.8 Pulse 88 72 Resp 20 18 B/P (MAP) 142/70 (94) 119/75 (90) Pulse Ox 90 96 O2 Delivery Mask Mask Simple Mask Simple Mask O2 Flow Rate 5.0 10.0 15.0 15.0 Intake and Output 09/28/19 09/28/19 09/29/19 15:00 23:00 07:00 Intake Total 650 ml 0 ml Balance 650 ml 0 ml DANIEL ENRIQUE MD Sep 29, 2019 08:29
[2019-09-29 08:31] LABS: CALCIUM 8.4 mg/dL (8.5-10.1); CREATININE 1.4 mg/dL (0.7-1.3); GFR 62.6; POTASSIUM 4.3 mmol/L (3.5-5.1)
[2019-09-29] MEDS: HYDROXYCHLOROQUINE 200 MG TABLET PO SCH (09:00)
--- NOTE | 2019-09-29 09:35 | PDOC ---
PULMONARY PROGRESS NOTES Subjective Pt had a rapid response last night had increase oxygen needs to 15 lites this am better, 99%sats Vitals Vital Signs Date Time Temp Pulse Resp B/P (MAP) Pulse Ox O2 Delivery O2 Flow Rate FiO2 09/29/19 07:00 98.8 75 24 129/80 (96) 95 Simple Mask 15.0 98.8 Comments Exam done via telemedicine no distress, on face mask no skin rask, no leg edema Labs Laboratory Tests Test 09/28/19 03:20 09/29/19 07:20 Sodium Level 149 mmol/L (136-145) 151 mmol/L (136-145) Potassium Level 4.1 mmol/L (3.5-5.1) 4.3 mmol/L (3.5-5.1) Chloride Level 112 mmol/L (98-107) 114 mmol/L (98-107) Carbon Dioxide Level 30 mmol/L (21-32) 29 mmol/L (21-32) Anion Gap 7 (6-14) 8 (6-14) Blood Urea Nitrogen 31 mg/dL (8-26) 24 mg/dL (8-26) Creatinine 1.8 mg/dL (0.7-1.3) 1.4 mg/dL (0.7-1.3) Estimated GFR (Cockcroft-Gault) 46.8 62.6 Glucose Level 102 mg/dL (70-99) 96 mg/dL (70-99) Calcium Level 7.9 mg/dL (8.5-10.1) 8.4 mg/dL (8.5-10.1) Laboratory Tests Test 09/29/19 07:20 Sodium Level 151 mmol/L (136-145) Potassium Level 4.3 mmol/L (3.5-5.1) Chloride Level 114 mmol/L (98-107) Carbon Dioxide Level 29 mmol/L (21-32) Anion Gap 8 (6-14) Blood Urea Nitrogen 24 mg/dL (8-26) Creatinine 1.4 mg/dL (0.7-1.3) Estimated GFR (Cockcroft-Gault) 62.6 Glucose Level 96 mg/dL (70-99) Calcium Level 8.4 mg/dL (8.5-10.1) Medications Active Scripts Medications Dose Route/Sig Max Daily Dose Days Date Category Mupirocin Ointment (Mupirocin) 22 Gm Oint...g. 1 Bill TP DAILY 14 04/06/19 Rx Tylenol (Acetaminophen) 325 Mg Tablet 1-2 Tab PO PRN Q4HRS PRN 09/28/18 Reported Aspir-Low (Aspirin) 81 Mg Tablet.dr 1 Tab PO DAILY 09/28/18 Reported Atorvastatin Calcium 20 Mg Tablet 20 Mg PO HS 09/28/18 Reported Hydralazine Hcl 25 Mg Tablet 1 Tab PO TID 09/28/18 Reported Amlodipine Besylate 10 Mg Tablet 10 Mg PO DAILY 09/28/18 Reported Coreg (Carvedilol) 25 Mg Tablet 25 Mg PO BIDWMEALS 09/28/18 Reported Flomax (Tamsulosin Hcl) 0.4 Mg Cap.er.24h 1 Cap PO QHS 09/28/18 Reported Vitamin D2 (Ergocalciferol (Vitamin D2)) 50,000 Unit Capsule 1 Cap PO QMTH 09/28/18 Reported Impression . 1. Acute hypoxic respiratory failure secondary to highly suspected COVID-19 pneumonia. worsening hypoxia last night. 2. Abnormal chest x-ray consistent with pneumonia, highly suspected COVID-19. Cannot exclude superimposed bacterial pneumonia. repeat cxr today 3. Acute kidney injury. 4. Gram + Bacteremia (09/29 BC ) Plan . RECOMMENDATIONS: 1. We will continue present oxygen and closely monitor the hospital course. wean FIO2 to keep sats > 92% 2. Broad spectrum antibiotic with vancomycin and meropenem. Follow ID rec 3. COVID-19 test P 4. If COVID-19 test is positive, we will add Plaquenil. 5. Follow final BC results 5. Discussed with RN. cxr today GARDENIA VALDERRAMA MD Sep 29, 2019 09:35
[2019-09-29] MEDS: hydrALAZINE 25 MG TABLET PO SCH ×3 (09:37→20:37)
[2019-09-29] MEDS: CARVEDILOL 12.5 MG TABLET. PO SCH ×2 (09:37→18:05)
[2019-09-29] MEDS: ASPIRIN ENTERIC COATED 81 MG TABLET.DR. PO SCH (09:37)
[2019-09-29] MEDS: LACTOBACILLUS RHAMNOSUS GG 1 CAPSULE. PO SCH ×2 (09:37→20:36)
[2019-09-29] MEDS: amLODIPine BESYLATE 10 MG TABLET PO SCH (09:38)
--- NOTE | 2019-09-29 10:45 | PDOC ---
Infectious Disease Note Subjective Subjective sleepy, arousable , says he is feeling good, though hypoxic Vital Sign Vital Signs Vital Signs Date Time Temp Pulse Resp B/P (MAP) Pulse Ox O2 Delivery O2 Flow Rate FiO2 09/29/19 09:38 75 129/80 09/29/19 07:00 98.8 24 95 Simple Mask 15.0 98.8 Physical Exam PHYSICAL EXAM GENERAL: Awake gentleman, not in distress. VITAL SIGNS: Stable HEENT: Both pupils are round and reacting. No conjunctival lesion, no lesion in the mouth. NECK: Supple, no JVP, no lymphadenopathy. LUNGS: Clear. HEART: S1, S2 regular. ABDOMEN: Benign. EXTREMITIES: No edema, cyanosis. SKIN: Unremarkable. NEUROLOGIC: The patient does move all the extremities. Memory is very poor. Labs Lab Laboratory Tests Test 09/29/19 07:20 Sodium Level 151 mmol/L (136-145) Potassium Level 4.3 mmol/L (3.5-5.1) Chloride Level 114 mmol/L (98-107) Carbon Dioxide Level 29 mmol/L (21-32) Anion Gap 8 (6-14) Blood Urea Nitrogen 24 mg/dL (8-26) Creatinine 1.4 mg/dL (0.7-1.3) Estimated GFR (Cockcroft-Gault) 62.6 Glucose Level 96 mg/dL (70-99) Calcium Level 8.4 mg/dL (8.5-10.1) Micro BC 4/4 G + cocci Objective Assessment 1. Blood culture positive , now 4/4 G + cocci 2. Pulmonary infiltrate. COVID-19 is being tested, possible likely. 3. Fever. 4. Renal insufficiency. 5. Dementia. 6. Cerebrovascular accident. Plan Plan of Care dapto, azithro and meropenem supportive care VALERIE BAY MD Sep 29, 2019 10:45
[2019-09-29 11:00] VITALS: BP 150/83
[2019-09-29] MEDS: AZITHROMYCIN 500 MG in IV NORMAL SALINE 250ML 250 ML IV SCH (11:26)
[2019-09-29] MEDS: DAPTOmycin (GENERIC) IVPB 590 MG in IV NORMAL SALINE 50ML 50 ML IV SCH (11:26)
--- NOTE | 2019-09-29 13:19 | PDOC ---
Renal-Progress Notes Subjective Notes Notes NO NEW COMPLAINTS History of Present Illness Hx of present illness STABLE Vitals Vitals Vital Signs Date Time Temp Pulse Resp B/P (MAP) Pulse Ox O2 Delivery O2 Flow Rate FiO2 09/29/19 11:00 99.3 80 20 150/83 (105) 97 Simple Mask 15.0 99.3 Weight Weight [ ] I.O. Intake and Output Intake and Output 09/29/19 07:00 Intake Total 650 ml Balance 650 ml Intake Oral 0 ml IV Total 650 ml # Voids 1 Labs Labs Laboratory Tests Test 09/29/19 07:20 Sodium Level 151 mmol/L (136-145) Potassium Level 4.3 mmol/L (3.5-5.1) Chloride Level 114 mmol/L (98-107) Carbon Dioxide Level 29 mmol/L (21-32) Anion Gap 8 (6-14) Blood Urea Nitrogen 24 mg/dL (8-26) Creatinine 1.4 mg/dL (0.7-1.3) Estimated GFR (Cockcroft-Gault) 62.6 Glucose Level 96 mg/dL (70-99) Calcium Level 8.4 mg/dL (8.5-10.1) Micro Micro Microbiology 09/27/19 Blood Culture - Preliminary, Resulted NO GROWTH AFTER 2 DAYS Assessment Assessment MP ROCIO-ETIOLOGY UNKNOWN-POSS ATN-NO CKD-CR IMPROVED TO 1.4 ACUTE HYPOXIC RESP FAILURE COVID 19 SUSPECT G + BACTEREMIA PNEUMONIA HX OF CVA AND DEMENTIA PLAN UA WITH MICRO HYDRATION BLADDER SCAN WNL ANTIBIOTICS ID EVAL AND TX PULM EVAL AND TX UDAY PEREZ MD Sep 29, 2019 13:19
[2019-09-29 14:35] VITALS: BP 127/92
[2019-09-29] MEDS: IV DEXTROSE 5% 1,000 ML IV SCH (18:06)
[2019-09-29 18:36] VITALS: BP 126/81
[2019-09-29] MEDS: ATORVASTATIN CALCIUM 20 MG TABLET PO SCH (20:36)
[2019-09-29] MEDS: ACETAMINOPHEN 325 MG TABLET. PO PRN (20:37)
[2019-09-29] MEDS: HYDROXYCHLOROQUINE (PROGRAM) 200 MG TABLET PO SCH (20:37)
[2019-09-29] MEDS: TAMSULOSIN 0.4 MG CAP.ER.24H. PO SCH (20:37)
[2019-09-29] MEDS ORDERED: HYDROXYCHLOROQUINE 200 MG TABLET PO SCH (21:00)
[2019-09-29 23:45] VITALS: BP 176/92
[2019-09-29] MEDS: cloNIDine HCL 0.1 MG TABLET PO PRN (23:48)
[2019-09-30] VITALS (7 sets, daily range): BP systolic 138–163; BP diastolic 76–100
[2019-09-30 05:51] LABS: CALCIUM 8.3 mg/dL (8.5-10.1); CREATININE 1.2 mg/dL (0.7-1.3); GFR 74.7; POTASSIUM 4.5 mmol/L (3.5-5.1)
[2019-09-30] MEDS: MEROPENEM 500 MG in IV NORMAL SALINE 50ML 50 ML IV SCH ×3 (05:51→20:00)
[2019-09-30] MEDS: IV DEXTROSE 5% 1,000 ML IV SCH (07:20)
--- NOTE | 2019-09-30 07:45 | PDOC ---
PROGRESS NOTES Chief Complaint Chief Complaint A/P: acute bibasilar infiltrates greater on the right. 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 Essential hypertension Acute encephalopathy DM2 History of Present Illness History of Present Illness Mr Cherry is a 58 yo M custodial resident of SNF w/ PMHx DM2, HLD, hypertension, dementia, and prior strokes who has a residual right sided deficit admitted with complaint of cough and shortness of breath. The patient was noted to have a fever of 101.9. Chest x-ray was reviewed and was consistent with pneumonia involving the lower lobes, mostly on the right lower lobe. Placed on 4 liters of oxygen. Unable to obtain much history from the patient due to his dementia. COVID-19 CRITERIA: The patient was evaluated during the global COVID-19 pandemic, and that diagnosis was suspected/considered upon their initial presentation. Their evaluation, treatment and testing were consistent with current guidelines for patients who present with complaints or symptoms that may be related to COVID-19 4/2: SARS-CoV-2 (COVID 19) POSITIVE Test. 3/4 bottles positive for GPC in c vera on blood cultures. Still on venti-mask O2, saturating 94%. 4/3: Rapid response called last night due to worsening hypoxia due to patient continually removing his venti-mask O2 and confused, thought he was at [facility] in 2019. Still on venti-mask O2 15L, saturating 94%. Conversational dyspnea. Still febrile 101.2F. TMax 102F 24 hours ago. TMax 100.9F overnight. Changed to daptomycin, merrem, azithomycin, hydroxychloroquine for staph 4/4 bottles positive on blood culture and SARS-CoV-2 positive. He has no complaints currently except that he wants to eat. Does have conversational dyspnea, 12L O2 on mask, won't wear mask Plan: Transfer to ICU for closer monitoring, he may need intubation soon. I have discussed with Dr. Prieto who is seeing patient with me via telemedicine, [employer] I have shared my physical examination findings with him to minimize physician exposure to SARS-CoV-2 (COVID 19) Vitals Vitals Vital Signs Date Time Temp Pulse Resp B/P (MAP) Pulse Ox O2 Delivery O2 Flow Rate FiO2 09/30/19 03:50 99.6 76 24 141/96 (111) 91 Venturi Mask 15.0 99.6 Physical Exam Physical Exam GENERAL: Awake gentleman, not in distress. VITAL SIGNS: Stable HEENT: Both pupils are round and reacting. No conjunctival lesion, no lesion in the mouth. NECK: Supple, no JVP, no lymphadenopathy. LUNGS: Clear. HEART: S1, S2 regular. ABDOMEN: Benign. EXTREMITIES: No edema, cyanosis. SKIN: Unremarkable. NEUROLOGIC: The patient does move all the extremities. Memory is very poor. General: Alert, Cooperative Heart: Regular rate Abdomen: Normal bowel sounds, Soft Extremities: No clubbing Labs LABS Laboratory Tests Test 09/29/19 21:32 09/30/19 04:25 Glucose (Fingerstick) 110 mg/dL (70-99) Sodium Level 152 mmol/L (136-145) Potassium Level 4.5 mmol/L (3.5-5.1) Chloride Level 116 mmol/L (98-107) Carbon Dioxide Level 27 mmol/L (21-32) Anion Gap 9 (6-14) Blood Urea Nitrogen 22 mg/dL (8-26) Creatinine 1.2 mg/dL (0.7-1.3) Estimated GFR (Cockcroft-Gault) 74.7 Glucose Level 126 mg/dL (70-99) Calcium Level 8.3 mg/dL (8.5-10.1) Assessment and Plan Assessmemt and Plan Problems Medical Problems: (1) Pneumonia Status: Acute (2) Renal insufficiency Status: Acute Comment Review of Relevant I have reviewed the following items rochelle (where applicable) has been applied. Labs Laboratory Tests Test 09/29/19 07:20 09/29/19 21:32 09/30/19 04:25 Sodium Level 151 mmol/L (136-145) 152 mmol/L (136-145) Potassium Level 4.3 mmol/L (3.5-5.1) 4.5 mmol/L (3.5-5.1) Chloride Level 114 mmol/L (98-107) 116 mmol/L (98-107) Carbon Dioxide Level 29 mmol/L (21-32) 27 mmol/L (21-32) Anion Gap 8 (6-14) 9 (6-14) Blood Urea Nitrogen 24 mg/dL (8-26) 22 mg/dL (8-26) Creatinine 1.4 mg/dL (0.7-1.3) 1.2 mg/dL (0.7-1.3) Estimated GFR (Cockcroft-Gault) 62.6 74.7 Glucose Level 96 mg/dL (70-99) 126 mg/dL (70-99) Calcium Level 8.4 mg/dL (8.5-10.1) 8.3 mg/dL (8.5-10.1) Glucose (Fingerstick) 110 mg/dL (70-99) Laboratory Tests Test 09/29/19 21:32 09/30/19 04:25 Glucose (Fingerstick) 110 mg/dL (70-99) Sodium Level 152 mmol/L (136-145) Potassium Level 4.5 mmol/L (3.5-5.1) Chloride Level 116 mmol/L (98-107) Carbon Dioxide Level 27 mmol/L (21-32) Anion Gap 9 (6-14) Blood Urea Nitrogen 22 mg/dL (8-26) Creatinine 1.2 mg/dL (0.7-1.3) Estimated GFR (Cockcroft-Gault) 74.7 Glucose Level 126 mg/dL (70-99) Calcium Level 8.3 mg/dL (8.5-10.1) Microbiology 09/27/19 Blood Culture - Preliminary, Resulted NO GROWTH AFTER 2 DAYS Medications Current Medications Acetaminophen (Tylenol) 1,000 mg 1X ONCE PO ; Start 09/26/19 at 12:45; Stop 09/26/19 at 12:46; Status DC Piperacillin Sod/ Tazobactam Sod 4.5 gm/Sodium Chloride 100 ml @ 200 mls/hr 1X ONCE IV ; Start 09/26/19 at 12:45; Stop 09/26/19 at 13:14; Status UNV Vancomycin HCl 250 ml @ 250 mls/hr 1X ONCE IV ; Start 09/26/19 at 12:45; Stop 09/26/19 at 13:44; Status UNV Vancomycin HCl 2 gm/Sodium Chloride 500 ml @ 250 mls/hr 1X ONCE IV Last administered on 09/26/19at 13:01; Start 09/26/19 at 12:45; Stop 09/26/19 at 14:44; Status DC Meropenem 1 gm/ Sodium Chloride 100 ml @ 200 mls/hr 1X ONCE IV Last administered on 09/26/19at 13:02; Start 09/26/19 at 12:45; Stop 09/26/19 at 13:14; Status DC Meropenem 1 gm/ Sodium Chloride 100 ml @ 200 mls/hr Q8HRS IV ; Start 09/26/19 at 14:00; Status UNV Meropenem 500 mg/ Sodium Chloride 50 ml @ 100 mls/hr Q6HRS IV Last administered on 09/30/19at 05:51; Start 09/26/19 at 18:00 Sodium Chloride (Normal Saline Flush) 3 ml QSHIFT PRN IV AFTER MEDS AND BLOOD DRAWS; Start 09/26/19 at 13:45 Sodium Chloride 1,000 ml @ 75 mls/hr [id number] IV Last administered on 09/28/19at 21:50; Start 09/26/19 at 13:42; Stop 09/29/19 at 17:09; Status DC Ondansetron HCl (Zofran) 4 mg PRN Q4HRS PRN IV NAUSEA/VOMITING; Start 09/26/19 at 13:45 Acetaminophen (Tylenol) 650 mg PRN Q4HRS PRN PO TEMP OVER 100.4F OR MILD PAIN Last administered on 09/29/19at 20:37; Start 09/26/19 at 13:45 Clonidine HCl (Catapres) 0.1 mg PRN Q6HRS PRN PO SBP>160 OR DBP>90 Last administered on 09/29/19at 23:48; Start 09/26/19 at 13:45 Sodium Monofluorophosphate (Fleet Adult) 133 ml PRN DAILY PRN AR CONSTIPATION; Start 09/26/19 at 13:45 Docusate Sodium (Colace) 100 mg PRN BID PRN PO CONSTIPATION; Start 09/26/19 at 13:45 Albuterol Sulfate (Ventolin Neb Soln) 2.5 mg PRN Q4HRS PRN NEB SHORTNESS OF BREATH; Start 09/26/19 at 13:45 Guaifenesin (Robitussin) 200 mg PRN Q4HRS PRN PO COUGH; Start 09/26/19 at 13:45 Vancomycin HCl (Vanco Per Pharmacy) 1 each PRN DAILY PRN MC SEE COMMENTS Last administered on 09/26/19at 14:30; Start 09/26/19 at 13:45; Stop 09/27/19 at 11:04; Status DC Vancomycin HCl 1.75 gm/Sodium Chloride 500 ml @ 250 mls/hr Q24H IV ; Start at 13:00; Stop 09/27/19 at 11:04; Status DC Vancomycin HCl (Vancomycin Trough Level) 1 each 1X ONCE MC ; Start 09/28/19 at 12:30; Stop 09/28/19 at 12:31; Status Cancel Lorazepam (Ativan Inj) 1 mg PRN Q4HRS PRN IVP ANXIETY / AGITATION Last administered on 09/28/19at 05:54; Start 09/26/19 at 23:15 Linezolid/Dextrose 300 ml @ 300 mls/hr Q12HR IV Last administered on 09/28/19at 09:16; Start 09/27/19 at 21:00; Stop 09/28/19 at 10:52; Status DC Azithromycin 500 mg/Sodium Chloride 250 ml @ 250 mls/hr Q24H IV Last administered on 09/29/19at 11:26; Start 09/27/19 at 12:00 Daptomycin 590 mg/ Sodium Chloride 50 ml @ 100 mls/hr Q24H IV Last administered on 09/29/19 11:26; Start 09/28/19 at 12:00 Amlodipine Besylate (Norvasc) 10 mg DAILY PO Last administered on 09/29/19at 09:38; Start 09/28/19 at 15:00 Aspirin (Ecotrin) 81 mg DAILY PO Last administered on 09/29/19 09:37; Start 09/28/19 at 15:00 Atorvastatin Calcium (Lipitor) 20 mg HS PO Last administered on 09/29/19 20:36; Start 09/28/19 at 21:00 Hydralazine HCl (Apresoline) 25 mg TID PO Last administered on 09/29/19 20:37; Start 09/28/19 at 15:00 Tamsulosin HCl (Flomax) 0.4 mg QHS PO Last administered on 09/29/19 20:37; Start 09/28/19 at 21:00 Carvedilol (Coreg) 25 mg BIDWMEALS PO Last administered on 09/29/19at 18:05; Start 09/28/19 at 17:00 Olanzapine (ZyPREXA IM) 10 mg 1X ONCE IM Last administered on 09/28/19at 14:55; Start 09/28/19 at 14:15; Stop 09/28/19 at 14:16; Status DC Olanzapine (ZyPREXA ZYDIS) 5 mg PRN BID PRN PO anxiety/agitation; Start 09/28/19 at 14:15 Lactobacillus Rhamnosus (Culturelle) 1 cap BID PO Last administered on 09/29/19at 20:36; Start 09/28/19 at 21:00 Hydroxychloroquine Sulfate (Plaquenil) 200 mg BID PO ; Start 09/29/19 at 21:00; Stop 10/03/19 at 09:01; Status Cancel Hydroxychloroquine Sulfate (Plaquenil) 400 mg BID PO Last administered on 09/29/19at 09:00; Start 09/28/19 at 19:00; Stop 09/29/19 at 09:01; Status DC Acetaminophen (Tylenol Supp) 650 mg PRN Q6HRS PRN AR MILD PAIN / TEMP Last administered on 09/29/19at 02:14; Start 09/29/19 at 02:00 Hydroxychloroquine Sulfate (Plaquenil (Med Program)) 200 mg BID PO Last administered on 09/29/19at 20:37; Start 09/29/19 at 21:00; Stop 10/03/19 at 09:01 Dextrose 1,000 ml @ 75 mls/hr [id number] IV Last administered on 09/29/19at 18:06; Start 09/29/19 at 18:00 Active Scripts Active Mupirocin Ointment (Mupirocin) 22 Gm Oint...g. 1 Bill TP DAILY 14 Days Reported Tylenol (Acetaminophen) 325 Mg Tablet 1-2 Tab PO PRN Q4HRS PRN Aspir-Low (Aspirin) 81 Mg Tablet.dr 1 Tab PO DAILY Atorvastatin Calcium 20 Mg Tablet 20 Mg PO HS Hydralazine Hcl 25 Mg Tablet 1 Tab PO TID Amlodipine Besylate 10 Mg Tablet 10 Mg PO DAILY Coreg (Carvedilol) 25 Mg Tablet 25 Mg PO BIDWMEALS Flomax (Tamsulosin Hcl) 0.4 Mg Cap.er.24h 1 Cap PO QHS Vitamin D2 (Ergocalciferol (Vitamin D2)) 50,000 Unit Capsule 1 Cap PO QMTH Vitals/I & O Vital Sign - Last 24 Hours 09/29/19 09/29/19 09/29/19 09/29/19 08:00 09:37 09:37 09:38 Pulse 75 75 75 B/P (MAP) 129/80 129/80 129/80 O2 Delivery Mask O2 Flow Rate 15.0 09/29/19 09/29/19 09/29/19 09/29/19 11:00 14:22 14:35 18:05 Temp 99.3 99.3 99.3 99.3 Pulse 80 85 89 92 Resp 20 20 B/P (MAP) 150/83 (105) 127/92 127/92 (104) 126/81 Pulse Ox 97 94 O2 Delivery Simple Mask Venturi Mask O2 Flow Rate 15.0 15.0 09/29/19 09/29/19 09/29/19 09/29/19 18:36 20:00 20:37 23:45 Temp 100.9 100.4 100.9 100.4 Pulse 93 93 81 Resp 20 20 B/P (MAP) 126/81 (96) 126/81 176/92 (120) Pulse Ox 91 O2 Delivery Simple Mask Mask Venturi Mask O2 Flow Rate 15.0 15.0 15.0 09/29/19 09/30/19 23:48 03:50 Temp 99.6 99.6 Pulse 81 76 Resp 24 B/P (MAP) 176/92 141/96 (111) Pulse Ox 91 O2 Delivery Venturi Mask O2 Flow Rate 15.0 Intake and Output 09/29/19 09/29/19 09/30/19 15:00 23:00 07:00 Intake Total 500 ml 100 ml Balance 500 ml 100 ml DANIEL ENRIQUE MD Sep 30, 2019 07:45
[2019-09-30] MEDS: HYDROXYCHLOROQUINE (PROGRAM) 200 MG TABLET PO SCH ×2 (08:25→21:54)
[2019-09-30] MEDS: ASPIRIN ENTERIC COATED 81 MG TABLET.DR. PO SCH (08:26)
[2019-09-30] MEDS: amLODIPine BESYLATE 10 MG TABLET PO SCH (08:26)
[2019-09-30] MEDS: LACTOBACILLUS RHAMNOSUS GG 1 CAPSULE. PO SCH ×2 (08:26→21:53)
[2019-09-30] MEDS: CARVEDILOL 12.5 MG TABLET. PO SCH ×2 (08:26→17:53)
[2019-09-30] MEDS: hydrALAZINE 25 MG TABLET PO SCH ×3 (08:27→21:53)
--- NOTE | 2019-09-30 09:43 | PDOC ---
PULMONARY PROGRESS NOTES Subjective Denies SOA,or increased cough, states feels "Ok", however requiring more oxygen. Now on 10 liters N/C in addition to Venti-mask at 50%, febrile overnight Vitals Vital Signs Date Time Temp Pulse Resp B/P (MAP) Pulse Ox O2 Delivery O2 Flow Rate FiO2 09/30/19 08:27 78 144/79 09/30/19 07:00 98.8 24 88 Venturi Mask 15.0 98.8 Comments Exam done via tele-medicine no distress, on face mask no skin rask, no leg edema Labs Laboratory Tests Test 09/29/19 07:20 09/29/19 21:32 09/30/19 04:25 09/30/19 08:18 Sodium Level 151 mmol/L (136-145) 152 mmol/L (136-145) Potassium Level 4.3 mmol/L (3.5-5.1) 4.5 mmol/L (3.5-5.1) Chloride Level 114 mmol/L (98-107) 116 mmol/L (98-107) Carbon Dioxide Level 29 mmol/L (21-32) 27 mmol/L (21-32) Anion Gap 8 (6-14) 9 (6-14) Blood Urea Nitrogen 24 mg/dL (8-26) 22 mg/dL (8-26) Creatinine 1.4 mg/dL (0.7-1.3) 1.2 mg/dL (0.7-1.3) Estimated GFR (Cockcroft-Gault) 62.6 74.7 Glucose Level 96 mg/dL (70-99) 126 mg/dL (70-99) Calcium Level 8.4 mg/dL (8.5-10.1) 8.3 mg/dL (8.5-10.1) Glucose (Fingerstick) 110 mg/dL (70-99) 102 mg/dL (70-99) Laboratory Tests Test 09/29/19 21:32 09/30/19 04:25 09/30/19 08:18 Glucose (Fingerstick) 110 mg/dL (70-99) 102 mg/dL (70-99) Sodium Level 152 mmol/L (136-145) Potassium Level 4.5 mmol/L (3.5-5.1) Chloride Level 116 mmol/L (98-107) Carbon Dioxide Level 27 mmol/L (21-32) Anion Gap 9 (6-14) Blood Urea Nitrogen 22 mg/dL (8-26) Creatinine 1.2 mg/dL (0.7-1.3) Estimated GFR (Cockcroft-Gault) 74.7 Glucose Level 126 mg/dL (70-99) Calcium Level 8.3 mg/dL (8.5-10.1) Medications Active Scripts Medications Dose Route/Sig Max Daily Dose Days Date Category Mupirocin Ointment (Mupirocin) 22 Gm Oint...g. 1 Bill TP DAILY 14 04/06/19 Rx Tylenol (Acetaminophen) 325 Mg Tablet 1-2 Tab PO PRN Q4HRS PRN 09/28/18 Reported Aspir-Low (Aspirin) 81 Mg Tablet.dr 1 Tab PO DAILY 09/28/18 Reported Atorvastatin Calcium 20 Mg Tablet 20 Mg PO HS 09/28/18 Reported Hydralazine Hcl 25 Mg Tablet 1 Tab PO TID 09/28/18 Reported Amlodipine Besylate 10 Mg Tablet 10 Mg PO DAILY 09/28/18 Reported Coreg (Carvedilol) 25 Mg Tablet 25 Mg PO BIDWMEALS 09/28/18 Reported Flomax (Tamsulosin Hcl) 0.4 Mg Cap.er.24h 1 Cap PO QHS 09/28/18 Reported Vitamin D2 (Ergocalciferol (Vitamin D2)) 50,000 Unit Capsule 1 Cap PO QMTH 09/28/18 Reported Impression . 1. Acute hypoxic respiratory failure secondary COVID-19 positive pneumonia. worsening hypoxia last night. 2. Abnormal chest x-ray consistent with pneumonia, COVID-19 positive . Cannot exclude superimposed bacterial pneumonia. repeat cxr today 3. Acute kidney injury. 4. Gram + Bacteremia (09/29 BC ) Plan . 1. We will continue present oxygen and closely monitor the hospital course. wean FIO2 to keep sats > 92% 2. Broad spectrum antibiotic with Azithro, meropenem, and dapto Follow ID rec 3. COVID-19 test Positive 4. cont. Plaquenil. 5. Follow final BC results-- Staph 6. symptomatic treatment of fever and cough Discussed with RN. If continues to experience increased oxygen needs, transfer to ICU for further monitoring GARDENIA VALDERRAMA MD Sep 30, 2019 09:43
--- NOTE | 2019-09-30 10:34 | PDOC ---
Infectious Disease Note Subjective Subjective Fever Tmax 100.9 Increase SOA On 50% Venti- mask + 10L O2 Vital Sign Vital Signs Vital Signs Date Time Temp Pulse Resp B/P (MAP) Pulse Ox O2 Delivery O2 Flow Rate FiO2 09/30/19 08:27 78 144/79 09/30/19 08:00 Venturi Mask 15.0 09/30/19 07:00 98.8 24 88 98.8 Physical Exam PHYSICAL EXAM deferred to primary/pulmo Labs Lab Laboratory Tests Test 09/29/19 21:32 09/30/19 04:25 09/30/19 08:18 Glucose (Fingerstick) 110 mg/dL (70-99) 102 mg/dL (70-99) Sodium Level 152 mmol/L (136-145) Potassium Level 4.5 mmol/L (3.5-5.1) Chloride Level 116 mmol/L (98-107) Carbon Dioxide Level 27 mmol/L (21-32) Anion Gap 9 (6-14) Blood Urea Nitrogen 22 mg/dL (8-26) Creatinine 1.2 mg/dL (0.7-1.3) Estimated GFR (Cockcroft-Gault) 74.7 Glucose Level 126 mg/dL (70-99) Calcium Level 8.3 mg/dL (8.5-10.1) Micro 09/25. GPC in 4 of 4 bottles BLD CULT RESULT 1 Preliminary Staphylococcus species 09/27/19 Blood Culture - Preliminary, Resulted NO GROWTH AFTER 2 DAYS Objective Assessment GPC bacteremia (4 of 4 bottles), from 09/25. Staph spp ? source -Repeat BC 09/26 neg to date Acute respiratory failure w/pulmonary infiltrate. COVID-19 positive Fever. ROCIO Abx allergy ceftriaxone Dementia. Cerebrovascular accident. Plan Plan of Care Dapto and meropenem Azithromycin and Plaquenil Monitor abx toxicities f/u BC Airborne isolation for + COVID-19 Transferring to ICU for worsening respiratory failure D/w nursing Critically ill Attending Co-Sign Pt was transferred to ICU for worsening resp status, keeps on removing his mask off The chart was reviewed. The case was discussed with WINDOW DISPLAY DESIGNER and RN Agree with the plan of care. WILLIAN REEDER APRN Sep 30, 2019 10:34 VIVIANA BAY MD Sep 30, 2019 14:19
[2019-09-30] MEDS: DAPTOmycin (GENERIC) IVPB 590 MG in IV NORMAL SALINE 50ML 50 ML IV SCH (12:00)
[2019-09-30] MEDS: AZITHROMYCIN 500 MG in IV NORMAL SALINE 250ML 250 ML IV SCH (12:00)
[2019-09-30 12:36] LABS: BASE EXCESS COOX 2 mmol/L (-3-3); HCO3 COOX 26 mmol/L (21-28); METHEMOGLOBIN 0.2 % (0.0-1.9); OXYHEMOGLOBIN 87.6 %; PCO2 COOX 40 mmHg (35-46); PO2 COOX 53 mmHg (65-108); SAT O2 COOX 88 % (92-99)
--- NOTE | 2019-09-30 15:22 | PDOC ---
SUBJECTIVE ROS Asked to see for acute kidney injury Patient remains in COVID-19 precautions at this time. He was sent to the ICU due to his inability to maintain supplemental oxygen in place. Once supplemental oxygen devices were unable to be placed on him consistently, oxygenation improved OBJECTIVE Vital Signs Vital Signs Date Time Temp Pulse Resp B/P (MAP) Pulse Ox O2 Delivery O2 Flow Rate FiO2 09/30/19 11:00 98.5 87 24 Venturi Mask 15.0 98.5 09/30/19 11:00 138/76 (96) 89 I & 0 Intake and Output 09/30/19 07:00 Intake Total 600 ml Balance 600 ml Intake Oral 600 ml # Voids 4 # Bowel Movements 1 PHYSICAL EXAM Physical Exam Patient unable to be examined however physical exam was corroborated with Dr. Anne DIAGNOSIS/ASSESSMENT Assessment & Plan AK I now resolved Hypernatremia: Continue hypotonic IV fluids at this time ACUTE HYPOXIC RESP FAILURE. Possibly associated with Mishel COVID 19 SUSPECT G + BACTEREMIA: Defer to primary team asked infectious disease COVID-19 Isolation precautions used and the patient and in discussion with nurse and physician COMMENT/RELEVANT DATA Meds Current Medications Medications (Trade) Dose Ordered Sig/Arely Start Time Stop Time Status Last Admin Dose Admin Acetaminophen (Tylenol Supp) 650 mg PRN Q6HRS PRN 09/29/19 02:00 09/29/19 02:14 650 MG Acetaminophen (Tylenol) 650 mg PRN Q4HRS PRN 09/26/19 13:45 09/29/19 20:37 650 MG Albuterol Sulfate (Ventolin Neb Soln) 2.5 mg PRN Q4HRS PRN 09/26/19 13:45 Amlodipine Besylate (Norvasc) 10 mg DAILY 09/28/19 15:00 09/30/19 08:26 10 MG Aspirin (Ecotrin) 81 mg DAILY 09/28/19 15:00 09/30/19 08:26 81 MG Atorvastatin Calcium (Lipitor) 20 mg HS 09/28/19 21:00 09/29/19 20:36 20 MG Azithromycin 500 mg/Sodium Chloride 250 ml @ 250 mls/hr Q24H 09/27/19 12:00 09/29/19 11:26 250 MLS/HR Carvedilol (Coreg) 25 mg BIDWMEALS 09/28/19 17:00 09/30/19 08:26 25 MG Clonidine HCl (Catapres) 0.1 mg PRN Q6HRS PRN 09/26/19 13:45 09/29/19 23:48 0.1 MG Daptomycin 590 mg/ Sodium Chloride 50 ml @ 100 mls/hr Q24H 09/28/19 12:00 09/29/19 11:26 100 MLS/HR Dextrose 1,000 ml @ 75 mls/hr [id number] 09/29/19 18:00 09/29/19 18:06 75 MLS/HR Docusate Sodium (Colace) 100 mg PRN BID PRN 09/26/19 13:45 Guaifenesin (Robitussin) 200 mg PRN Q4HRS PRN 09/26/19 13:45 Hydralazine HCl (Apresoline) 25 mg TID 09/28/19 15:00 09/30/19 08:27 25 MG Hydroxychloroquine Sulfate (Plaquenil (Med Program)) 200 mg BID 09/29/19 21:00 10/03/19 09:01 09/30/19 08:25 200 MG Hydroxychloroquine Sulfate (Plaquenil) 400 mg BID 09/28/19 19:00 09/29/19 09:01 DC 09/29/19 09:00 400 MG Lactobacillus Rhamnosus (Culturelle) 1 cap BID 09/28/19 21:00 09/30/19 08:26 1 CAP Linezolid/Dextrose 300 ml @ 300 mls/hr Q12HR 09/27/19 21:00 09/28/19 10:52 DC 09/28/19 09:16 300 MLS/HR Lorazepam (Ativan Inj) 1 mg PRN Q4HRS PRN 09/26/19 23:15 09/28/19 05:54 1 MG Meropenem 1 gm/ Sodium Chloride 100 ml @ 200 mls/hr Q8HRS 09/26/19 14:00 UNV Meropenem 500 mg/ Sodium Chloride 50 ml @ 100 mls/hr Q6HRS 09/26/19 18:00 09/30/19 12:00 100 MLS/HR Olanzapine (ZyPREXA IM) 10 mg 1X ONCE 09/28/19 14:15 09/28/19 14:16 DC 09/28/19 14:55 10 MG Olanzapine (ZyPREXA ZYDIS) 5 mg PRN BID PRN 09/28/19 14:15 Ondansetron HCl (Zofran) 4 mg PRN Q4HRS PRN 09/26/19 13:45 Piperacillin Sod/ Tazobactam Sod 4.5 gm/Sodium Chloride 100 ml @ 200 mls/hr 1X ONCE 09/26/19 12:45 09/26/19 13:14 UNV Sodium Monofluorophosphate (Fleet Adult) 133 ml PRN DAILY PRN 09/26/19 13:45 Sodium Chloride 1,000 ml @ 75 mls/hr [id number] 09/26/19 13:42 09/29/19 17:09 DC 09/28/19 21:50 75 MLS/HR Sodium Chloride (Normal Saline Flush) 3 ml QSHIFT PRN 09/26/19 13:45 Tamsulosin HCl (Flomax) 0.4 mg QHS 09/28/19 21:00 09/29/19 20:37 0.4 MG Vancomycin HCl (Vanco Per Pharmacy) 1 each PRN DAILY PRN 09/26/19 13:45 09/27/19 11:04 DC 09/26/19 14:30 1 EACH Vancomycin HCl (Vancomycin Trough Level) 1 each 1X ONCE 09/28/19 12:30 09/28/19 12:31 Cancel Vancomycin HCl 1.75 gm/Sodium Chloride 500 ml @ 250 mls/hr Q24H 09/27/19 13:00 09/27/19 11:04 DC Vancomycin HCl 2 gm/Sodium Chloride 500 ml @ 250 mls/hr 1X ONCE 09/26/19 12:45 09/26/19 14:44 DC 09/26/19 13:01 250 MLS/HR Lab Laboratory Tests Test 09/29/19 21:32 09/30/19 04:25 09/30/19 08:18 09/30/19 10:57 Glucose (Fingerstick) 110 mg/dL (70-99) 102 mg/dL (70-99) 127 mg/dL (70-99) Sodium Level 152 mmol/L (136-145) Potassium Level 4.5 mmol/L (3.5-5.1) Chloride Level 116 mmol/L (98-107) Carbon Dioxide Level 27 mmol/L (21-32) Anion Gap 9 (6-14) Blood Urea Nitrogen 22 mg/dL (8-26) Creatinine 1.2 mg/dL (0.7-1.3) Estimated GFR (Cockcroft-Gault) 74.7 Glucose Level 126 mg/dL (70-99) Calcium Level 8.3 mg/dL (8.5-10.1) Test 09/30/19 12:20 O2 Saturation 88 % (92-99) Arterial Blood pH 7.43 (7.35-7.45) Arterial Blood pCO2 at Patient Temp 40 mmHg (35-46) Arterial Blood pO2 at Patient Temp 53 mmHg (65-108) Arterial Blood HCO3 26 mmol/L (21-28) Arterial Blood Base Excess 2 mmol/L (-3-3) Oxyhemoglobin 87.6 % Methemoglobin 0.2 % (0.0-1.9) Carbon Monoxide, Quantitative 0.3 % (0.0-1.9) FiO2 50 Results All relevant outside records, renal labs, imaging studies, telemetry/EKG's were reviewed. KACY BAY MD Sep 30, 2019 15:21
[2019-09-30] MEDS: ATORVASTATIN CALCIUM 20 MG TABLET PO SCH (21:53)
[2019-09-30] MEDS: TAMSULOSIN 0.4 MG CAP.ER.24H. PO SCH (21:54)
[2019-10-01] MEDS: IV DEXTROSE 5% 1,000 ML IV SCH ×3 (00:30→12:32)
[2019-10-01] MEDS: MEROPENEM 500 MG in IV NORMAL SALINE 50ML 50 ML IV SCH ×4 (01:59→17:17)
[2019-10-01 04:00] VITALS: BP 144/100
[2019-10-01 06:16] LABS: ALBUMIN 2.1 g/dL (3.4-5.0); ALBUMIN/GLOBULIN RATIO 0.6 (1.0-1.7); CALCIUM 8.1 mg/dL (8.5-10.1); CREATININE 1.1 mg/dL (0.7-1.3); GFR 82.6; TOTAL BILIRUBIN 0.7 mg/dL (0.2-1.0); TOTAL PROTEIN 5.8 g/dL (6.4-8.2)
[2019-10-01 06:26] LABS: BASO % 0 % (0-3); EOS # 0.1 x10^3/uL (0.0-0.7); EOS % 1 % (0-3); HEMATOCRIT 30.9 % (39.0-53.0); HEMOGLOBIN 10.7 g/dL (13.0-17.5); LYMPH # 0.8 x10^3/uL (1.0-4.8); LYMPH % 18 % (24-48); MEAN CORPUSCULAR HEMOGLOBIN 32 pg (25-35); MEAN CORPUSCULAR HGB CONC 35 g/dL (31-37); MEAN CORPUSCULAR VOLUME 92 fL (79-100); MONO # 0.4 x10^3/uL (0.0-1.1); MONO % 10 % (0-9); NEUT # 2.9 x10^3/uL (1.8-7.7); NEUT % 70 % (31-73); PLATELET COUNT 254 x10^3/uL (140-400); RED BLOOD COUNT 3.37 x10^6/uL (4.30-5.70); RED CELL DISTRIBUTION WIDTH 17.5 % (11.5-14.5); WHITE BLOOD COUNT 4.2 x10^3/uL (4.0-11.0)
[2019-10-01 07:00] VITALS: BP 162/104
[2019-10-01] MEDS: CARVEDILOL 12.5 MG TABLET. PO SCH ×2 (08:00→16:26)
[2019-10-01] MEDS: hydrALAZINE 25 MG TABLET PO SCH ×3 (09:00→21:05)
[2019-10-01] MEDS: ASPIRIN ENTERIC COATED 81 MG TABLET.DR. PO SCH (09:00)
[2019-10-01] MEDS: amLODIPine BESYLATE 10 MG TABLET PO SCH (09:00)
[2019-10-01] MEDS: LACTOBACILLUS RHAMNOSUS GG 1 CAPSULE. PO SCH ×2 (09:00→20:59)
--- NOTE | 2019-10-01 09:28 | PDOC ---
PROGRESS NOTES Chief Complaint Chief Complaint A/P: acute bibasilar infiltrates greater on the right. 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 Essential hypertension Acute encephalopathy DM2 History of Present Illness History of Present Illness Mr Cherry is a 58 [facility] w/ PMHx DM2, HLD, hypertension, dementia, and prior strokes who has a residual right sided deficit admitted with complaint of cough and shortness of breath. The patient was noted to have a fever of 101.9. Chest x-ray was reviewed and was consistent with pneumonia involving the lower lobes, mostly on the right lower lobe. Placed on 4 liters of oxygen. Unable to obtain much history from the patient due to his dementia. COVID-19 CRITERIA: The patient was evaluated during the global COVID-19 pandemic, and that diagnosis was suspected/considered upon their initial presentation. Their evaluation, treatment and testing were consistent with current guidelines for patients who present with complaints or symptoms that may be related to COVID-19 09/27: SARS-CoV-2 (COVID 19) POSITIVE Test. 08/29 bottles positive for GPC in c vera on blood cultures. Still on venti-mask O2, saturating 94%. 09/28: Rapid response called last night due to worsening hypoxia due to patient continually removing his venti-mask O2 and confused, thought he was at [facility] in 2019. Still on venti-mask O2 15L, saturating 94%. Conversational dyspnea. Still febrile 101.2F. TMax 102F 24 hours ago. 09/29: TMax 100.9F. Changed to daptomycin, merrem, azithomycin, hydroxychloroquine for staph / bottles positive on blood culture and SARS-CoV-2 positive. He has no complaints currently except that he wants to eat. Does have conversational dyspnea, 12L O2 on mask, won't wear mask Blood cultures positive for staph hominis. Patient is on daptomycin. Still pulling at his O2. No real complaints. Plan: I have discussed with Dr. Prieto who is seeing patient with me via telemedicine, [employer]. I have shared my physical examination findings with him to minimize physician exposure to SARS-CoV-2 (COVID 19) Vitals Vitals Vital Signs Date Time Temp Pulse Resp B/P (MAP) Pulse Ox O2 Delivery O2 Flow Rate FiO2 10/01/19 08:30 Venturi Mask 15.0 10/01/19 07:00 98.8 91 18 162/104 (123) 98 98.8 Physical Exam Physical Exam deferred to primary/pulmo General: Alert, Cooperative Heart: Regular rate Abdomen: Normal bowel sounds, Soft Extremities: No clubbing Labs LABS Laboratory Tests Test 09/30/19 10:57 09/30/19 12:20 09/30/19 16:26 09/30/19 21:04 Glucose (Fingerstick) 127 mg/dL (70-99) 105 mg/dL (70-99) 116 mg/dL (70-99) O2 Saturation 88 % (92-99) Arterial Blood pH 7.43 (7.35-7.45) Arterial Blood pCO2 at Patient Temp 40 mmHg (35-46) Arterial Blood pO2 at Patient Temp 53 mmHg (65-108) Arterial Blood HCO3 26 mmol/L (21-28) Arterial Blood Base Excess 2 mmol/L (-3-3) Oxyhemoglobin 87.6 % Methemoglobin 0.2 % (0.0-1.9) Carbon Monoxide, Quantitative 0.3 % (0.0-1.9) FiO2 50 Test 10/01/19 04:10 10/01/19 07:26 White Blood Count 4.2 x10^3/uL (4.0-11.0) Red Blood Count 3.37 x10^6/uL (4.30-5.70) Hemoglobin 10.7 g/dL (13.0-17.5) Hematocrit 30.9 % (39.0-53.0) Mean Corpuscular Volume 92 fL (79-100) Mean Corpuscular Hemoglobin 32 pg (25-35) Mean Corpuscular Hemoglobin Concent 35 g/dL (31-37) Red Cell Distribution Width 17.5 % (11.5-14.5) Platelet Count 254 x10^3/uL (140-400) Neutrophils (%) (Auto) 70 % (31-73) Lymphocytes (%) (Auto) 18 % (24-48) Monocytes (%) (Auto) 10 % (0-9) Eosinophils (%) (Auto) 1 % (0-3) Basophils (%) (Auto) 0 % (0-3) Neutrophils # (Auto) 2.9 x10^3/uL (1.8-7.7) Lymphocytes # (Auto) 0.8 x10^3/uL (1.0-4.8) Monocytes # (Auto) 0.4 x10^3/uL (0.0-1.1) Eosinophils # (Auto) 0.1 x10^3/uL (0.0-0.7) Basophils # (Auto) 0.0 x10^3/uL (0.0-0.2) Sodium Level 150 mmol/L (136-145) Potassium Level 4.0 mmol/L (3.5-5.1) Chloride Level 113 mmol/L (98-107) Carbon Dioxide Level 26 mmol/L (21-32) Anion Gap 11 (6-14) Blood Urea Nitrogen 18 mg/dL (8-26) Creatinine 1.1 mg/dL (0.7-1.3) Estimated GFR (Cockcroft-Gault) 82.6 BUN/Creatinine Ratio 16 (6-20) Glucose Level 113 mg/dL (70-99) Calcium Level 8.1 mg/dL (8.5-10.1) Total Bilirubin 0.7 mg/dL (0.2-1.0) Aspartate Amino Transf (AST/SGOT) 82 U/L (15-37) Alanine Aminotransferase (ALT/SGPT) 34 U/L (16-63) Alkaline Phosphatase 46 U/L (46-116) Total Protein 5.8 g/dL (6.4-8.2) Albumin 2.1 g/dL (3.4-5.0) Albumin/Globulin Ratio 0.6 (1.0-1.7) Glucose (Fingerstick) 108 mg/dL (70-99) Assessment and Plan Assessmemt and Plan Problems Medical Problems: (1) Pneumonia Status: Acute (2) Renal insufficiency Status: Acute Comment Review of Relevant I have reviewed the following items rochelle (where applicable) has been applied. Labs Laboratory Tests Test 09/29/19 21:32 09/30/19 04:25 09/30/19 08:18 09/30/19 10:57 Glucose (Fingerstick) 110 mg/dL (70-99) 102 mg/dL (70-99) 127 mg/dL (70-99) Sodium Level 152 mmol/L (136-145) Potassium Level 4.5 mmol/L (3.5-5.1) Chloride Level 116 mmol/L (98-107) Carbon Dioxide Level 27 mmol/L (21-32) Anion Gap 9 (6-14) Blood Urea Nitrogen 22 mg/dL (8-26) Creatinine 1.2 mg/dL (0.7-1.3) Estimated GFR (Cockcroft-Gault) 74.7 Glucose Level 126 mg/dL (70-99) Calcium Level 8.3 mg/dL (8.5-10.1) Test 09/30/19 12:20 09/30/19 16:26 09/30/19 21:04 10/01/19 04:10 O2 Saturation 88 % (92-99) Arterial Blood pH 7.43 (7.35-7.45) Arterial Blood pCO2 at Patient Temp 40 mmHg (35-46) Arterial Blood pO2 at Patient Temp 53 mmHg (65-108) Arterial Blood HCO3 26 mmol/L (21-28) Arterial Blood Base Excess 2 mmol/L (-3-3) Oxyhemoglobin 87.6 % Methemoglobin 0.2 % (0.0-1.9) Carbon Monoxide, Quantitative 0.3 % (0.0-1.9) FiO2 50 Glucose (Fingerstick) 105 mg/dL (70-99) 116 mg/dL (70-99) White Blood Count 4.2 x10^3/uL (4.0-11.0) Red Blood Count 3.37 x10^6/uL (4.30-5.70) Hemoglobin 10.7 g/dL (13.0-17.5) Hematocrit 30.9 % (39.0-53.0) Mean Corpuscular Volume 92 fL (79-100) Mean Corpuscular Hemoglobin 32 pg (25-35) Mean Corpuscular Hemoglobin Concent 35 g/dL (31-37) Red Cell Distribution Width 17.5 % (11.5-14.5) Platelet Count 254 x10^3/uL (140-400) Neutrophils (%) (Auto) 70 % (31-73) Lymphocytes (%) (Auto) 18 % (24-48) Monocytes (%) (Auto) 10 % (0-9) Eosinophils (%) (Auto) 1 % (0-3) Basophils (%) (Auto) 0 % (0-3) Neutrophils # (Auto) 2.9 x10^3/uL (1.8-7.7) Lymphocytes # (Auto) 0.8 x10^3/uL (1.0-4.8) Monocytes # (Auto) 0.4 x10^3/uL (0.0-1.1) Eosinophils # (Auto) 0.1 x10^3/uL (0.0-0.7) Basophils # (Auto) 0.0 x10^3/uL (0.0-0.2) Sodium Level 150 mmol/L (136-145) Potassium Level 4.0 mmol/L (3.5-5.1) Chloride Level 113 mmol/L (98-107) Carbon Dioxide Level 26 mmol/L (21-32) Anion Gap 11 (6-14) Blood Urea Nitrogen 18 mg/dL (8-26) Creatinine 1.1 mg/dL (0.7-1.3) Estimated GFR (Cockcroft-Gault) 82.6 BUN/Creatinine Ratio 16 (6-20) Glucose Level 113 mg/dL (70-99) Calcium Level 8.1 mg/dL (8.5-10.1) Total Bilirubin 0.7 mg/dL (0.2-1.0) Aspartate Amino Transf (AST/SGOT) 82 U/L (15-37) Alanine Aminotransferase (ALT/SGPT) 34 U/L (16-63) Alkaline Phosphatase 46 U/L (46-116) Total Protein 5.8 g/dL (6.4-8.2) Albumin 2.1 g/dL (3.4-5.0) Albumin/Globulin Ratio 0.6 (1.0-1.7) Test 10/01/19 07:26 Glucose (Fingerstick) 108 mg/dL (70-99) Laboratory Tests Test 09/30/19 10:57 09/30/19 12:20 09/30/19 16:26 09/30/19 21:04 Glucose (Fingerstick) 127 mg/dL (70-99) 105 mg/dL (70-99) 116 mg/dL (70-99) O2 Saturation 88 % (92-99) Arterial Blood pH 7.43 (7.35-7.45) Arterial Blood pCO2 at Patient Temp 40 mmHg (35-46) Arterial Blood pO2 at Patient Temp 53 mmHg (65-108) Arterial Blood HCO3 26 mmol/L (21-28) Arterial Blood Base Excess 2 mmol/L (-3-3) Oxyhemoglobin 87.6 % Methemoglobin 0.2 % (0.0-1.9) Carbon Monoxide, Quantitative 0.3 % (0.0-1.9) FiO2 50 Test 10/01/19 04:10 10/01/19 07:26 White Blood Count 4.2 x10^3/uL (4.0-11.0) Red Blood Count 3.37 x10^6/uL (4.30-5.70) Hemoglobin 10.7 g/dL (13.0-17.5) Hematocrit 30.9 % (39.0-53.0) Mean Corpuscular Volume 92 fL (79-100) Mean Corpuscular Hemoglobin 32 pg (25-35) Mean Corpuscular Hemoglobin Concent 35 g/dL (31-37) Red Cell Distribution Width 17.5 % (11.5-14.5) Platelet Count 254 x10^3/uL (140-400) Neutrophils (%) (Auto) 70 % (31-73) Lymphocytes (%) (Auto) 18 % (24-48) Monocytes (%) (Auto) 10 % (0-9) Eosinophils (%) (Auto) 1 % (0-3) Basophils (%) (Auto) 0 % (0-3) Neutrophils # (Auto) 2.9 x10^3/uL (1.8-7.7) Lymphocytes # (Auto) 0.8 x10^3/uL (1.0-4.8) Monocytes # (Auto) 0.4 x10^3/uL (0.0-1.1) Eosinophils # (Auto) 0.1 x10^3/uL (0.0-0.7) Basophils # (Auto) 0.0 x10^3/uL (0.0-0.2) Sodium Level 150 mmol/L (136-145) Potassium Level 4.0 mmol/L (3.5-5.1) Chloride Level 113 mmol/L (98-107) Carbon Dioxide Level 26 mmol/L (21-32) Anion Gap 11 (6-14) Blood Urea Nitrogen 18 mg/dL (8-26) Creatinine 1.1 mg/dL (0.7-1.3) Estimated GFR (Cockcroft-Gault) 82.6 BUN/Creatinine Ratio 16 (6-20) Glucose Level 113 mg/dL (70-99) Calcium Level 8.1 mg/dL (8.5-10.1) Total Bilirubin 0.7 mg/dL (0.2-1.0) Aspartate Amino Transf (AST/SGOT) 82 U/L (15-37) Alanine Aminotransferase (ALT/SGPT) 34 U/L (16-63) Alkaline Phosphatase 46 U/L (46-116) Total Protein 5.8 g/dL (6.4-8.2) Albumin 2.1 g/dL (3.4-5.0) Albumin/Globulin Ratio 0.6 (1.0-1.7) Glucose (Fingerstick) 108 mg/dL (70-99) Microbiology 09/27/19 Blood Culture - Preliminary, Resulted NO GROWTH AFTER 3 DAYS Medications Current Medications Acetaminophen (Tylenol) 1,000 mg 1X ONCE PO ; Start 09/26/19 at 12:45; Stop 09/26/19 at 12:46; Status DC Piperacillin Sod/ Tazobactam Sod 4.5 gm/Sodium Chloride 100 ml @ 200 mls/hr 1X ONCE IV ; Start 09/26/19 at 12:45; Stop 09/26/19 at 13:14; Status UNV Vancomycin HCl 250 ml @ 250 mls/hr 1X ONCE IV ; Start 09/26/19 at 12:45; Stop 09/26/19 at 13:44; Status UNV Vancomycin HCl 2 gm/Sodium Chloride 500 ml @ 250 mls/hr 1X ONCE IV Last administered on 09/26/19at 13:01; Start 09/26/19 at 12:45; Stop 09/26/19 at 14:44; Status DC Meropenem 1 gm/ Sodium Chloride 100 ml @ 200 mls/hr 1X ONCE IV Last administered on 09/26/19at 13:02; Start 09/26/19 at 12:45; Stop 09/26/19 at 13 :14; Status DC Meropenem 1 gm/ Sodium Chloride 100 ml @ 200 mls/hr Q8HRS IV ; Start 09/26/19 at 14:00; Status UNV Meropenem 500 mg/ Sodium Chloride 50 ml @ 100 mls/hr Q6HRS IV Last administered on 10/01/19at 05:08; Start 09/26/19 at 18:00 Sodium Chloride (Normal Saline Flush) 3 ml QSHIFT PRN IV AFTER MEDS AND BLOOD DRAWS; Start 09/26/19 at 13:45 Sodium Chloride 1,000 ml @ 75 mls/hr [id number] IV Last administered on 09/28/19at 21:50; Start 09/26/19 at 13:42; Stop 09/29/19 at 17:09; Status DC Ondansetron HCl (Zofran) 4 mg PRN Q4HRS PRN IV NAUSEA/VOMITING; Start 09/26/19 at 13:45 Acetaminophen (Tylenol) 650 mg PRN Q4HRS PRN PO TEMP OVER 100.4F OR MILD PAIN Last administered on 09/29/19at 20:37; Start 09/26/19 at 13:45 Clonidine HCl (Catapres) 0.1 mg PRN Q6HRS PRN PO SBP>160 OR DBP>90 Last administered on 09/29/19at 23:48; Start 09/26/19 at 13:45 Sodium Monofluorophosphate (Fleet Adult) 133 ml PRN DAILY PRN [place] CONSTIPATION; Start 09/26/19 at 13:45 Docusate Sodium (Colace) 100 mg PRN BID PRN PO CONSTIPATION; Start 09/26/19 at 13:45 Albuterol Sulfate (Ventolin Neb Soln) 2.5 mg PRN Q4HRS PRN NEB SHORTNESS OF BREATH; Start 09/26/19 at 13:45 Guaifenesin (Robitussin) 200 mg PRN Q4HRS PRN PO COUGH; Start 09/26/19 at 13:45 Vancomycin HCl (Vanco Per Pharmacy) 1 each PRN DAILY PRN MC SEE COMMENTS Last administered on 09/26/19at 14:30; Start 09/26/19 at 13:45; Stop 09/27/19 at 11:04; Status DC Vancomycin HCl 1.75 gm/Sodium Chloride 500 ml @ 250 mls/hr Q24H IV ; Start 09/27/19 at 13:00; Stop 09/27/19 at 11:04; Status DC Vancomycin HCl (Vancomycin Trough Level) 1 each 1X ONCE MC ; Start 09/28/19 at 12:30; Stop 09/28/19 at 12:31; Status Cancel Lorazepam (Ativan Inj) 1 mg PRN Q4HRS PRN IVP ANXIETY / AGITATION Last administered on 09/28/19 05:54; Start 09/26/19 at 23:15 Linezolid/Dextrose 300 ml @ 300 mls/hr Q12HR IV Last administered on 09/28/19 09:16; Start 09/27/19 at 21:00; Stop 09/28/19 at 10:52; Status DC Azithromycin 500 mg/Sodium Chloride 250 ml @ 250 mls/hr Q24H IV Last administered on 09/30/19at 12:00; Start 09/27/19 at 12:00 Daptomycin 590 mg/ Sodium Chloride 50 ml @ 100 mls/hr Q24H IV Last administered on 09/30/19 12:00; Start 09/28/19 at 12:00 Amlodipine Besylate (Norvasc) 10 mg DAILY PO Last administered on 09/30/19 08:26; Start 09/28/19 at 15:00 Aspirin (Ecotrin) 81 mg DAILY PO Last administered on 09/30/19 08:26; Start 09/28/19 at 15:00 Atorvastatin Calcium (Lipitor) 20 mg HS PO Last administered on 09/30/19 21:53; Start 09/28/19 at 21:00 Hydralazine HCl (Apresoline) 25 mg TID PO Last administered on 09/30/19 21:53; Start 09/28/19 at 15:00 Tamsulosin HCl (Flomax) 0.4 mg QHS PO Last administered on 09/30/19 21:54; Start 09/28/19 at 21:00 Carvedilol (Coreg) 25 mg BIDWMEALS PO Last administered on 09/30/19 17:53; Start 09/28/19 at 17:00 Olanzapine (ZyPREXA IM) 10 mg 1X ONCE IM Last administered on 09/28/19 14:55; Start 09/28/19 at 14:15; Stop 09/28/19 at 14:16; Status DC Olanzapine (ZyPREXA ZYDIS) 5 mg PRN BID PRN PO anxiety/agitation; Start 09/28/19 at 14:15 Lactobacillus Rhamnosus (Culturelle) 1 cap BID PO Last administered on 09/30/19at 21:53; Start 09/28/19 at 21:00 Hydroxychloroquine Sulfate (Plaquenil) 200 mg BID PO ; Start 09/29/19 at 21:00; Stop 10/03/19 at 09:01; Status Cancel Hydroxychloroquine Sulfate (Plaquenil) 400 mg BID PO Last administered on 09/29/19at 09:00; Start 09/28/19 at 19:00; Stop 09/29/19 at 09:01; Status DC Acetaminophen (Tylenol Supp) 650 mg PRN Q6HRS PRN [place] MILD PAIN / TEMP Last administered on 09/29/19at 02:14; Start 09/29/19 at 02:00 Hydroxychloroquine Sulfate (Plaquenil (Med Program)) 200 mg BID PO Last administered on 09/30/19at 21:54; Start 09/29/19 at 21:00; Stop 10/03/19 at 09:01 Dextrose 1,000 ml @ 75 mls/hr [id number] IV Last administered on 10/01/19at 02:00; Start 09/29/19 at 18:00 Active Scripts Active Mupirocin Ointment (Mupirocin) 22 Gm Oint...g. 1 Bill TP DAILY 14 Days Reported Tylenol (Acetaminophen) 325 Mg Tablet 1-2 Tab PO PRN Q4HRS PRN Aspir-Low (Aspirin) 81 Mg Tablet.dr 1 Tab PO DAILY Atorvastatin Calcium 20 Mg Tablet 20 Mg PO HS Hydralazine Hcl 25 Mg Tablet 1 Tab PO TID Amlodipine Besylate 10 Mg Tablet 10 Mg PO DAILY Coreg (Carvedilol) 25 Mg Tablet 25 Mg PO BIDWMEALS Flomax (Tamsulosin Hcl) 0.4 Mg Cap.er.24h 1 Cap PO QHS Vitamin D2 (Ergocalciferol (Vitamin D2)) 50,000 Unit Capsule 1 Cap PO QMTH Vitals/I & O Vital Sign - Last 24 Hours 09/30/19 09/30/19 09/30/19 09/30/19 11:00 11:00 12:05 13:15 Temp 98.5 98.5 98.5 98.5 Pulse 76 87 Resp 34 24 B/P (MAP) 138/76 (96) Pulse Ox 89 90 93 O2 Delivery Venturi Mask Venturi Mask Venturi Mask NonRebreather Mask O2 Flow Rate 15.0 15.0 6.0 15.0 09/30/19 09/30/19 09/30/19 09/30/19 15:36 16:13 17:53 19:25 Temp 98.7 98.7 Pulse 87 77 80 82 Resp 24 21 B/P (MAP) 154/94 (114) 153/90 158/96 163/91 (115) Pulse Ox 96 O2 Delivery Venturi Mask Venturi Mask O2 Flow Rate 15.0 15.0 09/30/19 09/30/19 09/30/19 10/01/19 20:00 21:53 23:00 04:00 Temp 100.0 99.9 100.0 99.9 Pulse 82 80 71 Resp 24 24 B/P (MAP) 163/91 149/100 (116) 144/100 (115) Pulse Ox 92 94 O2 Delivery Non-Rebreather Venturi Mask Venturi Mask O2 Flow Rate 15.0 12.0 10/01/19 10/01/19 07:00 08:30 Temp 98.8 98.8 Pulse 91 Resp 18 B/P (MAP) 162/104 (123) Pulse Ox 98 O2 Delivery Venturi Mask Venturi Mask O2 Flow Rate 12.0 15.0 Intake and Output 09/30/19 09/30/19 10/01/19 15:00 23:00 07:00 Intake Total 200 ml 910 ml Balance 200 ml 910 ml DANIEL ENRIQUE MD Oct 01, 2019 09:28
--- NOTE | 2019-10-01 10:26 | PDOC ---
PULMONARY PROGRESS NOTES Subjective drowsy this am, no increased cough or SOA, remains on 50% Venti-mask a-febrile overnight Vitals Vital Signs Date Time Temp Pulse Resp B/P (MAP) Pulse Ox O2 Delivery O2 Flow Rate FiO2 10/01/19 08:30 Venturi Mask 15.0 10/01/19 07:00 98.8 91 18 162/104 (123) 98 98.8 Comments Visual Exam done no distress, on face mask no skin rask, no leg edema Labs Laboratory Tests Test 09/29/19 21:32 09/30/19 04:25 09/30/19 08:18 09/30/19 10:57 Glucose (Fingerstick) 110 mg/dL (70-99) 102 mg/dL (70-99) 127 mg/dL (70-99) Sodium Level 152 mmol/L (136-145) Potassium Level 4.5 mmol/L (3.5-5.1) Chloride Level 116 mmol/L (98-107) Carbon Dioxide Level 27 mmol/L (21-32) Anion Gap 9 (6-14) Blood Urea Nitrogen 22 mg/dL (8-26) Creatinine 1.2 mg/dL (0.7-1.3) Estimated GFR (Cockcroft-Gault) 74.7 Glucose Level 126 mg/dL (70-99) Calcium Level 8.3 mg/dL (8.5-10.1) Test 09/30/19 12:20 09/30/19 16:26 09/30/19 21:04 10/01/19 04:10 O2 Saturation 88 % (92-99) Arterial Blood pH 7.43 (7.35-7.45) Arterial Blood pCO2 at Patient Temp 40 mmHg (35-46) Arterial Blood pO2 at Patient Temp 53 mmHg (65-108) Arterial Blood HCO3 26 mmol/L (21-28) Arterial Blood Base Excess 2 mmol/L (-3-3) Oxyhemoglobin 87.6 % Methemoglobin 0.2 % (0.0-1.9) Carbon Monoxide, Quantitative 0.3 % (0.0-1.9) FiO2 50 Glucose (Fingerstick) 105 mg/dL (70-99) 116 mg/dL (70-99) White Blood Count 4.2 x10^3/uL (4.0-11.0) Red Blood Count 3.37 x10^6/uL (4.30-5.70) Hemoglobin 10.7 g/dL (13.0-17.5) Hematocrit 30.9 % (39.0-53.0) Mean Corpuscular Volume 92 fL (79-100) Mean Corpuscular Hemoglobin 32 pg (25-35) Mean Corpuscular Hemoglobin Concent 35 g/dL (31-37) Red Cell Distribution Width 17.5 % (11.5-14.5) Platelet Count 254 x10^3/uL (140-400) Neutrophils (%) (Auto) 70 % (31-73) Lymphocytes (%) (Auto) 18 % (24-48) Monocytes (%) (Auto) 10 % (0-9) Eosinophils (%) (Auto) 1 % (0-3) Basophils (%) (Auto) 0 % (0-3) Neutrophils # (Auto) 2.9 x10^3/uL (1.8-7.7) Lymphocytes # (Auto) 0.8 x10^3/uL (1.0-4.8) Monocytes # (Auto) 0.4 x10^3/uL (0.0-1.1) Eosinophils # (Auto) 0.1 x10^3/uL (0.0-0.7) Basophils # (Auto) 0.0 x10^3/uL (0.0-0.2) Sodium Level 150 mmol/L (136-145) Potassium Level 4.0 mmol/L (3.5-5.1) Chloride Level 113 mmol/L (98-107) Carbon Dioxide Level 26 mmol/L (21-32) Anion Gap 11 (6-14) Blood Urea Nitrogen 18 mg/dL (8-26) Creatinine 1.1 mg/dL (0.7-1.3) Estimated GFR (Cockcroft-Gault) 82.6 BUN/Creatinine Ratio 16 (6-20) Glucose Level 113 mg/dL (70-99) Calcium Level 8.1 mg/dL (8.5-10.1) Total Bilirubin 0.7 mg/dL (0.2-1.0) Aspartate Amino Transf (AST/SGOT) 82 U/L (15-37) Alanine Aminotransferase (ALT/SGPT) 34 U/L (16-63) Alkaline Phosphatase 46 U/L (46-116) Total Protein 5.8 g/dL (6.4-8.2) Albumin 2.1 g/dL (3.4-5.0) Albumin/Globulin Ratio 0.6 (1.0-1.7) Test 10/01/19 07:26 Glucose (Fingerstick) 108 mg/dL (70-99) Laboratory Tests Test 09/30/19 10:57 09/30/19 12:20 09/30/19 16:26 09/30/19 21:04 Glucose (Fingerstick) 127 mg/dL (70-99) 105 mg/dL (70-99) 116 mg/dL (70-99) O2 Saturation 88 % (92-99) Arterial Blood pH 7.43 (7.35-7.45) Arterial Blood pCO2 at Patient Temp 40 mmHg (35-46) Arterial Blood pO2 at Patient Temp 53 mmHg (65-108) Arterial Blood HCO3 26 mmol/L (21-28) Arterial Blood Base Excess 2 mmol/L (-3-3) Oxyhemoglobin 87.6 % Methemoglobin 0.2 % (0.0-1.9) Carbon Monoxide, Quantitative 0.3 % (0.0-1.9) FiO2 50 Test 10/01/19 04:10 10/01/19 07:26 White Blood Count 4.2 x10^3/uL (4.0-11.0) Red Blood Count 3.37 x10^6/uL (4.30-5.70) Hemoglobin 10.7 g/dL (13.0-17.5) Hematocrit 30.9 % (39.0-53.0) Mean Corpuscular Volume 92 fL (79-100) Mean Corpuscular Hemoglobin 32 pg (25-35) Mean Corpuscular Hemoglobin Concent 35 g/dL (31-37) Red Cell Distribution Width 17.5 % (11.5-14.5) Platelet Count 254 x10^3/uL (140-400) Neutrophils (%) (Auto) 70 % (31-73) Lymphocytes (%) (Auto) 18 % (24-48) Monocytes (%) (Auto) 10 % (0-9) Eosinophils (%) (Auto) 1 % (0-3) Basophils (%) (Auto) 0 % (0-3) Neutrophils # (Auto) 2.9 x10^3/uL (1.8-7.7) Lymphocytes # (Auto) 0.8 x10^3/uL (1.0-4.8) Monocytes # (Auto) 0.4 x10^3/uL (0.0-1.1) Eosinophils # (Auto) 0.1 x10^3/uL (0.0-0.7) Basophils # (Auto) 0.0 x10^3/uL (0.0-0.2) Sodium Level 150 mmol/L (136-145) Potassium Level 4.0 mmol/L (3.5-5.1) Chloride Level 113 mmol/L (98-107) Carbon Dioxide Level 26 mmol/L (21-32) Anion Gap 11 (6-14) Blood Urea Nitrogen 18 mg/dL (8-26) Creatinine 1.1 mg/dL (0.7-1.3) Estimated GFR (Cockcroft-Gault) 82.6 BUN/Creatinine Ratio 16 (6-20) Glucose Level 113 mg/dL (70-99) Calcium Level 8.1 mg/dL (8.5-10.1) Total Bilirubin 0.7 mg/dL (0.2-1.0) Aspartate Amino Transf (AST/SGOT) 82 U/L (15-37) Alanine Aminotransferase (ALT/SGPT) 34 U/L (16-63) Alkaline Phosphatase 46 U/L (46-116) Total Protein 5.8 g/dL (6.4-8.2) Albumin 2.1 g/dL (3.4-5.0) Albumin/Globulin Ratio 0.6 (1.0-1.7) Glucose (Fingerstick) 108 mg/dL (70-99) Medications Active Scripts Medications Dose Route/Sig Max Daily Dose Days Date Category Mupirocin Ointment (Mupirocin) 22 Gm Oint...g. 1 Bill TP DAILY 14 04/06/19 Rx Tylenol (Acetaminophen) 325 Mg Tablet 1-2 Tab PO PRN Q4HRS PRN 09/28/18 Reported Aspir-Low (Aspirin) 81 Mg Tablet.dr 1 Tab PO DAILY 09/28/18 Reported Atorvastatin Calcium 20 Mg Tablet 20 Mg PO HS 09/28/18 Reported Hydralazine Hcl 25 Mg Tablet 1 Tab PO TID 09/28/18 Reported Amlodipine Besylate 10 Mg Tablet 10 Mg PO DAILY 09/28/18 Reported Coreg (Carvedilol) 25 Mg Tablet 25 Mg PO BIDWMEALS 09/28/18 Reported Flomax (Tamsulosin Hcl) 0.4 Mg Cap.er.24h 1 Cap PO QHS 09/28/18 Reported Vitamin D2 (Ergocalciferol (Vitamin D2)) 50,000 Unit Capsule 1 Cap PO QMTH 09/28/18 Reported Impression . 1. Acute hypoxic respiratory failure secondary COVID-19 positive pneumonia. 2. Abnormal chest x-ray consistent with pneumonia, COVID-19 positive . Cannot exclude superimposed bacterial pneumonia. 3. Acute kidney injury. 4. Gram + Bacteremia (09/29 BC ) 5. Hypernatermia Plan . 1. We will continue present oxygen and closely monitor the hospital course. wean FIO2 to keep sats > 92% 2. Broad spectrum antibiotic with Azithro, meropenem, and dapto Follow ID rec 3. COVID-19 test Positive 4. cont. Plaquenil. 5. Follow final BC results-- Staph 6. symptomatic treatment of fever and cough 7. D5w X1 liter, monitor Na+ Discussed with RN. GARDENIA VALDERRAMA MD Oct 01, 2019 10:26
--- NOTE | 2019-10-01 10:26 | PDOC ---
SUBJECTIVE ROS Initially asked to see the patient for acute renal failure-this has resolved how ever patient has now developed hypernatremia hence is being followed for the same Patient remains in COVID-19 Precautions OBJECTIVE Vital Signs Vital Signs Date Time Temp Pulse Resp B/P (MAP) Pulse Ox O2 Delivery O2 Flow Rate FiO2 10/01/19 08:30 Venturi Mask 15.0 10/01/19 07:00 98.8 91 18 162/104 (123) 98 98.8 I & 0 Intake and Output 10/01/19 07:00 Intake Total 1110 ml Balance 1110 ml Intake Oral 300 ml IV Total 810 ml # Voids 5 # Bowel Movements 1 PHYSICAL EXAM Physical Exam Patient unable to be examined however physical exam was corroborated with Dr. Anne and the nurse DIAGNOSIS/ASSESSMENT Assessment & Plan Hypernatremia: Continue hypotonic IV fluids at this time. Appears to be improving gradually. urine output is not well recorded COVID 19 SUSPECT COMMENT/RELEVANT DATA Meds Current Medications Medications (Trade) Dose Ordered Sig/Arely Start Time Stop Time Status Last Admin Dose Admin Acetaminophen (Tylenol Supp) 650 mg PRN Q6HRS PRN 09/29/19 02:00 09/29/19 02:14 650 MG Acetaminophen (Tylenol) 650 mg PRN Q4HRS PRN 09/26/19 13:45 09/29/19 20:37 650 MG Albuterol Sulfate (Ventolin Neb Soln) 2.5 mg PRN Q4HRS PRN 09/26/19 13:45 Amlodipine Besylate (Norvasc) 10 mg DAILY 09/28/19 15:00 09/30/19 08:26 10 MG Aspirin (Ecotrin) 81 mg DAILY 09/28/19 15:00 09/30/19 08:26 81 MG Atorvastatin Calcium (Lipitor) 20 mg HS 09/28/19 21:00 09/30/19 21:53 20 MG Azithromycin 500 mg/Sodium Chloride 250 ml @ 250 mls/hr Q24H 09/27/19 12:00 09/30/19 12:00 250 MLS/HR Carvedilol (Coreg) 25 mg BIDWMEALS 09/28/19 17:00 09/30/19 17:53 25 MG Clonidine HCl (Catapres) 0.1 mg PRN Q6HRS PRN 09/26/19 13:45 09/29/19 23:48 0.1 MG Daptomycin 590 mg/ Sodium Chloride 50 ml @ 100 mls/hr Q24H 09/28/19 12:00 09/30/19 12:00 100 MLS/HR Dextrose 1,000 ml @ 75 mls/hr [id number] 09/29/19 18:00 10/01/19 02:00 75 MLS/HR Docusate Sodium (Colace) 100 mg PRN BID PRN 09/26/19 13:45 Guaifenesin (Robitussin) 200 mg PRN Q4HRS PRN 09/26/19 13:45 Hydralazine HCl (Apresoline) 25 mg TID 09/28/19 15:00 09/30/19 21:53 25 MG Hydroxychloroquine Sulfate (Plaquenil (Med Program)) 200 mg BID 09/29/19 21:00 10/03/19 09:01 09/30/19 21:54 200 MG Hydroxychloroquine Sulfate (Plaquenil) 400 mg BID 09/28/19 19:00 09/29/19 09:01 DC 09/29/19 09:00 400 MG Lactobacillus Rhamnosus (Culturelle) 1 cap BID 09/28/19 21:00 09/30/19 21:53 1 CAP Linezolid/Dextrose 300 ml @ 300 mls/hr Q12HR 09/27/19 21:00 09/28/19 10:52 DC 09/28/19 09:16 300 MLS/HR Lorazepam (Ativan Inj) 1 mg PRN Q4HRS PRN 09/26/19 23:15 09/28/19 05:54 1 MG Meropenem 1 gm/ Sodium Chloride 100 ml @ 200 mls/hr Q8HRS 09/26/19 14:00 UNV Meropenem 500 mg/ Sodium Chloride 50 ml @ 100 mls/hr Q6HRS 09/26/19 18:00 10/01/19 05:08 100 MLS/HR Olanzapine (ZyPREXA IM) 10 mg 1X ONCE 09/28/19 14:15 09/28/19 14:16 DC 09/28/19 14:55 10 MG Olanzapine (ZyPREXA ZYDIS) 5 mg PRN BID PRN 09/28/19 14:15 Ondansetron HCl (Zofran) 4 mg PRN Q4HRS PRN 09/26/19 13:45 Piperacillin Sod/ Tazobactam Sod 4.5 gm/Sodium Chloride 100 ml @ 200 mls/hr 1X ONCE 09/26/19 12:45 09/26/19 13:14 UNV Sodium Monofluorophosphate (Fleet Adult) 133 ml PRN DAILY PRN 09/26/19 13:45 Sodium Chloride 1,000 ml @ 75 mls/hr [id number] 09/26/19 13:42 09/29/19 17:09 DC 09/28/19 21:50 75 MLS/HR Sodium Chloride (Normal Saline Flush) 3 ml QSHIFT PRN 09/26/19 13:45 Tamsulosin HCl (Flomax) 0.4 mg QHS 09/28/19 21:00 09/30/19 21:54 0.4 MG Vancomycin HCl (Vanco Per Pharmacy) 1 each PRN DAILY PRN 09/26/19 13:45 09/27/19 11:04 DC 09/26/19 14:30 1 EACH Vancomycin HCl (Vancomycin Trough Level) 1 each 1X ONCE 09/28/19 12:30 09/28/19 12:31 Cancel Vancomycin HCl 1.75 gm/Sodium Chloride 500 ml @ 250 mls/hr Q24H 09/27/19 13:00 09/27/19 11:04 DC Vancomycin HCl 2 gm/Sodium Chloride 500 ml @ 250 mls/hr 1X ONCE 09/26/19 12:45 09/26/19 14:44 DC 09/26/19 13:01 250 MLS/HR Lab Laboratory Tests Test 09/30/19 10:57 09/30/19 12:20 09/30/19 16:26 09/30/19 21:04 Glucose (Fingerstick) 127 mg/dL (70-99) 105 mg/dL (70-99) 116 mg/dL (70-99) O2 Saturation 88 % (92-99) Arterial Blood pH 7.43 (7.35-7.45) Arterial Blood pCO2 at Patient Temp 40 mmHg (35-46) Arterial Blood pO2 at Patient Temp 53 mmHg (65-108) Arterial Blood HCO3 26 mmol/L (21-28) Arterial Blood Base Excess 2 mmol/L (-3-3) Oxyhemoglobin 87.6 % Methemoglobin 0.2 % (0.0-1.9) Carbon Monoxide, Quantitative 0.3 % (0.0-1.9) FiO2 50 Test 10/01/19 04:10 10/01/19 07:26 White Blood Count 4.2 x10^3/uL (4.0-11.0) Red Blood Count 3.37 x10^6/uL (4.30-5.70) Hemoglobin 10.7 g/dL (13.0-17.5) Hematocrit 30.9 % (39.0-53.0) Mean Corpuscular Volume 92 fL (79-100) Mean Corpuscular Hemoglobin 32 pg (25-35) Mean Corpuscular Hemoglobin Concent 35 g/dL (31-37) Red Cell Distribution Width 17.5 % (11.5-14.5) Platelet Count 254 x10^3/uL (140-400) Neutrophils (%) (Auto) 70 % (31-73) Lymphocytes (%) (Auto) 18 % (24-48) Monocytes (%) (Auto) 10 % (0-9) Eosinophils (%) (Auto) 1 % (0-3) Basophils (%) (Auto) 0 % (0-3) Neutrophils # (Auto) 2.9 x10^3/uL (1.8-7.7) Lymphocytes # (Auto) 0.8 x10^3/uL (1.0-4.8) Monocytes # (Auto) 0.4 x10^3/uL (0.0-1.1) Eosinophils # (Auto) 0.1 x10^3/uL (0.0-0.7) Basophils # (Auto) 0.0 x10^3/uL (0.0-0.2) Sodium Level 150 mmol/L (136-145) Potassium Level 4.0 mmol/L (3.5-5.1) Chloride Level 113 mmol/L (98-107) Carbon Dioxide Level 26 mmol/L (21-32) Anion Gap 11 (6-14) Blood Urea Nitrogen 18 mg/dL (8-26) Creatinine 1.1 mg/dL (0.7-1.3) Estimated GFR (Cockcroft-Gault) 82.6 BUN/Creatinine Ratio 16 (6-20) Glucose Level 113 mg/dL (70-99) Calcium Level 8.1 mg/dL (8.5-10.1) Total Bilirubin 0.7 mg/dL (0.2-1.0) Aspartate Amino Transf (AST/SGOT) 82 U/L (15-37) Alanine Aminotransferase (ALT/SGPT) 34 U/L (16-63) Alkaline Phosphatase 46 U/L (46-116) Total Protein 5.8 g/dL (6.4-8.2) Albumin 2.1 g/dL (3.4-5.0) Albumin/Globulin Ratio 0.6 (1.0-1.7) Glucose (Fingerstick) 108 mg/dL (70-99) Results All relevant outside records, renal labs, imaging studies, telemetry/EKG's were reviewed. KACY BAY MD Oct 01, 2019 10:26
[2019-10-01] MEDS ORDERED: IV DEXTROSE 5% 1,000 ML IV ONE (10:30)
[2019-10-01 11:35] VITALS: BP 148/98
[2019-10-01] MEDS: HYDROXYCHLOROQUINE (PROGRAM) 200 MG TABLET PO SCH ×2 (12:29→20:59)
--- NOTE | 2019-10-01 12:32 | PDOC ---
Infectious Disease Note Subjective Subjective Feeling better today Less work of breathing O2 down to 40% via VM Fever Tmax 100.0 Denies pain/N/V/D ROS ROS per above Vital Sign Vital Signs Vital Signs Date Time Temp Pulse Resp B/P (MAP) Pulse Ox O2 Delivery O2 Flow Rate FiO2 10/01/19 11:35 99.6 88 30 148/98 (115) 98 Venturi Mask 12.0 99.6 Physical Exam PHYSICAL EXAM Hands on exam deferred. see PCP/pulm note Visually he is lying down, alert in NAD Breathing is nonlabored. NC & VM Heart rhythm regular Answers questions appropriately PIV Labs Lab Laboratory Tests Test 09/30/19 16:26 09/30/19 21:04 10/01/19 04:10 10/01/19 07:26 Glucose (Fingerstick) 105 mg/dL (70-99) 116 mg/dL (70-99) 108 mg/dL (70-99) White Blood Count 4.2 x10^3/uL (4.0-11.0) Red Blood Count 3.37 x10^6/uL (4.30-5.70) Hemoglobin 10.7 g/dL (13.0-17.5) Hematocrit 30.9 % (39.0-53.0) Mean Corpuscular Volume 92 fL (79-100) Mean Corpuscular Hemoglobin 32 pg (25-35) Mean Corpuscular Hemoglobin Concent 35 g/dL (31-37) Red Cell Distribution Width 17.5 % (11.5-14.5) Platelet Count 254 x10^3/uL (140-400) Neutrophils (%) (Auto) 70 % (31-73) Lymphocytes (%) (Auto) 18 % (24-48) Monocytes (%) (Auto) 10 % (0-9) Eosinophils (%) (Auto) 1 % (0-3) Basophils (%) (Auto) 0 % (0-3) Neutrophils # (Auto) 2.9 x10^3/uL (1.8-7.7) Lymphocytes # (Auto) 0.8 x10^3/uL (1.0-4.8) Monocytes # (Auto) 0.4 x10^3/uL (0.0-1.1) Eosinophils # (Auto) 0.1 x10^3/uL (0.0-0.7) Basophils # (Auto) 0.0 x10^3/uL (0.0-0.2) Sodium Level 150 mmol/L (136-145) Potassium Level 4.0 mmol/L (3.5-5.1) Chloride Level 113 mmol/L (98-107) Carbon Dioxide Level 26 mmol/L (21-32) Anion Gap 11 (6-14) Blood Urea Nitrogen 18 mg/dL (8-26) Creatinine 1.1 mg/dL (0.7-1.3) Estimated GFR (Cockcroft-Gault) 82.6 BUN/Creatinine Ratio 16 (6-20) Glucose Level 113 mg/dL (70-99) Calcium Level 8.1 mg/dL (8.5-10.1) Total Bilirubin 0.7 mg/dL (0.2-1.0) Aspartate Amino Transf (AST/SGOT) 82 U/L (15-37) Alanine Aminotransferase (ALT/SGPT) 34 U/L (16-63) Alkaline Phosphatase 46 U/L (46-116) Total Protein 5.8 g/dL (6.4-8.2) Albumin 2.1 g/dL (3.4-5.0) Albumin/Globulin Ratio 0.6 (1.0-1.7) Micro 09/25. GPC in 4 of 4 bottles BLD CULT RESULT 1 Final Comment Staphylococcus hominis ANTIMICROBIAL SUSCEPTIBILITY Final Comment S = Susceptible; I = Intermediate; R = Resistant P = Positive; N = Negative MICS are expressed in micrograms per mL Antibiotic RSLT#1 Ciprofloxacin I =2 Clindamycin R>=8 Erythromycin R>=8 Gentamicin S<=0.5 Levofloxacin S =2 Nitrofurantoin S<=16 Oxacillin R>=4 Penicillin R>=0.5 Rifampin S<=0.5 Tetracycline R>=16 Trimethoprim/Sulfa R =80 Vancomycin S =1 09/27/19 Blood Culture - Preliminary, Resulted NO GROWTH AFTER 4 DAYS Objective Assessment GPC bacteremia (4 of 4 bottles), from 09/25. MRSE -Repeat BC 09/26 neg to date Acute respiratory failure w/pulmonary infiltrate. COVID-19 positive Fever. ROCIO Abx allergy ceftriaxone Dementia. Cerebrovascular accident. Plan Plan of Care Dapto and meropenem Plaquenil d/c Azithromycin - completed course Monitor abx toxicities Airborne isolation for + COVID-19 Critically ill Attending Co-Sign Visual exam done. The chart was reviewed. The case was discussed. Agree with the plan of care. WILLIAN REEDER PLANNING AND ANALYSIS MANAGER Oct 01, 2019 12:31 VIVIANA BAY MD Oct 01, 2019 13:03
[2019-10-01] MEDS: DAPTOmycin (GENERIC) IVPB 590 MG in IV NORMAL SALINE 50ML 50 ML IV SCH (13:24)
[2019-10-01 13:32] LABS: BILIRUBIN,URINE SMALL (NEG); CLARITY,URINE CLEAR; NITRITE,URINE NEGATIVE (NEG); PROTEIN,URINE 100 mg/dL (NEG-TRACE); UROBILINOGEN,URINE >=8.0 mg/dL (0.2 mg/dL)
[2019-10-01 13:42] LABS: COLOR,URINE DK YELLOW
[2019-10-01 13:47] LABS: BACTERIA,URINE 0 /HPF (0-FEW); RBC,URINE RARE /HPF (0-2); WBC,URINE OCC /HPF (0-4)
[2019-10-01 15:00] VITALS: BP 148/98
[2019-10-01] MEDS: hydrALAZINE 20 MG/ML VIAL. IVP PRN (16:26)
[2019-10-01 19:35] VITALS: BP 165/96
[2019-10-01] MEDS: ATORVASTATIN CALCIUM 20 MG TABLET PO SCH (20:59)
[2019-10-01] MEDS: guaiFENesin ORAL 200 MG/10 ML LIQUID. PO PRN ×2 (20:59→21:04)
[2019-10-01] MEDS: TAMSULOSIN 0.4 MG CAP.ER.24H. PO SCH (21:07)
[2019-10-01 22:50] VITALS: BP 138/93
[2019-10-02 02:55] VITALS: BP 178/102
[2019-10-02] MEDS: hydrALAZINE 20 MG/ML VIAL. IVP PRN (03:38)
[2019-10-02 04:52] LABS: CALCIUM 8.6 mg/dL (8.5-10.1); GFR 92.2; POTASSIUM 3.6 mmol/L (3.5-5.1)
[2019-10-02] MEDS: MEROPENEM 500 MG in IV NORMAL SALINE 50ML 50 ML IV SCH ×4 (06:12→13:28)
[2019-10-02 07:00] VITALS: BP 181/101
[2019-10-02] MEDS: LACTOBACILLUS RHAMNOSUS GG 1 CAPSULE. PO SCH ×2 (09:58→20:17)
[2019-10-02] MEDS: hydrALAZINE 25 MG TABLET PO SCH ×3 (09:58→20:18)
[2019-10-02] MEDS: HYDROXYCHLOROQUINE (PROGRAM) 200 MG TABLET PO SCH ×2 (09:59→20:17)
[2019-10-02] MEDS: ASPIRIN ENTERIC COATED 81 MG TABLET.DR. PO SCH (09:59)
[2019-10-02] MEDS: CARVEDILOL 12.5 MG TABLET. PO SCH ×2 (09:59→17:54)
[2019-10-02] MEDS: amLODIPine BESYLATE 10 MG TABLET PO SCH (09:59)
[2019-10-02] MEDS: ACETAMINOPHEN 325 MG TABLET. PO PRN (09:59)
[2019-10-02 11:11] VITALS: BP 138/95
--- NOTE | 2019-10-02 11:48 | PDOC ---
PULMONARY PROGRESS NOTES Subjective drowsy this am, no increased cough or SOA, remains on 50% venti-mask with N/C a-febrile overnight Vitals Vital Signs Date Time Temp Pulse Resp B/P (MAP) Pulse Ox O2 Delivery O2 Flow Rate FiO2 10/02/19 09:59 90 10/02/19 07:00 98.6 32 181/101 (127) 94 Venturi Mask 15.0 98.6 Comments Visual Exam done snorous , on face mask lethargic no skin rask, no leg edema Labs Laboratory Tests Test 09/30/19 12:20 09/30/19 16:26 09/30/19 21:04 10/01/19 04:10 O2 Saturation 88 % (92-99) Arterial Blood pH 7.43 (7.35-7.45) Arterial Blood pCO2 at Patient Temp 40 mmHg (35-46) Arterial Blood pO2 at Patient Temp 53 mmHg (65-108) Arterial Blood HCO3 26 mmol/L (21-28) Arterial Blood Base Excess 2 mmol/L (-3-3) Oxyhemoglobin 87.6 % Methemoglobin 0.2 % (0.0-1.9) Carbon Monoxide, Quantitative 0.3 % (0.0-1.9) FiO2 50 Glucose (Fingerstick) 105 mg/dL (70-99) 116 mg/dL (70-99) White Blood Count 4.2 x10^3/uL (4.0-11.0) Red Blood Count 3.37 x10^6/uL (4.30-5.70) Hemoglobin 10.7 g/dL (13.0-17.5) Hematocrit 30.9 % (39.0-53.0) Mean Corpuscular Volume 92 fL (79-100) Mean Corpuscular Hemoglobin 32 pg (25-35) Mean Corpuscular Hemoglobin Concent 35 g/dL (31-37) Red Cell Distribution Width 17.5 % (11.5-14.5) Platelet Count 254 x10^3/uL (140-400) Neutrophils (%) (Auto) 70 % (31-73) Lymphocytes (%) (Auto) 18 % (24-48) Monocytes (%) (Auto) 10 % (0-9) Eosinophils (%) (Auto) 1 % (0-3) Basophils (%) (Auto) 0 % (0-3) Neutrophils # (Auto) 2.9 x10^3/uL (1.8-7.7) Lymphocytes # (Auto) 0.8 x10^3/uL (1.0-4.8) Monocytes # (Auto) 0.4 x10^3/uL (0.0-1.1) Eosinophils # (Auto) 0.1 x10^3/uL (0.0-0.7) Basophils # (Auto) 0.0 x10^3/uL (0.0-0.2) Sodium Level 150 mmol/L (136-145) Potassium Level 4.0 mmol/L (3.5-5.1) Chloride Level 113 mmol/L (98-107) Carbon Dioxide Level 26 mmol/L (21-32) Anion Gap 11 (6-14) Blood Urea Nitrogen 18 mg/dL (8-26) Creatinine 1.1 mg/dL (0.7-1.3) Estimated GFR (Cockcroft-Gault) 82.6 BUN/Creatinine Ratio 16 (6-20) Glucose Level 113 mg/dL (70-99) Calcium Level 8.1 mg/dL (8.5-10.1) Total Bilirubin 0.7 mg/dL (0.2-1.0) Aspartate Amino Transf (AST/SGOT) 82 U/L (15-37) Alanine Aminotransferase (ALT/SGPT) 34 U/L (16-63) Alkaline Phosphatase 46 U/L (46-116) Total Protein 5.8 g/dL (6.4-8.2) Albumin 2.1 g/dL (3.4-5.0) Albumin/Globulin Ratio 0.6 (1.0-1.7) Test 10/01/19 07:26 10/01/19 13:00 10/01/19 17:44 10/02/19 03:48 Glucose (Fingerstick) 108 mg/dL (70-99) 110 mg/dL (70-99) Urine Collection Type Unknown Urine Color Dk yellow Urine Clarity Clear Urine pH 6.0 (<5.0-8.0) Urine Specific [place] 1.025 (1.000-1.030) Urine Protein 100 mg/dL (NEG-TRACE) Urine Glucose (UA) Negative mg/dL (NEG) Urine Ketones (Stick) Negative mg/dL (NEG) Urine Blood Negative (NEG) Urine Nitrite Negative (NEG) Urine Bilirubin Small (NEG) Urine Urobilinogen Dipstick >=8.0 mg/dL (0.2 mg/dL) Urine Leukocyte Esterase Negative (NEG) Urine RBC Rare /HPF (0-2) Urine WBC Occ /HPF (0-4) Urine Transitional Epithelial Cells Occ /LPF Urine Bacteria 0 /HPF (0-FEW) Urine Mucus Marked /LPF Sodium Level 147 mmol/L (136-145) Potassium Level 3.6 mmol/L (3.5-5.1) Chloride Level 110 mmol/L (98-107) Carbon Dioxide Level 26 mmol/L (21-32) Anion Gap 11 (6-14) Blood Urea Nitrogen 15 mg/dL (8-26) Creatinine 1.0 mg/dL (0.7-1.3) Estimated GFR (Cockcroft-Gault) 92.2 Glucose Level 104 mg/dL (70-99) Calcium Level 8.6 mg/dL (8.5-10.1) Test 10/02/19 07:36 Glucose (Fingerstick) 113 mg/dL (70-99) Laboratory Tests Test 10/01/19 13:00 10/01/19 17:44 10/02/19 03:48 10/02/19 07:36 Urine Collection Type Unknown Urine Color Dk yellow Urine Clarity Clear Urine pH 6.0 (<5.0-8.0) Urine Specific [place] 1.025 (1.000-1.030) Urine Protein 100 mg/dL (NEG-TRACE) Urine Glucose (UA) Negative mg/dL (NEG) Urine Ketones (Stick) Negative mg/dL (NEG) Urine Blood Negative (NEG) Urine Nitrite Negative (NEG) Urine Bilirubin Small (NEG) Urine Urobilinogen Dipstick >=8.0 mg/dL (0.2 mg/dL) Urine Leukocyte Esterase Negative (NEG) Urine RBC Rare /HPF (0-2) Urine WBC Occ /HPF (0-4) Urine Transitional Epithelial Cells Occ /LPF Urine Bacteria 0 /HPF (0-FEW) Urine Mucus Marked /LPF Glucose (Fingerstick) 110 mg/dL (70-99) 113 mg/dL (70-99) Sodium Level 147 mmol/L (136-145) Potassium Level 3.6 mmol/L (3.5-5.1) Chloride Level 110 mmol/L (98-107) Carbon Dioxide Level 26 mmol/L (21-32) Anion Gap 11 (6-14) Blood Urea Nitrogen 15 mg/dL (8-26) Creatinine 1.0 mg/dL (0.7-1.3) Estimated GFR (Cockcroft-Gault) 92.2 Glucose Level 104 mg/dL (70-99) Calcium Level 8.6 mg/dL (8.5-10.1) Medications Active Scripts Medications Dose Route/Sig Max Daily Dose Days Date Category Mupirocin Ointment (Mupirocin) 22 Gm Oint...g. 1 Bill TP DAILY 14 04/06/19 Rx Tylenol (Acetaminophen) 325 Mg Tablet 1-2 Tab PO PRN Q4HRS PRN 09/28/18 Reported Aspir-Low (Aspirin) 81 Mg Tablet.dr 1 Tab PO DAILY 09/28/18 Reported Atorvastatin Calcium 20 Mg Tablet 20 Mg PO HS 09/28/18 Reported Hydralazine Hcl 25 Mg Tablet 1 Tab PO TID 09/28/18 Reported Amlodipine Besylate 10 Mg Tablet 10 Mg PO DAILY 09/28/18 Reported Coreg (Carvedilol) 25 Mg Tablet 25 Mg PO BIDWMEALS 09/28/18 Reported Flomax (Tamsulosin Hcl) 0.4 Mg Cap.er.24h 1 Cap PO QHS 09/28/18 Reported Vitamin D2 (Ergocalciferol (Vitamin D2)) 50,000 Unit Capsule 1 Cap PO QMTH 09/28/18 Reported Impression . 1. Acute hypoxic respiratory failure secondary COVID-19 positive pneumonia. 2. Abnormal chest x-ray consistent with pneumonia, COVID-19 positive . Cannot exclude superimposed bacterial pneumonia. 3. Acute kidney injury. 4. Gram + Bacteremia (09/29 BC ) 5. Hypernatermia Plan . 1. We will continue present oxygen and closely monitor the hospital course. wean FIO2 to keep sats > 92% 2. Broad spectrum antibiotic with Azithro, meropenem, and dapto Follow ID rec 3. COVID-19 test Positive 4. cont. Plaquenil. 5. Follow final BC results-- Staph 6. symptomatic treatment of fever and cough 7. D5w X1 liter, monitor Na+ Discussed with EDIN. GARDENIA VALDERRAMA MD Oct 02, 2019 11:48
--- NOTE | 2019-10-02 11:57 | PDOC ---
[facility] [facility] PROGRESS NOTE Chief Complaint Chief Complaint Acute bibasilar infiltrates greater on the right. 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 The patient was noted to have a fever of 101.9. Chest x-ray was reviewed and was consistent with pneumonia involving the lower lobes, mostly on the right lower lobe. Placed on 4 liters of oxygen. Unable to obtain much history from the patient due to his dementia. COVID-19 CRITERIA: The patient was evaluated during the global COVID-19 pandemic, and that diagnosis was suspected/considered upon their initial presentation. Their evaluation, treatment and testing were consistent with current guidelines for patients who present with complaints or symptoms that may be related to COVID-19 4/2: SARS-CoV-2 (COVID 19) POSITIVE Test. 3/4 bottles positive for GPC in clusters on blood cultures. Still on venti-mask O2, saturating 94%. 09/28: Rapid response called last night due to worsening hypoxia due to patient continually removing his venti-mask O2 and confused, thought he was at [facility] in 2019. Still on venti-mask O2 15L, saturating 94%. Conversational dyspnea. Still febrile 101.2F. TMax 102F 24 hours ago. 09/29: TMax 100.9F. Changed to daptomycin, merrem, azithomycin, hydroxychloroquine for staph 4/4 bottles positive on blood culture and SARS-CoV-2 positive. He has no complaints currently except that he wants to eat. Does have conversational dyspnea, 12L O2 on mask, won't wear mask Blood cultures positive for staph hominis. Patient is on daptomycin. Still pulling at his O2. No real complaints. Plan: I have discussed with Dr. Prieto who is seeing patient with me via telemedicine, [facility]. I have shared my physical examination findings with him to minimize phy sician exposure to SARS-CoV-2 (COVID 19) Vitals/I&O Vitals/I&O: Vital Signs Date Time Temp Pulse Resp B/P (MAP) Pulse Ox O2 Delivery O2 Flow Rate FiO2 10/02/19 09:59 90 10/02/19 07:00 98.6 32 181/101 (127) 94 Venturi Mask 15.0 98.6 I & O 10/01/19 10/01/19 10/02/19 15:00 23:00 07:00 Intake Total 0 ml 0 ml 50 ml Output Total 350 ml 600 ml Balance 0 ml -350 ml -550 ml Physical Exam Physical Exam: Hands on exam deferred. see PCP/pulm note Visually he is lying down, alert in NAD Breathing is nonlabored. NC & VM Heart rhythm regular Answers questions appropriately PIV General: Alert, Cooperative Heart: Regular rate Abdomen: Normal bowel sounds, Soft Extremities: No clubbing Labs Labs: Laboratory Tests Test 10/01/19 13:00 10/01/19 17:44 10/02/19 03:48 10/02/19 07:36 Urine Collection Type Unknown Urine Color Dk yellow Urine Clarity Clear Urine pH 6.0 (<5.0-8.0) Urine Specific [place] 1.025 (1.000-1.030) Urine Protein 100 mg/dL (NEG-TRACE) Urine Glucose (UA) Negative mg/dL (NEG) Urine Ketones (Stick) Negative mg/dL (NEG) Urine Blood Negative (NEG) Urine Nitrite Negative (NEG) Urine Bilirubin Small (NEG) Urine Urobilinogen Dipstick >=8.0 mg/dL (0.2 mg/dL) Urine Leukocyte Esterase Negative (NEG) Urine RBC Rare /HPF (0-2) Urine WBC Occ /HPF (0-4) Urine Transitional Epithelial Cells Occ /LPF Urine Bacteria 0 /HPF (0-FEW) Urine Mucus Marked /LPF Glucose (Fingerstick) 110 mg/dL (70-99) 113 mg/dL (70-99) Sodium Level 147 mmol/L (136-145) Potassium Level 3.6 mmol/L (3.5-5.1) Chloride Level 110 mmol/L (98-107) Carbon Dioxide Level 26 mmol/L (21-32) Anion Gap 11 (6-14) Blood Urea Nitrogen 15 mg/dL (8-26) Creatinine 1.0 mg/dL (0.7-1.3) Estimated GFR (Cockcroft-Gault) 92.2 Glucose Level 104 mg/dL (70-99) Calcium Level 8.6 mg/dL (8.5-10.1) Assessment and Plan Assessmemt and Plan Problems Medical Problems: (1) Pneumonia Status: Acute (2) Renal insufficiency Status: Acute GPC bacteremia (4 of 4 bottles), from 09/25. MRSE -Repeat BC 09/26 neg to date Acute respiratory failure w/pulmonary infiltrate. COVID-19 positive Fever. ROCIO Abx allergy ceftriaxone Dementia.Acute bibasilar infiltrates greater on the right. 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 Medications: Current Medications Medications (Trade) Dose Ordered Sig/Arely Route PRN Reason Start Time Stop Time Status Last Admin Dose Admin Hydralazine HCl (Apresoline Inj) 10 mg PRN Q4HRS PRN IVP ELEVATED BP, SEE COMMENTS 10/01/19 13:45 10/02/19 03:38 LIANA LOVETT III DO Oct 02, 2019 11:57
--- NOTE | 2019-10-02 13:31 | PDOC ---
SUBJECTIVE ROS No concerns voiced by RN OBJECTIVE Vital Signs Vital Signs Date Time Temp Pulse Resp B/P (MAP) Pulse Ox O2 Delivery O2 Flow Rate FiO2 10/02/19 11:11 98.9 75 36 138/95 (109) 96 Venturi Mask 15.0 98.9 I & 0 Intake and Output 10/02/19 07:00 Intake Total 50 ml Output Total 950 ml Balance -900 ml Intake Oral 50 ml Output Urine Total 950 ml # Voids 1 # Bowel Movements 3 PHYSICAL EXAM Physical Exam Patient unable to be examined however physical exam was corroborated with DIAGNOSIS/ASSESSMENT Assessment & Plan Hypernatremia: Continue hypotonic IV fluids at this time. Appears to be improving gradually. ROCIO - resolved Acute hypoxic respiratory failure secondary COVID-19 positive pneumonia. Abnormal chest x-ray consistent with pneumonia, COVID-19 positive . Cannot exclude superimposed bacterial pneumonia. Gram + Bacteremia (09/29 BC ) Broad spectrum antibiotic with Azithro, meropenem, and dapto Follow ID rec COMMENT/RELEVANT DATA Meds Current Medications Medications (Trade) Dose Ordered Sig/Arely Start Time Stop Time Status Last Admin Dose Admin Acetaminophen (Tylenol Supp) 650 mg PRN Q6HRS PRN 09/29/19 02:00 09/29/19 02:14 650 MG Acetaminophen (Tylenol) 650 mg PRN Q4HRS PRN 09/26/19 13:45 10/02/19 09:59 650 MG Albuterol Sulfate (Ventolin Neb Soln) 2.5 mg PRN Q4HRS PRN 09/26/19 13:45 Amlodipine Besylate (Norvasc) 10 mg DAILY 09/28/19 15:00 10/02/19 09:59 10 MG Aspirin (Ecotrin) 81 mg DAILY 09/28/19 15:00 10/02/19 09:59 81 MG Atorvastatin Calcium (Lipitor) 20 mg HS 09/28/19 21:00 10/01/19 20:59 20 MG Azithromycin 500 mg/Sodium Chloride 250 ml @ 250 mls/hr Q24H 09/27/19 12:00 10/01/19 12:36 DC 09/30/19 12:00 250 MLS/HR Carvedilol (Coreg) 25 mg BIDWMEALS 09/28/19 17:00 10/02/19 09:59 25 MG Clonidine HCl (Catapres) 0.1 mg PRN Q6HRS PRN 09/26/19 13:45 09/29/19 23:48 0.1 MG Daptomycin 590 mg/ Sodium Chloride 50 ml @ 100 mls/hr Q24H 09/28/19 12:00 10/01/19 13:24 100 MLS/HR Dextrose 1,000 ml @ 50 mls/hr 1X ONCE 10/01/19 10:30 10/02/19 06:29 DC Docusate Sodium (Colace) 100 mg PRN BID PRN 09/26/19 13:45 Guaifenesin (Robitussin) 200 mg PRN Q4HRS PRN 09/26/19 13:45 10/01/19 21:04 200 MG Hydralazine HCl (Apresoline Inj) 10 mg PRN Q4HRS PRN 10/01/19 13:45 10/02/19 03:38 10 MG Hydralazine HCl (Apresoline) 25 mg TID 09/28/19 15:00 10/02/19 09:58 25 MG Hydroxychloroquine Sulfate (Plaquenil (Med Program)) 200 mg BID 09/29/19 21:00 10/03/19 09:01 10/02/19 09:59 200 MG Hydroxychloroquine Sulfate (Plaquenil) 400 mg BID 09/28/19 19:00 09/29/19 09:01 DC 09/29/19 09:00 400 MG Lactobacillus Rhamnosus (Culturelle) 1 cap BID 09/28/19 21:00 10/02/19 09:58 1 CAP Linezolid/Dextrose 300 ml @ 300 mls/hr Q12HR 09/27/19 21:00 09/28/19 10:52 DC 09/28/19 09:16 300 MLS/HR Lorazepam (Ativan Inj) 1 mg PRN Q4HRS PRN 09/26/19 23:15 09/28/19 05:54 1 MG Meropenem 1 gm/ Sodium Chloride 100 ml @ 200 mls/hr Q8HRS 09/26/19 14:00 UNV Meropenem 500 mg/ Sodium Chloride 50 ml @ 100 mls/hr Q6HRS 09/26/19 18:00 10/02/19 06:12 100 MLS/HR Olanzapine (ZyPREXA IM) 10 mg 1X ONCE 09/28/19 14:15 09/28/19 14:16 DC 09/28/19 14:55 10 MG Olanzapine (ZyPREXA ZYDIS) 5 mg PRN BID PRN 09/28/19 14:15 10/01/19 21:05 5 MG Ondansetron HCl (Zofran) 4 mg PRN Q4HRS PRN 09/26/19 13:45 Piperacillin Sod/ Tazobactam Sod 4.5 gm/Sodium Chloride 100 ml @ 200 mls/hr 1X ONCE 09/26/19 12:45 09/26/19 13:14 UNV Sodium Monofluorophosphate (Fleet Adult) 133 ml PRN DAILY PRN 09/26/19 13:45 Sodium Chloride 1,000 ml @ 75 mls/hr [id number] 09/26/19 13:42 09/29/19 17:09 DC 09/28/19 21:50 75 MLS/HR Sodium Chloride (Normal Saline Flush) 3 ml QSHIFT PRN 09/26/19 13:45 Tamsulosin HCl (Flomax) 0.4 mg QHS 09/28/19 21:00 10/01/19 21:07 0.4 MG Vancomycin HCl (Vanco Per Pharmacy) 1 each PRN DAILY PRN 09/26/19 13:45 09/27/19 11:04 DC 09/26/19 14:30 1 EACH Vancomycin HCl (Vancomycin Trough Level) 1 each 1X ONCE 09/28/19 12:30 09/28/19 12:31 Cancel Vancomycin HCl 1.75 gm/Sodium Chloride 500 ml @ 250 mls/hr Q24H 09/27/19 13:00 09/27/19 11:04 DC Vancomycin HCl 2 gm/Sodium Chloride 500 ml @ 250 mls/hr 1X ONCE 09/26/19 12:45 09/26/19 14:44 DC 09/26/19 13:01 250 MLS/HR Lab Laboratory Tests Test 10/01/19 17:44 10/02/19 03:48 10/02/19 07:36 10/02/19 12:02 Glucose (Fingerstick) 110 mg/dL (70-99) 113 mg/dL (70-99) 119 mg/dL (70-99) Sodium Level 147 mmol/L (136-145) Potassium Level 3.6 mmol/L (3.5-5.1) Chloride Level 110 mmol/L (98-107) Carbon Dioxide Level 26 mmol/L (21-32) Anion Gap 11 (6-14) Blood Urea Nitrogen 15 mg/dL (8-26) Creatinine 1.0 mg/dL (0.7-1.3) Estimated GFR (Cockcroft-Gault) 92.2 Glucose Level 104 mg/dL (70-99) Calcium Level 8.6 mg/dL (8.5-10.1) Results All relevant outside records, renal labs, imaging studies, telemetry/EKG's were reviewed. DAX LOCKETT MD Oct 02, 2019 13:31
--- NOTE | 2019-10-02 13:46 | PDOC ---
Infectious Disease Note Subjective: Subjective Feeling better today Less work of breathing O2 down to 40% via VM Fever Tmax 100.0 Denies pain/N/V/D Vital Signs: Vital Signs Vital Signs Date Time Temp Pulse Resp B/P (MAP) Pulse Ox O2 Delivery O2 Flow Rate FiO2 10/02/19 11:11 98.9 75 36 138/95 (109) 96 Venturi Mask 15.0 98.9 Physical Exam: PHYSICAL EXAM Hands on exam deferred. see PCP/pulm note Visually he is lying down, alert in NAD Breathing is nonlabored. NC & VM Heart rhythm regular Answers questions appropriately PIV Medications: Inpatient Meds: Current Medications Medications (Trade) Dose Ordered Sig/Arely Start Time Stop Time Status Last Admin Dose Admin Acetaminophen (Tylenol Supp) 650 mg PRN Q6HRS PRN 09/29/19 02:00 09/29/19 02:14 650 MG Acetaminophen (Tylenol) 650 mg PRN Q4HRS PRN 09/26/19 13:45 10/02/19 09:59 650 MG Albuterol Sulfate (Ventolin Neb Soln) 2.5 mg PRN Q4HRS PRN 09/26/19 13:45 Amlodipine Besylate (Norvasc) 10 mg DAILY 09/28/19 15:00 10/02/19 09:59 10 MG Aspirin (Ecotrin) 81 mg DAILY 09/28/19 15:00 10/02/19 09:59 81 MG Atorvastatin Calcium (Lipitor) 20 mg HS 09/28/19 21:00 10/01/19 20:59 20 MG Azithromycin 500 mg/Sodium Chloride 250 ml @ 250 mls/hr Q24H 09/27/19 12:00 10/01/19 12:36 DC 09/30/19 12:00 250 MLS/HR Carvedilol (Coreg) 25 mg BIDWMEALS 09/28/19 17:00 10/02/19 09:59 25 MG Clonidine HCl (Catapres) 0.1 mg PRN Q6HRS PRN 09/26/19 13:45 09/29/19 23:48 0.1 MG Daptomycin 590 mg/ Sodium Chloride 50 ml @ 100 mls/hr Q24H 09/28/19 12:00 10/01/19 13:24 100 MLS/HR Dextrose 1,000 ml @ 50 mls/hr 1X ONCE 10/01/19 10:30 10/02/19 06:29 DC Docusate Sodium (Colace) 100 mg PRN BID PRN 09/26/19 13:45 Guaifenesin (Robitussin) 200 mg PRN Q4HRS PRN 09/26/19 13:45 10/01/19 21:04 200 MG Hydralazine HCl (Apresoline Inj) 10 mg PRN Q4HRS PRN 10/01/19 13:45 10/02/19 03:38 10 MG Hydralazine HCl (Apresoline) 25 mg TID 09/28/19 15:00 10/02/19 09:58 25 MG Hydroxychloroquine Sulfate (Plaquenil (Med Program)) 200 mg BID 09/29/19 21:00 10/03/19 09:01 10/02/19 09:59 200 MG Hydroxychloroquine Sulfate (Plaquenil) 400 mg BID 09/28/19 19:00 09/29/19 09:01 DC 09/29/19 09:00 400 MG Lactobacillus Rhamnosus (Culturelle) 1 cap BID 09/28/19 21:00 10/02/19 09:58 1 CAP Linezolid/Dextrose 300 ml @ 300 mls/hr Q12HR 09/27/19 21:00 09/28/19 10:52 DC 09/28/19 09:16 300 MLS/HR Lorazepam (Ativan Inj) 1 mg PRN Q4HRS PRN 09/26/19 23:15 09/28/19 05:54 1 MG Meropenem 1 gm/ Sodium Chloride 100 ml @ 200 mls/hr Q8HRS 09/26/19 14:00 UNV Meropenem 500 mg/ Sodium Chloride 50 ml @ 100 mls/hr Q6HRS 09/26/19 18:00 10/02/19 13:28 100 MLS/HR Olanzapine (ZyPREXA IM) 10 mg 1X ONCE 09/28/19 14:15 09/28/19 14:16 DC 09/28/19 14:55 10 MG Olanzapine (ZyPREXA ZYDIS) 5 mg PRN BID PRN 09/28/19 14:15 10/01/19 21:05 5 MG Ondansetron HCl (Zofran) 4 mg PRN Q4HRS PRN 09/26/19 13:45 Piperacillin Sod/ Tazobactam Sod 4.5 gm/Sodium Chloride 100 ml @ 200 mls/hr 1X ONCE 09/26/19 12:45 09/26/19 13:14 UNV Sodium Monofluorophosphate (Fleet Adult) 133 ml PRN DAILY PRN 09/26/19 13:45 Sodium Chloride 1,000 ml @ 75 mls/hr [id number] 09/26/19 13:42 09/29/19 17:09 DC 09/28/19 21:50 75 MLS/HR Sodium Chloride (Normal Saline Flush) 3 ml QSHIFT PRN 09/26/19 13:45 Tamsulosin HCl (Flomax) 0.4 mg QHS 09/28/19 21:00 10/01/19 21:07 0.4 MG Vancomycin HCl (Vanco Per Pharmacy) 1 each PRN DAILY PRN 09/26/19 13:45 09/27/19 11:04 DC 09/26/19 14:30 1 EACH Vancomycin HCl (Vancomycin Trough Level) 1 each 1X ONCE 09/28/19 12:30 09/28/19 12:31 Cancel Vancomycin HCl 1.75 gm/Sodium Chloride 500 ml @ 250 mls/hr Q24H 09/27/19 13:00 09/27/19 11:04 DC Vancomycin HCl 2 gm/Sodium Chloride 500 ml @ 250 mls/hr 1X ONCE 09/26/19 12:45 09/26/19 14:44 DC 09/26/19 13:01 250 MLS/HR Labs: Lab Laboratory Tests Test 10/01/19 17:44 10/02/19 03:48 10/02/19 07:36 10/02/19 12:02 Glucose (Fingerstick) 110 mg/dL (70-99) 113 mg/dL (70-99) 119 mg/dL (70-99) Sodium Level 147 mmol/L (136-145) Potassium Level 3.6 mmol/L (3.5-5.1) Chloride Level 110 mmol/L (98-107) Carbon Dioxide Level 26 mmol/L (21-32) Anion Gap 11 (6-14) Blood Urea Nitrogen 15 mg/dL (8-26) Creatinine 1.0 mg/dL (0.7-1.3) Estimated GFR (Cockcroft-Gault) 92.2 Glucose Level 104 mg/dL (70-99) Calcium Level 8.6 mg/dL (8.5-10.1) Objective: Assessment: GPC bacteremia (4 of 4 bottles), from 09/25. MRSE -Repeat BC 09/26 neg to date Acute respiratory failure w/pulmonary infiltrate. COVID-19 positive Fever. ROCIO Abx allergy ceftriaxone Dementia. Cerebrovascular accident. Plan: Plan of Care cont Dapto DC merrem Plaquenil d/c Azithromycin - completed course Monitor abx toxicities Airborne isolation for + COVID-19 Critically ill Attending Co-Sign Visual exam done. The chart was reviewed. The case was discussed. Agree with the plan of care. VIVIANA BAY MD Oct 02, 2019 13:46
[2019-10-02] MEDS: DAPTOmycin (GENERIC) IVPB 590 MG in IV NORMAL SALINE 50ML 50 ML IV SCH (14:57)
[2019-10-02] MEDS: IV DEXTROSE 5% 1,000 ML IV SCH (14:57)
[2019-10-02 15:00] VITALS: BP 149/100
[2019-10-02 19:05] VITALS: BP 189/104
[2019-10-02] MEDS: TAMSULOSIN 0.4 MG CAP.ER.24H. PO SCH (20:17)
[2019-10-02] MEDS: guaiFENesin ORAL 200 MG/10 ML LIQUID. PO PRN (20:17)
[2019-10-02] MEDS: ATORVASTATIN CALCIUM 20 MG TABLET PO SCH (20:17)
[2019-10-02] MEDS: cloNIDine HCL 0.1 MG TABLET PO PRN (20:18)
[2019-10-02 23:05] VITALS: BP 145/89
[2019-10-03] MEDS: IV DEXTROSE 5% 1,000 ML IV SCH ×2 (02:35→20:19)
[2019-10-03 03:08] VITALS: BP 141/88
[2019-10-03 07:00] VITALS: BP 130/101
[2019-10-03] MEDS: ACETAMINOPHEN 325 MG TABLET. PO PRN (08:55)
[2019-10-03] MEDS: HYDROXYCHLOROQUINE (PROGRAM) 200 MG TABLET PO SCH (08:55)
[2019-10-03] MEDS: amLODIPine BESYLATE 10 MG TABLET PO SCH (08:55)
[2019-10-03] MEDS: hydrALAZINE 25 MG TABLET PO SCH ×2 (08:56→14:00)
[2019-10-03] MEDS: CARVEDILOL 12.5 MG TABLET. PO SCH ×2 (08:56→15:55)
[2019-10-03] MEDS: ASPIRIN ENTERIC COATED 81 MG TABLET.DR. PO SCH (08:56)
[2019-10-03] MEDS: LACTOBACILLUS RHAMNOSUS GG 1 CAPSULE. PO SCH (08:56)
--- NOTE | 2019-10-03 10:35 | PDOC ---
SUBJECTIVE ROS Worsening resp status per nursing OBJECTIVE Vital Signs Vital Signs Date Time Temp Pulse Resp B/P (MAP) Pulse Ox O2 Delivery O2 Flow Rate FiO2 10/03/19 08:56 105 10/03/19 07:00 99.7 22 130/101 (111) 90 Nasal Cannula 10.0 99.7 I & 0 Intake and Output 10/03/19 07:00 Intake Total 0 ml Output Total 1000 ml Balance -1000 ml Intake Oral 0 ml Output Urine Total 1000 ml # Bowel Movements 1 PHYSICAL EXAM Physical Exam Deferred PE per primary /Pulm DIAGNOSIS/ASSESSMENT Assessment & Plan Hypernatremia: was improving No labs this am ROCIO - resolved Acute hypoxic respiratory failure secondary COVID-19 positive pneumonia. Worsening resp status Abnormal chest x-ray consistent with pneumonia, COVID-19 positive . Gram + Bacteremia (09/29 BC ) Broad spectrum antibiotic with Azithro, meropenem, and dapto Follow ID rec COMMENT/RELEVANT DATA Meds Current Medications Medications (Trade) Dose Ordered Sig/Arely Start Time Stop Time Status Last Admin Dose Admin Acetaminophen (Tylenol Supp) 650 mg PRN Q6HRS PRN 09/29/19 02:00 09/29/19 02:14 650 MG Acetaminophen (Tylenol) 650 mg PRN Q4HRS PRN 09/26/19 13:45 10/03/19 08:55 650 MG Albuterol Sulfate (Ventolin Neb Soln) 2.5 mg PRN Q4HRS PRN 09/26/19 13:45 Amlodipine Besylate (Norvasc) 10 mg DAILY 09/28/19 15:00 10/03/19 08:55 10 MG Aspirin (Ecotrin) 81 mg DAILY 09/28/19 15:00 10/03/19 08:56 81 MG Atorvastatin Calcium (Lipitor) 20 mg HS 09/28/19 21:00 10/02/19 20:17 20 MG Azithromycin 500 mg/Sodium Chloride 250 ml @ 250 mls/hr Q24H 09/27/19 12:00 10/01/19 12:36 DC 09/30/19 12:00 250 MLS/HR Carvedilol (Coreg) 25 mg BIDWMEALS 09/28/19 17:00 10/03/19 08:56 25 MG Clonidine HCl (Catapres) 0.1 mg PRN Q6HRS PRN 09/26/19 13:45 10/02/19 20:18 0.1 MG Daptomycin 590 mg/ Sodium Chloride 50 ml @ 100 mls/hr Q24H 09/28/19 12:00 10/02/19 14:57 100 MLS/HR Dextrose 1,000 ml @ 50 mls/hr 1X ONCE 10/01/19 10:30 10/02/19 06:29 DC Docusate Sodium (Colace) 100 mg PRN BID PRN 09/26/19 13:45 Guaifenesin (Robitussin) 200 mg PRN Q4HRS PRN 09/26/19 13:45 10/02/19 20:17 200 MG Hydralazine HCl (Apresoline Inj) 10 mg PRN Q4HRS PRN 10/01/19 13:45 10/02/19 03:38 10 MG Hydralazine HCl (Apresoline) 25 mg TID 09/28/19 15:00 10/03/19 08:56 25 MG Hydroxychloroquine Sulfate (Plaquenil (Med Program)) 200 mg BID 09/29/19 21:00 10/03/19 09:01 DC 10/03/19 08:55 200 MG Hydroxychloroquine Sulfate (Plaquenil) 400 mg BID 09/28/19 19:00 09/29/19 09:01 DC 09/29/19 09:00 400 MG Lactobacillus Rhamnosus (Culturelle) 1 cap BID 09/28/19 21:00 10/03/19 08:56 1 CAP Linezolid/Dextrose 300 ml @ 300 mls/hr Q12HR 09/27/19 21:00 09/28/19 10:52 DC 09/28/19 09:16 300 MLS/HR Lorazepam (Ativan Inj) 1 mg PRN Q4HRS PRN 09/26/19 23:15 10/03/19 07:13 1 MG Meropenem 1 gm/ Sodium Chloride 100 ml @ 200 mls/hr Q8HRS 09/26/19 14:00 UNV Meropenem 500 mg/ Sodium Chloride 50 ml @ 100 mls/hr Q6HRS 09/26/19 18:00 10/02/19 13:47 DC 10/02/19 13:28 100 MLS/HR Olanzapine (ZyPREXA IM) 10 mg 1X ONCE 09/28/19 14:15 09/28/19 14:16 DC 09/28/19 14:55 10 MG Olanzapine (ZyPREXA ZYDIS) 5 mg PRN BID PRN 09/28/19 14:15 10/02/19 20:17 5 MG Ondansetron HCl (Zofran) 4 mg PRN Q4HRS PRN 09/26/19 13:45 Piperacillin Sod/ Tazobactam Sod 4.5 gm/Sodium Chloride 100 ml @ 200 mls/hr 1X ONCE 09/26/19 12:45 09/26/19 13:14 UNV Sodium Monofluorophosphate (Fleet Adult) 133 ml PRN DAILY PRN 09/26/19 13:45 Sodium Chloride 1,000 ml @ 75 mls/hr [id number] 09/26/19 13:42 09/29/19 17:09 DC 09/28/19 21:50 75 MLS/HR Sodium Chloride (Normal Saline Flush) 3 ml QSHIFT PRN 09/26/19 13:45 Tamsulosin HCl (Flomax) 0.4 mg QHS 09/28/19 21:00 10/02/19 20:17 0.4 MG Vancomycin HCl (Vanco Per Pharmacy) 1 each PRN DAILY PRN 09/26/19 13:45 09/27/19 11:04 DC 09/26/19 14:30 1 EACH Vancomycin HCl (Vancomycin Trough Level) 1 each 1X ONCE 09/28/19 12:30 09/28/19 12:31 Cancel Vancomycin HCl 1.75 gm/Sodium Chloride 500 ml @ 250 mls/hr Q24H 09/27/19 13:00 09/27/19 11:04 DC Vancomycin HCl 2 gm/Sodium Chloride 500 ml @ 250 mls/hr 1X ONCE 09/26/19 12:45 09/26/19 14:44 DC 09/26/19 13:01 250 MLS/HR Lab Laboratory Tests Test 10/02/19 12:02 10/02/19 21:17 Glucose (Fingerstick) 119 mg/dL (70-99) 126 mg/dL (70-99) Results All relevant outside records, renal labs, imaging studies, telemetry/EKG's were reviewed. DAX LOCKETT MD Oct 03, 2019 10:35
--- NOTE | 2019-10-03 10:56 | PDOC ---
Infectious Disease Note Subjective: Subjective pt continues to remain on O2 by Fever Tmax 100.0 Denies pain/N/V/D Vital Signs: Vital Signs Vital Signs Date Time Temp Pulse Resp B/P (MAP) Pulse Ox O2 Delivery O2 Flow Rate FiO2 10/03/19 08:56 105 10/03/19 07:00 99.7 22 130/101 (111) 90 Nasal Cannula 10.0 99.7 Physical Exam: PHYSICAL EXAM Hands on exam deferred. see PCP/pulm note Visually he is lying down, alert in NAD Breathing is nonlabored. NC & VM Heart rhythm regular Answers questions appropriately PIV Medications: Inpatient Meds: Current Medications Medications (Trade) Dose Ordered Sig/Arely Start Time Stop Time Status Last Admin Dose Admin Acetaminophen (Tylenol Supp) 650 mg PRN Q6HRS PRN 09/29/19 02:00 09/29/19 02:14 650 MG Acetaminophen (Tylenol) 650 mg PRN Q4HRS PRN 09/26/19 13:45 10/03/19 08:55 650 MG Albuterol Sulfate (Ventolin Neb Soln) 2.5 mg PRN Q4HRS PRN 09/26/19 13:45 Amlodipine Besylate (Norvasc) 10 mg DAILY 09/28/19 15:00 10/03/19 08:55 10 MG Aspirin (Ecotrin) 81 mg DAILY 09/28/19 15:00 10/03/19 08:56 81 MG Atorvastatin Calcium (Lipitor) 20 mg HS 09/28/19 21:00 10/02/19 20:17 20 MG Azithromycin 500 mg/Sodium Chloride 250 ml @ 250 mls/hr Q24H 09/27/19 12:00 10/01/19 12:36 DC 09/30/19 12:00 250 MLS/HR Carvedilol (Coreg) 25 mg BIDWMEALS 09/28/19 17:00 10/03/19 08:56 25 MG Clonidine HCl (Catapres) 0.1 mg PRN Q6HRS PRN 09/26/19 13:45 10/02/19 20:18 0.1 MG Daptomycin 590 mg/ Sodium Chloride 50 ml @ 100 mls/hr Q24H 09/28/19 12:00 10/02/19 14:57 100 MLS/HR Dextrose 1,000 ml @ 50 mls/hr 1X ONCE 10/01/19 10:30 10/02/19 06:29 DC Docusate Sodium (Colace) 100 mg PRN BID PRN 09/26/19 13:45 Guaifenesin (Robitussin) 200 mg PRN Q4HRS PRN 09/26/19 13:45 10/02/19 20:17 200 MG Hydralazine HCl (Apresoline Inj) 10 mg PRN Q4HRS PRN 10/01/19 13:45 10/02/19 03:38 10 MG Hydralazine HCl (Apresoline) 25 mg TID 09/28/19 15:00 10/03/19 08:56 25 MG Hydroxychloroquine Sulfate (Plaquenil (Med Program)) 200 mg BID 09/29/19 21:00 10/03/19 09:01 DC 10/03/19 08:55 200 MG Hydroxychloroquine Sulfate (Plaquenil) 400 mg BID 09/28/19 19:00 09/29/19 09:01 DC 09/29/19 09:00 400 MG Lactobacillus Rhamnosus (Culturelle) 1 cap BID 09/28/19 21:00 10/03/19 08:56 1 CAP Linezolid/Dextrose 300 ml @ 300 mls/hr Q12HR 09/27/19 21:00 09/28/19 10:52 DC 09/28/19 09:16 300 MLS/HR Lorazepam (Ativan Inj) 1 mg PRN Q4HRS PRN 09/26/19 23:15 10/03/19 07:13 1 MG Meropenem 1 gm/ Sodium Chloride 100 ml @ 200 mls/hr Q8HRS 09/26/19 14:00 UNV Meropenem 500 mg/ Sodium Chloride 50 ml @ 100 mls/hr Q6HRS 09/26/19 18:00 10/02/19 13:47 DC 10/02/19 13:28 100 MLS/HR Olanzapine (ZyPREXA IM) 10 mg 1X ONCE 09/28/19 14:15 09/28/19 14:16 DC 09/28/19 14:55 10 MG Olanzapine (ZyPREXA ZYDIS) 5 mg PRN BID PRN 09/28/19 14:15 4/6/20 20:17 5 MG Ondansetron HCl (Zofran) 4 mg PRN Q4HRS PRN 09/26/19 13:45 Piperacillin Sod/ Tazobactam Sod 4.5 gm/Sodium Chloride 100 ml @ 200 mls/hr 1X ONCE 09/26/19 12:45 09/26/19 13:14 UNV Sodium Monofluorophosphate (Fleet Adult) 133 ml PRN DAILY PRN 09/26/19 13:45 Sodium Chloride 1,000 ml @ 75 mls/hr [id number] 09/26/19 13:42 09/29/19 17:09 DC 09/28/19 21:50 75 MLS/HR Sodium Chloride (Normal Saline Flush) 3 ml QSHIFT PRN 09/26/19 13:45 Tamsulosin HCl (Flomax) 0.4 mg QHS 09/28/19 21:00 10/02/19 20:17 0.4 MG Vancomycin HCl (Vanco Per Pharmacy) 1 each PRN DAILY PRN 09/26/19 13:45 09/27/19 11:04 DC 09/26/19 14:30 1 EACH Vancomycin HCl (Vancomycin Trough Level) 1 each 1X ONCE 09/28/19 12:30 09/28/19 12:31 Cancel Vancomycin HCl 1.75 gm/Sodium Chloride 500 ml @ 250 mls/hr Q24H 09/27/19 13:00 09/27/19 11:04 DC Vancomycin HCl 2 gm/Sodium Chloride 500 ml @ 250 mls/hr 1X ONCE 09/26/19 12:45 09/26/19 14:44 DC 09/26/19 13:01 250 MLS/HR Labs: Lab Laboratory Tests Test 10/02/19 12:02 10/02/19 21:17 Glucose (Fingerstick) 119 mg/dL (70-99) 126 mg/dL (70-99) Objective: Assessment: GPC bacteremia (4 of 4 bottles), from 09/25. MRSE -Repeat BC 09/26 neg to date Acute respiratory failure w/pulmonary infiltrate. COVID-19 positive Fever. ROCIO Abx allergy ceftriaxone Dementia. Cerebrovascular accident. Plan: Plan of Care cont Dapto off merrem 10/01 Plaquenil and Azithromycin - completed course Monitor abx toxicities Airborne isolation for + COVID-19 Critically ill D/W VIVIANA OLIVEIRA MD Oct 03, 2019 10:56
[2019-10-03 11:00] VITALS: BP 137/94
--- NOTE | 2019-10-03 12:20 | PDOC ---
[employer] PROGRESS NOTE Chief Complaint Chief Complaint COVID-19 CRITERIA: The patient was evaluated during the global COVID-19 pandemic, and that diagnosis was suspected/considered upon their initial presen tation. Their evaluation, treatment and testing was consistent with current guidelines for patients who present with complaints or symptoms that may be related to COVID-19. Acute bibasilar infiltrates greater on the right. c/w pneumonia FEVER, persistent Acute hypoxic resp failure arrhythmias DEMENITIA pos blood cultures - looks like staph - IV MERREM q 8n hrs, iv zyvox, iv zit hromax Hypernatremia History of CVA on the right handed individual with right-handed weakness Essential hypertension Acute encephalopathy DM2 History of Present Illness History of Present Illness 10-03-2019 Patient seen and examined on the Covid-19 unit He is on 100% nonrebreather plus a nasal cannula at 15 L Still gasping for air Appears to be actively dying Discussed with nurse Chart reviewed I also called his Sister Lyudmila and explained the situation Patient seen and examined on the Covid 19 unit Chart reviewed Discussed with RN Mr Cherry is a 58 yo M senior living resident of [facility] w/ PMHx DM2, HLD, hypertension, dementia, and prior strokes who has a residual right sided deficit admitted with complaint of cough and shortness of breath. The patient was noted to have a fever of 101.9. Chest x-ray was reviewed and was consistent with pneumonia involving the lower lobes, mostly on the right lower lobe. Placed on 4 liters of oxygen. Unable to obtain much history from the patient due to his dementia. COVID-19 CRITERIA: The patient was evaluated during the global COVID-19 pandemic, and that diagnosis was suspected/considered upon their initial presentation. Their evaluation, treatment and testing were consistent with curr ent guidelines for patients who present with complaints or symptoms that may be related to COVID-19 09/27: SARS-CoV-2 (COVID 19) POSITIVE Test. 08/29 bottles positive for GPC in clusters on blood cultures. Still on venti-mask O2, saturating 94%. 09/28: Rapid response called last night due to worsening hypoxia due to patient continually removing his venti-mask O2 and confused, thought he was at [facility] in 2019. Still on venti-mask O2 15L, saturating 94%. Conversational dyspnea. Still febrile 101.2F. TMax 102F 24 hours ago. 09/29: TMax 100.9F. Changed to daptomycin, merrem, azithomycin, hydroxychloroquine for staph 09/29 bottles positive on blood culture and SARS-CoV-2 positive. He has no complaints currently except that he wants to eat. Does have conversational dyspnea, 12L O2 on mask, won't wear mask Blood cultures positive for staph hominis. Patient is on daptomycin. Still pulling at his O2. No real complaints. Plan: I have discussed with Dr. Prieto who is seeing patient with me via telemedicine, E khadijah. I have shared my physical examination findings with him to minimize physician exposure to SARS-CoV-2 (COVID 19) Vitals/I&O Vitals/I&O: Vital Signs Date Time Temp Pulse Resp B/P (MAP) Pulse Ox O2 Delivery O2 Flow Rate FiO2 10/03/19 11:00 99.2 104 22 137/94 (108) 87 Nasal Cannula 10.0 99.2 I & O 10/02/19 10/02/19 10/03/19 15:00 23:00 07:00 Intake Total 0 ml 0 ml 0 ml Output Total 1000 ml Balance 0 ml -1000 ml 0 ml Physical Exam General: severe distress Heart: Other (Tachycardic) Lungs: Wheezing, Crackles, Other (Coarse breath sounds tachypneic) Abdomen: Soft, No tenderness Extremities: No clubbing Labs Labs: Laboratory Tests Test 10/02/19 21:17 10/03/19 11:26 Glucose (Fingerstick) 126 mg/dL (70-99) 168 mg/dL (70-99) Assessment and Plan Assessmemt and Plan Problems Medical Problems: (1) Pneumonia Status: Acute (2) Renal insufficiency Status: Acut COVID-19 CRITERIA: The patient was evaluated during the global COVID-19 pandemic, and that diagnosis was suspected/considered upon their initial presentation. Their evaluation, treatment and testing was consistent with current guidelines for patients who present with complaints or symptoms that may be related to COVID-19. GPC bacteremia (4 of 4 bottles), from 09/25. MRSE -Repeat BC 09/26 neg to date Acute respiratory failure w/pulmonary infiltrate. COVID-19 positive Fever. ROCIO Abx allergy ceftriaxone Dementia.Acute bibasilar infiltrates greater on the right. 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 Their evaluation, treatment and testing was consistent with current guidelines for patients who present with complaints or symptoms that may be related to COVID-19. Total time 31 minutes Comment Review of Relevant I have reviewed the following items rochelle (where applicable) has been applied. LIANA LOVETT III DO Oct 03, 2019 12:20
[2019-10-03] MEDS: DAPTOmycin (GENERIC) IVPB 590 MG in IV NORMAL SALINE 50ML 50 ML IV SCH (14:32)
[2019-10-03] MEDS: MORPHINE SULFATE 2 MG/ML VIAL. IV PRN ×3 (14:33→21:02)
[2019-10-03 14:48] VITALS: BP 142/88
--- NOTE | 2019-10-03 17:20 | PDOC ---
PULMONARY PROGRESS NOTES Subjective Patient sleepy currently on 15 L of oxygen Vitals Vital Signs Date Time Temp Pulse Resp B/P (MAP) Pulse Ox O2 Delivery O2 Flow Rate FiO2 10/03/19 14:48 99.1 95 22 142/88 (106) 85 Nasal Cannula 10.0 99.1 General: Alert Lungs: Wheezing, Crackles, Other (Coarse breath sounds tachypneic) Abdomen: Soft Neuro Exam: Alert Extremities: No Edema Skin: Warm Labs Laboratory Tests Test 10/01/19 17:44 10/02/19 03:48 10/02/19 07:36 10/02/19 12:02 Glucose (Fingerstick) 110 mg/dL (70-99) 113 mg/dL (70-99) 119 mg/dL (70-99) Sodium Level 147 mmol/L (136-145) Potassium Level 3.6 mmol/L (3.5-5.1) Chloride Level 110 mmol/L (98-107) Carbon Dioxide Level 26 mmol/L (21-32) Anion Gap 11 (6-14) Blood Urea Nitrogen 15 mg/dL (8-26) Creatinine 1.0 mg/dL (0.7-1.3) Estimated GFR (Cockcroft-Gault) 92.2 Glucose Level 104 mg/dL (70-99) Calcium Level 8.6 mg/dL (8.5-10.1) Test 10/02/19 21:17 10/03/19 11:26 10/03/19 16:23 Glucose (Fingerstick) 126 mg/dL (70-99) 168 mg/dL (70-99) 121 mg/dL (70-99) Laboratory Tests Test 10/02/19 21:17 10/03/19 11:26 10/03/19 16:23 Glucose (Fingerstick) 126 mg/dL (70-99) 168 mg/dL (70-99) 121 mg/dL (70-99) Medications Active Scripts Medications Dose Route/Sig Max Daily Dose Days Date Category Mupirocin Ointment (Mupirocin) 22 Gm Oint...g. 1 Bill TP DAILY 14 04/06/19 Rx Tylenol (Acetaminophen) 325 Mg Tablet 1-2 Tab PO PRN Q4HRS PRN 09/28/18 Reported Aspir-Low (Aspirin) 81 Mg Tablet.dr 1 Tab PO DAILY 09/28/18 Reported Atorvastatin Calcium 20 Mg Tablet 20 Mg PO HS 09/28/18 Reported Hydralazine Hcl 25 Mg Tablet 1 Tab PO TID 09/28/18 Reported Amlodipine Besylate 10 Mg Tablet 10 Mg PO DAILY 09/28/18 Reported Coreg (Carvedilol) 25 Mg Tablet 25 Mg PO BIDWMEALS 09/28/18 Reported Flomax (Tamsulosin Hcl) 0.4 Mg Cap.er.24h 1 Cap PO QHS 09/28/18 Reported Vitamin D2 (Ergocalciferol (Vitamin D2)) 50,000 Unit Capsule 1 Cap PO QMTH 09/28/18 Reported Impression . 1. Acute hypoxic respiratory failure secondary COVID-19 positive pneumonia. 2. Abnormal chest x-ray consistent with pneumonia, COVID-19 positive . Cannot exclude superimposed bacterial pneumonia. 3. Acute kidney injury. 4. Gram + Bacteremia (09/29 BC ) 5. Hypernatermia BLOOD CULTURE LC Final Final report BLD CULT RESULT 1 Final Comment Staphylococcus epidermidis Based on susceptibility to oxacillin this isolate would be susceptible to: *Penicillinase-stable penicillins, such as: Cloxacillin, Dicloxacillin, Nafcillin *Beta-lactam combination agents, such as: Amoxicillin-clavulanic acid, Ampicillin-sulbactam, Piperacillin-tazobactam *Oral cephems, such as: Cefaclor, Cefdinir, Cefpodoxime, Cefprozil, Cefuroxime, Cephalexin, Loracarbef *Parenteral cephems, such as: Cefazolin, Cefepime, Cefotaxime, Cefotetan, Ceftaroline, Ceftizoxime, Ceftriaxone, Cefuroxime *Carbapenems, such as: Doripenem, Ertapenem, Imipenem, Meropenem ANTIMICROBIAL SUSCEPTIBILITY Final Comment S = Susceptible; I = Intermediate; R = Resistant P = Positive; N = Negative MICS are expressed in micrograms per mL Antibiotic RSLT#1 RSLT#2 RSLT#3 RSLT#4 Ciprofloxacin S<=0.5 Clindamycin R>=8 Erythromycin R>=8 Gentamicin S<=0.5 Levofloxacin S =0.25 Linezolid S =1 Nitrofurantoin S<=16 Oxacillin S<=0.25 Penicillin R>=0.5 Quinupristin/Dalfopristin S<=0.25 Plan . Patient appears to be ill, maintaining O2 sats above 90, at times drops down, will provide PRN morphine and Ativan 1. We will continue present oxygen and closely monitor the hospital course. wean FIO2 to keep sats > 92% 2. Broad spectrum antibiotic with Azithro, meropenem, and dapto Follow ID rec 3. COVID-19 test Positive 4. cont. Plaquenil. 5. Antibiotics per ID Discussed with RN. JUAN PABLO GUZMAN MD Oct 03, 2019 17:20
[2019-10-03 19:35] VITALS: BP 186/103
[2019-10-03 20:16] VITALS: BP 186/103
[2019-10-03] MEDS: hydrALAZINE 20 MG/ML VIAL. IVP PRN (20:16)
--- NOTE | 2019-10-11 21:08 | PDOC3 ---
Discharge Summary Date of Admission: Sep 26, 2019 Date of Discharge: Oct 03, 2019 Follow-Up: 3-5 days (), Other Admitting Diagnosis comment: Chief Complaint COVID-19 CRITERIA: The patient was evaluated during the global COVID-19 pandemic, and that diagnosis was suspected/considered upon their initial presentation. Their evaluation, treatment and testing was consistent with current guidelines for patients who present with complaints or symptoms that may be related to COVID-19. discharge dx Acute bibasilar infiltrates greater on the right. 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 Essential hypertension Acute encephalopathy DM2 History of Present Illness History of Present Illness 10-03-2019 Patient seen and examined on the Covid-19 unit He is on 100% nonrebreather plus a nasal cannula at 15 L Still gasping for air Appears to be actively dying Discussed with nurse Chart reviewed I also called his Sister Lyudmila and explained the situation [id number] Patient seen and examined on the Covid 19 unit Chart reviewed Discussed with RN 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 The patient was noted to have a fever of 101.9. Chest x-ray was reviewed and was consistent with pneumonia involving the lower lobes, mostly on the right lower lobe. Placed on 4 liters of oxygen. Unable to obtain much history from the patient due to his dementia. COVID-19 CRITERIA: The patient was evaluated during the global COVID-19 pandemic, and that diagnosis was suspected/considered upon their initial presentation. Their evaluation, treatment and testing were consistent with current guidelines for patients who present with complaints or symptoms that may be related to COVID-19 4/2: SARS-CoV-2 (COVID 19) POSITIVE Test. 3/4 bottles positive for GPC in clusters on blood cultures. Still on venti-mask O2, saturating 94%. 4/3: Rapid response called last night due to worsening hypoxia due to patient continually removing his venti-mask O2 and confused, thought he was at [facility] in 2019. Still on venti-mask O2 15L, saturating 94%. Conversational dyspnea. Still febrile 101.2F. TMax 102F 24 hours ago. 09/29: TMax 100.9F. Changed to daptomycin, merrem, azithomycin, hydroxychloroquine for staph / bottles positive on blood culture and SARS-CoV-2 positive. He has no complaints currently except that he wants to eat. Does have conversational dyspnea, 12L O2 on mask, won't wear mask Blood cultures positive for staph hominis. Patient is on daptomycin. Still pulling at his O2. No real complaints. Plan: I have discussed with Dr. Prieto who is seeing patient with me via telemedicine, [employer]. I have shared my physical examination findings with him to minimize physician exposure to SARS-CoV-2 (COVID 19) FINAL DIAGNOSIS Problems Medical Problems: (1) Pneumonia Status: Acute (2) Renal insufficiency Status: Acute Brief Hospital Course Mr. Cherry is a 59 old [sex] who presented with [pneumonia ] CONDITION AT DISCHARGE: / Discharge Medications Current Medications Acetaminophen (Tylenol) 1,000 mg 1X ONCE PO ; Start 09/26/19 at 12:45; Stop 09/26/19 at 12:46; Status DC Piperacillin Sod/ Tazobactam Sod 4.5 gm/Sodium Chloride 100 ml @ 200 mls/hr 1X ONCE IV ; Start 09/26/19 at 12:45; Stop 09/26/19 at 13:14; Status UNV Vancomycin HCl 250 ml @ 250 mls/hr 1X ONCE IV ; Start 09/26/19 at 12:45; Stop 09/26/19 at 13:44; Status UNV Vancomycin HCl 2 gm/Sodium Chloride 500 ml @ 250 mls/hr 1X ONCE IV Last administered on 09/26/19at 13:01; Start 09/26/19 at 12:45; Stop 09/26/19 at 14:44; Status DC Meropenem 1 gm/ Sodium Chloride 100 ml @ 200 mls/hr 1X ONCE IV Last administered on 09/26/19at 13:02; Start 09/26/19 at 12:45; Stop 09/26/19 at 13:14; Status DC Meropenem 1 gm/ Sodium Chloride 100 ml @ 200 mls/hr Q8HRS IV ; Start 09/26/19 at 14:00; Status UNV Meropenem 500 mg/ Sodium Chloride 50 ml @ 100 mls/hr Q6HRS IV Last administered on 10/02/19at 13:28; Start 09/26/19 at 18:00; Stop 10/02/19 at 13:47; Status DC Sodium Chloride (Normal Saline Flush) 3 ml QSHIFT PRN IV AFTER MEDS AND BLOOD DRAWS; Start 09/26/19 at 13:45; Stop 10/04/19 at 00:27; Status DC Sodium Chloride 1,000 ml @ 75 mls/hr [id number] IV Last administered on 09/28/19at 21:50; Start 09/26/19 at 13:42; Stop 09/29/19 at 17:09; Status DC Ondansetron HCl (Zofran) 4 mg PRN Q4HRS PRN IV NAUSEA/VOMITING; Start 09/26/19 at 13:45; Stop 10/04/19 at 00:27; Status DC Acetaminophen (Tylenol) 650 mg PRN Q4HRS PRN PO TEMP OVER 100.4F OR MILD PAIN Last administered on 10/03/19at 08:55; Start 09/26/19 at 13:45; Stop 10/04/19 at 00:27; Status DC Clonidine HCl (Catapres) 0.1 mg PRN Q6HRS PRN PO SBP>160 OR DBP>90 Last administered on 10/02/19at 20:18; Start 09/26/19 at 13:45; Stop 10/04/19 at 00:27; Status DC Sodium Monofluorophosphate (Fleet Adult) 133 ml PRN DAILY PRN TN CONSTIPATION; Start 09/26/19 at 13:45; Stop 10/04/19 at 00:27; Status DC Docusate Sodium (Colace) 100 mg PRN BID PRN PO CONSTIPATION; Start 09/26/19 at 13:45; Stop 10/04/19 at 00:27; Status DC Albuterol Sulfate (Ventolin Neb Soln) 2.5 mg PRN Q4HRS PRN NEB SHORTNESS OF BREATH; Start 09/26/19 at 13:45; Stop 10/04/19 at 00:27; Status DC Guaifenesin (Robitussin) 200 mg PRN Q4HRS PRN PO COUGH Last administered on 10/02/19at 20:17; Start 09/26/19 at 13:45; Stop 10/04/19 at 00:27; Status DC Vancomycin HCl (Vanco Per Pharmacy) 1 each PRN DAILY PRN MC SEE COMMENTS Last administered on 09/26/19at 14:30; Start 09/26/19 at 13:45; Stop 09/27/19 at 11:04; Status DC Vancomycin HCl 1.75 gm/Sodium Chloride 500 ml @ 250 mls/hr Q24H IV ; Start 09/27/19 at 13:00; Stop 09/27/19 at 11:04; Status DC Vancomycin HCl (Vancomycin Trough Level) 1 each 1X ONCE MC ; Start 09/28/19 at 12:30; Stop 09/28/19 at 12:31; Status Cancel Lorazepam (Ativan Inj) 1 mg PRN Q4HRS PRN IVP ANXIETY / AGITATION Last administered on 10/03/19at 07:13; Start 09/26/19 at 23:15; Stop 10/04/19 at 00:27; Status DC Linezolid/Dextrose 300 ml @ 300 mls/hr Q12HR IV Last administered on 09/28/19at 09:16; Start 09/27/19 at 21:00; Stop 09/28/19 at 10:52; Status DC Azithromycin 500 mg/Sodium Chloride 250 ml @ 250 mls/hr Q24H IV Last administered on 09/30/19at 12:00; Start 09/27/19 at 12:00; Stop 10/01/19 at 12:36; Status DC Daptomycin 590 mg/ Sodium Chloride 50 ml @ 100 mls/hr Q24H IV Last administered on 10/03/19at 14:32; Start 09/28/19 at 12:00; Stop 10/04/19 at 00:27; Status DC Amlodipine Besylate (Norvasc) 10 mg DAILY PO Last administered on 10/03/19at 08:55; Start 09/28/19 at 15:00; Stop 10/04/19 at 00:27; Status DC Aspirin (Ecotrin) 81 mg DAILY PO Last administered on 10/03/19at 08:56; Start 09/28/19 at 15:00; Stop 10/04/19 at 00:27; Status DC Atorvastatin Calcium (Lipitor) 20 mg HS PO Last administered on 10/02/19 20:17; Start 09/28/19 at 21:00; Stop 10/04/19 at 00:27; Status DC Hydralazine HCl (Apresoline) 25 mg TID PO Last administered on 10/03/19 08:56; Start 09/28/19 at 15:00; Stop 10/04/19 at 00:27; Status DC Tamsulosin HCl (Flomax) 0.4 mg QHS PO Last administered on 10/02/19 20:17; Start 09/28/19 at 21:00; Stop 10/04/19 at 00:27; Status DC Carvedilol (Coreg) 25 mg BIDWMEALS PO Last administered on 10/03/19 08:56; Start 09/28/19 at 17:00; Stop 10/04/19 at 00:27; Status DC Olanzapine (ZyPREXA IM) 10 mg 1X ONCE IM Last administered on 09/28/19at 14:55; Start 09/28/19 at 14:15; Stop 09/28/19 at 14:16; Status DC Olanzapine (ZyPREXA ZYDIS) 5 mg PRN BID PRN PO anxiety/agitation Last administered on 10/02/19 20:17; Start 09/28/19 at 14:15; Stop 10/04/19 at 00:27; Status DC Lactobacillus Rhamnosus (Culturelle) 1 cap BID PO Last administered on 10/03/19 08:56; Start 09/28/19 at 21:00; Stop 10/04/19 at 00:27; Status DC Hydroxychloroquine Sulfate (Plaquenil) 200 mg BID PO ; Start 09/29/19 at 21:00; Stop 10/03/19 at 09:01; Status Cancel Hydroxychloroquine Sulfate (Plaquenil) 400 mg BID PO Last administered on 09/29/19at 09:00; Start 09/28/19 at 19:00; Stop 09/29/19 at 09:01; Status DC Acetaminophen (Tylenol Supp) 650 mg PRN Q6HRS PRN TN MILD PAIN / TEMP Last administered on 09/29/19 02:14; Start 09/29/19 at 02:00; Stop 10/04/19 at 00:27; Status DC Hydroxychloroquine Sulfate (Plaquenil (Med Program)) 200 mg BID PO Last administered on 10/03/19at 08:55; Start 09/29/19 at 21:00; Stop 10/03/19 at 09:01; Status DC Dextrose 1,000 ml @ 75 mls/hr [id number] IV Last administered on 10/03/19 20:19; Start 09/29/19 at 18:00; Stop 10/04/19 at 00:27; Status DC Dextrose 1,000 ml @ 50 mls/hr 1X ONCE IV ; Start 10/01/19 at 10:30; Stop 10/02/19 at 06:29; Status DC Hydralazine HCl (Apresoline Inj) 10 mg PRN Q4HRS PRN IVP ELEVATED BP, SEE COMMENTS Last administered on 10/03/19at 20:16; Start 10/01/19 at 13:45; Stop 10/03 at 00:27; Status DC Morphine Sulfate (Morphine Sulfate) 2 mg PRN Q2HR PRN IV PAIN Last administered on 10/03/19at 21:02; Start 10/03/19 at 14:00; Stop 10/04/19 at 00:27; Status DC Active Scripts Active Mupirocin Ointment (Mupirocin) 22 Gm Oint...g. 1 Bill TP DAILY 14 Days Reported Tylenol (Acetaminophen) 325 Mg Tablet 1-2 Tab PO PRN Q4HRS PRN Aspir-Low (Aspirin) 81 Mg Tablet.dr 1 Tab PO DAILY Atorvastatin Calcium 20 Mg Tablet 20 Mg PO HS Hydralazine Hcl 25 Mg Tablet 1 Tab PO TID Amlodipine Besylate 10 Mg Tablet 10 Mg PO DAILY Coreg (Carvedilol) 25 Mg Tablet 25 Mg PO BIDWMEALS Flomax (Tamsulosin Hcl) 0.4 Mg Cap.er.24h 1 Cap PO QHS Vitamin D2 (Ergocalciferol (Vitamin D2)) 50,000 Unit Capsule 1 Cap PO QMTH Allergies Allergies Coded Allergies Type Severity Reaction Last Updated Verified ceftriaxone Allergy Intermediate 09/28/18 Yes Disposition/Orders: ALLEN IVORY MD Oct 11, 2019 21:08
== END 2019-10-03 21:28 | disposition expired | DRG 177 ==
LOC: ER 11:17 → 2 SOUTH 12:53 → 6 SOUTH 09-27 19:25 → 1 WEST ICU 09-30 12:47 → 6 SOUTH 09-30 15:54
PROVIDERS: ADMIT Family Medicine; ATTEND Family Medicine
DX: U07.1 COVID-19 (principal); J96.01 Acute respiratory failure with hypoxia; J12.89 Other viral pneumonia; E87.0 Hyperosmolality and hypernatremia; G93.40 Encephalopathy, unspecified; R78.81 Bacteremia; N17.9 Acute kidney failure, unspecified; B96.89 Other specified bacterial agents as the cause of diseases classified elsewhere; B95.7 Other staphylococcus as the cause of diseases classified elsewhere; E11.9 Type 2 diabetes mellitus without complications; E78.00 Pure hypercholesterolemia, unspecified; I49.9 Cardiac arrhythmia, unspecified; E78.5 Hyperlipidemia, unspecified; F03.90 Unspecified dementia, unspecified severity, without behavioral disturbance, psychotic disturbance, mood disturbance, and anxiety; I10 Essential (primary) hypertension; N40.0 Benign prostatic hyperplasia without lower urinary tract symptoms; Z82.49 Family history of ischemic heart disease and other diseases of the circulatory system; Z86.73 Personal history of transient ischemic attack (TIA), and cerebral infarction without residual deficits; Z87.891 Personal history of nicotine dependence; Z79.899 Other long term (current) drug therapy; Z88.8 Allergy status to other drugs, medicaments and biological substances
CPT/HCPCS: 36415; 71045; 80048; 80053; 81001; 82805; 82962; 83605; 83880; 85025; 87040; 87077; 87205; 87635; 87804; 96365; 96368; J0360; J0456; J0878; J2020; J2060; J2185; J2270; J3370; J3490; J7030; J7040; J7050; J7060; 99285-25; G0378